=== PATIENT | female | born 1965 | race Caucasian/White ===

== ENCOUNTER 2016-07-09 22:33 | Inpatient (IN) ==
[2016-07-09 23:28] LABS: MANUAL DIFF NEEDED? NO
[2016-07-09 23:51] LABS: EOS# 1.16 X1000 (0.0-0.7); HEMATOCRIT 34.4 % (37.0-47.0); HEMOGLOBIN 11.8 g/dL (12.0-16.0); IMM GRAN# 0.05 X1000 (0.0-0.04); IMM GRAN% 0.4 % (0.0-0.5); LYMPH# 1.68 X1000 (1.2-3.4); LYMPH% 14.5 % (20.5-51.1); MCH 26.6 PG (27-31); MCHC 34.3 g/dL (33-37); MCV 77.7 FL (81-99); MONO# 0.65 X1000 (0.11-0.59); MONO% 5.6 % (1.7-9.3); MPV 9.4 FL (7.4-10.4); NEUT% 68.5 % (42.2-75.2); PLT 460 X1000 (130-400); RBC 4.43 XMIL (4.2-5.4)
[2016-07-09 23:59] LABS: ALBUMIN 2.8 g/dL (3.5-5.0); CALCIUM 8.5 mg/dL (8.8-10.2); POTASSIUM 3.7 mmol/L (3.5-5.1); TOTAL BILIRUBIN 0.11 mg/dL (0.20-1.00); TOTAL PROTEIN 6.8 g/dL (6.3-8.3)
[2016-07-10] MEDS ORDERED: VANCOMYCIN 1 GM/NS 1 GM/250 ML IVPB IV ONE (00:38)
[2016-07-10] MEDS ORDERED: NS 1,000 ML IV ONE (00:39)
[2016-07-10] MEDS ORDERED: ZOFRAN IV ONE (00:39)
[2016-07-10] MEDS ORDERED: MORPHINE IV ONE (00:39)
[2016-07-10] MEDS ORDERED: ROCEPHIN 2 GM/NS 2 GM/50 ML IVPB IV ONE (00:39)
[2016-07-10 00:59] LABS: ALLEN TEST YES; BE -2.4 mmoll (-3.0-3.0); BLOOD TYPE ARTERIAL; DRAW SITE R RADIAL; O2(CT) 15.6 mL/dL (15.0-23.0); PCO2(98.6) 42 mmHg (35-45); PO2(98.6) 82 mmHg (60-100); SAMPLE BLOOD; SAO2 96.6 % (95.0-100.0); THB 11.5 g/dL (11.5-17.4); pH(98.6) 7.35 (7.35-7.45)
[2016-07-10 01:00] LABS: MODALITY ROOM AIR
[2016-07-10 01:11] LABS: URINE CULTURE NEEDED? NO; URINE MICRO REVIEW NEEDED? NO; URINE SOURCE CLEAN CATCH
[2016-07-10 01:14] LABS: BILIRUBIN URINE NEGATIVE (NEGATIVE); BLOOD URINE SMALL (NEGATIVE); COLOR STRAW; GLUCOSE URINE >1000 mg/dL (NEGATIVE); LEUKOCYTES URINE NEGATIVE (NEGATIVE); NITRITE URINE NEGATIVE (NEGATIVE); PH URINE 6.5; PROTEIN URINE 300 mg/dL (NEGATIVE); SP GRAVITY URINE 1.019; TURBIDITY URINE CLEAR (CLEAR); UROBILINOGEN URINE NORMAL (NORMAL)
[2016-07-10] MEDS ORDERED: HUMULIN R IV ONE (01:14)
[2016-07-10 01:15] LABS: UR EPITHELIAL CELLS <10 /HPF (<10); URINE BACTERIA NEGATIVE /HPF; URINE WBC <10 /HPF (<10)
--- NOTE | 2016-07-10 01:20 | PROVIDER DOCUMENTATION ---
HPI-Rash/Wound/ReCheck - General Chief Complaint: Sores/Lesions Stated Complaint: DIABETIC FOOT INFECTION Time Seen by Provider: 07/10/16 00:14 Source: patient Allergies/Adverse Reactions: Allergies Allergy/AdvReac Type Severity Reaction Status Date / Time amoxicillin Allergy ITCHING Verified 07/09/16 23:11 tramadol Allergy HEADACHE Verified 07/09/16 23:11 Home Medications: Home Medication List Medication Instructions Recorded Confirmed Last Taken Type Gabapentin 800 mg PO TID 11/27/14 07/10/16 07/09/16 History Insulin Glargine [Lantus] 42 unit SUBQ QAM 07/17/15 07/10/16 07/05/16 History Omeprazole 20 mg PO DAILY 07/17/15 07/10/16 07/05/16 History Duloxetine [Cymbalta] 60 mg PO DAILY 09/10/15 07/10/16 07/07/16 History Insulin Glargine [Lantus] 42 units SQ QHS 02/20/16 07/10/16 07/05/16 History Levothyroxine Sodium [Synthroid] 100 microgm PO DAILY 02/20/16 07/10/16 History Furosemide [Lasix] 40 mg PO DAILY 04/04/16 07/10/16 07/07/16 History Metformin HCl [Metformin HCl] 500 mg PO BID CC 06/12/16 07/10/16 07/05/16 History Metoprolol [Lopressor] 50 mg PO DAILY 06/12/16 07/10/16 07/09/16 History Tolterodine Tartrate [Detrol LA] 4 mg PO DAILY 06/12/16 07/10/16 07/07/16 History Pilocarpine [Salagen] 5 mg PO TID #90 06/25/16 07/10/16 07/07/16 Rx Sodium Hypochlorite 0.25% [Dakin's 473 ml .SEE ORDER BID #1 bottle 06/25/1607/05/16 Rx 0.25% Soln] Duloxetine [Cymbalta] 60 mg PO DAILY 07/10/16 07/10/16 07/07/16 History - History of Present Illness-Dermatology Nature of Presenting Problem: 51 year old obese WF presents with c/o right 2nd toe swelling, tenderness and erythema spreading to the mid-calf. pt reports she was evaluated here for same the 1st week in June, admission was recommended, she refused because her daughter was graduating from college. pt now reports the wound has worsened and this morning she was taking off a dressing and the tip of the toe came off. pt reports associated fever, max temp 104 at home, chills, nausea and decreased appetite. pt reports she has been out of insulin for a week. she receives care at the [facility] and has recently had to prove qualification and has missed appointments. Location: reports: feet Quality: reports: painful Severity: reports: moderate, severe Onset/Duration: reports: other (see HPI) Timing: reports: still present, constant, getting worse Context/Associated Symptoms: reports: abscess (diabetic ulcer), edema, fever, tender area Identifiable cause?: Yes Review of Systems - Adult - REVIEW OF SYSTEMS - ADULT Constitutional: reports: see HPI, chills, fever. denies: fatique Eyes: reports: no symptoms reported. denies: discharge, blurred vision, double vision, redness Ears, Nose, Mouth & Throat: reports: no symptoms reported. denies: ear discharge, ear pain, nose pain, loose teeth, throat pain, throat swelling Cardiovascular: reports: no symptoms reported. denies: chest pain, palpitations , syncope Respiratory: reports: no symptoms reported. denies: chronic cough, cough, shortness of breath, wheezing Gastrointestinal: reports: see HPI, nausea, poor appetite. denies: abdominal pain, diarrhea, vomiting Genitourinary: reports: no symptoms reported. denies: dysuria, hematuria, urgency Musculoskeletal: reports: see HPI, bone pain, joint pain, joint swelling Integumentary: reports: see HPI, rash, skin sores/ulcer Neurological: reports: no symptoms reported. denies: ataxia, numbness, paresthesia Psychiatric: reports: no symptoms reported Endocrine: reports: no symptoms reported Hematologic/Lymphatic: reports: no symptoms reported Allergic/Immunologic: reports: no symptoms reported All Other Systems: Reviewed and Negative Past History - Adult - PAST MEDICAL HISTORY-ADULT Review of Records: reports: Old Records Reviewed, Nursing Assessment Review, Medications Reviewed, Social history reviewed & non-contributory. Major Childhood Illnesses: reports: denies history Cardiovascular: reports: HTN, hyperlipidemia Respiratory: reports: asthma Gastrointestinal: reports: denies history Obstetrical/Gynecological: reports: denies history Genitourinary: reports: denies history Musculoskeletal: reports: denies history Neurological: reports: denies history Endocrine/Immune: reports: Diabetes, thyroid disorder Other Conditions: reports: other (diabetic retinopathy) - PRIOR SURGERIES/PROCEDURES Surgical/Procedure History: reports: BTL, , other (thyroidectomy) - IMMUNIZATION STATUS Childhood Immunizations: See Nurse Assessment Flu Vaccine: See Nurse Assessment - FAMILY HISTORY Family History: reviewed, not pertinent Physical Exam-General - PHYSICAL EXAM-ADULT Initial Vital Signs Reviewed: Yes - CONSTITUTIONAL General Appearance: appears well, alert, no apparent distress, obese. negative : mild distress, moderate distress, severe distress - EYES Eyes: pink conjunctivae. negative: conjuctival exudate, sclera injected, scleral icterus, subconjunctival hemorrhage - HEAD, EARS, NOSE, MOUTH & THROAT HENMT: normocephalic/atraumatic, moist mucous membranes - NECK Neck: non-tender, full range of motion, supple, normal inspection. negative: C- spine tenderness, limited range of motion, tender lateral, tender midline - RESPIRATORY Respiratory: chest non-tender, lungs clear, normal breath sounds, no pleuratic chest pain, no respiratory distress, no accessory muscle use. negative: respiratory distress, decreased breath sounds, accessory muscle use, crackles, rales, rhonchi, stridor, wheezing - CARDIOVASCULAR Cardiovascular: normal peripheral pulses, regular rate, rhythm - GASTROINTESTINAL (ABDOMEN) Abdominal Exam: normal bowel sounds, non tender, soft - MUSCULOSKELETAL Back Exam: normal inspection, no CVA tenderness, no vertebral tenderness. negative: CVA tenderness, decreased range of motion, swelling, vertebral tenderness Extremity: swelling, tenderness, other (distal tip of right 2nd toe missing with visualization of bone; profound surrounding erythema/maceration. erythema to right lower extremity from toes to mid calf. +[address]) Peripheral Pulses: radial (R): 3+, radial (L): 3+, dorsalis-pedis (R): 3+, dorsalis-pedis (L): 3+ - SKIN Integumentary: normal color, normal turgor, warm/dry - NEUROLOGIC Neurologic: grossly normal, no motor/sensory deficits - PSYCHIATRIC Psych/Mental Status: normal mood/affect, normal thought content, normal thought process, oriented x 3 Progress - PLAN OF CARE/RESULTS Progress/Plan/Lab Results: Vital Signs - 8 hr 07/09/16 23:09 Temperature 97.9 F Pulse Rate 82 Respiratory Rate 17 Blood Pressure 215/84 O2 Sat by Pulse Oximetry 99 Laboratory Results - last 24 hr 07/09/16 07/09/16 07/10/16 23:17 23:17 00:45 WBC 11.59 H RBC 4.43 Hgb 11.8 L Hct 34.4 L MCV 77.7 L MCH 26.6 L MCHC 34.3 RDW Std Deviation 14.8 H Plt Count 460 H MPV 9.4 Immature Gran % (Auto) 0.4 Neut % (Auto) 68.5 Lymph % (Auto) 14.5 L [place] % (Auto) 5.6 Eos % (Auto) 10.0 Baso % (Auto) 1.0 H Immature Gran # (Auto) 0.05 H Neut # (Auto) 7.93 H Lymph # (Auto) 1.68 [place] # (Auto) 0.65 H Eos # (Auto) 1.16 H Baso # (Auto) 0.12 Specimen Type ARTERIAL Sample Site R RADIAL pH 7.35 pCO2 42 pO2 82 HCO3 23.0 Base Excess -2.4 Oxyhemoglobin 95.7 ABG O2 Sat (Calculated) 15.6 ABG O2 Saturation 96.6 ABG Carboxyhemoglobin 0.90 ABG Methemoglobin 0.0 Kris Test YES A-a O2 Difference 15.0 Total Hemoglobin 11.5 Lactate 1.60 Blood Gas Modality ROOM AIR FiO2 % 21.0 Sodium 132 L Potassium 3.7 Chloride 96 L Carbon Dioxide 22 L Anion Gap 14 BUN 18 Creatinine 1.4 H Estimated GFR/1.73 m2 40 BUN/Creatinine Ratio 13 Glucose 514 H* Calculated Osmolality 290 Calcium 8.5 L Total Bilirubin 0.11 L AST 11 ALT 10 Alkaline Phosphatase 100 Total Protein 6.8 Albumin 2.8 L Globulin 4.0 Albumin/Globulin Ratio 0.7 Urine Source Urine Color Urine Turbidity Urine pH Ur Specific [place] Urine Protein Ur Glucose (Stick) Ur Ketones (Stick) Urine Blood Urine Nitrite Urine Bilirubin Urobilinogen Dipstick Urine Leukocytes Urine WBC (Auto) Urine RBC (Auto) U Epithel Cells (Auto) Urine Bacteria (Auto) Acetone Level 07/10/16 07/10/16 00:45 01:10 WBC RBC Hgb Hct MCV MCH MCHC RDW Std Deviation Plt Count MPV Immature Gran % (Auto) Neut % (Auto) Lymph % (Auto) [place] % (Auto) Eos % (Auto) Baso % (Auto) Immature Gran # (Auto) Neut # (Auto) Lymph # (Auto) [place] # (Auto) Eos # (Auto) Baso # (Auto) Specimen Type Sample Site pH pCO2 pO2 HCO3 Base Excess Oxyhemoglobin ABG O2 Sat (Calculated) ABG O2 Saturation ABG Carboxyhemoglobin ABG Methemoglobin Kris Test A-a O2 Difference Total Hemoglobin Lactate Blood Gas Modality FiO2 % Sodium Potassium Chloride Carbon Dioxide Anion Gap BUN Creatinine Estimated GFR/1.73 m2 BUN/Creatinine Ratio Glucose Calculated Osmolality Calcium Total Bilirubin AST ALT Alkaline Phosphatase Total Protein Albumin Globulin Albumin/Globulin Ratio Urine Source CLEAN CATCH Urine Color STRAW Urine Turbidity CLEAR Urine pH 6.5 Ur Specific [place] 1.019 Urine Protein 300 A Ur Glucose (Stick) >1000 A Ur Ketones (Stick) NEGATIVE Urine Blood SMALL A Urine Nitrite NEGATIVE Urine Bilirubin NEGATIVE Urobilinogen Dipstick NORMAL Urine Leukocytes NEGATIVE Urine WBC (Auto) <10 Urine RBC (Auto) 10-20 A U Epithel Cells (Auto) <10 Urine Bacteria (Auto) NEGATIVE Acetone Level NEGATIVE Orders Category Date Time Status Saline Loc NOW Care 07/10/16 00:40 Active CHEST-2 VIEWS [RAD] Stat Exams 07/10/16 00:35 Taken TOE(S)-RIGHT [RAD] Stat Exams 07/10/16 00:36 Taken ABG [RESP] Routine Lab 07/10/16 00:45 Completed ACETONE SERUM [CHEM] Stat Lab 07/10/16 00:45 Completed BLOOD CULTURE [BLDCUL] Stat Lab 07/10/16 00:16 Ordered CBC WITH ELECTRONIC DIFF [HEME] Stat Lab 07/09/16 23:17 Completed CMP [COMPREHENSIVE METABOLIC PANEL] [CHEM] Stat Lab 07/09/16 23:17 Completed LACTATE, PLASMA [CHEM] Stat Lab 07/10/16 01:15 Received UA NIMS W/REFLEX CULT [URINALYSIS] Stat Lab 07/10/16 01:10 Completed 0.9% Sodium Chloride Inj [Ns] 1,000 ml Med 07/10/16 00:39 Active IV 999 mls/hr CefTRIAXONE 2 GM/NS [Rocephin 2 gm/Ns] Med 07/10/16 00:39 Discontinued 2 gm in 50 ml IV NOW Insulin Human Regular [Humulin R] Med 07/10/16 01:14 Discontinued 5 unit IV NOW ONE Morphine Med 07/10/16 00:39 Discontinued 2 mg IV NOW ONE Ondansetron [Zofran] Med 07/10/16 00:39 Discontinued 4 mg IV NOW ONE Vancomycin 1 gm/Ns Med 07/10/16 00:38 Active 1 gm in 250 ml IV NOW EKG [EKG] Stat Ther 07/10/16 00:35 Ordered US [Venous U/S Right Leg] Stat Ther 07/10/16 00:40 Ordered Laboratory Tests 07/09/16 07/09/16 07/10/16 23:17 23:17 00:45 WBC 11.59 H RBC 4.43 Hgb 11.8 L Hct 34.4 L MCV 77.7 L MCH 26.6 L MCHC 34.3 RDW Std Deviation 14.8 H Plt Count 460 H MPV 9.4 Immature Gran % (Auto) 0.4 Neut % (Auto) 68.5 Lymph % (Auto) 14.5 L [place] % (Auto) 5.6 Eos % (Auto) 10.0 Baso % (Auto) 1.0 H Immature Gran # (Auto) 0.05 H Neut # (Auto) 7.93 H Lymph # (Auto) 1.68 [place] # (Auto) 0.65 H Eos # (Auto) 1.16 H Baso # (Auto) 0.12 Specimen Type ARTERIAL Sample Site R RADIAL pH 7.35 pCO2 42 pO2 82 HCO3 23.0 Base Excess -2.4 Oxyhemoglobin 95.7 ABG O2 Sat (Calculated) 15.6 ABG O2 Saturation 96.6 ABG Carboxyhemoglobin 0.90 ABG Methemoglobin 0.0 Kris Test YES A-a O2 Difference 15.0 Total Hemoglobin 11.5 Lactate 1.60 Blood Gas Modality ROOM AIR FiO2 % 21.0 Sodium 132 L Potassium 3.7 Chloride 96 L Carbon Dioxide 22 L Anion Gap 14 BUN 18 Creatinine 1.4 H Estimated GFR/1.73 m2 40 BUN/Creatinine Ratio 13 Glucose 514 H* Calculated Osmolality 290 Calcium 8.5 L Total Bilirubin 0.11 L AST 11 ALT 10 Alkaline Phosphatase 100 Total Protein 6.8 Albumin 2.8 L Globulin 4.0 Albumin/Globulin Ratio 0.7 Urine Source Urine Color Urine Turbidity Urine pH Ur Specific [place] Urine Protein Ur Glucose (Stick) Ur Ketones (Stick) Urine Blood Urine Nitrite Urine Bilirubin Urobilinogen Dipstick Urine Leukocytes Urine WBC (Auto) Urine RBC (Auto) U Epithel Cells (Auto) Urine Bacteria (Auto) Acetone Level 07/10/16 07/10/16 00:45 01:10 WBC RBC Hgb Hct MCV MCH MCHC RDW Std Deviation Plt Count MPV Immature Gran % (Auto) Neut % (Auto) Lymph % (Auto) [place] % (Auto) Eos % (Auto) Baso % (Auto) Immature Gran # (Auto) Neut # (Auto) Lymph # (Auto) [place] # (Auto) Eos # (Auto) Baso # (Auto) Specimen Type Sample Site pH pCO2 pO2 HCO3 Base Excess Oxyhemoglobin ABG O2 Sat (Calculated) ABG O2 Saturation ABG Carboxyhemoglobin ABG Methemoglobin Kris Test A-a O2 Difference Total Hemoglobin Lactate Blood Gas Modality FiO2 % Sodium Potassium Chloride Carbon Dioxide Anion Gap BUN Creatinine Estimated GFR/1.73 m2 BUN/Creatinine Ratio Glucose Calculated Osmolality Calcium Total Bilirubin AST ALT Alkaline Phosphatase Total Protein Albumin Globulin Albumin/Globulin Ratio Urine Source CLEAN CATCH Urine Color STRAW Urine Turbidity CLEAR Urine pH 6.5 Ur Specific [place] 1.019 Urine Protein 300 A Ur Glucose (Stick) >1000 A Ur Ketones (Stick) NEGATIVE Urine Blood SMALL A Urine Nitrite NEGATIVE Urine Bilirubin NEGATIVE Urobilinogen Dipstick NORMAL Urine Leukocytes NEGATIVE Urine WBC (Auto) <10 Urine RBC (Auto) 10-20 A U Epithel Cells (Auto) <10 Urine Bacteria (Auto) NEGATIVE Acetone Level NEGATIVE Orders Category Date Time Status Saline Loc NOW Care 07/10/16 00:40 Active CHEST-2 VIEWS [RAD] Stat Exams 07/10/16 00:35 Taken TOE(S)-RIGHT [RAD] Stat Exams 07/10/16 00:36 Taken ABG [RESP] Routine Lab 07/10/16 00:45 Completed ACETONE SERUM [CHEM] Stat Lab 07/10/16 00:45 Completed BLOOD CULTURE [BLDCUL] Stat Lab 07/10/16 00:16 Ordered CBC WITH ELECTRONIC DIFF [HEME] Stat Lab 07/09/16 23:17 Completed CMP [COMPREHENSIVE METABOLIC PANEL] [CHEM] Stat Lab 07/09/16 23:17 Completed LACTATE, PLASMA [CHEM] Stat Lab 07/10/16 01:15 Received UA NIMS W/REFLEX CULT [URINALYSIS] Stat Lab 07/10/16 01:10 Completed 0.9% Sodium Chloride Inj [Ns] 1,000 ml Med 07/10/16 00:39 Active IV 999 mls/hr CefTRIAXONE 2 GM/NS [Rocephin 2 gm/Ns] Med 07/10/16 00:39 Discontinued 2 gm in 50 ml IV NOW Insulin Human Regular [Humulin R] Med 07/10/16 01:14 Discontinued 5 unit IV NOW ONE Morphine Med 07/10/16 00:39 Discontinued 2 mg IV NOW ONE Ondansetron [Zofran] Med 07/10/16 00:39 Discontinued 4 mg IV NOW ONE Vancomycin 1 gm/Ns Med 07/10/16 00:38 Active 1 gm in 250 ml IV NOW EKG [EKG] Stat Ther 07/10/16 00:35 Ordered US [Venous U/S Right Leg] Stat Ther 07/10/16 00:40 Ordered Vital Signs - 24 hr 07/09/16 23:09 Temperature 97.9 F Pulse Rate 82 Respiratory Rate 17 Blood Pressure 215/84 O2 Sat by Pulse Oximetry 99 Reviewed radiology, labs, H&P with Dr. Raman, agrees with plan of care/ treatment/admission. Result Diagrams: 07/09/16 23:17 07/09/16 23:17 - XRAY 1 XRAY Study: Chest Impression: Normal (per Dr. Raman) 2 XRAY: Right XRAY Study: other (toes: osteomylitis to 2nd toe per Dr. Raman) - ULTRASOUND (By Radiology) 1 US Study: Lower Ext (right: no DVT per tech) - CONSULTS/PCP/HOSPITALIST Notification #1 *Consult/PCP/Hospitalist*: Dr. Sheffield Time Discussed: 01:40 Consult Disposition: Will see in ED, Admit Departure - Departure Time of Disposition Decision: 01:15 DIAGNOSIS: Cellulitis Qualifiers: Site of cellulitis: extremity Site of cellulitis of extremity: toe Laterality: right Qualified Code(s): L03.031 - Cellulitis of right toe Osteomyelitis Qualifiers: Osteomyelitis type: other Osteomyelitis location: foot Laterality: right Qualified Code(s): M86.8X7 - Other osteomyelitis, ankle and foot Hyperglycemia due to type 2 diabetes mellitus Qualifiers: Diabetes mellitus shearing shed hand insulin use: with shearing shed hand use Qualified Code(s): E11.65 - Type 2 diabetes mellitus with hyperglycemia; Z79.4 - supervisor carbon electrodes (current ) use of insulin Disposition: ADMITTED INPATIENT 09 Certified Medical Emergency: Emergent Condition: Stable Referrals and Follow-Ups: None,PCP [Primary Care Provider] - - Critical Care Note This patient required my direct & personal management of CC.: No Attestation - Physician/ SRUTHI Attestation Patient care was provided by Advanced Practice Provider:: Yes Advanced Practice Provider:: Nilton Petty Advanced Practice Provider documentation review:: The Mid-level provider documentation, treatment plan and medical decision making was reviewed by the physician who agrees with all treatment and medical decision making by the MLP.
[2016-07-10] MEDS ORDERED: TYLENOL PO PRN (03:57)
[2016-07-10] MEDS ORDERED: ZOFRAN IV PRN (03:57)
[2016-07-10] MEDS ORDERED: VANCOMYCIN IV PER PHARMACY MISC SCH (03:57)
[2016-07-10] MEDS ORDERED: MAXIPIME 1 GM/NS 1 GM/50 ML IVPB IV SCH (03:57)
[2016-07-10] MEDS: BENADRYL IV PRN ×4 (04:00→23:34)
[2016-07-10] MEDS: NS 1,000 ML IV SCH ×2 (05:21→21:42)
[2016-07-10] MEDS: HUMALOG SUBQ SCH ×6 (05:22→23:34)
[2016-07-10] MEDS: SYNTHROID PO SCH (06:34)
--- NOTE | 2016-07-10 07:20 | Diag Imaging Result Doc PS360 ---
EXAM: CHEST-2 VIEWS HISTORY: admission COMPARISON: 02/20/2016. FINDINGS: The lungs are well expanded. The heart is not enlarged. The vessels are not distended. There are no infiltrates. No pleural effusions. IMPRESSION: No acute abnormality. Electronically signed by Magdaleno Lovell 07/10/2016 7:18 AM
--- NOTE | 2016-07-10 07:52 | Diag Imaging Result Doc PS360 ---
TOE(S)-RIGHT - 07/10/2016 INDICATION: eval for osteo 2nd toe COMPARISON: 06/12/2016 FINDINGS: There is worsening, severe soft tissue swelling over the second toe. There appears to be ulceration at the distal second toe. Related to this, there is erosion of the distal half of the distal phalanx of the second toe. There is also a transverse fracture through the middle phalanx which is mildly displaced. No soft tissue gas or foreign body. IMPRESSION: 1. Worsening cellulitis of the second toe, with osteomyelitis and erosion of the distal half of the distal phalanx. 2. Transverse fracture through the middle phalanx of the second toe. Electronically signed by Anton Dixon 07/10/2016 7:49 AM
[2016-07-10] MEDS ORDERED: VANCOMYCIN 1,400 MG in NS 250 ML IV ONE (08:00)
[2016-07-10] MEDS: SALAGEN PO SCH ×3 (10:08→21:43)
[2016-07-10] MEDS: NORVASC PO SCH (10:08)
[2016-07-10] MEDS: LOPRESSOR PO SCH (10:08)
[2016-07-10] MEDS: DETROL LA PO SCH (10:08)
[2016-07-10] MEDS: CYMBALTA PO SCH (10:09)
[2016-07-10] MEDS: NEURONTIN PO SCH ×3 (10:09→21:43)
[2016-07-10] MEDS: LANTUS SUBQ SCH ×2 (10:11→21:54)
[2016-07-10] MEDS: MORPHINE IV PRN ×4 (11:43→21:44)
--- NOTE | 2016-07-10 14:01 | Extremity Venous Study ---
PROCEDURE NAME: Venous U/S Right Leg - 07/10/2016 MANAGER SHIP: Josie REQUESTING PHYSICIAN: Charla Raman MD INDICATIONS: Infected diabetic toe. FINDINGS: All deep and superficial veins in the right lower extremity were visualized along their course. All veins compressible with forward flow. No evidence of intraluminal thrombus. There is some prominent lymphadenopathy in the right groin noted, but no deep or superficial venous thrombosis seen. cc: Riddhi Alaniz MD
--- NOTE | 2016-07-10 16:10 | CONSULTATION ---
DATE OF CONSULTATION: 07/10/2016 CONCLUSION: Patient is admitted to the hospital with osteomyelitis of the right 2nd toe. She has a positive blood culture for Gram-positive cocci, which I assume most likely originated from the toe infection. The patient's whole right leg is swollen. She has previously been tested for a blood clot in the leg and it was negative. RECOMMENDATIONS: I agree with treating the patient with vancomycin. For now, I think we can discontinue cefepime, pending final culture results. DISCUSSION: The patient tells me that approximately 6 weeks ago her right 2nd toe became swollen and erythematous. It became progressively worse and then developed a black color. The patient ultimately was admitted to the hospital here for gangrenous cellulitis of the toe and x-ray of the toe shows osteomyelitis. Chest x-ray shows no acute disease. Urinalysis shows no white cells or bacteria. One of 2 blood cultures is growing a Gram-positive coccus. The patient's blood gases show a pH of 7.35, PO2 of 82, and a pCO2 of 42. CBC shows a white count of 11, 590, hemoglobin 11.8, and platelet count 460,000. Creatinine is 1.4. The GFR is 40. PAST MEDICAL HISTORY/OBSTETRICAL AND GYNECOLOGICAL HISTORY: She is a 3 , para 3, AB 0. She delivered all of her children by . She has a tubal ligation. REVIEW OF SYSTEMS: Ears and Ears: The patient wears contacts, but her hearing is okay. Neck: No stiffness. Respiratory: No cough or shortness of breath. Cardiovascular: No chest pain or palpitations. Gastrointestinal: No nausea, vomiting, or diarrhea. Genitourinary: No dysuria. Bones, joints, muscles: No joint swelling or myalgias. Neurologic: No seizures or loss of strength. Endocrine: Patient has diabetes mellitus and hypothyroidism. Integument: No rash. The remainder of the review of systems was completed and was negative. PREVIOUS HOSPITALIZATIONS AND OPERATIONS: She has had the left side of her thyroid removed. She has had 3 sections and a tubal ligation. MEDICAL DISEASES: Positive for diabetes mellitus and hypertension. INFECTIOUS DISEASE HISTORY: Patient has previously had an infection in her left foot. She has also had pneumonia and urinary tract infection. FAMILY HISTORY: Positive for diabetes mellitus, hypertension, myocardial infarction, and stroke. SOCIAL HISTORY: [place] She does not drink or smoke. She is . She has dogs for pets. She lives with her daughter. 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 ALLERGIES: She has an allergy to amoxicillin, manifested by itching. She has been on cefepime since she came in the hospital and she tolerated it well. HOME MEDICATIONS: Omeprazole, Cymbalta, Salagen, Lasix, Lantus, gabapentin, Synthroid, Lopressor, metformin, and Detrol LA. ADDENDUM: See later dictation done today for physical examination. Thank you for the consult. cc: Sachin Petty MD MTDD
--- NOTE | 2016-07-10 18:31 | CONSULTATION ---
DATE OF CONSULTATION: 07/10/2016 HISTORY OF PRESENT ILLNESS: This is a 51-year-old, white female, with a history of poorly- controlled diabetes, hypertension, who presents with right 2nd toe wound. It is quite painful. She has had subjective fevers at home. She has been admitted to medicine service and started on IV antibiotics. She has had no symptoms of peripheral vascular disease. She does have some neuropathy symptoms. Has not sought care for from this wound of recent. MEDICAL HISTORY: 1. Diabetes. 2. History of thyroid nodule, status post thyroid lobectomy. 3. Hyperlipidemia. 4. Gastroesophageal reflux. 5. Hypertension. 6. Depression. 7. Bladder issues. PAST SURGICAL HISTORY: She had x3, tubal ligation, and a thyroid lobectomy. MEDICATIONS: Negative for anticoagulant; otherwise, per her MAR. SOCIAL HISTORY: Never smoke. Occasional alcohol. No drugs. 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 REVIEW OF SYSTEMS: 10 point negative other than HPI PHYSICAL EXAMINATION: Vital Signs: Temperature is 98.1 degrees, pulse 84, blood pressure 143/64, O2 saturation 95% on room air. General: She is alert, in no acute distress. HEENT: No scleral icterus. Cardiovascular: Normal rate and regular rhythm. Pulmonary: No increased work of breathing. Abdomen: Soft, nontender, nondistended. Extremities: Left foot is warm, well perfused with 2+ pedal pulses. No wounds here, but some flattening of the plantar arch consistent with diabetic changes on the right. There is a necrotic, erythematous, and swollen nonfunctional right 2nd toe. There is some edema and some mild cellulitis of distal leg and foot, but no progression of necrosis of the foot. The foot otherwise warm with palpable pedal pulses. They are mildly diminished relative to the left due to the edema that is present. LABS: White count is 11, hematocrit 34, creatinine is 1.4. Glucose was 514 at admission, is down to 97. Lactate is 1.2. IMAGING: X-ray of the foot shows osteomyelitis with erosion in the distal half of the distal phalanx and a transverse fracture through the middle phalanx of the 2nd toe. ASSESSMENT: This is a 51-year-old, poorly controlled diabetic female, who presents with osteomyelitis and necrosis of right second toe. There is some mild associated cellulitis of the foot, but on see any threatening wounds of the foot. She is eating breakfast this morning as I interviewed her. The risks, benefits, and alternatives were discussed with the patient and she consents to amputation right 2nd toe with debridement of the foot as indicated. In the meantime, continue on broad-spectrum antibiotics. I have posted her for tomorrow. Would continue Betadine paint to the toe today. Plan is for surgery tomorrow. Make her NPO at midnight. We will continue follow along. cc: Riddhi Alaniz MD MTDD
--- NOTE | 2016-07-10 22:04 | HISTORY AND PHYSICAL ---
CHIEF COMPLAINT: Pain and swelling in her middle 2nd toe 0 on her right foot. HISTORY OF PRESENT ILLNESS: Briefly, this is a 51-year-old female with uncontrolled diabetes, who presents from home with pain and swelling in her toe. This initially started about 6 weeks ago, she reports. She came in for evaluation and was placed on antibiotics, clindamycin and, I believe, Bactrim. She had some improvement but she came back to the ER. She came on the , and then she came back on the . It had not improved and they recommended admission at that time, but patient refused because her daughter was graduating and she did not want to pursue admission. In any case, I am not sure if she was put on antibiotics at that time, but in and she has obviously not improved. She came in today for other evaluation. She does not have insurance and has difficulty with her medication. She is on a fairly high dose Lantus and she has been out for about 5 or 6 days. She has been usually followed [facility] but was unable to afford her insulin. Patient also presented with a sugar above 500. The patient is admitted for diabetic toe, probably possible necrotic with underlying osteomyelitis and uncontrolled diabetes. PAST MEDICAL HISTORY: 1. Diabetes type 2. 2. Depression. 3. Obviously peripheral neuropathy. 4. Hypothyroidism. PAST SURGICAL HISTORY: She has had a partial thyroidectomy associated with, I believe, an overactive thyroid. SOCIAL HISTORY: No tobacco or ethanol. ALLERGIES: Penicillins. REVIEW OF SYSTEMS: Otherwise negative times a 10-point review of systems. FAMILY HISTORY: Mother had diabetes and heart disease. Father of cirrhosis complications thereof. PHYSICAL EXAMINATION: VITAL SIGNS: Blood pressure 215/84, heart rate of 82, respiratory rate 17, temperature 97.9 degrees. GENERAL: A well-developed female, in no acute distress. HEAD: Normocephalic, atraumatic. EYES: Pupils equal, round, reactive to light. Extraocular movements were intact. EAR/NOSE/THROAT: She had moist mucous membranes. NECK: Supple. CARDIOVASCULAR: Regular rate and rhythm. PULMONARY: Bilateral breath sounds. Clear to auscultation. GI: Soft, nontender, nondistended. Bowel sounds were positive. Obese abdomen. EXTREMITIES: She had swelling in her right lower extremity with erythema. NEUROLOGICAL: Nonfocal. SKIN: She had a boggy edematous index toe on the right side with an open sore on the roof of her toe, the front portion of the toe that looks like it tracks down to the bone. There is erythema over the dorsum of the foot as well. LABORATORY DATA: White count 11.5, hemoglobin 11, hematocrit 34. ABG was okay. Basic was okay except for blood sugar 514, creatinine of 1.4. PROBLEM LIST: 1. This is a 51-year-old female with uncontrolled diabetes and a necrotic toe with underlying infection, possible underlying osteomyelitis. We will continue empiric antibiotics and get a surgical opinion because she may need amputation or debridement. So, we will do arterial studies to evaluate for circulation and follow clinically. Need to follow up on her x-ray to see about other treatment options. If they plan to do significant debridement or amputation, she may not need IV antibiotics which may be difficult with her because of her lack of social support. 2. Uncontrolled diabetes. We will continue her regular medications and follow. Continue to monitor her blood sugar very closely. 3. Hypertension is not controlled. I think she would benefit from an NOEMI; however, patient is in some degree of renal insufficiency, so I am going to hold on NOEMI right now. 4. Acute kidney injury. We will continue to follow. May be related to her current infection. We will give gentle hydration and monitor. DISPOSITION: Pending her clinical course. We will continue to follow. cc: Ino Sheffield MD MTDD
--- NOTE | 2016-07-11 04:49 | CONSULTATION ---
DATE OF CONSULTATION: 07/10/2016 ADDENDUM PHYSICAL EXAMINATION: Vital Signs: Temperature is 98.1 degrees, pulse 81, respirations 18, blood pressure 140/62. Patient weighs 249 pounds. Generally: This is an obese, middle-aged female. She is in no acute distress. Head, eyes, ears, nose, and throat: She can hear my spoken words and see near objects. No drainage noted from the nose or ears. Neck: No meningismus. Thorax: No increased AP diameter of the chest. Lungs: Clear to auscultation. Cardiovascular: Heart rate is regular. Abdomen: Soft and nontender. Extremities: The right leg is more swollen than the left. The right 2nd toe is erythematous and has also areas of necrosis where it is black. There is an ulcer on the toe that is not draining. Neurologic: Patient is alert. She can move her extremities. There is no tremor. Her sensation was intact to touch. Her memory, as regarding her medical history was good. Thank you for the consult. cc: Sachin Petty MD
[2016-07-11 05:06] LABS: MANUAL DIFF NEEDED? NO
[2016-07-11 05:14] LABS: BASO% 1.2 % (0.0-0.8); EOS# 1.34 X1000 (0.0-0.7); EOS% 11.1 % (0.0-10.0); HEMATOCRIT 33.4 % (37.0-47.0); HEMOGLOBIN 11.3 g/dL (12.0-16.0); IMM GRAN# 0.05 X1000 (0.0-0.04); IMM GRAN% 0.4 % (0.0-0.5); LYMPH# 2.99 X1000 (1.2-3.4); LYMPH% 24.9 % (20.5-51.1); MCH 26.8 PG (27-31); MCHC 33.8 g/dL (33-37); MCV 79.3 FL (81-99); MONO# 0.91 X1000 (0.11-0.59); MONO% 7.6 % (1.7-9.3); MPV 9.2 FL (7.4-10.4); NEUT% 54.8 % (42.2-75.2); PLT 498 X1000 (130-400); RBC 4.21 XMIL (4.2-5.4)
[2016-07-11 05:25] LABS: CALCIUM 8.2 mg/dL (8.8-10.2)
[2016-07-11] MEDS: HUMALOG SUBQ SCH ×5 (06:13→20:29)
[2016-07-11] MEDS: SYNTHROID PO SCH (06:13)
[2016-07-11] MEDS ORDERED: PEPCID ONE (07:48)
[2016-07-11] MEDS ORDERED: REGLAN ONE (07:48)
[2016-07-11] MEDS: NS 1,000 ML IV SCH ×2 (07:52→20:28)
[2016-07-11] MEDS: VANCOMYCIN 1,850 MG in NS 500 ML IV SCH (08:22)
[2016-07-11] MEDS ORDERED: FENTANYL ONE (08:36)
[2016-07-11] MEDS ORDERED: DIPRIVAN 1% ONE (08:36)
[2016-07-11] MEDS ORDERED: CLAVE SECONDARY SET 11953 ONE (09:00)
[2016-07-11] MEDS ORDERED: ANESTHESIA PB SET 88 IN 5742 ONE (09:00)
[2016-07-11] MEDS: CYMBALTA PO SCH (09:42)
[2016-07-11] MEDS: LANTUS SUBQ SCH ×2 (09:43→20:28)
[2016-07-11] MEDS: DETROL LA PO SCH (09:43)
[2016-07-11] MEDS: NORVASC PO SCH (09:43)
[2016-07-11] MEDS: LOPRESSOR PO SCH (09:43)
[2016-07-11] MEDS: NEURONTIN PO SCH ×4 (09:43→16:11)
[2016-07-11] MEDS: SALAGEN PO SCH ×4 (09:44→16:11)
--- NOTE | 2016-07-11 09:52 | OPERATIVE NOTE ---
PROCEDURE DATE: 07/11/2016 PREOPERATIVE DIAGNOSIS: Diabetic infected toe with osteomyelitis and pathologic fracture of the right 2nd toe. POSTOPERATIVE DIAGNOSIS: Diabetic infected toe with osteomyelitis and pathologic fracture of the right 2nd toe. PROCEDURE: Amputation the right 2nd toe with debridement of the metatarsal head. SURGEON: Cristian Alaniz MD COMPLICATION: None. ESTIMATED BLOOD LOSS: 5 mL. ANESTHESIA: General. DRAINS: None. INDICATION: A 51-year-old female who presents with a painful necrotic red and swollen toe with osteomyelitis changes and pathologic fracture on x-ray. Amputation is indicated. Risks, benefits, alternatives discussed with the patient, she consented to the procedure. She was seen in the preoperative area and surgery to be performed confirmed. DESCRIPTION OF PROCEDURE: She was taken to the operating room, placed in supine position. General anesthesia was induced without complication. She was seen in the preoperative area and surgery site was marked. Schedule antibiotics were confirmed. Her right foot was prepped with Betadine solution draped in usual fashion. After time-out, an elliptical incision was made around the toe and was made with a 15 blade scalpel. We continued this dissection with electrocautery down to the level of the joint capsule incised this and removed the toe in its entirety. The metatarsal head appeared healthy, but we did use a rongeur and debride back some to bleeding bone here. The wound was clean. There was no gross purulence other than the necrotic tissue at the tip of the toe. She tolerated it well. We used saline Kerlix wrap for dressing. No identified complication, transferred to the PACU in good condition. I attempted to speak with the family. cc: Riddhi Alaniz MD
[2016-07-11] MEDS ORDERED: VERSED ONE (10:39)
--- NOTE | 2016-07-11 11:55 | PROGRESS NOTE ---
DATE: 07/11/2016 PRESENT ILLNESS: The patient is status post amputation of her right 2nd toe. A culture taken from the toe is growing Gram-negative rods and a blood culture is growing Gram-positive cocci. MEDICATIONS: The patient is on vancomycin. I have added cefepime and have requested that the nurse watch the patient during the first dose of cefepime infusion. PHYSICAL EXAMINATION: Vital Signs: Temperature is 97.8 degrees, pulse 71, respirations 24, blood pressure 154/69. General: This is an obese, middle-aged female. She is in no acute distress. She has just come back from surgery, where her toe was amputated. Lungs: Clear to auscultation. Cardiovascular: Regular heart rate. Abdomen: Soft and nontender. Neurologic: Patient is alert. She can move her extremities. Extremities: There is a dressing around the right foot. The dressing is intact. LABORATORY AND X-RAY: The creatinine today is 1.4. The GFR is 40. The toe culture grew Gram- negative rods. Blood culture grew Gram-positive cocci. CBC today shows a white count of 12,030, hemoglobin 11.3, and platelet count 498,000. ASSESSMENT AND PLAN: The patient is status post amputation of the toe. She also has a positive blood culture and she had a culture from the amputated toe. I plan to continue with the current antibiotics pending final results of culture. I have started the patient on cefepime. She has a penicillin allergy manifested by itching. In the past, the patient has had Keflex and tolerated it well. I have placed the patient on cefepime and, since she has tolerated Keflex well, she should tolerate cefepime well. In addition, I have requested that the nurse watch the patient during the first dose of cefepime. Two days from now, a repeat of the patient's BMP will be drawn, which will include the creatinine and GFR to see if they have changed at all. In addition, I have ordered for tomorrow morning repeat blood cultures. COMORBIDITIES: Include diabetes mellitus. cc: Sachin Petty MD
[2016-07-11] MEDS: PERIDEX MT SCH ×2 (12:01→20:28)
[2016-07-11] MEDS: BENADRYL IV PRN ×2 (12:02→18:35)
[2016-07-11] MEDS: MORPHINE IV PRN ×4 (12:02→20:27)
[2016-07-11] MEDS: MAXIPIME 2 GM/NS 2 GM/100 ML IVPB IV SCH (12:22)
--- NOTE | 2016-07-11 13:53 | PROGRESS NOTE ---
DATE: 07/11/2016 SUBJECTIVE: No events overnight. No fevers. No tachycardia. Cellulitis of her foot is improving. It is less swollen. Ischemic necrotic changes of the toe persist. OBJECTIVE: Temperature was 97.8 degrees, pulse 74, blood pressure 154/69, O2 saturation 98% on room air. General: She is alert, in acute distress. Stable ischemic changes to her right 2nd toe. The area has decreased pain, swelling, erythema of right leg/foot. Labs: White count remains elevated at 12. Hematocrit 33. Creatinine is 1.4. Glucose 194. ASSESSMENT: A 51-year-old female with a infected diabetic toe with osteomyelitis with pathologic fracture. Risks, benefits and alternatives including bleeding, infection, requirement for possible need for further surgery and debridement in the future discussed, and she consents to amputation of the right 2nd toe. We will proceed to the operating room today. cc: Riddhi Alaniz MD
--- NOTE | 2016-07-11 14:46 | PROGRESS NOTE ---
DATE: 07/11/2016 SUBJECTIVE: The patient just returned from surgery. She is currently resting comfortably in no acute distress. OBJECTIVE: Vital Signs: Temperature 97.8, blood pressure 152/72, heart rate 72, respirations 18, O2 saturations 97% on 2 L nasal cannula. General: This is an elderly female, lying in bed, in no acute distress. Head normocephalic and atraumatic. Heart: S1, S2 normal. Regular rate and rhythm. Lungs clear to auscultation bilaterally. Abdomen positive. Bowel sounds soft, nontender, nondistended. Extremities: The right foot is wrapped in a clean, dry dressing. LABORATORY DATA: White blood cell count 12, hemoglobin 11, hematocrit 33, platelets 498,000. Sodium 134, potassium 4, chloride 101. CO2 of 20. BUN 19, creatinine 1.4, glucose 194. Calcium 8.2. ASSESSMENT AND PLAN: 1. Status post amputation of the right 2nd toe with debridement of the metatarsal head secondary to osteomyelitis. Continue on the current IV antibiotic regimen as directed by Dr. Petty. Further management as per the general surgeon. 2. Hypertension. Continue on the current antihypertensive regimen. 3. Uncontrolled insulin-dependent diabetes mellitus, type 2. Will continue on Lantus 40 units subcutaneous twice a day plus sliding scale insulin for coverage. 4. Morbid obesity, aware. 5. Diabetic neuropathy, continue on gabapentin. 6. Hypothyroidism. Continue on Synthroid. 7. Deep vein thrombosis prophylaxis. Will start the patient on Lovenox tomorrow. Will continue with sequential compression devices at this time. cc: Kinsey Mccabe MD
[2016-07-12] MEDS: MORPHINE IV PRN ×5 (00:34→22:13)
[2016-07-12] MEDS: BENADRYL IV PRN ×3 (00:34→17:26)
[2016-07-12] MEDS: HUMALOG SUBQ SCH ×6 (00:34→22:16)
[2016-07-12] MEDS: MAXIPIME 2 GM/NS 2 GM/100 ML IVPB IV SCH ×2 (00:35→12:29)
[2016-07-12 06:26] LABS: MANUAL DIFF NEEDED? NO
[2016-07-12] MEDS: SYNTHROID PO SCH (06:31)
[2016-07-12 06:35] LABS: BASO% 1.1 % (0.0-0.8); EOS# 1.22 X1000 (0.0-0.7); EOS% 10.1 % (0.0-10.0); HEMATOCRIT 33.8 % (37.0-47.0); HEMOGLOBIN 11.3 g/dL (12.0-16.0); IMM GRAN# 0.07 X1000 (0.0-0.04); IMM GRAN% 0.6 % (0.0-0.5); LYMPH# 3.44 X1000 (1.2-3.4); LYMPH% 28.4 % (20.5-51.1); MCH 26.9 PG (27-31); MCHC 33.4 g/dL (33-37); MCV 80.5 FL (81-99); MONO# 0.63 X1000 (0.11-0.59); MONO% 5.2 % (1.7-9.3); MPV 9.1 FL (7.4-10.4); NEUT% 54.6 % (42.2-75.2); PLT 495 X1000 (130-400)
[2016-07-12] MEDS ORDERED: INSULIN PEN NEEDLES ONE (07:08)
[2016-07-12 07:10] LABS: CALCIUM 8.4 mg/dL (8.8-10.2); POTASSIUM 4.2 mmol/L (3.5-5.1)
[2016-07-12] MEDS: VANCOMYCIN 1,850 MG in NS 500 ML IV SCH (08:55)
[2016-07-12] MEDS ORDERED: LOVENOX SUBQ SCH (09:00)
[2016-07-12] MEDS: NEURONTIN PO SCH ×3 (09:03→17:27)
[2016-07-12] MEDS: DETROL LA PO SCH (09:04)
[2016-07-12] MEDS: SALAGEN PO SCH ×3 (09:04→17:27)
[2016-07-12] MEDS: CYMBALTA PO SCH (09:05)
[2016-07-12] MEDS: LOPRESSOR PO SCH (09:05)
[2016-07-12] MEDS: PERIDEX MT SCH ×2 (09:05→22:12)
[2016-07-12] MEDS: NORVASC PO SCH (09:05)
[2016-07-12] MEDS: LANTUS SUBQ SCH ×2 (09:07→22:17)
[2016-07-12] MEDS: APRESOLINE PO SCH ×2 (12:38→22:12)
--- NOTE | 2016-07-12 15:08 | PROGRESS NOTE ---
DATE: 07/12/2016 SUBJECTIVE: The patient is resting comfortably in bed. She states that she feels a lot better today. OBJECTIVE: Vital Signs: Temperature 98.6 degrees, blood pressure 174/76, heart rate 79, respirations 18, O2 saturations 96% on room air. General: This is an elderly female, lying in bed, in no acute distress. Head: Normocephalic, atraumatic. Heart: S1, S2. Normal. Regular rate and rhythm. Lungs: Clear to auscultation bilaterally. No wheezes, no rales. No rhonchi. Abdomen: Positive bowel sounds. Soft, obese, nontender, nondistended. Extremities: The right foot is wrapped in a clean dry dressing. Neurologic: The patient is alert and oriented x3. LABS: White blood cell count 12, hemoglobin 11, hematocrit 33, platelets 495,000. Sodium 138, potassium 4.2, chloride 106, CO2 21, BUN 24, creatinine 1.5, glucose 156, calcium 8.4. ASSESSMENT AND PLAN: 1. Status post amputation of the right 2nd toe with debridement of the metatarsal head secondary to Escherichia coli osteomyelitis. Continue on IV cefepime as directed by Dr. Petty. Continue with wound care as directed by the general surgeon. 2. Uncontrolled hypertension. We will add hydralazine. 3. Group B streptococcus bacteremia. Continue on IV antibiotic therapy. Repeat blood cultures are currently pending. 4. Uncontrolled diabetes mellitus type 2. Continue on Lantus 40 units subcutaneous twice a day plus sliding scale insulin. 5. Acute kidney injury on chronic kidney disease. Continue on IV fluid hydration. 6. Morbid obesity. Aware. 7. Diabetic neuropathy. Continue on gabapentin. 8. Hypothyroidism. Continue on Synthroid. 9. Deep vein thrombosis prophylaxis. We will start the patient on heparin 5000 units subcutaneous every 12 hours. cc: Kinsey Mccabe MD
--- NOTE | 2016-07-12 15:16 | PROGRESS NOTE ---
DATE: 07/12/2016 Yasemin Glaser is a 51-year-old white female diabetic, who status post left 2nd toe amputation per Dr. Alaniz. She has no pain in the left foot. The dressing remains that was placed at the time of surgery. It is dry and clean. She is receiving IV antibiotics and will continue wound care and IV antibiotics at this time. cc: Zayda Mcdaniels MD
[2016-07-12] MEDS: NS 1,000 ML IV SCH (15:19)
[2016-07-13] MEDS: MAXIPIME 2 GM/NS 2 GM/100 ML IVPB IV SCH ×2 (01:34→13:37)
[2016-07-13] MEDS: BENADRYL IV PRN ×3 (01:35→17:27)
[2016-07-13] MEDS: MORPHINE IV PRN ×5 (01:35→21:21)
[2016-07-13] MEDS: NS 1,000 ML IV SCH ×3 (02:52→12:24)
[2016-07-13] MEDS: HUMALOG SUBQ SCH ×6 (04:38→21:07)
[2016-07-13 06:07] LABS: MANUAL DIFF NEEDED? NO
[2016-07-13] MEDS: APRESOLINE PO SCH ×3 (06:10→21:07)
[2016-07-13] MEDS: SYNTHROID PO SCH (06:10)
[2016-07-13] MEDS: LOVENOX SUBQ SCH (06:10)
[2016-07-13 06:16] LABS: BASO% 0.8 % (0.0-0.8); EOS# 1.27 X1000 (0.0-0.7); EOS% 10.3 % (0.0-10.0); HEMATOCRIT 35.8 % (37.0-47.0); HEMOGLOBIN 11.7 g/dL (12.0-16.0); IMM GRAN# 0.09 X1000 (0.0-0.04); IMM GRAN% 0.7 % (0.0-0.5); LYMPH# 3.36 X1000 (1.2-3.4); LYMPH% 27.4 % (20.5-51.1); MCH 26.7 PG (27-31); MCHC 32.7 g/dL (33-37); MCV 81.5 FL (81-99); MONO# 0.66 X1000 (0.11-0.59); MONO% 5.4 % (1.7-9.3); MPV 9.2 FL (7.4-10.4); NEUT% 55.4 % (42.2-75.2); PLT 547 X1000 (130-400); RBC 4.39 XMIL (4.2-5.4)
[2016-07-13 06:53] LABS: CALCIUM 8.8 mg/dL (8.8-10.2); POTASSIUM 4.3 mmol/L (3.5-5.1)
[2016-07-13] MEDS: NEURONTIN PO SCH ×3 (08:31→17:27)
[2016-07-13] MEDS: CYMBALTA PO SCH (08:31)
[2016-07-13] MEDS: SALAGEN PO SCH ×3 (08:31→17:27)
[2016-07-13] MEDS: PERIDEX MT SCH ×2 (08:31→21:09)
[2016-07-13] MEDS: NORVASC PO SCH (08:31)
[2016-07-13] MEDS: DETROL LA PO SCH (08:31)
[2016-07-13] MEDS: LOPRESSOR PO SCH (08:32)
[2016-07-13] MEDS: LANTUS SUBQ SCH ×2 (08:34→21:08)
--- NOTE | 2016-07-13 09:35 | PROGRESS NOTE ---
DATE: 07/13/2016 Ms. Yasemin Glaser is now postop day 2 from a right 2nd toe amputation per Dr. Alaniz. The wound has been left open. It appears to be clean. She is still on IV antibiotics for some surrounding cellulitis but there is no undrained purulence. The wound was redressed today. cc: Zayda Mcdaniels MD
[2016-07-13] MEDS: VANCOMYCIN 1,850 MG in NS 500 ML IV SCH (10:25)
[2016-07-13] MEDS: DUONEB (A & A) INH SCH ×4 (11:05→22:38)
--- NOTE | 2016-07-13 13:03 | Diag Imaging Result Doc PS360 ---
EXAM: CHEST-PORTABLE HISTORY: dyspnea TECHNIQUE: AP portable at 1241 upright COMMENT: The central pulmonary vascularity is more prominent than on 07/10/2016. The heart size is unchanged. Considering differences in inspiration the lung roche are unchanged. IMPRESSION: Pulmonary vascular engorgement. Otherwise stable chest. Electronically signed by Emiliano Lea 07/13/2016 1:01 PM
[2016-07-13] MEDS: LASIX IV SCH (13:43)
--- NOTE | 2016-07-13 17:05 | PROGRESS NOTE ---
DATE: 07/13/2016 SUBJECTIVE: The patient complains of mild shortness of breath and wheezing. She states that she did not sleep well due to pain in her foot. OBJECTIVE: Vital Signs: Temperature 97.5 degrees, blood pressure 139/69, heart rate 77, respirations 18, O2 saturation is 94% on room air. General: This is a morbidly obese female, sitting at the edge of the bed, in no acute distress. Head: Normocephalic, atraumatic. Heart: S1, S2. Normal. Regular rate and rhythm. Lungs: Diffuse expiratory wheezes. No crackles. No rales. Abdomen: Positive bowel sounds. Soft, nontender, nondistended. Extremities: The right foot is wrapped in a clean, dry dressing. Neurologic: The patient is alert and oriented x3. LABS: White blood cell count 12, hemoglobin 11, hematocrit 35, platelets 547,000. Sodium 138, potassium 4.3, chloride 102, CO2 23, BUN 27, creatinine 1.5, glucose 183. ASSESSMENT AND PLAN: 1. Status post amputation of the right 2nd toe with debridement of the metatarsal head secondary to E. coli and Enterococcus faecalis osteomyelitis. Continue with IV antibiotic therapy as directed by Dr. Petty. Wound care as per the general surgeon. 2. Group B strep bacteremia. Continue on the current antibiotic therapy. Repeat blood cultures are currently pending. 3. Pulmonary edema. Will discontinue the patient's IV fluids and start the patient on Lasix. 4. Stage 3 chronic kidney disease. Stable. 5. Morbid obesity. Aware. 6. Hypertension. Controlled. 7. Uncontrolled insulin-dependent diabetes mellitus type 2. Continue on Lantus 40 units subcutaneous twice a day. 8. Diabetic neuropathy. Continue on Neurontin and Cymbalta. 9. Hypothyroidism. Continue on Synthroid. 10. Deep vein thrombosis prophylaxis. Continue on Lovenox. cc: Kinsey Mccabe MD
[2016-07-14] MEDS: MAXIPIME 2 GM/NS 2 GM/100 ML IVPB IV SCH ×2 (02:26→13:51)
[2016-07-14] MEDS: MORPHINE IV PRN ×3 (02:26→21:44)
[2016-07-14] MEDS: HUMALOG SUBQ SCH ×5 (02:26→21:43)
[2016-07-14] MEDS: DUONEB (A & A) INH SCH ×6 (03:22→23:09)
[2016-07-14 05:57] LABS: MANUAL DIFF NEEDED? NO
[2016-07-14] MEDS: LOVENOX SUBQ SCH (06:11)
[2016-07-14] MEDS: APRESOLINE PO SCH ×3 (06:11→21:42)
[2016-07-14] MEDS: SYNTHROID PO SCH (06:11)
[2016-07-14 06:17] LABS: BASO% 0.7 % (0.0-0.8); EOS# 1.27 X1000 (0.0-0.7); EOS% 9.7 % (0.0-10.0); HEMATOCRIT 32.2 % (37.0-47.0); HEMOGLOBIN 10.6 g/dL (12.0-16.0); IMM GRAN# 0.12 X1000 (0.0-0.04); IMM GRAN% 0.9 % (0.0-0.5); LYMPH# 2.64 X1000 (1.2-3.4); LYMPH% 20.2 % (20.5-51.1); MCH 26.6 PG (27-31); MCHC 32.9 g/dL (33-37); MCV 80.9 FL (81-99); MONO# 0.73 X1000 (0.11-0.59); MONO% 5.6 % (1.7-9.3); MPV 9.1 FL (7.4-10.4); NEUT% 62.9 % (42.2-75.2); PLT 494 X1000 (130-400); RBC 3.98 XMIL (4.2-5.4)
[2016-07-14 06:34] LABS: ALBUMIN 2.5 g/dL (3.5-5.0); CALCIUM 8.3 mg/dL (8.8-10.2); POTASSIUM 3.9 mmol/L (3.5-5.1)
[2016-07-14] MEDS: LASIX IV SCH (10:10)
[2016-07-14] MEDS: PERIDEX MT SCH ×2 (10:10→21:42)
[2016-07-14] MEDS: NORVASC PO SCH (10:11)
[2016-07-14] MEDS: SALAGEN PO SCH ×3 (10:11→16:31)
[2016-07-14] MEDS: DETROL LA PO SCH (10:11)
[2016-07-14] MEDS: CYMBALTA PO SCH (10:12)
[2016-07-14] MEDS: NEURONTIN PO SCH ×3 (10:13→16:31)
[2016-07-14] MEDS: LOPRESSOR PO SCH (10:13)
[2016-07-14] MEDS: LANTUS SUBQ SCH ×2 (10:15→21:43)
[2016-07-14] MEDS: VANCOMYCIN 1,850 MG in NS 500 ML IV SCH (10:34)
[2016-07-14] MEDS ORDERED: NS 1,000 ML ONE (10:36)
[2016-07-14] MEDS: NS 1,000 ML IV SCH (10:37)
--- NOTE | 2016-07-14 12:50 | VASCULAR LAB ---
PROCEDURE NAME: Arterial Bilateral Legs - 07/10/2016 LOWER EXTREMITY ARTERIAL STUDY: REFERRING PHYSICIAN: Ino Sheffield MD. READING PHYSICIAN: Arun Sauceda MD. FRANCHISE BROKER: Murtaza. INDICATION: Nonhealing ulcer on the right 2nd toe. FINDINGS: The pulse volume waveforms were measured from the low thigh through the digits bilaterally. There is pulsatile flow throughout these locations. The proximal thighs could not be measured due to the patient's large pannus. Segmental pressures right brachial 193, high thigh greater than 250, low thigh greater than 230, dorsalis pedis 234 posterior tibial greater than 250, JESSICA 1.2. Left brachial pressure 200, low thigh greater than 250, popliteal 211, dorsalis pedis 223, posterior tibial 214, JESSICA 1.1. INTERPRETATION: There appears to be adequate blood flow for wound healing and no significant stenosis is appreciable on this study. cc: MD Ino Mei MD
--- NOTE | 2016-07-14 14:20 | PROGRESS NOTE ---
DATE: 07/14/2016 SUBJECTIVE: No pain. Feels a little more fatigued today. OBJECTIVE: Last temperature 98.3 degrees, pulse 81, blood pressure 153/81, O2 saturation is 90% on room air. Her amputation site is clean, granulating well. Decreased pain and swelling in her foot. LABS: White count 13, hematocrit 32, creatinine is 1.3, glucose 137. ASSESSMENT AND PLAN: This is a 51-year-old female with infected diabetic toe, status post amputation, doing well. The cellulitis is improving. I have ordered her rocker bottom boot and need to work on her ambulation. cc: Riddhi Alaniz MD
--- NOTE | 2016-07-14 19:54 | PROGRESS NOTE ---
DATE: 07/14/2016 SUBJECTIVE: Patient has no complaints. She seems to be doing well. OBJECTIVE: Vital Signs: Blood pressure 127/66, heart rate of 84, respiratory rate of 15, temperature 98.3 degrees, 95% on room air. Cardiovascular: Regular rate and rhythm. Pulmonary: Bilateral breath sounds. Clear to auscultation. GI: Soft, nontender, nondistended. Bowel sounds are positive. Extremities: No clubbing or cyanosis. Lymphatics: No peripheral edema. Neurological: Nonfocal. PROBLEM LIST: 1. Necrotic toes, status post amputation with osteomyelitis of the 2nd toe. She is on IV vancomycin and Cefepime. She has Escherichia coli and enterococcus. 2. Group B Strep bacteremia, currently on I believe IV vancomycin and cefepime. 3. Stage 3 kidney disease. Appears to be stable. 4. Pulmonary edema. Appears to be stable. 5. Type 2 diabetes. Blood sugars have been controlled on current medications. DISPOSITION: Pending her resolution of her multiple issues. Home IV therapy will be difficult. She lives in I believe a trailer and there is some concern over possible. Disposition is stable. Currently just waiting on the final recommendations to decide about going home. It is possible that I guess she will need 2 weeks of IV antibiotics at least for her bacteremia which is 5 days. Discharge condition is stable when patient is stabilized. cc: Ino Sheffield MD
--- NOTE | 2016-07-14 21:16 | PROGRESS NOTE ---
DATE: 07/14/2016 PRESENT ILLNESS: The patient is status post amputation of the 2nd right toe. Culture from the toe grew E. coli and Enterococcus. Blood culture grew group B strep. Repeat blood cultures are sterile. MEDICATIONS: The patient is on vancomycin and cefepime. PHYSICAL EXAMINATION: Vital Signs: Temperature is 98.3 degrees, pulse 84, respirations 15, blood pressure 127/66. General: This is an obese, middle-aged female. She is in no acute distress. Lungs: Clear to auscultation. Cardiovascular: Regular heart rate. Abdomen: Soft and nontender. Extremities: The patient's right foot wound showed no purulence or necrosis. There is also no odor in the wound. LAB AND X-RAY: Chest x-ray shows vascular engorgement. The patient's creatinine is 1.3. The GFR is 43. The vancomycin level is 18.2. CBC shows a white count of 1310, hemoglobin 10.6, and platelet count 494,000. ASSESSMENT AND PLAN: I have substituted Rocephin for cefepime. Plan to continue vancomycin. The patient will need at least a 2-week treatment for the group B strep because it was bacteremic. This would be day 2 of treatment for the strep bacteremia because this is the first day that the blood culture was drawn that eventually remained negative was on July 12 and today is July 14. Therefore this is day 2 of treatment of the bacteremia. Plan will be to complete 14 days of Rocephin because of the group B strep bacteremia. That also will help treat the infection grown from the patient's toe although the toe is actually gone now and I do not think the wound she has left needs a full 14 days of treatment. COMORBIDITY: She has diabetes mellitus. cc: Sachin Petty MD
[2016-07-14] MEDS: BENADRYL IV PRN (21:44)
[2016-07-14] MEDS: ROCEPHIN 2 GM/NS 2 GM/50 ML IVPB IV SCH (22:00)
[2016-07-14] MEDS ORDERED: INSULIN PEN NEEDLES ONE (23:30)
[2016-07-15] MEDS: HUMALOG SUBQ SCH ×7 (00:45→21:35)
[2016-07-15] MEDS: DUONEB (A & A) INH SCH ×6 (03:31→22:56)
[2016-07-15 05:47] LABS: ALBUMIN 2.3 g/dL (3.5-5.0); CALCIUM 8.2 mg/dL (8.8-10.2); POTASSIUM 4.2 mmol/L (3.5-5.1)
[2016-07-15] MEDS: APRESOLINE PO SCH ×3 (06:00→21:40)
[2016-07-15] MEDS: LOVENOX SUBQ SCH (06:01)
[2016-07-15] MEDS: SYNTHROID PO SCH (06:04)
[2016-07-15 06:08] LABS: HEMATOCRIT 29.5 % (37.0-47.0); HEMOGLOBIN 9.6 g/dL (12.0-16.0); MCH 26.6 PG (27-31); MCHC 32.5 g/dL (33-37); MCV 81.7 FL (81-99); MPV 9.3 FL (7.4-10.4); RBC 3.61 XMIL (4.2-5.4)
[2016-07-15] MEDS: LANTUS SUBQ SCH ×2 (08:38→21:41)
[2016-07-15] MEDS: LOPRESSOR PO SCH (08:38)
[2016-07-15] MEDS: PERIDEX MT SCH ×2 (08:38→21:40)
[2016-07-15] MEDS: DETROL LA PO SCH (08:40)
[2016-07-15] MEDS: CYMBALTA PO SCH (08:40)
[2016-07-15] MEDS: LASIX IV SCH (08:40)
[2016-07-15] MEDS: NEURONTIN PO SCH ×3 (08:40→16:23)
[2016-07-15] MEDS: NORVASC PO SCH (08:41)
[2016-07-15] MEDS: MORPHINE IV PRN (08:51)
[2016-07-15] MEDS: BENADRYL IV PRN (08:53)
[2016-07-15] MEDS: VANCOMYCIN 1,850 MG in NS 500 ML IV SCH (10:46)
[2016-07-15] MEDS: SALAGEN PO SCH ×3 (10:56→16:23)
--- NOTE | 2016-07-15 11:47 | PROGRESS NOTE ---
DATE: 07/15/2016 SUBJECTIVE: Feels well. Some pain in her foot but, overall, she is feeling better. OBJECTIVE: No fevers. Pulse 81, blood pressure 150/76. Oxygen saturation 96%. Her amputation site is clean, granulating well. There is much less erythema and edema in her foot. LABORATORY DATA: White count is down to 12, hematocrit is 29, creatinine 1.4 glucose 212. ASSESSMENT AND PLAN: This is a 51-year-old female status post amputation of the toe with pathologic fracture related osteomyelitis and necrosis. Doing well. Her wound is healing well. We will follow Dr. Petty' recommendation regarding antibiotics going forward but, otherwise, we will continue local wound care with wet-to-dry dressings b.i.d. with saline. cc: Riddhi Alaniz MD
--- NOTE | 2016-07-15 14:50 | PROGRESS NOTE ---
DATE: 07/15/2016 PRESENT ILLNESS: The patient is status post amputation of the 2nd right toe. A culture from the tip of the toe grew E. coli and enterococcus. The patient also has a positive blood culture for group B strep which I think originated from the toe as well. The patient has repeat blood cultures and they are negative at 48 hours. MEDICATIONS: The patient is on Rocephin and I have just continued vancomycin. PHYSICAL EXAMINATION: Vital Signs: Temperature is 98.6 degrees, pulse 71, respirations 14, blood pressure 150/76. General: This is an obese but otherwise healthy-appearing, middle-aged female. She is in no acute distress. Lungs: Clear to auscultation. Cardiovascular: Regular heart rate. Abdomen: Soft and nontender. Extremities: The patient's right foot was examined the amputated area. There is no erythema or purulence and there is no foul odor to the wound. LAB AND X-RAY: There is no new x-ray. Today the patient's CBC showed a white count of 12,750, hemoglobin 9.6, and platelet count 490,000. Creatinine is 1.4. The GFR is 40. ASSESSMENT AND PLAN: The patient has a strep bacteremia which I have been treating with Rocephin. Since the patient's toe has been amputated and since the culture from the toe came at the distal part of it, I do not think any further antibiotic coverage of those organisms is necessary. I do plan to treat the patient for 14 days with Rocephin because of the group B strep bacteremia. COMORBIDITY: She has diabetes mellitus. cc: Sachin Petty MD
[2016-07-15] MEDS: ROCEPHIN 2 GM/NS 2 GM/50 ML IVPB IV SCH (21:40)
[2016-07-16] MEDS: HUMALOG SUBQ SCH ×7 (01:32→21:27)
[2016-07-16] MEDS: DUONEB (A & A) INH SCH ×6 (03:30→23:05)
[2016-07-16] MEDS: MORPHINE IV PRN ×5 (04:36→21:27)
[2016-07-16 05:35] LABS: MANUAL DIFF NEEDED? NO
[2016-07-16 05:40] LABS: BASO% 0.8 % (0.0-0.8); EOS# 1.14 X1000 (0.0-0.7); EOS% 9.5 % (0.0-10.0); HEMATOCRIT 32.7 % (37.0-47.0); HEMOGLOBIN 10.7 g/dL (12.0-16.0); IMM GRAN# 0.09 X1000 (0.0-0.04); IMM GRAN% 0.8 % (0.0-0.5); LYMPH# 3.16 X1000 (1.2-3.4); LYMPH% 26.4 % (20.5-51.1); MCHC 32.7 g/dL (33-37); MCV 82.4 FL (81-99); MONO# 0.64 X1000 (0.11-0.59); MONO% 5.3 % (1.7-9.3); MPV 9.2 FL (7.4-10.4); NEUT% 57.2 % (42.2-75.2); PLT 492 X1000 (130-400); RBC 3.97 XMIL (4.2-5.4)
[2016-07-16 05:59] LABS: ALBUMIN 2.6 g/dL (3.5-5.0); CALCIUM 8.7 mg/dL (8.8-10.2); POTASSIUM 4.1 mmol/L (3.5-5.1)
[2016-07-16] MEDS: LOVENOX SUBQ SCH (06:51)
[2016-07-16] MEDS: APRESOLINE PO SCH ×3 (06:51→21:25)
[2016-07-16] MEDS: SYNTHROID PO SCH (06:51)
[2016-07-16] MEDS: CYMBALTA PO SCH (08:39)
[2016-07-16] MEDS: LOPRESSOR PO SCH (08:40)
[2016-07-16] MEDS: DETROL LA PO SCH (08:40)
[2016-07-16] MEDS: SALAGEN PO SCH ×3 (08:40→17:03)
[2016-07-16] MEDS: NEURONTIN PO SCH ×3 (08:40→17:02)
[2016-07-16] MEDS: NORVASC PO SCH (08:40)
[2016-07-16] MEDS: LASIX IV SCH (08:41)
[2016-07-16] MEDS: PERIDEX MT SCH ×2 (08:41→21:25)
--- NOTE | 2016-07-16 08:42 | PROGRESS NOTE ---
DATE: 07/16/2016 SUBJECTIVE: Feels alright. Some discomfort in her foot, but this seems to be improving. OBJECTIVE: Vital Signs: Temperature is 98.3 degrees, pulse 86, blood pressure 171/72. Extremities: Amputation site is healthy with no necrosis. There is no cellulitis of his foot. SUMMARY: A 51-year-old female admitted with diabetic foot infection. Dr. Petty plans on treating her for a couple weeks without antibiotics. In speaking with patient, apparently she has very poor social situation. She is only able to sleep in her living room. There are several animals in the house and they are apprehensive about sending her out with a PICC line here. She may wind up staying inpatient for IV antibiotics and treatment of her wound. I do feel that I have removed most of the infected bone at the time of surgery. I do not see any ongoing signs of infection, necrosis here. I have reviewed her labs. White count is 10-11, hematocrit 32, creatinine is 1.5. This is stable at her baseline. Glucose 280. ASSESSMENT/PLAN: A 51-year-old female with diabetes marginally controlled and osteomyelitis with a pathologic fracture of her left toe. She is nearing ready for discharge. As far as her wound care, she should just need wet-to-dry dressings twice daily. cc: Riddhi Alaniz MD
[2016-07-16] MEDS: BENADRYL IV PRN ×3 (08:59→21:25)
[2016-07-16] MEDS ORDERED: ZOFRAN PO PRN (09:11)
--- NOTE | 2016-07-16 11:44 | PROGRESS NOTE ---
DATE: 07/16/2016 SUBJECTIVE: Patient reports feeling pain in both legs. No fever or chills noted. OBJECTIVE: Vital Signs: Temperature 98.3 degrees, heart rate 79, respiratory rate 14, blood pressure 171/72, O2 saturation 97% on room air. General Examination: This is a 58-year-old, female lying in bed, in no acute distress. HEENT: Head is normocephalic and atraumatic. Anicteric sclerae and pale conjunctivae. Mucous membranes moist. Neck: Supple. No JVD noted. No carotid bruits. No thyromegaly. Cardiovascular Examination: S1 , S2 heard. No murmurs, gallops, or rubs. Regular rate and rhythm. Respiratory Examination: Clear bilaterally to auscultation. No work of breathing or using accessory muscles. Abdomen: Soft, nontender to palpation. Bowel sounds present. No organomegaly. Extremities: No edema. There is noted no foul odor in the wound on the right foot. Neurological Examination: Patient alert and oriented x3. Able to move 4 extremities. Cranial nerves 2-12 grossly normal. Laboratory Data: White cell count 11.97. Creatinine 1.5 with GFR 37. ASSESSMENT/PLAN: 1. 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 2. Group B streptococcus bacteremia. 3. Chronic kidney disease stage III. 4. Diabetes type 2. PLAN: 1. Patient has had surgery on the right foot. Dr. Alaniz is following this patient. He thinks that this patient is close to being discharged. We are changing dressings only here in the hospital. 2. Strep B bacteremia. Dr. Petty from infectious disease is following this patient. He recommends 2 weeks of ceftriaxone. We will talk to see what he is planning, if he is planning to do IV antibiotics at home or keeping here in the hospital. We will see what he says. 3. For the chronic kidney disease, this patient is at her baseline. 4. Diabetes type 2. The blood sugar has been better controlled recently. 5. We will continue with the same management. Addendum: Talked with Dr. Petty, patient will need one more week of Ceftriaxone IV. Will place a PICC line and will set up antibiotics to be given here in the hospital so she can be discharged tomorrow. cc: MD CARLOTTA Acevedo
--- NOTE | 2016-07-16 14:33 | PROGRESS NOTE ---
DATE: 07/16/2016 PRESENT ILLNESS: The patient is status post amputation of the 2nd toe of the right foot. She has a blood culture which grew group B streptococcus. I think this originated from the toe. The patient has repeat blood cultures which are sterile. MEDICATIONS: The patient is on Rocephin 2 g IV daily. PHYSICAL EXAMINATION: Vital Signs: Temperature is 98.3 degrees, pulse 79, respirations 24, blood pressure 171/72. General: This is an is an obese, middle-aged female. She is in no acute distress. Lungs: Clear to auscultation. Cardiovascular: Regular heart rate. Abdomen: Soft and nontender. Extremities: The patient's right foot wound is not erythematous or purulent. LABORATORY AND X-RAY: The creatinine today was 1.5. GFR is 37. CBC showed a white count of 11,970, hemoglobin 10.7, and platelet count 492,000. ASSESSMENT AND PLAN: I have written the following outpatient orders for the patient. She will be coming to the outpatient clinic for her antibiotic. I have written for Rocephin 2 g IV daily for 10 more days, CBC and creatinine to be drawn on 07/19/2016. Also, I have requested that the patient's PICC be removed after her last dose of Rocephin. The patient will be seen in followup for her foot wound by Dr. Alaniz. The patient will receive 10 days worth of Rocephin to treat her group B strep bacteremia. COMORBIDITY: She is a diabetic. cc: Sachin Petty MD MTDImtiaz
[2016-07-16 15:08] LABS: INR 0.96
[2016-07-16] MEDS: LANTUS SUBQ SCH ×2 (16:59→21:26)
[2016-07-16] MEDS: PERCOCET-5 PO PRN ×2 (18:58→23:55)
[2016-07-16] MEDS: ROCEPHIN 2 GM/NS 2 GM/50 ML IVPB IV SCH (21:25)
[2016-07-17] MEDS: HUMALOG SUBQ SCH ×4 (01:41→13:40)
[2016-07-17] MEDS: MORPHINE IV PRN ×3 (01:46→10:20)
[2016-07-17 03:27] VITALS: BP 165/66
[2016-07-17] MEDS: DUONEB (A & A) INH SCH ×3 (03:50→11:36)
[2016-07-17] MEDS: PERCOCET-5 PO PRN (04:43)
--- NOTE | 2016-07-17 06:07 | PROGRESS NOTE ---
DATE: 07/17/2016 SUBJECTIVE: No major issues. She feels okay. Reviewed notes from consulting physicians and discussed her case with Dr. Alaniz. OBJECTIVE: Vital Signs: Patient is currently afebrile. Her vital signs are stable. General Examination: No acute distress. Cardiovascular: Regular rate and rhythm. Lungs: Grossly clear. Extremities: Amputation site appears to have a healthy base. There appears to be no erythema streaking up from the wound. Overall, it seems to be doing well. ASSESSMENT AND PLAN: A 51-year-old female with diabetic foot infection, status post amputation. At this time her wound appears to be potentially ready for discharge, as long as the patient feels comfortable with wound dressings. There may be some logistical issues and social issues, as far as her living arrangement, that may make discharge difficult, but will defer to for public health social worker. Overall, from a surgical point of view, her wound is healing well and she can continue her antibiotics. cc: Aaron Feng MD
[2016-07-17] MEDS: BENADRYL IV PRN (06:40)
[2016-07-17] MEDS: APRESOLINE PO SCH ×2 (06:41→13:42)
[2016-07-17] MEDS: SYNTHROID PO SCH (06:41)
[2016-07-17] MEDS: LOVENOX SUBQ SCH (06:42)
[2016-07-17] MEDS: LANTUS SUBQ SCH (09:00)
[2016-07-17] MEDS: DETROL LA PO SCH (09:56)
[2016-07-17] MEDS: NORVASC PO SCH (09:56)
[2016-07-17] MEDS: LOPRESSOR PO SCH (09:56)
[2016-07-17] MEDS: CYMBALTA PO SCH (09:56)
[2016-07-17] MEDS: SALAGEN PO SCH (09:56)
[2016-07-17] MEDS: NEURONTIN PO SCH ×2 (09:56→13:41)
[2016-07-17] MEDS: LASIX IV SCH (09:56)
[2016-07-17] MEDS: PERIDEX MT SCH (09:57)
[2016-07-17] MEDS ORDERED: ROCEPHIN 2 GM/NS 2 GM/50 ML IVPB IV ONE (10:00)
--- NOTE | 2016-07-17 12:04 | DISCHARGE SUMMARY ---
ADMISSION DATE: 07/10/2016 DISCHARGE DATE: 07/17/2016 CONSULTATIONS: 1. Dr. Sachin Petty with Infectious Disease. 2. Dr. Cristian Alaniz with General Surgery. PERTINENT PROCEDURES: Amputation of the right 2nd toe with debridement of the metatarsal head, performed by Dr. Cristian Alaniz. DISCHARGE DIAGNOSES: 1. 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 Patient will receive 1 week of outpatient antibiotics as well as continue wound care at home. 2. Group B Streptococcus bacteremia. Again patient will receive 1 week of outpatient antibiotics. Follow up with Dr. Petty as well as Dr. Cristian Alaniz. 3. Chronic kidney disease stage 3. Stable. 4. Diabetes mellitus type 2. Controlled while in the hospital. HOSPITAL COURSE: Briefly, Ms. Glaser is a 51-year-old female with uncontrolled diabetes, depression, peripheral neuropathy ,and hypothyroidism who presented from home with pain and swelling in her toe. It initially started about 6 weeks ago. She came in for evaluation and was placed on antibiotics, clindamycin and Bactrim. She had some improvement but came back to the ED on the and on the visit it had not improved so they recommended admission but the patient refused, because her daughter was graduating. The patient states she does not have insurance. She has difficulty getting her medications. [facility] but was unable to afford her insulin. She also presented with blood sugars above 500. She was admitted for diabetic toe with possible necrosis with underlying osteomyelitis and uncontrolled diabetes. She was placed on a sliding scale as well as patterned sugars. Started on IV antibiotics with a consultation for infectious disease, as well as general surgery. She did have studies on that foot which ultimately led to amputation of her 2nd toe with debridement of the metatarsal head. We did contact social work nurse for possible home IV therapy. However there was concern of the patient not having insurance and not being able to afford it. There was also social issues about the patient being able to change her bandages, however the patient has decided to go home with the daughter. She will come in for outpatient antibiotics. Dr. Petty has written for Rocephin 2 g IV daily for 10 more days and to have a CBC and creatinine to be drawn on Thursday , 07/19/2016 and also requested that the patient's PICC line be removed on her last dose of Rocephin and seen in follow up for her foot wound by Dr. Alaniz. VITAL SIGNS: Temperature is 98.3 degrees, heart rate 87, respirations 18, blood pressure 165/66, O2 is 99% on room air. DISCHARGE DIET: Diabetic. DISCHARGE MEDICATIONS: As per Dr. West: 1. Albuterol 8.5 g 2 puffs inhaled q.4 hours p.r.n. 2. Norvasc 5 mg p.o. daily. 3. Pulmicort 1 puff inhaled RT b.i.d. 4. Cymbalta 60 mg p.o. daily. 5. Lasix 40 mg p.o. daily. 6. Gabapentin 800 mg p.o. t.i.d. 7. Apresoline 25 mg p.o. t.i.d. 8. Lantus 42 units subcutaneous q.a.m. 9. Lantus 42 units subcutaneous at bedtime. 10. Synthroid 100 mcg p.o. daily. 11. Metformin 500 mg p.o. b.i.d. 12. Lopressor 50 mg p.o. daily. 13. Prilosec 20 mg p.o. daily. 14. Salagen 5 mg p.o. t.i.d. 1 by mouth 3-4 times a day. 15. Detrol LA 4 mg p.o. daily. DISPOSITION: The patient is being discharged home with her daughter. DISCHARGE INSTRUCTIONS: She will continue with outpatient IV antibiotics as prescribed by Dr. Sachin Petty and will follow up with Dr. Cristian Alaniz. She will be instructed on her wound dressings. The patient can return to the ED for any worsening of symptoms. She has also been advised by social work nurse to [facility]. Patient to return to the ED for any worsening of symptoms. DISCHARGE TIME: Thirty three minutes. Dictated by STEPHANIE Uribe for Donnie Stanton MD cc: Donnie Stanton MD [facility]
== END 2016-07-17 14:19 | disposition home or self-care (01) ==
LOC: ED 22:33 → SUATTDRO 07-10 03:30 → 4N 07-10 03:30
PROVIDERS: ATTEND Internal Medicine

== ENCOUNTER 2016-07-29 15:08 | Inpatient (IN) ==
[2016-07-29] MEDS ORDERED: LABETALOL IV ONE (16:15)
[2016-07-29 16:24] LABS: MANUAL DIFF NEEDED? NO
[2016-07-29 16:31] LABS: BASO% 0.7 % (0.0-0.8); EOS# 1.57 X1000 (0.0-0.7); EOS% 10.4 % (0.0-10.0); HEMATOCRIT 35.5 % (37.0-47.0); IMM GRAN# 0.03 X1000 (0.0-0.04); IMM GRAN% 0.2 % (0.0-0.5); LYMPH# 3.14 X1000 (1.2-3.4); LYMPH% 20.7 % (20.5-51.1); MCH 26.5 PG (27-31); MCHC 33.8 g/dL (33-37); MCV 78.5 FL (81-99); MONO# 0.81 X1000 (0.11-0.59); MONO% 5.4 % (1.7-9.3); MPV 9.9 FL (7.4-10.4); NEUT% 62.6 % (42.2-75.2); PLT 430 X1000 (130-400); RBC 4.52 XMIL (4.2-5.4)
[2016-07-29 16:49] LABS: INR 0.98 (0.86-1.15); PROTIME 13.3 Seconds (12.1-15.5)
[2016-07-29 16:50] LABS: PTT PL 29.8 Seconds (22.6-43.9)
--- NOTE | 2016-07-29 17:43 | PROVIDER DOCUMENTATION ---
This chart was entered by Heidi Garcia Scribe, acting as scribe for Bernard Zelaya MD. HPI-General Adult <Christopher TrujilloSharda - Last Filed: 07/29/16 18:50> - General Source: patient - History of Present Illness -Gen Adult Nature of Presenting Problems: 51 yo F presents to the ER with complaint of elevated BP and high blood sugar. Pt states she has been out of her insulin and metformin for over 10 days, at home FSBS was 550, at arrival it was 381. States she has her BP medication but it is still elevated. Recently had her 2nd R toe amputated, was at the wound clinic today and they advised her to come here for elevated BP. Denies SOB or CP. complains of HOFFMANN. Associated Symptoms: reports: headaches Similar Symptoms Previously?: No Recently seen or treated by another doctor?: No - Diabetes Related Context Context: reports: high blood sugar <Bernard Zelaya - Last Filed: 07/30/16 06:13> - General Chief Complaint: B/P Problems Stated Complaint: HIGH BLOOD PRESSURE/SUGAR Time Seen by Provider: 07/29/16 15:53 Allergies/Adverse Reactions: Patient Allergies Allergy/AdvReac Type Severity Reaction Status Date / Time amoxicillin Allergy ITCHING Verified 07/09/16 23:11 tramadol Allergy HEADACHE Verified 07/09/16 23:11 Home Medications: Home Medication List Medication Instructions Recorded Confirmed Last Taken Type Gabapentin 800 mg PO TID 11/27/14 07/30/16 07/09/16 History Insulin Glargine [Lantus] 42 unit SUBQ QAM 07/17/15 07/30/16 07/05/16 History Omeprazole 20 mg PO DAILY 07/17/15 07/30/16 07/05/16 History Duloxetine [Cymbalta] 60 mg PO DAILY 09/10/15 07/30/16 07/07/16 History Insulin Glargine [Lantus] 42 units SQ QHS 02/20/16 07/30/16 07/05/16 History Levothyroxine Sodium [Synthroid] 100 microgm PO DAILY 02/20/16 07/30/16 History Metformin HCl 500 mg PO BID CC 06/12/16 07/30/16 07/05/16 History Metoprolol [Lopressor] 50 mg PO DAILY 06/12/16 07/30/16 07/09/16 History Tolterodine Tartrate [Detrol LA] 4 mg PO DAILY 06/12/16 07/30/16 07/07/16 History Pilocarpine [Salagen] 5 mg PO TID #90 06/25/16 07/30/16 07/07/16 Rx Albuterol Sulfate [Albuterol 2 puff IH Q4H PRN PRN #1 hfa.aer.ad 07/17/16 Unknown Rx Sulfate Hfa] Amlodipine [Norvasc] 5 mg PO DAILY #90 tablet 07/17/16 07/30/16 Unknown Rx Budesonide Inhaler [Pulmicort 1 puff INH RTBID #1 inhaler 07/17/16 07/30/16 Unknown Rx Flexhaler] Furosemide 40 mg PO DAILY #90 tablet 07/17/16 07/30/16 Unknown Rx Hydralazine [Apresoline] 25 mg PO TID #90 tablet 07/17/16 07/30/16 Unknown Rx Review of Systems - Adult - REVIEW OF SYSTEMS - ADULT Constitutional: denies: chills, fever Eyes: reports: no symptoms reported Ears, Nose, Mouth & Throat: reports: no symptoms reported Cardiovascular: denies: chest pain, palpitations Respiratory: denies: cough, shortness of breath Gastrointestinal: reports: no symptoms reported Genitourinary: reports: no symptoms reported Musculoskeletal: reports: no symptoms reported Integumentary: reports: no symptoms reported Neurological: reports: no symptoms reported Psychiatric: reports: no symptoms reported Endocrine: reports: no symptoms reported Hematologic/Lymphatic: reports: no symptoms reported Allergic/Immunologic: reports: no symptoms reported All Other Systems: Reviewed and Negative <Bernard Zelaya - Last Filed: 07/30/16 06:13> Past History - Adult - PAST MEDICAL HISTORY-ADULT Review of Records: reports: Old Records Reviewed, Nursing Assessment Review, Medications Reviewed Cardiovascular: reports: HTN, hyperlipidemia Respiratory: reports: asthma Endocrine/Immune: reports: Diabetes, thyroid disorder Other Conditions: reports: other (diabetic retinopathy) - PRIOR SURGERIES/PROCEDURES Surgical/Procedure History: reports: recent surgery, BTL, , orthopedic (extremity) (R 2nd toe amputation), other (thyroidectomy) - IMMUNIZATION STATUS Childhood Immunizations: See Nurse Assessment Flu Vaccine: See Nurse Assessment <GarciaBernard X - Last Filed: 07/30/16 06:13> Physical Exam-General - PHYSICAL EXAM-ADULT Initial Vital Signs Reviewed: Yes - CONSTITUTIONAL General Appearance: alert, no apparent distress - EYES Eyes: PERRL/EOMI, pink conjunctivae - HEAD, EARS, NOSE, MOUTH & THROAT HENMT: normocephalic/atraumatic, normal ENT inspection - NECK Neck: supple, normal inspection - RESPIRATORY Respiratory: no respiratory distress, no accessory muscle use - CARDIOVASCULAR Cardiovascular: normal peripheral pulses, regular rate, rhythm - GASTROINTESTINAL (ABDOMEN) Abdominal Exam: normal bowel sounds, non tender, soft - MUSCULOSKELETAL Back Exam: no CVA tenderness, no vertebral tenderness Extremity: normal gait, normal inspection - SKIN Integumentary: normal color, warm/dry - NEUROLOGIC Neurologic: grossly normal, no motor/sensory deficits - PSYCHIATRIC Psych/Mental Status: normal mood/affect, normal thought content, normal thought process, oriented x 3 <Bernard Zelaya X - Last Filed: 07/30/16 06:13> Progress - PLAN OF CARE/RESULTS Progress/Plan/Lab Results: Vital Signs - 8 hr 07/29/16 15:14 07/29/16 18:09 07/29/16 18:23 Temperature 97.9 F Pulse Rate 103 H 86 84 Respiratory Rate 18 16 16 Blood Pressure 201/102 170/89 166/099 O2 Sat by Pulse Oximetry 98 99 99 Laboratory Results - last 24 hr 07/29/16 07/29/16 07/29/16 15:46 15:46 15:46 WBC RBC Hgb Hct MCV MCH MCHC RDW Std Deviation Plt Count MPV Immature Gran % (Auto) Neut % (Auto) Lymph % (Auto) [place] % (Auto) Eos % (Auto) Baso % (Auto) Immature Gran # (Auto) Neut # (Auto) Lymph # (Auto) [place] # (Auto) Eos # (Auto) Baso # (Auto) PT INR APTT (Factor Assay) Specimen Type Sample Site pH pCO2 pO2 HCO3 Base Excess Oxyhemoglobin ABG O2 Sat (Calculated) ABG O2 Saturation ABG Carboxyhemoglobin ABG Methemoglobin Kris Test A-a O2 Difference Total Hemoglobin Lactate Blood Gas Modality FiO2 % Sodium 127 L Potassium 3.5 Chloride 91 L Carbon Dioxide 23 L Anion Gap 14 BUN 17 Creatinine 1.4 H Estimated GFR/1.73 m2 40 BUN/Creatinine Ratio 12 Glucose 486 H* Calculated Osmolality 278 Calcium 9.1 Magnesium 1.5 Total Bilirubin 0.20 AST 12 ALT 9 L Alkaline Phosphatase 86 Creatine Kinase 35 Troponin T 0.020 Imq-R-Ivucxkedbur Pept 1377 H Total Protein 6.8 Albumin 3.0 L Globulin 4.0 Albumin/Globulin Ratio 1.0 Acetone Level 07/29/16 07/29/16 07/29/16 15:46 15:46 16:16 WBC 15.14 H RBC 4.52 Hgb 12.0 Hct 35.5 L MCV 78.5 L MCH 26.5 L MCHC 33.8 RDW Std Deviation 14.5 Plt Count 430 H MPV 9.9 Immature Gran % (Auto) 0.2 Neut % (Auto) 62.6 Lymph % (Auto) 20.7 [place] % (Auto) 5.4 Eos % (Auto) 10.4 H Baso % (Auto) 0.7 Immature Gran # (Auto) 0.03 Neut # (Auto) 9.48 H Lymph # (Auto) 3.14 [place] # (Auto) 0.81 H Eos # (Auto) 1.57 H Baso # (Auto) 0.11 PT 13.3 INR 0.98 APTT (Factor Assay) 29.8 Specimen Type Sample Site pH pCO2 pO2 HCO3 Base Excess Oxyhemoglobin ABG O2 Sat (Calculated) ABG O2 Saturation ABG Carboxyhemoglobin ABG Methemoglobin Kris Test A-a O2 Difference Total Hemoglobin Lactate Blood Gas Modality FiO2 % Sodium Potassium Chloride Carbon Dioxide Anion Gap BUN Creatinine Estimated GFR/1.73 m2 BUN/Creatinine Ratio Glucose Calculated Osmolality Calcium Magnesium Total Bilirubin AST ALT Alkaline Phosphatase Creatine Kinase Troponin T Aaw-B-Nqrcspogxtn Pept Total Protein Albumin Globulin Albumin/Globulin Ratio Acetone Level NEGATIVE 07/29/16 18:05 WBC RBC Hgb Hct MCV MCH MCHC RDW Std Deviation Plt Count MPV Immature Gran % (Auto) Neut % (Auto) Lymph % (Auto) [place] % (Auto) Eos % (Auto) Baso % (Auto) Immature Gran # (Auto) Neut # (Auto) Lymph # (Auto) [place] # (Auto) Eos # (Auto) Baso # (Auto) PT INR APTT (Factor Assay) Specimen Type ARTERIAL Sample Site L RADIAL pH 7.43 pCO2 38 pO2 83 HCO3 25.6 Base Excess 1.0 Oxyhemoglobin 94.1 L ABG O2 Sat (Calculated) 16.1 ABG O2 Saturation 96.4 ABG Carboxyhemoglobin 1.20 ABG Methemoglobin 1.2 Kris Test YES A-a O2 Difference 19.0 Total Hemoglobin 12.1 Lactate 1.90 Blood Gas Modality ROOM AIR FiO2 % 21.0 Sodium Potassium Chloride Carbon Dioxide Anion Gap BUN Creatinine Estimated GFR/1.73 m2 BUN/Creatinine Ratio Glucose Calculated Osmolality Calcium Magnesium Total Bilirubin AST ALT Alkaline Phosphatase Creatine Kinase Troponin T Ouo-R-Fuywpcfbvhq Pept Total Protein Albumin Globulin Albumin/Globulin Ratio Acetone Level Orders Category Date Time Status Cardiac Monitoring DIRECTED Care 07/29/16 16:16 Active FSBS [Finger Stick Blood Sugar (ED)] DIRECTED Care 07/29/16 18:40 Active Finger Stick Blood Sugar (ED) DIRECTED Care 07/29/16 16:15 Active Saline Loc NOW Care 07/29/16 16:16 Active CHEST-PORTABLE [RAD] Stat Exams 07/29/16 16:15 Taken ABG [RESP] Routine Lab 07/29/16 18:05 Completed ACETONE SERUM [CHEM] Stat Lab 07/29/16 16:16 Completed CBC WITH ELECTRONIC DIFF [HEME] Stat Lab 07/29/16 15:46 Completed CK PROFILE [SP CHEM] Stat Lab 07/29/16 15:46 Completed CK PROFILE [SP CHEM] Stat Lab 07/29/16 18:40 Ordered COMPREHENSIVE METABOLIC PANEL [CHEM] Stat Lab 07/29/16 15:46 Completed MAGNESIUM [CHEM] Stat Lab 07/29/16 15:46 Completed PRO B-NATRIURETIC PEPTIDE Stat Lab 07/29/16 15:46 Completed [address]OTIME WITH INR PL [COAG] Stat Lab 07/29/16 15:[address] [COAG] Stat Lab 07/29/16 15:46 Completed TROPONIN T Stat Lab 07/29/16 15:46 Completed TROPONIN T Stat Lab 07/29/16 18:40 Ordered Insulin Human Regular ([place] [Humulin R ([place])] Med 07/29/16 18:06 Discontinued 1 units .ROUTE .STK-MED ONE Insulin Human Regular [Humulin R] Med 07/29/16 17:57 Discontinued 10 unit IV NOW ONE Labetalol Med 07/29/16 16:15 Discontinued 20 mg IV NOW ONE EKG [EKG] Stat Ther 07/29/16 16:16 Draft EKG [EKG] Stat Ther 07/29/16 18:39 Ordered Result Diagrams: 07/29/16 15:46 07/29/16 15:46 <Christopher Trujillo - Last Filed: 07/29/16 18:50> - PLAN OF CARE/RESULTS Progress/Plan/Lab Results: Vital Signs - 8 hr 07/29/16 15:14 Temperature 97.9 F Pulse Rate 103 H Respiratory Rate 18 Blood Pressure 201/102 O2 Sat by Pulse Oximetry 98 Result Diagrams: 07/29/16 15:46 07/29/16 15:46 - EKG 1 Time of EKG reading by physician:: 16:38 EKG Read and Signed by:: Bernard Zelaya EKG Interpretation (*Must complete 3 of following elements*): Normal Rate: 88 Rhythm: normal sinus rhythm [place]: normal QRS: normal ME Interval: normal ST Wave: normal - CHANGE OF SHIFT REPORT (ED Provider) Report Given and Care Transferred to:: Dr. Trujillo Time of Transfer: 18:00 Items Pending: Labs, Other (dispo) <Bernard Zelaya - Last Filed: 07/30/16 06:13> Departure - Departure Time of Disposition Decision: 18:30 Certified Medical Emergency: Emergent - Critical Care Note This patient required my direct & personal management of CC.: No <Christopher Trujillo - Last Filed: 07/29/16 18:50> - Departure Date of Disposition Decision: 07/29/16 Time of Disposition Decision: 18:31 Certified Medical Emergency: Emergent - Critical Care Note This patient required my direct & personal management of CC.: No <Bernard Zelaya - Last Filed: 07/30/16 06:13> - Departure DIAGNOSIS: Accelerated essential hypertension Diabetes type 2, uncontrolled Qualifiers: Diabetes mellitus complication status: with hyperglycemia Diabetes mellitus halfway insulin use: with terminal system operator use Qualified Code(s): E11.65 - Type 2 diabetes mellitus with hyperglycemia CHF (congestive heart failure), NYHA class II Qualifiers: Congestive heart failure type: systolic Congestive heart failure chronicity: acute Qualified Code(s): I50.21 - Acute systolic (congestive) heart failure Disposition: ADMITTED INPATIENT 09 Condition: Stable This chart was documented by the indicated scribe, (Heidi Garcia Scribe) and accurately reflects the services I performed and decisions made by me, Bernard Zelaya MD, as attested by the provider's signature.
--- NOTE | 2016-07-29 17:52 | EKG Report ---
Test Performed on : 07/29/2016 4:38:03 PM Test Reason : CHEST PAIN Blood Pressure : / mmHG Vent. Rate : 088 BPM Atrial Rate : 088 BPM P-R Int : 136 ms QRS Dur : 074 ms QT Int : 364 ms P-R-T Axes : 021 078 074 degrees QTc Int : 440 ms Normal sinus rhythm. Normal ECG When compared with ECG of 10-SEP-2015 15:45, No significant change was found Unconfirmed Result
[2016-07-29 17:54] LABS: CALCIUM 9.1 mg/dL (8.8-10.2); MAGNESIUM 1.5 mg/dL (1.5-2.7); POTASSIUM 3.5 mmol/L (3.5-5.1); TOTAL BILIRUBIN 0.2 mg/dL (0.20-1.00); TOTAL PROTEIN 6.8 g/dL (6.3-8.3)
[2016-07-29] MEDS ORDERED: HUMULIN R IV ONE (17:57)
[2016-07-29] MEDS ORDERED: HUMULIN R (PARKWAY) ONE (18:06)
[2016-07-29 18:25] LABS: BLOOD TYPE ARTERIAL; METHB 1.2 % (0.0-1.5); O2(CT) 16.1 mL/dL (15.0-23.0); PCO2(98.6) 38 mmHg (35-45); PO2(98.6) 83 mmHg (60-100); SAMPLE BLOOD; SAO2 96.4 % (95.0-100.0); THB 12.1 g/dL (11.5-17.4); pH(98.6) 7.43 (7.35-7.45)
[2016-07-29 18:28] LABS: ALLEN TEST YES; DRAW SITE L RADIAL; MODALITY ROOM AIR
[2016-07-29] MEDS ORDERED: ZOFRAN PO PRN (18:44)
--- NOTE | 2016-07-29 18:57 | EKG Report ---
Test Performed on : 07/29/2016 6:54:47 PM Test Reason : pain Blood Pressure : / mmHG Vent. Rate : 086 BPM Atrial Rate : 086 BPM P-R Int : 144 ms QRS Dur : 078 ms QT Int : 372 ms P-R-T Axes : 015 020 079 degrees QTc Int : 445 ms Normal sinus rhythm. Normal ECG When compared with ECG of 29-JUL-2016 16:38, (Unconfirmed) Questionable change in QRS axis Unconfirmed Result
[2016-07-29] MEDS: TYLENOL PO PRN (20:32)
[2016-07-29] MEDS ORDERED: CATAPRES PO PRN (21:13)
[2016-07-29] MEDS: HUMALOG DOSE (PARKWAY) SUBQ SCH (21:16)
[2016-07-29] MEDS: LOPRESSOR PO SCH (21:17)
[2016-07-29] MEDS: LANTUS INSULIN (PARKWAY) SUBQ SCH (21:24)
[2016-07-29] MEDS: APRESOLINE PO SCH (21:31)
[2016-07-29] MEDS: NEURONTIN PO SCH (21:31)
[2016-07-29] MEDS: GLUCOPHAGE PO SCH (21:32)
[2016-07-30] MEDS: HUMALOG DOSE (PARKWAY) SUBQ SCH ×4 (06:13→22:54)
[2016-07-30] MEDS: SYNTHROID PO SCH (06:14)
[2016-07-30 06:31] LABS: HEMATOCRIT 34.1 % (37.0-47.0); HEMOGLOBIN 11.4 g/dL (12.0-16.0); MCH 26.4 PG (27-31); MCHC 33.4 g/dL (33-37); MCV 78.9 FL (81-99); MPV 9.9 FL (7.4-10.4); RBC 4.32 XMIL (4.2-5.4)
[2016-07-30 07:03] LABS: AGAP 13; ALBUMIN 2.5 g/dL (3.5-5.0); ALKALINE PHOSPHATASE 75 U/L (32-104); BUN 23 mg/dL (8-22); CALCIUM 8.6 mg/dL (8.8-10.2); CHLORIDE 96 mmol/L (98-107); COSMO 279; GOT 12 U/L (10-30); GPT 8 U/L (10-36); SODIUM 131 mmol/L (136-145); TCO2 23 mmol/L (25-35); TOTAL BILIRUBIN < 0.15 mg/dL (0.20-1.00); TOTAL PROTEIN 5.9 g/dL (6.3-8.3)
[2016-07-30] MEDS: GLUCOPHAGE PO SCH ×2 (07:41→17:46)
[2016-07-30] MEDS: TYLENOL PO PRN ×2 (07:41→13:53)
[2016-07-30] MEDS: NEURONTIN PO SCH ×3 (09:11→17:46)
[2016-07-30] MEDS: APRESOLINE PO SCH ×3 (09:12→17:46)
[2016-07-30] MEDS: LASIX PO SCH (09:12)
[2016-07-30] MEDS: NORVASC PO SCH (09:12)
[2016-07-30] MEDS: LOPRESSOR PO SCH (09:12)
[2016-07-30] MEDS: LANTUS INSULIN (PARKWAY) SUBQ SCH ×2 (09:19→22:53)
--- NOTE | 2016-07-30 09:36 | Diag Imaging Result Doc PS360 ---
EXAM: CHEST-PORTABLE INDICATION: Elevated BP TECHNIQUE: One view COMPARISON: 07/13/2016 FINDINGS: The lungs are grossly clear. There is no discrete pleural fluid collection or pneumothorax. The cardiomediastinal silhouette and central vasculature are grossly unremarkable. IMPRESSION: No evidence of acute pathology by plain radiograph. Electronically signed by Carl Kay 07/30/2016 9:34 AM
[2016-07-30] MEDS ORDERED: VENTOLIN HFA INH PRN (12:50)
[2016-07-30] MEDS ORDERED: PRILOSEC PO SCH (13:00)
[2016-07-30] MEDS: CYMBALTA PO SCH (13:38)
--- NOTE | 2016-07-30 13:42 | HISTORY AND PHYSICAL ---
PRIMARY CARE PHYSICIAN: [facility]. CHIEF COMPLAINT: Increased blood pressure and increased blood sugar stating that she had been out of her blood sugar medicine for the last 10 days. HISTORY OF PRESENTING ILLNESS: This is a 51-year-old female who had an amputation of her right 2nd great toe during her admission of 07/10/2016 through 07/17/2016. She was seen at the wound clinic yesterday who sent her to the emergency room after she stated that she had been out of her blood sugar medicine for at least 10 days. Had noticed that her blood pressure was also up despite taking her medications for it. When she arrived at the emergency room her blood pressure was 201/102. Her sodium was 127, chloride 91, creatinine was 1.4. Her blood sugar was 486. Her proBNP was 1377. It is noted her acetone level was negative. She had a bump in her white blood cell count at 15.14 which is most likely reactive but she was admitted to the intensive care unit for further evaluation and treatment. It is noted in the ER she was given labetalol 20 mg IV x1 and regular insulin 10 units IV x1. PAST MEDICAL HISTORY: Diabetes type 2, hypertension, hyperlipidemia, peripheral neuropathy, depression, hypothyroidism, chronic kidney disease stage 2, asthma and diabetic retinopathy. PAST SURGICAL HISTORY: Of a partial thyroidectomy and a , bilateral tubal ligation and a right 2nd toe amputation recent. FAMILY HISTORY: Noncontributory. SOCIAL HISTORY: She currently lives with family. Denied any tobacco, alcohol, or illicit drug use. ALLERGIES: Amoxicillin and tramadol. HOME MEDICATIONS: She takes albuterol 2 puffs inhalation q.4 hours p.r.n. Norvasc 5 mg p.o. daily. Pulmicort 1 inhalation b.i.d. Cymbalta 60 mg p.o. daily. Lasix 40 mg p.o. daily. Gabapentin 800 mg p.o. t.i.d. Apresoline 25 mg p.o. t.i.d. Lantus 42 units subcutaneous q.a.m. and at bedtime. Synthroid 100 mcg p.o. daily. Metformin 500 mg p.o. b.i.d. Lopressor 50 mg p.o. daily. Omeprazole 20 mg p.o. daily. Salagen 5 mg p.o. t.i.d. and Detrol LA 4 mg p.o. daily. LABORATORY DATA: Showed a white blood cell count of 15.14, hemoglobin 12, hematocrit 35.5, platelets 430,000. PT and INR of 13.3 and 0.98. ABG showed a pH of 7.43, pCO2 of 38, PO2 83, bicarb 25.6. Sodium of 127, potassium 3.5, chloride 91, CO2 23, BUN of 17. Creatinine 1.4 which appears to be around her baseline of 1.1-1.6. Glucose was 486. Cardiac enzymes were negative x2 sets. ProBNP was 1377. Acetone level was negative. Chest x-ray showed no evidence of an acute pathology. EKG showed normal sinus rhythm at 86. REVIEW OF SYSTEMS: She denied any fever, chills, blurred vision, dizziness, chest pain, coughing, shortness of breath. She denied any abdominal pain, constipation, diarrhea, burning or hurting with urination. PHYSICAL EXAMINATION: On arrival showed a temperature of 97.9 degrees, a pulse of 103, respirations 18, blood pressure 201/102, saturating 98% on room air. GENERAL: This is a 51-year-old female who is lying in the bed, and answers questions appropriately. HEENT: Normocephalic and atraumatic. Pupils are equal, round, reactive to light. The extraocular movements are intact. The oropharynx and nares are clear. NECK: Supple. LUNGS: Clear to auscultation bilaterally with equal lung expansion and chest wall movement. HEART: With regular rate and rhythm. No murmurs, rubs, or gallops. ABDOMEN: Soft, nontender, nondistended. Bowel sounds are present x4 quadrants. EXTREMITIES: No clubbing, cyanosis, or edema. Patient does have a dry dressing in place to her right 2nd toe amputation site. Appears clean and dry and dressing dry and intact. NEUROLOGICAL: The cranial nerves 2-12 appear grossly intact. ASSESSMENT: 1. Diabetes type 2 with hyperglycemia, uncontrolled. 2. Hyponatremia. 3. Leukocytosis most likely reactive. 4. Accelerated hypertension. PLAN: She was admitted to the intensive care unit. Placed on pattern blood sugars with sliding scale insulin. Diabetic diet. We continued her home medications. We will recheck labs in a.m. Dictated by STEPHANIE Alfonso for Gus Fishman MD cc: STEPHANIE Alfonso MD
[2016-07-30] MEDS: SALAGEN PO SCH ×2 (15:26→17:46)
[2016-07-30] MEDS: DETROL LA PO SCH (15:27)
[2016-07-30] MEDS: PULMICORT FLEXHALER INH SCH (20:15)
[2016-07-31] MEDS: HUMALOG DOSE (PARKWAY) SUBQ SCH ×4 (06:07→20:47)
[2016-07-31] MEDS: SYNTHROID PO SCH (06:07)
[2016-07-31] MEDS: PRILOSEC PO SCH (08:26)
[2016-07-31] MEDS: CYMBALTA PO SCH (08:26)
[2016-07-31] MEDS: GLUCOPHAGE PO SCH ×2 (08:26→17:24)
[2016-07-31] MEDS: LOPRESSOR PO SCH (08:26)
[2016-07-31] MEDS: SALAGEN PO SCH ×3 (08:26→17:24)
[2016-07-31] MEDS: APRESOLINE PO SCH ×3 (08:26→17:24)
[2016-07-31] MEDS: DETROL LA PO SCH (08:26)
[2016-07-31] MEDS: NORVASC PO SCH (08:27)
[2016-07-31] MEDS: NEURONTIN PO SCH ×3 (08:27→17:24)
[2016-07-31] MEDS: LASIX PO SCH (08:27)
[2016-07-31] MEDS: LANTUS INSULIN (PARKWAY) SUBQ SCH ×2 (08:27→20:46)
[2016-07-31] MEDS: PULMICORT FLEXHALER INH SCH ×2 (09:15→19:34)
[2016-07-31 10:23] LABS: AGAP 13; ALBUMIN 2.5 g/dL (3.5-5.0); ALKALINE PHOSPHATASE 92 U/L (32-104); BUN 30 mg/dL (8-22); CHLORIDE 95 mmol/L (98-107); COSMO 279; GOT 11 U/L (10-30); GPT 8 U/L (10-36); MAGNESIUM 1.5 mg/dL (1.5-2.7); POTASSIUM 3.7 mmol/L (3.5-5.1); SODIUM 130 mmol/L (136-145); TCO2 22 mmol/L (25-35); TOTAL BILIRUBIN < 0.15 mg/dL (0.20-1.00); TOTAL PROTEIN 5.6 g/dL (6.3-8.3)
[2016-07-31 10:44] LABS: HEMATOCRIT 34.9 % (37.0-47.0); HEMOGLOBIN 11.5 g/dL (12.0-16.0); MCH 26.3 PG (27-31); MCV 79.7 FL (81-99); RBC 4.38 XMIL (4.2-5.4)
[2016-07-31] MEDS: NS 1,000 ML IV SCH (12:33)
[2016-07-31] MEDS: CLINDAMYCIN 600 MG/NS 600 MG/50 ML IVPB IV SCH ×2 (12:33→20:45)
--- NOTE | 2016-07-31 18:39 | PROGRESS NOTE ---
DATE: 07/31/2016 SUBJECTIVE: Patient notes that she is feeling a little bit better this morning. Still does not feel quite well. Denies any chest pain, palpitations. Denies any fevers or chills. PHYSICAL: Temp 97 degrees, pulse 78, respiratory rate 18, BP 168/78, sat 98% on room air.General: Patient is awake, alert. She is currently in no respiratory distress. Speech is regular. Memory is intact. Neck: Supple. CV: Regular rate. Chest: Clear. Abdomen: Soft. Extremities: Moves all extremities. Neurologic: No changes. ASSESSMENT: 1. Diabetes with poor home control. 2. Hypertension with poor home control. 3. Diabetic neuropathy. 4. Depression. 5. Anxiety. 6. Others. PLAN: We will continue to increase patient's blood sugar medications. We will continue to increase her blood pressure control. She currently is on hydralazine 25 t.i.d. We will add lisinopril due to her diabetes and follow. cc: Gus Fishman MD
[2016-07-31] MEDS: PRINIVIL PO SCH (20:44)
[2016-08-01] MEDS: NS 1,000 ML IV SCH ×2 (02:33→19:45)
[2016-08-01] MEDS: CLINDAMYCIN 600 MG/NS 600 MG/50 ML IVPB IV SCH ×3 (02:47→21:06)
[2016-08-01] MEDS: SYNTHROID PO SCH (06:28)
[2016-08-01] MEDS: PRILOSEC PO SCH (06:29)
[2016-08-01] MEDS: HUMALOG DOSE (PARKWAY) SUBQ SCH ×4 (06:29→21:07)
[2016-08-01 07:28] LABS: MANUAL DIFF NEEDED? NO
[2016-08-01 07:37] LABS: BASO% 0.7 % (0.0-0.8); EOS# 1.56 X1000 (0.0-0.7); EOS% 11.9 % (0.0-10.0); HEMOGLOBIN 10.3 g/dL (12.0-16.0); IMM GRAN# 0.03 X1000 (0.0-0.04); IMM GRAN% 0.2 % (0.0-0.5); LYMPH# 3.62 X1000 (1.2-3.4); LYMPH% 27.7 % (20.5-51.1); MCH 25.7 PG (27-31); MCHC 32.2 g/dL (33-37); MCV 79.8 FL (81-99); MONO# 0.65 X1000 (0.11-0.59); MPV 9.8 FL (7.4-10.4); NEUT% 54.5 % (42.2-75.2); PLT 379 X1000 (130-400); RBC 4.01 XMIL (4.2-5.4)
[2016-08-01] MEDS: NEURONTIN PO SCH ×3 (08:13→21:06)
[2016-08-01] MEDS: DETROL LA PO SCH (08:13)
[2016-08-01] MEDS: CYMBALTA PO SCH (08:13)
[2016-08-01] MEDS: LASIX PO SCH (08:14)
[2016-08-01] MEDS: SALAGEN PO SCH ×3 (08:14→16:25)
[2016-08-01] MEDS: PRINIVIL PO SCH (08:14)
[2016-08-01] MEDS: GLUCOPHAGE PO SCH ×2 (08:14→16:25)
[2016-08-01] MEDS: APRESOLINE PO SCH ×3 (08:14→16:25)
[2016-08-01] MEDS: LOPRESSOR PO SCH (08:14)
[2016-08-01] MEDS: LANTUS INSULIN (PARKWAY) SUBQ SCH ×2 (08:15→21:07)
[2016-08-01] MEDS: NORVASC PO SCH (08:18)
[2016-08-01 08:23] LABS: CALCIUM 7.7 mg/dL (8.8-10.2); POTASSIUM 3.6 mmol/L (3.5-5.1)
[2016-08-01] MEDS: PULMICORT FLEXHALER INH SCH ×2 (09:03→19:43)
[2016-08-01] MEDS ORDERED: ZOFRAN ODT PO PRN (10:02)
--- NOTE | 2016-08-01 19:30 | PROGRESS NOTE ---
DATE: 08/01/2016 SUBJECTIVE: Patient notes that she is feeling a little bit better, less cough and congestion. She states that overall her symptoms are improved. She is actually starting to ambulate in the room a little bit more. She is having no dizziness, no shortness of breath. She denies any current chest pains or palpitations. PHYSICAL EXAMINATION: Vital Signs: Temp 97, pulse 69, respiratory 18, BP 144/84 to 104/69. General: Patient is awake, alert. She is currently in no respiratory distress. Pleasant to talk with. Speech is regular. Memory is intact. Neck: Supple. Cardiovascular: Regular rate. Chest: Relatively clear. Abdomen: Soft. Extremities: Moves all extremities. Neurologic: No changes. DIAGNOSTIC DATA: WBC 13, hemoglobin and hematocrit 10 and 30. Sodium 132. Creatinine 1.7. ASSESSMENT: 1. Hypothyroidism: TSH 5.4. 2. Acute renal failure: Serum creatinine is 1.7 which is slightly above her baseline. She was started on lisinopril while in the hospital. We will actually stop this at this point as it certainly could be affecting her kidney function. For the moment we will continue Glucophage and continue her IV fluids. 3. Leukocytosis. 4. Diabetes. 5. Hyperglycemia uncontrolled, improved. 6. Hyponatremia. PLAN: We will continue to follow patient's blood pressures. We will hold her lisinopril as this certainly could be affecting her current kidney function. We will continue her on insulin. Hopefully we will discharge in the a.m. if blood cultures are negative. cc: Gus Fishman MD
[2016-08-01] MEDS: TYLENOL PO PRN (19:49)
[2016-08-02] MEDS: CLINDAMYCIN 600 MG/NS 600 MG/50 ML IVPB IV SCH ×2 (03:05→11:48)
[2016-08-02 06:30] LABS: HEMATOCRIT 29.4 % (37.0-47.0); HEMOGLOBIN 9.7 g/dL (12.0-16.0); MCH 26.5 PG (27-31); MCV 80.3 FL (81-99); MPV 9.9 FL (7.4-10.4); RBC 3.66 XMIL (4.2-5.4)
[2016-08-02] MEDS: HUMALOG DOSE (PARKWAY) SUBQ SCH ×2 (06:32→11:47)
[2016-08-02] MEDS: SYNTHROID PO SCH (06:35)
[2016-08-02] MEDS: PRILOSEC PO SCH (06:35)
[2016-08-02 07:09] LABS: AGAP 12; ALBUMIN 2.4 g/dL (3.5-5.0); ALKALINE PHOSPHATASE 70 U/L (32-104); BUN 32 mg/dL (8-22); CALCIUM 7.4 mg/dL (8.8-10.2); CHLORIDE 98 mmol/L (98-107); COSMO 273; GOT 10 U/L (10-30); GPT 6 U/L (10-36); MAGNESIUM 1.6 mg/dL (1.5-2.7); POTASSIUM 3.5 mmol/L (3.5-5.1); SODIUM 131 mmol/L (136-145); TCO2 21 mmol/L (25-35); TOTAL BILIRUBIN < 0.15 mg/dL (0.20-1.00); TOTAL PROTEIN 5.5 g/dL (6.3-8.3)
[2016-08-02] MEDS: NS 1,000 ML IV SCH (07:24)
[2016-08-02] MEDS: APRESOLINE PO SCH ×2 (08:44→13:15)
[2016-08-02] MEDS: DETROL LA PO SCH (08:44)
[2016-08-02] MEDS: CYMBALTA PO SCH (08:44)
[2016-08-02] MEDS: LOPRESSOR PO SCH (08:45)
[2016-08-02] MEDS: NORVASC PO SCH (08:45)
[2016-08-02] MEDS: GLUCOPHAGE PO SCH (08:45)
[2016-08-02] MEDS: SALAGEN PO SCH ×2 (08:45→13:15)
[2016-08-02] MEDS: NEURONTIN PO SCH (08:45)
[2016-08-02] MEDS: LASIX PO SCH (08:45)
[2016-08-02] MEDS: LANTUS INSULIN (PARKWAY) SUBQ SCH (08:47)
[2016-08-02 12:22] VITALS: BP 155/73
[2016-08-02] MEDS: PULMICORT FLEXHALER INH SCH (13:50)
--- NOTE | 2016-08-02 17:01 | DISCHARGE SUMMARY ---
ADMISSION DATE: 07/29/2016 DISCHARGE DATE: 08/02/2016 PRIMARY CARE PHYSICIAN: [facility]. ADMISSION DIAGNOSES: 1. Type 2 diabetes with hyperglycemia, uncontrolled. 2. Hyponatremia. 3. Leukocytosis, most likely reactive. 4. Accelerated hypertension. DISCHARGE DIAGNOSES: 1. Diabetes type 2 with hyperglycemia, uncontrolled. 2. Hypothyroidism. 3. Acute renal failure. 4. Leukocytosis, improved. 5. Hyponatremia. SUMMARY OF FINDINGS: This is a 51-year-old female who had an amputation of her right 2nd great toe and on 07/10/2016, was seen at the wound clinic on the day of her arrival and was sent to the emergency room after she told them that she was out of her blood sugar medicine for the past 10 days. She stated that her blood pressure was also up despite her medications for it. When she arrived to the emergency room her blood pressure was 201/102, sodium 127, chloride 91, creatinine was 1.4. Her blood sugar was 486. Acetone level was negative. She was admitted to the Intensive Care initially, placed on pattern blood sugars with sliding scale insulin, diabetic diet, fluid resuscitation has been given. She has continued to have some acute kidney injury, but overall she has improved. She was moved out of the unit to the medical floor. Blood sugars are running 168, so it is felt that she can safely be discharged home today. DISCHARGE MEDICATIONS: Will include: 1. Albuterol 2 puffs inhalation q.4 hours p.r.n. 2. Norvasc 5 mg p.o. daily. 3. Pulmicort 1 puff inhalation b.i.d. 4. Cymbalta 60 mg p.o. daily. 5. Lasix 40 mg p.o. daily. 6. Gabapentin 800 mg p.o. t.i.d. 7. Hydralazine 25 mg p.o. t.i.d. 8. Synthroid 100 mcg p.o. daily. 9. Metformin 500 mg p.o. b.i.d. 10. Metoprolol 50 mg p.o. daily. 11. Omeprazole 20 mg p.o. daily. 12. Salagen 5 mg p.o. t.i.d. 13. Detrol LA 4 mg p.o. daily. 14. A prescription for clindamycin 300 mg p.o. 3 times daily, #15, no refills. 15. She has been on Lantus 42 units subcutaneous at bedtime but states that she cannot afford this at this time, has been out of her diabetes medication. We will change her over to ReliOn. I am going to discuss this with her attending to get an accurate dosage and we will give her the prescription for that. FOLLOWUP: She will need to follow up with the [facility] in the next 1-2 weeks. Continue treatments at the wound clinic as previously scheduled. All discharge instructions have been reviewed with the patient and she verbalizes understanding. Dictated by STEPHANIE Alfonso for Gus Fishman MD cc: STEPHANIE Alfonso MD
== END 2016-08-02 13:40 | disposition home or self-care (01) ==
LOC: P.ED 15:08 → P.ICU 19:24 → P.MEDSURG 07-30 14:03
PROVIDERS: ATTEND Family Medicine

== ENCOUNTER 2016-11-16 16:47 | Inpatient (IN) ==
[2016-11-16 18:47] LABS: MANUAL DIFF NEEDED? NO
[2016-11-16 18:50] LABS: BASO% 0.8 % (0.0-0.8); EOS# 0.41 X1000 (0.0-0.7); EOS% 4.6 % (0.0-10.0); HEMOGLOBIN 10.7 g/dL (12.0-16.0); IMM GRAN# 0.01 X1000 (0.0-0.04); IMM GRAN% 0.1 % (0.0-0.5); LYMPH# 0.97 X1000 (1.2-3.4); LYMPH% 10.9 % (20.5-51.1); MCH 26.4 PG (27-31); MCHC 33.4 g/dL (33-37); MONO# 0.53 X1000 (0.11-0.59); MPV 9.6 FL (7.4-10.4); NEUT% 77.6 % (42.2-75.2); PLT 360 X1000 (130-400); RBC 4.05 XMIL (4.2-5.4)
[2016-11-16 19:04] LABS: ALBUMIN 2.1 g/dL (3.5-5.0); CALCIUM 8.2 mg/dL (8.8-10.2); TOTAL BILIRUBIN 0.2 mg/dL (0.20-1.00); TOTAL PROTEIN 6.3 g/dL (6.3-8.3)
[2016-11-16 19:06] LABS: HEMOGLOBIN A1C 9.3 % (4.8-6.0)
[2016-11-16] MEDS ORDERED: HUMULIN R IV ONE (19:09)
[2016-11-16] MEDS ORDERED: SEPTRA DS PO ONE (19:10)
[2016-11-16] MEDS ORDERED: CLINDAMYCIN 600 MG/NS 600 MG/50 ML IVPB IV ONE (19:10)
[2016-11-16] MEDS ORDERED: PHENERGAN IV ONE (19:11)
[2016-11-16] MEDS ORDERED: MORPHINE IV ONE (19:11)
[2016-11-16] MEDS ORDERED: SODIUM CHLORIDE 0.9% INJ ONE (19:11)
[2016-11-16] MEDS ORDERED: LASIX IV ONE (19:23)
[2016-11-16] MEDS ORDERED: HUMULIN R (PARKWAY) ONE (19:31)
[2016-11-16] MEDS ORDERED: TYLENOL PO PRN (20:33)
[2016-11-16] MEDS ORDERED: ZOFRAN IV PRN (20:33)
[2016-11-16] MEDS ORDERED: HUMULIN R DOSE (PARKWAY) SUBQ ONE (20:45)
[2016-11-17] MEDS: CLINDAMYCIN 300 MG in NS 50 ML IV SCH ×3 (00:30→18:09)
[2016-11-17] MEDS: LASIX IV SCH ×3 (00:31→19:59)
[2016-11-17] MEDS: SEPTRA DS PO SCH ×2 (00:32→09:41)
[2016-11-17] MEDS: NORCO-7.5 PO PRN ×3 (02:33→18:10)
[2016-11-17] MEDS ORDERED: HUMULIN R (PARKWAY) SUBQ ONE (06:25)
[2016-11-17] MEDS ORDERED: TYLENOL PO PRN (08:14)
[2016-11-17] MEDS ORDERED: ZOFRAN IV PRN (08:14)
[2016-11-17] MEDS: HUMALOG DOSE (PARKWAY) SUBQ SCH ×3 (11:10→20:30)
[2016-11-17] MEDS ORDERED: PRILOSEC PO SCH (11:15)
[2016-11-17] MEDS ORDERED: LASIX PO SCH (11:15)
[2016-11-17] MEDS: SYMBICORT 80/4.5 MICROGM INHALER INH SCH ×2 (12:48→19:34)
[2016-11-17] MEDS: DETROL LA PO SCH (13:29)
[2016-11-17] MEDS: NORVASC PO SCH (13:30)
[2016-11-17] MEDS: SALAGEN PO SCH ×2 (13:30→18:09)
[2016-11-17] MEDS: APRESOLINE PO SCH ×2 (13:31→21:03)
[2016-11-17] MEDS: NEURONTIN PO SCH ×2 (13:31→21:03)
[2016-11-17] MEDS ORDERED: BENADRYL PO ONE (13:35)
--- NOTE | 2016-11-17 15:04 | HISTORY AND PHYSICAL ---
PRIMARY CARE PHYSICIAN: [facility]. CHIEF COMPLAINT: Fever, chills, muscle aches, headache and right great toe and foot pain for the past 3 days that has progressively worsened. HISTORY OF PRESENTING ILLNESS: This is a 51-year-old female who presents to [facility] ER with complaints of a subjective fever, chills, weakness, muscle aches, headache and a right great toe and foot pain for the past 3 days that has progressively worsened. States that she has been out of her Lasix, gabapentin and insulin for 3-4 days without access to refill. When she arrived she had a temperature of 96.8 degrees. Her sodium was 131, potassium of 3, creatinine of 2.1. Blood sugar was 323 with a hemoglobin A1c of 9.3. Her right great toe was noted to have erythema, edema, tenderness to touch and so she is being admitted for further evaluation and treatment. PAST MEDICAL HISTORY: Diabetes type 2, hypertension, hyperlipidemia, peripheral neuropathy, diabetic retinopathy, depression, hypothyroidism, chronic kidney disease stage 2 and asthma. PAST SURGICAL HISTORY: Of a partial thyroidectomy, , bilateral tubal ligation and a right 2nd toe amputation. FAMILY HISTORY: Noncontributory. SOCIAL HISTORY: She currently lives with family. Denies any tobacco, alcohol, or illicit drug use. ALLERGIES: Amoxicillin and tramadol. HOME MEDICATIONS: She takes ProAir inhalation p.r.n., Norvasc 5 mg p.o. daily, Symbicort 80/4.5 inhaler b.i.d., Lasix 40 mg p.o. daily, gabapentin 800 mg p.o. t.i.d., hydralazine 25 mg p.o. t.i.d., Humulin 70/30, 30 units subcutaneously b.i.d., Synthroid 100 mcg p.o. daily, metformin 500 mg p.o. b.i.d., omeprazole 20 mg p.o. daily, pilocarpine 5 mg p.o. t.i.d. and Detrol LA 4 mg p.o. daily. LABORATORY DATA: Showed a white blood cell count of 8.87, hemoglobin 10.7, hematocrit 32, platelets 360,000. Sodium 131, potassium 3, chloride 95, CO2 24, BUN of 19, creatinine 2.1, glucose 323, hemoglobin A1c of 9.3, pro BNP of 3111. REVIEW OF SYSTEMS: She was positive for a subjective fever, chills, generalized weakness, muscle ache, headache, right great toe pain and foot pain. Otherwise negative review of systems. PHYSICAL EXAMINATION: VITAL SIGNS: On arrival she had a temperature of 96.8 degrees, pulse 84, respirations 18, blood pressure 138/80, saturating 97% on room air. Currently her temperature is 98.2 degrees. GENERAL: This is a 51-year-old female who is lying in the bed and answers questions appropriately. HEENT: Normocephalic and atraumatic. Pupils are equal, round, reactive to light. Extraocular movements are intact. Oropharynx and nares are clear. NECK: Supple. LUNGS: Clear to auscultation bilaterally with equal lung expansion and chest wall movement. HEART: With regular rate and rhythm. No murmurs, rubs, or gallops. ABDOMEN: Soft, nontender, nondistended. Bowel sounds are present x4 quadrants. EXTREMITIES: No clubbing, cyanosis. Patient is noted to have erythema and edema and tenderness to touch to the right great toe extending up her right foot. A dressing is dry and intact at this time. NEUROLOGIC: The cranial nerves 2-12 are grossly intact. ASSESSMENT: 1. Right great toe diabetic foot ulcer with cellulitis. 2. Acute kidney injury on chronic kidney disease stage 2. 3. Hypokalemia. 4. Hyponatremia. PLAN: She was admitted to the medical unit at [facility], placed on a diabetic diet. We have consulted Wound Care. We obtained a wound culture that is pending. She is on clindamycin 300 mg IV q.8, Lasix 40 mg IV q.12, pattern blood sugars with sliding scale insulin, Bactrim DS 1 p.o. b.i.d., Zofran 4 mg IV q.4 hours p.r.n. Will continue her home medications as previously identified and will recheck a CBC and CMP in the a.m. Dictated by STEPHANIE Alfonso for Gus Fishman MD cc: STEPHANIE Alfonso MD
[2016-11-17] MEDS: HUMULIN 70/30 (PARKWAY) SUBQ SCH (18:09)
[2016-11-17] MEDS: GLUCOPHAGE PO SCH (18:09)
[2016-11-17] MEDS ORDERED: ROCEPHIN 1 GM in NS 50 ML IV SCH (18:30)
[2016-11-18] MEDS: CLINDAMYCIN 300 MG in NS 50 ML IV SCH ×2 (01:22→10:14)
--- NOTE | 2016-11-18 03:57 | PROGRESS NOTE ---
DATE: 11/17/2016 ADDENDUM The patient was seen and examined by myself. Full note dictated and discussed with nurse practitioner. Patient notes that her blood sugars have been elevated. She has been having pain in her toe. She has recently had surgery on her right toe and had a toe removal. At this time when the toe became more swollen, she became worried and came to the ER. She notes that she was having some drainage. On physical, she is having drainage from the right toe. She is afebrile. Vital signs are stable. She is awake, alert. She is in no distress. PLAN: Will admit patient to the hospital for diabetic foot ulcer and cellulitis. Will place her on vancomycin to cover gram positives and on Rocephin to cover gram negatives. Will continue to follow. cc: Gus Fishman MD
[2016-11-18 06:28] LABS: HEMATOCRIT 31.2 % (37.0-47.0); HEMOGLOBIN 10.2 g/dL (12.0-16.0); MCH 25.8 PG (27-31); MCHC 32.7 g/dL (33-37); RBC 3.95 XMIL (4.2-5.4)
[2016-11-18] MEDS: APRESOLINE PO SCH ×3 (06:37→21:34)
[2016-11-18] MEDS: SYNTHROID PO SCH (06:37)
[2016-11-18] MEDS: NEURONTIN PO SCH ×3 (06:37→21:34)
[2016-11-18] MEDS: HUMULIN 70/30 (PARKWAY) SUBQ SCH ×2 (06:38→16:28)
[2016-11-18 07:01] LABS: AGAP 13; ALKALINE PHOSPHATASE 70 U/L (32-104); BUN 21 mg/dL (8-22); CHLORIDE 97 mmol/L (98-107); COSMO 274; GOT 13 U/L (10-30); GPT 10 U/L (10-36); POTASSIUM 2.9 mmol/L (3.5-5.1); SODIUM 133 mmol/L (136-145); TCO2 23 mmol/L (25-35); TOTAL BILIRUBIN < 0.15 mg/dL (0.20-1.00); TOTAL PROTEIN 6.1 g/dL (6.3-8.3)
[2016-11-18] MEDS: HUMALOG DOSE (PARKWAY) SUBQ SCH ×4 (07:10→21:34)
[2016-11-18] MEDS: PRILOSEC PO SCH (07:11)
[2016-11-18] MEDS: SYMBICORT 80/4.5 MICROGM INHALER INH SCH ×2 (07:39→19:49)
[2016-11-18] MEDS: SALAGEN PO SCH ×3 (09:10→17:07)
[2016-11-18] MEDS: GLUCOPHAGE PO SCH ×2 (09:10→17:07)
[2016-11-18] MEDS: LASIX IV SCH (09:10)
[2016-11-18] MEDS: NORVASC PO SCH (09:10)
[2016-11-18] MEDS: DETROL LA PO SCH (09:10)
--- NOTE | 2016-11-18 10:53 | Diag Imaging Result Doc PS360 ---
EXAM: FOOT COMPLETE RIGHT INDICATION: diabetic foot ulcer, 1st toe TECHNIQUE: 3 views COMPARISON: 09/04/2016 FINDINGS: There are erosive changes associated with the tip of the distal phalanx of the great toe underlying a skin ulceration consistent with osteomyelitis, which was not present on the previous study. There has been amputation of the second toe in the past. Since the previous study, there has been further resolution of the head of the second metatarsal. No other erosions are appreciated. There is soft tissue edema at the dorsum of the foot and mild atherosclerotic calcification. IMPRESSION: Interval erosion at the tip of the distal phalanx of the great toe and further erosion at the head of the second metatarsal consistent with osteomyelitis. Electronically signed by Carl Kay 11/18/2016 10:51 AM
[2016-11-18] MEDS ORDERED: INVANZ 1 GM/NS 1 GM/50 ML IVPB IV SCH (11:15)
[2016-11-18] MEDS: KLOR-CON PO SCH (15:40)
--- NOTE | 2016-11-18 16:40 | PROGRESS NOTE ---
DATE: 11/18/2016 SUBJECTIVE: Patient resting quietly in bed. States her right great toe is tool tender but otherwise no complaints voiced. OBJECTIVE: Vital signs: Temperature 98.1 degrees, pulse 88, respirations 18, blood pressure 146/69, saturating 98% on room air. General: This is a 51-year-old female who is lying in the bed and answers questions appropriately. HEENT: Normocephalic and atraumatic. Pupils are equal, round, reactive to light. Extraocular movements are intact. Oropharynx and nares are clear. Neck: Is supple. Lungs: Were clear to auscultation bilaterally with equal lung expansion and chest wall movement. Heart: Regular rate and rhythm. No murmurs, rubs, or gallops. Abdomen: Soft, nontender, nondistended. Bowel sounds are present x4 quadrants. Extremities: No clubbing, cyanosis. Patient is noted to have some edema to her right foot with dressing dry and intact to her right great toe. No warmth or erythema noted at this time. Neurologic: The cranial nerves 2-12 appear grossly intact. LABORATORY DATA: Showed a white blood cell count of 9.38, hemoglobin of 10.2, hematocrit 31.2, platelets 458,000. Sodium 133, potassium 2.9, chloride 97, CO2 23, BUN of 21, creatinine 2.3, glucose 186. X-ray of right foot shows an interval erosion of the tip of the distal phalanx of the great toe and further erosion of the head of the 2nd metatarsal consistent with osteomyelitis. ASSESSMENT: 1. Right great toe diabetic foot ulcer with cellulitis and osteomyelitis. Will continue her IV antibiotic. We have consulted Wound Care. We will now consult surgery. 2. Acute kidney injury on chronic kidney disease stage 2. We will stop her Lasix 40 mg IV q.12. Change her over to Lasix 40 mg p.o. daily, as her creatinine has bumped up slightly. 3. Hypokalemia. We will supplement and recheck labs in the a.m. 4. Hyponatremia improved. Again, we will recheck BMP in the a.m.. Dictated by STEPHANIE Alfonso for Ino Sheffield MD cc: STEPHANIE Alfonso MD pt examined, face to face encounter, pt has osteomyelitis, will need iv abx for 6 weeks vs surgery, surgery will be consulted today , and will reassess disposition based on their recommendations, pt has purplishtoe with quartersized ulcer at base of 1st mtp APENOT MTDD
[2016-11-18] MEDS: CLINDAMYCIN 600 MG/NS 600 MG/50 ML IVPB IV SCH (17:30)
--- NOTE | 2016-11-18 17:59 | CONSULTATION ---
DATE OF CONSULTATION: 11/18/2016 REQUESTING PHYSICIAN: Hospitalist service. REASON FOR CONSULTATION: Consult concerning diabetic foot ulcer. HISTORY OF PRESENT ILLNESS: A 51-year-old female, well known to my group, who has a longstanding poorly controlled diabetes that came to the emergency department complaining of subjective, fever, chills, weakness, muscle aches and right great toe pain. She has had it for 3 days and progressively worsened. She was admitted for potential diabetic foot ulcer. She was started on antibiotics. She had an x-ray that showed osteomyelitis of the distal aspect of the right great toe. Dr. Alaniz has amputated her 2nd toe in recent past, but she was admitted for IV antibiotics. She is still complaining of pain. She said it previously had been healing up relatively well. PAST MEDICAL HISTORY: Diabetes mellitus type 2. Hypertension, hyperlipidemia, peripheral neuropathy, diabetic retinopathy, depression, hypothyroidism, chronic kidney disease stage 2 and asthma. PAST SURGICAL HISTORY: Partial thyroidectomy, , bilateral tubal ligation, right 2nd toe amputation. FAMILY HISTORY: Reviewed with patient, noncontributory. SOCIAL HISTORY: Lives with family. Denies alcohol, tobacco or illicit drugs. ALLERGIES: Tramadol and amoxicillin. HOME MEDICATIONS: Reviewed. REVIEW OF SYSTEMS: A full 10 point review of systems obtained, negative except as specified in HPI. PHYSICAL EXAMINATION: Vital Signs: Patient is currently afebrile. Her vital signs have been stable. General: No acute distress. Resting comfortably in bed. HEENT: Normocephalic, atraumatic. Pupils equal, round, reactive to light. Mucous membranes moist. Oropharynx benign. Neck: Supple. Trachea midline. Cardiovascular: Regular rate and rhythm. Lungs: Grossly clear. Abdomen: Soft, nontender, nondistended. Extremities: Moves all extremities well. There appears to be some erythema noted in the right great toe. There is an open callus that seems to have some fluctuance below it. I tried to express some purulence, but could not at this time. It is tender and the erythema extends to the whole aspect of the toe at this time. Vascular: All extremities perfused. Neurologic: Some peripheral neuropathy. LABORATORY: White blood cell count is 9. IMAGING: X-ray reviewed and radiology report reviewed. ASSESSMENT AND PLAN: A 51-year-old female with diabetic foot ulcer. 1. Diabetic foot ulcer. At this time, patient is on antibiotics. She needs to continue these antibiotics. I will have Dr. Alaniz see her. She may or may not need amputation given the osteomyelitis. 2. Multiple medical comorbidities. Currently being managed by the hospitalist service. cc: Aaron Feng MD
[2016-11-18] MEDS ORDERED: CLINDAMYCIN 600 MG/NS 600 MG/50 ML IVPB IV SCH (18:00)
[2016-11-18] MEDS ORDERED: CLINDAMYCIN 600 MG in NS 50 ML IV SCH (18:00)
[2016-11-18] MEDS: ROCEPHIN 1 GM in NS 50 ML IV SCH (21:35)
[2016-11-19] MEDS: NORCO-7.5 PO PRN (00:53)
[2016-11-19] MEDS: CLINDAMYCIN 600 MG/NS 600 MG/50 ML IVPB IV SCH ×3 (02:52→18:19)
--- NOTE | 2016-11-19 03:24 | PROGRESS NOTE ---
DATE: 11/18/2016 ADDENDUM: Patient examined. Seen [id number]. She does have a lesion over her right great toe associated with erythema along the toe and erythema along her anterior tibial surfaces. Agree with problem list. She has a diabetic foot ulcer with osteomyelitis noted by plain films. Surgery will be consulted and will continue IV antibiotics. We will discuss about home IV therapy for 4-6 weeks versus surgical treatment or debridement. Will supplement her hypokalemia and follow clinically. cc: Ino Sheffield MD
[2016-11-19] MEDS: NEURONTIN PO SCH ×3 (06:01→22:10)
[2016-11-19] MEDS: SYNTHROID PO SCH (06:01)
[2016-11-19] MEDS: APRESOLINE PO SCH ×3 (06:01→22:09)
[2016-11-19] MEDS: PRILOSEC PO SCH (06:01)
[2016-11-19] MEDS: HUMALOG DOSE (PARKWAY) SUBQ SCH ×4 (06:01→22:09)
[2016-11-19 06:32] LABS: CALCIUM 8.2 mg/dL (8.8-10.2); POTASSIUM 3.3 mmol/L (3.5-5.1)
[2016-11-19 07:06] LABS: BASO% 1.4 % (0.0-0.8); EOS# 1.03 X1000 (0.0-0.7); EOS% 10.9 % (0.0-10.0); HEMATOCRIT 30.5 % (37.0-47.0); IMM GRAN# 0.03 X1000 (0.0-0.04); IMM GRAN% 0.3 % (0.0-0.5); LYMPH# 2.94 X1000 (1.2-3.4); LYMPH% 31.2 % (20.5-51.1); MANUAL DIFF NEEDED? YES; MCH 26.5 PG (27-31); MCHC 32.8 g/dL (33-37); MCV 80.7 FL (81-99); MONO# 0.81 X1000 (0.11-0.59); MONO% 8.6 % (1.7-9.3); MPV 9.9 FL (7.4-10.4); NEUT% 47.6 % (42.2-75.2); PLT 462 X1000 (130-400); RBC 3.78 XMIL (4.2-5.4)
[2016-11-19 07:23] LABS: LYMPHS 34 % (21-51)
[2016-11-19] MEDS: SYMBICORT 80/4.5 MICROGM INHALER INH SCH ×2 (08:09→19:44)
[2016-11-19] MEDS: VENTOLIN HFA INH PRN (08:10)
[2016-11-19] MEDS: NORVASC PO SCH (08:17)
[2016-11-19] MEDS: GLUCOPHAGE PO SCH ×2 (08:17→17:34)
[2016-11-19] MEDS: KLOR-CON PO SCH (08:17)
[2016-11-19] MEDS: DETROL LA PO SCH (08:17)
[2016-11-19] MEDS: LASIX PO SCH (08:18)
[2016-11-19] MEDS: HUMULIN 70/30 (PARKWAY) SUBQ SCH ×2 (08:18→17:35)
[2016-11-19] MEDS: SALAGEN PO SCH ×3 (08:19→17:34)
[2016-11-19] MEDS: LOVENOX SUBQ SCH (10:56)
--- NOTE | 2016-11-19 12:22 | PROGRESS NOTE ---
DATE: 11/19/2016 SUBJECTIVE: Feels okay. Pain in her foot and her calf. OBJECTIVE: Vital Signs: No fevers overnight. Pulse has been in the 80s. Blood pressure 188/81. General: She is alert. Extremities: Some erythema just proximal to her ankle but her foot is overall okay. Some mild edema. Her 1st toe of the right foot and has an ulcer over the tip that is soft. Some erythema and edema of her toe as well but no necrosis. Labs: White count is 9, hematocrit is 30. Creatinine is 2.2, glucose 213. It has been as high as 323 since her admission. ASSESSMENT AND PLAN: A 51-year-old female with osteomyelitis related to a diabetic foot wound of her right 1st toe. Long discussion with this. I think given the lytic changes on her bone and the changes on exam, I have recommended amputation of the digit. She is on appropriate antibiotics for now. I would check an ultrasound of her calf to ensure there is no deep venous thrombosis component to this given that her calf is swollen and tender. This would be a separate issue but might need addressing. We will plan for amputation of the right 1st toe on Thursday. Please make her nothing per oral on evening. cc: Riddhi Alaniz MD
--- NOTE | 2016-11-19 16:12 | Extremity Venous Study ---
EXAM: Venous U/S Right Leg INDICATION: calf swelling TECHNIQUE: COMPARISON: 11/19/2016 FINDINGS: There are no filling defects identified in the right lower extremity deep venous system on grayscale images. There is reflux in the right common femoral vein suggesting venous valvular insufficiency. Otherwise, there is normal Doppler flow, compressibility, and augmentation involving the common femoral vein, superficial femoral vein, popliteal vein, posterior tibial vein, and peroneal veins. The great saphenous vein is also grossly patent. Reniform nodules at the groin are identified compatible with inguinal lymph nodes. IMPRESSION: Reflux associated with the common femoral vein suggesting venous valvular insufficiency but no evidence of deep venous thrombosis. Electronically signed by Carl Kay 11/19/2016 4:09 PM
[2016-11-19] MEDS: ROCEPHIN 1 GM in NS 50 ML IV SCH (22:08)
[2016-11-19] MEDS: LOPRESSOR PO SCH (22:09)
[2016-11-20] MEDS: CLINDAMYCIN 600 MG/NS 600 MG/50 ML IVPB IV SCH ×3 (02:44→20:09)
[2016-11-20] MEDS: NORCO-7.5 PO PRN ×2 (02:51→20:11)
[2016-11-20] MEDS: HUMALOG DOSE (PARKWAY) SUBQ SCH ×2 (06:33→10:59)
[2016-11-20] MEDS: APRESOLINE PO SCH ×4 (06:34→22:50)
[2016-11-20] MEDS: SYNTHROID PO SCH (06:34)
[2016-11-20] MEDS: PRILOSEC PO SCH (06:34)
[2016-11-20] MEDS: NEURONTIN PO SCH ×4 (06:34→22:50)
[2016-11-20 07:04] LABS: CALCIUM 8.3 mg/dL (8.8-10.2); POTASSIUM 4.1 mmol/L (3.5-5.1)
[2016-11-20] MEDS: VENTOLIN HFA INH PRN (07:21)
[2016-11-20] MEDS: SYMBICORT 80/4.5 MICROGM INHALER INH SCH ×2 (07:22→19:50)
[2016-11-20 07:47] LABS: HEMATOCRIT 31.4 % (37.0-47.0); HEMOGLOBIN 9.9 g/dL (12.0-16.0); MCH 25.4 PG (27-31); MCHC 31.5 g/dL (33-37); MCV 80.5 FL (81-99); MPV 9.6 FL (7.4-10.4); RBC 3.9 XMIL (4.2-5.4)
[2016-11-20] MEDS: HUMULIN 70/30 (PARKWAY) SUBQ SCH (09:18)
[2016-11-20] MEDS: LOPRESSOR PO SCH ×2 (09:18→20:12)
[2016-11-20] MEDS: LASIX PO SCH (09:19)
[2016-11-20] MEDS: SALAGEN PO SCH ×2 (09:19→13:55)
[2016-11-20] MEDS: GLUCOPHAGE PO SCH (09:19)
[2016-11-20] MEDS: DETROL LA PO SCH (09:19)
[2016-11-20] MEDS: KLOR-CON PO SCH (09:19)
[2016-11-20] MEDS: LOVENOX SUBQ SCH (09:19)
--- NOTE | 2016-11-20 10:22 | PROGRESS NOTE ---
DATE: 11/20/2016 SUBJECTIVE: She still has pain in her toe. OBJECTIVE: No fevers. No tachycardia. Blood pressure 139/60. Right toe is swollen, erythematous with soft ulcer on the tip. No obvious pus. White count 11, hematocrit 31, creatinine is 2.0, glucose 165. ASSESSMENT/PLAN: 51-year-old female with osteomyelitis changes of a necrotic diabetic foot wound of her right 1st toe. She has healed her 2nd toe amputation and I have recommended amputation of the 1st toe to promote wound healing and to salvage her foot given the osteomyelitis changes. Long discussion with patient. She understands this. I have had quite a long relationship with her with similar issues in the past. She understands and consents. We will plan to take her to the operating room tomorrow. Make her NPO at midnight for right 1st toe amputation. cc: Riddhi Alaniz MD
[2016-11-20] MEDS ORDERED: VANCOMYCIN IV PER PHARMACY MISC SCH (17:00)
--- NOTE | 2016-11-20 17:25 | CONSULTATION ---
DATE OF CONSULTATION: 11/20/2016 HISTORY OF PRESENT ILLNESS: This is a 51-year-old who saw Dr. Alaniz in the clinic for her right toe with deep tissue infection and will need amputation. Admitted to the hospital. PAST MEDICAL HISTORY: 1. Diabetes mellitus type 2 which she has had well over 20-25 years with peripheral neuropathy. She has had a right 2nd toe amputation. Most of her foot ulcers involve the right foot. 2. Hypertension. 3. Hyperlipidemia. 4. Peripheral neuropathy. 5. Diabetic retinopathy. 6. Depression. 7. Hypothyroidism. 8. Chronic kidney disease stage 2. 9. Asthma. PAST SURGICAL HISTORY: 1. Status post right partial thyroidectomy. 2. . I think she told me she had 3 C-sections. 3. Bilateral tubal ligation. 4. Right 2nd toe amputation. FAMILY HISTORY: As far as her family history with her parents or siblings, she did not report any. SOCIAL HISTORY: Has a total of 7 children, 3 of her own and 4 adopted. She is . Negative for alcohol, tobacco, or illicit drugs. ALLERGIES: Amoxicillin and tramadol. She states they cause a rash. Morphine will cause her to have a little bit of an itch but she does not feel it is a true allergy. REVIEW OF SYSTEMS: She has been having pain in that right big toe the last 2 weeks in particular. Swelling in that right foot. A little bit of tenderness in the right distal anterior craig. They did do Doppler studies by her report because of the discomfort. No change in her vision. She does have a history of diabetic retinopathy. No weight gain or loss reported. No respiratory difficulty.Cardiovascular: No chest pain or tachy palpitation. GI/: No change in bowels or gross hematuria, dysuria. Musculoskeletal/Neurologic: No focal complaints. Endocrinologic/Hematologic: History of hypothyroidism. History of diabetes. PHYSICAL EXAMINATION: General: Today awake, alert, oriented, pleasant. Vital signs: Temp 97.9 degrees, pulse 79, respirations 18, blood pressure 159/71. HEENT: Pupils are equal, round. Lungs: Clear in all lung roche. Cardiovascular: Regular rhythm and rate without murmur or S3. Abdomen: Soft. Extremities: Her right big toe, general swelling. Ulcer on the plantar tip of the toe. No discoloration. I could not express any drainage. Toe has already been cultured. LAB: White count 11,210, hematocrit 31, platelet count 279,000. Electrolytes, renal function when she presented creatinine was 2.2 and is now 2.0. X-ray of the foot on the : Interval erosion of the tip of the distal phalanx of the great toe and further erosion of the head of the 2nd metatarsal consistent with osteomyelitis. ASSESSMENT AND PLAN: 1. Osteomyelitis of right big toe. For amputation. We will continue antibiotics for now. See what the margins look like. 2. Diabetes mellitus type 2. Continue pattern sugars, sliding scale. 3. History of hypothyroidism. On Synthroid. 4. Peripheral neuropathy. Aware. cc: Kris Plaza MD
[2016-11-20] MEDS ORDERED: ZOFRAN IV PRN (17:29)
[2016-11-20] MEDS ORDERED: VENTOLIN HFA INH PRN (17:29)
[2016-11-20] MEDS ORDERED: TYLENOL PO PRN (17:29)
[2016-11-20] MEDS: LEVAQUIN 500 MG/D5W 500 MG/100 ML IVPB IV SCH (17:38)
[2016-11-20] MEDS: FLAGYL 500 MG/NS 500 MG/100 ML IVPB IV SCH (18:55)
[2016-11-20] MEDS: VANCOMYCIN 1.75 GM in NS 250 ML IV SCH (20:10)
[2016-11-20] MEDS: HUMALOG SUBQ SCH ×2 (20:12→23:32)
[2016-11-20] MEDS ORDERED: ROCEPHIN 1 GM in NS 50 ML IV SCH (22:00)
[2016-11-21] MEDS: NORCO-7.5 PO PRN ×3 (01:07→23:55)
[2016-11-21] MEDS: FLAGYL 500 MG/NS 500 MG/100 ML IVPB IV SCH ×4 (01:08→20:01)
[2016-11-21] MEDS: CLINDAMYCIN 600 MG/NS 600 MG/50 ML IVPB IV SCH ×3 (02:15→17:08)
[2016-11-21] MEDS ORDERED: FENTANYL ONE (05:58)
[2016-11-21] MEDS ORDERED: DIPRIVAN 1% ONE (05:58)
[2016-11-21] MEDS: APRESOLINE PO SCH ×3 (06:42→21:32)
[2016-11-21] MEDS: NEURONTIN PO SCH ×3 (06:42→21:32)
[2016-11-21] MEDS: HUMALOG SUBQ SCH ×4 (06:43→21:33)
--- NOTE | 2016-11-21 08:00 | OPERATIVE NOTE ---
PROCEDURE DATE : 11/21/2016 PREOPERATIVE DIAGNOSES: 1. Osteomyelitis. 2. Diabetic foot infection. POSTOPERATIVE DIAGNOSES: 1. Osteomyelitis. 2. Diabetic foot infection. PROCEDURE PERFORMED: Amputation of right first toe. ESTIMATED BLOOD LOSS: 10 mL. ANESTHESIA: General. SPECIMEN: Right first toe. INDICATION: A 51-year-old female with a history of diabetic foot infection on the right foot, status post amputation of her second toe, presents with pain, erythema, purulent drainage, and bony changes to the distal first toe consistent with osteomyelitis in the setting of a diabetic foot infection. Amputation was indicated. OPERATIVE FINDINGS: There was some purulent drainage from the tip of the toe but overall the base and the metatarsal head was healthy appearing with no purulence. OPERATIVE NOTE: Risks, benefits and alternatives discussed with the patient. She consented to the procedure. She was seen preoperatively and surgery to be performed was confirmed. Surgical site was marked. She was on the scheduled antibiotics. She was taken to the operating room, placed in the supine position. General anesthesia was induced. Her right foot was prepped with Betadine solution, draped in the usual fashion. Time-out was performed. We planned an elliptical incision around the base of the toe and made this with a 15 blade scalpel. We carried this down to the level of the metatarsal joint and excised the joint capsule, removing the toe in its entirety. We then used a periosteal elevator to elevate the periosteum off the distal metatarsal. Using a bone cutter, rongeur, forceps, we resected this back. We irrigated the wound, obtained hemostasis. There was healthy tissue here and good bleeding. It seemed adequately perfused. We then closed the wound with combination of simple and vertical mattress interrupted 2-0 nylon sutures. We did close it loosely enough to allow ongoing drainage. Dressing with Xeroform and a Kerlix was applied. She tolerated the procedure well. There were no identified complications. Counts were correct x2. She had no family here today. Will talk to her later this afternoon. cc: Riddhi Alaniz MD
[2016-11-21] MEDS: SYMBICORT 80/4.5 MICROGM INHALER INH SCH ×2 (08:19→19:29)
[2016-11-21] MEDS: LASIX PO SCH (08:54)
[2016-11-21] MEDS: DETROL LA PO SCH (08:55)
[2016-11-21] MEDS: KLOR-CON PO SCH (08:55)
[2016-11-21] MEDS: LOPRESSOR PO SCH ×2 (08:55→20:24)
[2016-11-21] MEDS: SALAGEN PO SCH ×3 (08:55→16:52)
[2016-11-21] MEDS: GLUCOPHAGE PO SCH ×2 (08:56→16:53)
[2016-11-21] MEDS: PRILOSEC PO SCH (09:04)
[2016-11-21] MEDS: SYNTHROID PO SCH (09:05)
[2016-11-21] MEDS: LOVENOX SUBQ SCH (09:05)
[2016-11-21] MEDS: HUMULIN 70/30 SUBQ SCH ×2 (09:26→16:48)
[2016-11-21] MEDS: LEVAQUIN 500 MG/D5W 500 MG/100 ML IVPB IV SCH (16:14)
[2016-11-21] MEDS ORDERED: INSULIN PEN NEEDLES ONE (16:46)
--- NOTE | 2016-11-21 21:23 | PROGRESS NOTE ---
DATE: 11/21/2016 SUBJECTIVE: The patient has no focal complaints. She is seen postop. She has got some bleeding in her dressing but overall seems to be doing well. OBJECTIVE: Vital signs: Blood pressure 140/68, heart rate 70, respiratory rate 17, temperature 97.4, 98% on room air. Cardiovascular: Regular rate and rhythm. Pulmonary: Bilateral breath sounds. Clear to auscultation. GI: Soft, nontender, nondistended. Bowel sounds are positive. PROBLEM LIST: 1. Osteomyelitis. She is for amputation today. She is doing well. We will see when Dr. Alaniz recommends conversion to p.o. 2. Diabetes is under improved control. We have adjusted her insulin. She has been noncompliant for the simple fact of just not being able to afford her insulin, so we will have to work with her to get that established. 3. Her cultures grew out E. coli and strep agalactiae. The E. coli was sensitive to Rocephin. The strep was sensitive to ampicillin but showed no sensitivity to cephalosporins, although I think generally speaking streptococcus is sensitive to cephalosporins. It is resistant to clindamycin, so I think we can stop the clindamycin. It is uniformly sensitive to Levaquin. Otherwise, we will have to do combination therapy because it is not sensitive to Unasyn. Dr. Plaza, I think, saw her last night and put her on Levaquin which seems reasonable. I am going to stop her Rocephin and clindamycin and will just leave her on the Levaquin. 4. Disposition hopefully home in the next [address] Alaniz's recommendations. cc: Ino Sheffield MD
[2016-11-22] MEDS: FLAGYL 500 MG/NS 500 MG/100 ML IVPB IV SCH ×4 (01:22→21:27)
[2016-11-22] MEDS: HUMALOG SUBQ SCH ×4 (06:04→21:30)
[2016-11-22] MEDS: NEURONTIN PO SCH ×3 (06:40→21:27)
[2016-11-22] MEDS: PRILOSEC PO SCH (06:40)
[2016-11-22] MEDS: APRESOLINE PO SCH ×3 (06:40→21:27)
[2016-11-22] MEDS: SYNTHROID PO SCH (06:40)
[2016-11-22] MEDS: HUMULIN 70/30 SUBQ SCH ×2 (06:41→17:02)
[2016-11-22 07:00] LABS: HEMATOCRIT 32.6 % (37.0-47.0); HEMOGLOBIN 10.4 g/dL (12.0-16.0); MCH 25.9 PG (27-31); MCHC 31.9 g/dL (33-37); MCV 81.1 FL (81-99); MPV 9.5 FL (7.4-10.4); RBC 4.02 XMIL (4.2-5.4)
[2016-11-22 07:27] LABS: CALCIUM 8.6 mg/dL (8.8-10.2); POTASSIUM 4.4 mmol/L (3.5-5.1)
[2016-11-22] MEDS: GLUCOPHAGE PO SCH ×2 (07:48→17:01)
[2016-11-22] MEDS: DETROL LA PO SCH ×2 (07:48→08:08)
[2016-11-22] MEDS: KLOR-CON PO SCH ×2 (07:48→08:08)
[2016-11-22] MEDS: LOPRESSOR PO SCH ×3 (07:48→21:27)
[2016-11-22] MEDS: LASIX PO SCH ×2 (07:48→08:08)
[2016-11-22] MEDS: SALAGEN PO SCH ×4 (07:49→21:27)
[2016-11-22] MEDS: SYMBICORT 80/4.5 MICROGM INHALER INH SCH ×2 (08:13→19:22)
[2016-11-22] MEDS: NORCO-7.5 PO PRN ×2 (08:53→13:30)
[2016-11-22] MEDS: VANCOMYCIN 1.75 GM in NS 250 ML IV SCH (08:54)
[2016-11-22] MEDS: LOVENOX SUBQ SCH (09:00)
[2016-11-22] MEDS ORDERED: FLUZONE QUAD 2017-2018 SYRINGE IM ONE (13:55)
[2016-11-22] MEDS: LEVAQUIN 500 MG/D5W 500 MG/100 ML IVPB IV SCH (17:01)
--- NOTE | 2016-11-22 17:44 | PROGRESS NOTE ---
DATE: 11/22/2016 SUBJECTIVE: Patient has no focal complaints. OBJECTIVE: Vital signs: Blood pressure 143/70, heart rate 78, respiratory rate 20, temperature 98.3, 98% on room air. Cardiovascular: Regular rate and rhythm. Pulmonary: Bilateral breath sounds. Clear to auscultation. GI: Soft, nontender, nondistended. Bowel sounds are positive. LABORATORY DATA: White count 12, hemoglobin and hematocrit 10 and 32, platelets 605. BUN and creatinine 23 and 1.8. PROBLEM LIST: 1. Osteomyelitis of the right great toe, status post amputation, postop day 1. Apparently some of her sutures were compromised and she had some bleeding, so we are continuing wound care. She is currently on Levaquin per culture and sensitivities for positive culture for strep and E. coli. 2. Chronic renal insufficiency. Appears to be stable. 3. Diabetes. Blood sugars are under improved control but still not under complete control, but overall improved. We will continue Lantus 70/30. We will bump her up to 45 units and see how she does. DISPOSITION: Pending clinical course. cc: Ino Sheffield MD
[2016-11-23] MEDS: NORCO-7.5 PO PRN ×3 (00:37→21:16)
[2016-11-23] MEDS: FLAGYL 500 MG/NS 500 MG/100 ML IVPB IV SCH ×4 (01:13→19:44)
[2016-11-23] MEDS: HUMALOG SUBQ SCH ×4 (06:16→21:23)
[2016-11-23] MEDS: HUMULIN 70/30 SUBQ SCH ×2 (06:23→16:35)
[2016-11-23] MEDS: APRESOLINE PO SCH ×3 (06:24→21:16)
[2016-11-23] MEDS: NEURONTIN PO SCH ×3 (06:24→21:16)
[2016-11-23] MEDS: PRILOSEC PO SCH (06:24)
[2016-11-23] MEDS: SYNTHROID PO SCH (06:24)
[2016-11-23] MEDS: SYMBICORT 80/4.5 MICROGM INHALER INH SCH ×2 (08:10→20:00)
[2016-11-23] MEDS: GLUCOPHAGE PO SCH ×2 (08:47→16:35)
[2016-11-23] MEDS: DETROL LA PO SCH (08:47)
[2016-11-23] MEDS: LASIX PO SCH (08:47)
[2016-11-23] MEDS: KLOR-CON PO SCH (08:47)
[2016-11-23] MEDS: LOPRESSOR PO SCH ×2 (08:47→21:16)
[2016-11-23] MEDS: SALAGEN PO SCH ×3 (08:47→21:16)
[2016-11-23] MEDS: LOVENOX SUBQ SCH (09:08)
--- NOTE | 2016-11-23 10:51 | PROGRESS NOTE ---
DATE: 11/23/2016 SUBJECTIVE: Occasional pains but otherwise doing okay. No fevers. No tachycardia. OBJECTIVE: Vital signs: Blood pressure 153/64, oxygen saturation 100% on room air. General: She is alert. Extremities: Right 1st toe amputation is clean. There is no cellulitis. There is some separation centrally but no bleeding noted. LABS: No new labs today other than a glucose of 145. ASSESSMENT AND PLAN: This is a 51-year-old female status post right 1st toe amputation. Will continue local wound care. I have encouraged her to avoid ambulating if at all possible but to use a protective boot if she does have to. I will make sure she has physical therapy to help with really just touchdown weightbearing on the right. If she tolerates will plan for her to go home. I do think we have adequate source control and will be able to transition to oral antibiotics. I have ordered physical therapy for her today. cc: Riddhi Alaniz MD
[2016-11-23] MEDS: LEVAQUIN 500 MG/D5W 500 MG/100 ML IVPB IV SCH (16:35)
[2016-11-23] MEDS: VANCOMYCIN 1.75 GM in NS 250 ML IV SCH (21:15)
--- NOTE | 2016-11-24 00:19 | PROGRESS NOTE ---
DATE: 11/23/2016 SUBJECTIVE: The patient has no focal complaints. OBJECTIVE: Vital signs: Blood pressure was 153/66, heart rate 73, respiratory rate 14, temperature was 97.7 degrees. Cardiovascular: Regular rate and rhythm. Pulmonary: Bilateral breath sounds. Clear to auscultation. GI: Soft, nontender, nondistended. Bowel sounds are positive. LABORATORY DATA: No new labs today. PROBLEMS: 1. Osteomyelitis status post amputation. Clinically, she has improved. We are on Levaquin. Osteomyelitis is under control. Plan is to discharge soon. 2. Diabetes appears to be stable. Will continue to follow. 3. Disposition. Patient stable currently. cc: Ino Sheffield MD
[2016-11-24] MEDS: FLAGYL 500 MG/NS 500 MG/100 ML IVPB IV SCH ×3 (01:35→15:04)
[2016-11-24] MEDS: HUMALOG SUBQ SCH ×3 (06:06→16:06)
[2016-11-24 06:30] LABS: MANUAL DIFF NEEDED? NO
[2016-11-24] MEDS: HUMULIN 70/30 SUBQ SCH ×2 (06:31→16:35)
[2016-11-24] MEDS: NEURONTIN PO SCH ×2 (06:32→15:04)
[2016-11-24] MEDS: SYNTHROID PO SCH (06:32)
[2016-11-24] MEDS: NORCO-7.5 PO PRN (06:32)
[2016-11-24] MEDS: APRESOLINE PO SCH ×2 (06:32→15:04)
[2016-11-24] MEDS: PRILOSEC PO SCH (06:32)
[2016-11-24 06:41] LABS: BASO% 0.5 % (0.0-0.8); EOS# 1.06 X1000 (0.0-0.7); EOS% 8.3 % (0.0-10.0); HEMATOCRIT 32.4 % (37.0-47.0); HEMOGLOBIN 10.6 g/dL (12.0-16.0); IMM GRAN# 0.09 X1000 (0.0-0.04); IMM GRAN% 0.7 % (0.0-0.5); LYMPH# 3.11 X1000 (1.2-3.4); LYMPH% 24.4 % (20.5-51.1); MCH 26.4 PG (27-31); MCHC 32.7 g/dL (33-37); MCV 80.8 FL (81-99); MONO% 5.5 % (1.7-9.3); MPV 9.1 FL (7.4-10.4); NEUT% 60.6 % (42.2-75.2); PLT 606 X1000 (130-400); RBC 4.01 XMIL (4.2-5.4)
[2016-11-24 07:04] LABS: CALCIUM 9.2 mg/dL (8.8-10.2); MAGNESIUM 1.7 mg/dL (1.5-2.7); POTASSIUM 4.1 mmol/L (3.5-5.1)
[2016-11-24] MEDS: SYMBICORT 80/4.5 MICROGM INHALER INH SCH (08:18)
[2016-11-24] MEDS: LASIX PO SCH (08:48)
[2016-11-24] MEDS: KLOR-CON PO SCH (08:49)
[2016-11-24] MEDS: SALAGEN PO SCH ×2 (08:49→15:03)
[2016-11-24] MEDS: LOPRESSOR PO SCH (08:49)
[2016-11-24] MEDS: GLUCOPHAGE PO SCH ×2 (08:49→16:34)
[2016-11-24] MEDS: DETROL LA PO SCH (08:50)
[2016-11-24] MEDS: LOVENOX SUBQ SCH (10:20)
[2016-11-24] MEDS ORDERED: INSULIN PEN NEEDLES ONE (12:18)
[2016-11-24 14:11] VITALS: BP 134/66
--- NOTE | 2016-11-24 16:14 | PROGRESS NOTE ---
DATE: 11/24/2016 SUBJECTIVE: She feels okay. Minimal pain in her foot but it seems to be a little better this morning. OBJECTIVE: Right foot wound is a healthy wound. No bleeding, no cellulitis, no real swelling, no fevers, no tachycardia. LABS: Reviewed. White count is 12, hematocrit 32, creatinine 1.6, glucose ranged from 80s to 190s. ASSESSMENT/PLAN: A 51-year-old female status post right first toe amputation. Wound is healthy. Some superficial skin dehiscence after she walked on it postoperative evening and broke 2 sutures but wet-to-dry dressings are going okay. From a surgical standpoint I do not plan any further debridements. I think she can go home. I feel like I have adequate source control of her osteomyelitis and she was debrided back to healthy bone and would be appropriate to transition to oral antibiotics and let her go home. I spoke with Dr. Sheffield of the hospital service and I think they are making these arrangements. We will need to make sure that she is able to get around with a protective boot and with a walker. I discussed the importance of really touch down weightbearing at a minimum and keeping the foot elevated to promote healing. We will see her back in next 1-2 weeks. cc: Riddhi Alaniz MD
[2016-11-24] MEDS: LEVAQUIN 500 MG/D5W 500 MG/100 ML IVPB IV SCH (16:34)
--- NOTE | 2016-11-25 12:34 | DISCHARGE SUMMARY ---
ADMISSION DATE: 11/16/2016 DISCHARGE DATE: 11/24/2016 ADDENDUM: The patient admitted for right toe osteomyelitis, status post amputation. Clinically, she has been doing okay. The day of discharge, clear to auscultation bilaterally. Regular rate and rhythm. Dressing overlying her right foot. Feels stable to transition to oral antibiotics based on the sensitivities of the E. coli and strep. It is both sensitive to Levaquin so we will use that as an outpatient for another 7 days. We will adjust her insulin accordingly as well because she has had some hyperglycemia and issues with the compliance due to cost. [facility] followup [facility], Dr. Alaniz next week. Other details per discharge summary, patient examination, and was a [id number] encounter on the day of discharge. cc: Ino Sheffield MD
--- NOTE | 2016-11-25 12:38 | DISCHARGE SUMMARY ---
ADMISSION DATE: 11/16/2016 DISCHARGE DATE: 11/24/2016 CONSULTATIONS: Dr. Aaron Feng with General Surgery. PROCEDURES: 1. Foot x-ray on the right showed interval erosion of the tip of the distal phalanx of the great toe. Further erosion of the head of the 2nd metatarsal consistent with osteomyelitis. 2. Right leg venous Doppler showed reflux associated with common femoral veins suggesting venous valvular insufficiency but no evidence of DVT. 3. Amputation of right 1st toe performed by Dr. Cristian Alaniz. DISCHARGE DIAGNOSES: 1. Osteomyelitis secondary to diabetic foot infection grew out Escherichia strep agalactiae status post amputation of 1st toe by Dr. Cristian Alaniz. She will continue with local wound care as per General Surgery. She will avoid ambulating at all if at all possible and continue her protective boot if she does have to ambulate. She is also to do physical therapy to learn how to be touchdown weightbearing on the right and transition to p.o. antibiotics with Levaquin. 2. Renal insufficiency prolonged. 3. Diabetes mellitus type 2, controlled. HOSPITAL COURSE: Ms. Glaser is a 51-year-old female, who is followed by the [facility] [place] [facility] with a history of type 2 diabetes, hypertension, hyperlipidemia, peripheral neuropathy, diabetic retinopathy, depression, hypothyroidism, chronic kidney disease stage 2 and asthma presented to the [facility] ED with complaints of subjective fever, chills, weakness, muscle aches, headache and a right great toe pain for 3 days that progressively worsened. She had been on her Lasix, gabapentin and insulin for 3-4 days without access to refill. In the ED her temp was 96.8 degrees, her sodium was 131, potassium 3 and creatinine 2.1, blood sugar 323 with hemoglobin A1c at 9.3. Her right great toe was erythemic with edema and tenderness to the touch. She was admitted to the [facility], started on a diabetic diet. Consulted wound care. Obtained wound cultures. Start her on clindamycin, IV Lasix, pattern blood sugars on sliding scale. Follow cultures. General Surgery was consulted. Foot x-ray did show a consistency with osteomyelitis. Dr. Feng talked it over with Dr. Alaniz. He recommended amputation of the digit and to do Dopplers that ruled out any DVT. She was transferred over to [facility] on 11/20/2016 and on 11/21 she underwent amputation of her right 1st toe with Dr. Alaniz. Her cultures grew out E. coli strep agalactiae. Her antibiotics were changed to Levaquin. Her Rocephin and clindamycin were discontinued. Wound care was per Dr. Alaniz. She was given a protective boot and has been encouraged to avoid ambulating if at all possible but to use the protective boot if she has to. Physical therapy worked with the patient to teach her how to be touchdown weightbearing on the right. She has tolerated that and Dr. Alaniz agrees she is able to go home. She has been transitioned to oral antibiotics. She will continue to follow up with Dr. Alaniz in [facility]. We have consulted [employer] for med assistance. She states she is out of all her medications and will not be able to get to [facility] until tomorrow night. She has also been given an excuse for work. I did talk to Dr. Cristian Alaniz. He is going to write the initial one for 2 weeks and then he will give her one for any further after their 2 week visit. She is stable for discharge home today. VITAL SIGNS: Temperature is 98.3 degrees, heart rate 75, respirations 18, blood pressure 133/62, O2 is 95% on room air. DISCHARGE DIET: Diabetic. DISCHARGE MEDICATIONS: 1. ProAir inhaler 8.5 g inhaled p.r.n. 2. Norvasc 5 mg p.o. daily. 3. Symbicort 84.5 mcg inhaler, 2.2 g inhaled b.i.d. 4. Lasix 40 mg p.o. daily. 5. Neurontin 800 mg p.o. t.i.d. 6. Apresoline 25 mg p.o. t.i.d. 7. Humulin 70/30 45 units subcutaneously b.i.d. 8. Levaquin 500 mg p.o. daily for 7 more days. 9. Synthroid 100 mcg p.o. daily. 10. Metformin 500 mg p.o. b.i.d. 11. Prilosec 20 mg p.o. daily. 12. Salagen 5 mg p.o. t.i.d. 13. Detrol LA 4 mg p.o. daily. FOLLOWUP: Ms. Glaser is being discharged home. She will continue to follow wound care as per Dr. Alaniz and follow up with him in the wound clinic. She is to take all medications as prescribed. Follow her diabetic diet. Continue wound care as per Dr. Alaniz. She can return to the ED for any worsening of symptoms. DISCHARGE TIME: 30 minutes. Dictated by STEPHANIE Uribe for Ino Sheffield MD cc: Ino Sheffield MD
== END 2016-11-24 18:33 | disposition home or self-care (01) ==
LOC: P.ED 16:47 → SUATTDRO 20:56 → P.MEDSURG 20:56 → 3N 11-20 16:15
PROVIDERS: ATTEND Internal Medicine

== ENCOUNTER 2018-04-29 08:43 | Inpatient (IN) ==
[2018-04-29] MEDS ORDERED: MAGNESIUM SULFATE 1 GM/D5W 1 GM/100 ML IVPB IV ONE (09:57)
[2018-04-29] MEDS ORDERED: SOLU-MEDROL IV ONE ×2 (09:57→18:39)
[2018-04-29] MEDS ORDERED: DUONEB (A & A) INH ONE ×3 (09:57→12:53)
[2018-04-29] MEDS ORDERED: LASIX IV ONE (09:59)
--- NOTE | 2018-04-29 10:02 | PROVIDER DOCUMENTATION ---
This chart was entered by Lesley Varner Scribe, acting as scribe for Linnea Bailey MD. HPI-Respiratory General - General Chief Complaint: Cold Symptoms Stated Complaint: CONGESTION / SOB / COUGH Time Seen by Provider: 04/29/18 09:37 Source: patient Allergies/Adverse Reactions: Patient Allergies Allergy/AdvReac Type Severity Reaction Status Date / Time amoxicillin Allergy ITCHING Verified 04/29/18 09:09 tramadol Allergy HEADACHE Verified 04/29/18 09:09 Home Medications: Home Medication List Medication Instructions Recorded Confirmed Last Taken Type Omeprazole 20 mg PO DAILY@0700 05/31/17 04/29/18 Unknown History Albuterol Sulfate [Proair Hfa] 2 puff IH Q4H PRN PRN 12/31/17 04/29/18 Unknown History Budesonide/Formoterol Fumarate 2 puff IH BID 12/31/17 04/29/18 Unknown History [Symbicort 80-4.5 Mcg Inhaler] Furosemide [Lasix] 20 mg PO DAILY 12/31/17 04/29/18 Unknown History Hydralazine [Apresoline] 50 mg PO TID@0900,1500,2100 12/31/17 04/29/18 Unknown History Insulin Humulin 70/30 [Humulin 60 unit SUBQ BID 12/31/17 04/29/18 Unknown History 70/30] Amlodipine [Norvasc] 5 mg PO DAILY #30 tab 01/02/18 04/29/18 Unknown Rx Fluticasone 50 Mcg Nasal [place] 1 spray EL DAILY 04/09/18 04/29/18 Unknown History [Flonase] Gabapentin [Neurontin] 800 mg PO TID@0900,1500,2100 04/09/18 04/29/18 Unknown History Levothyroxine [Synthroid] 100 microgm PO DAILY@0700 04/09/18 04/29/18 Unknown History Losartan Potassium 50 mg PO DAILY 04/09/18 04/29/18 Unknown History Magnesium Oxide [Mag-Oxide] 400 mg PO DAILY 04/09/18 04/29/18 Unknown History Multivitamin [Multi-Day Vitamins] 1 each PO DAILY 04/09/18 04/29/18 Unknown History - History of Present Illness-Resp Nature of Presenting Problem: Patient is a 53 year old female who presents to the ED with shortness of breath and cough. Patient states symptoms have been present for 1 month. Patient denies fever. Patient states she was admitted 2 weeks ago for same for CHF fluid overload and felt some better. Patient states she was informed to double her 20 mg Lasix and she did and it has not improved symptoms. PMH asthma Quality of Pain: reports: tightness Severity in ED: reports: mild Onset/Duration: reports: other (1 month) Timing: reports: still present, getting worse Cough Quality/Degree: reports: moderate, productive cough, sputum (clear) Episode Frequency: frequent episodes Current Respiratory Medication Therapy: Initiated see nurses note Modifying Factors: improves with: nothing Associated Symptoms: reports: cough, shortness of breath Similar Symptoms Previously?: Yes Recently seen or treated by another doctor?: Yes Review of Systems - Adult - REVIEW OF SYSTEMS - ADULT Constitutional: reports: no symptoms reported. denies: chills, fever, fatique Eyes: reports: no symptoms reported Ears, Nose, Mouth & Throat: reports: no symptoms reported Cardiovascular: reports: no symptoms reported Respiratory: reports: cough, shortness of breath. denies: wheezing Gastrointestinal: reports: no symptoms reported Genitourinary: reports: no symptoms reported Musculoskeletal: reports: no symptoms reported Integumentary: reports: no symptoms reported Neurological: reports: no symptoms reported Psychiatric: reports: no symptoms reported Endocrine: reports: no symptoms reported Hematologic/Lymphatic: reports: no symptoms reported Allergic/Immunologic: reports: no symptoms reported All Other Systems: Reviewed and Negative Past History - Adult - PAST MEDICAL HISTORY-ADULT Review of Records: reports: Nursing Assessment Review, Medications Reviewed, Social history reviewed & non-contributory. Major Childhood Illnesses: reports: denies history Cardiovascular: reports: CHF, HTN, hyperlipidemia Respiratory: reports: asthma Gastrointestinal: reports: GERD Obstetrical/Gynecological: reports: denies history Genitourinary: reports: denies history Musculoskeletal: reports: denies history Neurological: reports: denies history Psychiatric: reports: anxiety, depression Endocrine/Immune: reports: Diabetes, thyroid disorder Other Conditions: reports: other (diabetic retinopathy) - PRIOR SURGERIES/PROCEDURES Surgical/Procedure History: reports: BTL, , orthopedic (extremity) (R 2nd toe amputation), other (partial thyroidectomy, heart cath) - IMMUNIZATION STATUS Childhood Immunizations: See Nurse Assessment Flu Vaccine: See Nurse Assessment - FAMILY HISTORY Family History: reviewed, not pertinent - SOCIAL HISTORY Smoking: denies Substance Use: denies Living Situation: family Physical Exam-General - PHYSICAL EXAM-ADULT Initial Vital Signs Reviewed: Yes - CONSTITUTIONAL General Appearance: appears well, alert, no apparent distress, other (obesity) - EYES Eyes: pink conjunctivae - HEAD, EARS, NOSE, MOUTH & THROAT HENMT: other (somewhat dry mucus membranes) - NECK Neck: full range of motion, supple - RESPIRATORY Respiratory: other (diffuse wheezing throughout, no crackles or ronchi) - CARDIOVASCULAR Cardiovascular: normal peripheral pulses, regular rate, rhythm - GASTROINTESTINAL (ABDOMEN) Abdominal Exam: non tender, soft - MUSCULOSKELETAL Extremity: normal range of motion, non-tender, normal gait - SKIN Integumentary: normal color, normal turgor, warm/dry - NEUROLOGIC Neurologic: grossly normal, no motor/sensory deficits - PSYCHIATRIC Psych/Mental Status: normal mood/affect, normal thought content, normal thought process, oriented x 3 - HEART Score HEART Score: History: Moderately Suspicious HEART Score: ECG: Normal HEART Score: Age: 45-65 Years HEART Score: Risk Factors for Atherosclerotic Disease: 1 or 2 Risk Factors HEART Score: Troponin: < or = Normal Limit Total HEART Score:: 3 Progress - PLAN OF CARE/RESULTS Progress/Plan/Lab Results: Vital Signs - 8 hr 04/29/18 09:05 04/29/18 10:52 04/29/18 11:33 Temperature 97.8 F Pulse Rate 106 H 100 H 94 H Respiratory Rate 26 H 24 17 Blood Pressure 206/104 179/95 O2 Sat by Pulse Oximetry 93 L 95 04/29/18 12:35 04/29/18 12:45 04/29/18 13:33 Temperature 98.1 F Pulse Rate 92 H 92 H 91 H Respiratory Rate 20 20 18 Blood Pressure 181/90 145/79 O2 Sat by Pulse Oximetry 94 L 96 95 Laboratory Results - last 24 hr 04/29/18 04/29/18 04/29/18 09:30 09:35 10:19 WBC RBC Hgb Hct MCV MCH MCHC RDW Std Deviation Plt Count MPV Immature Gran % (Auto) Neut % (Auto) Lymph % (Auto) Becker % (Auto) Eos % (Auto) Baso % (Auto) Immature Gran # (Auto) Neut # (Auto) Lymph # (Auto) Becker # (Auto) Eos # (Auto) Baso # (Auto) PT INR Sodium 142 Potassium 4.8 Chloride 107 Carbon Dioxide 20 L Anion Gap 15 BUN 34 H Creatinine 3.5 H Estimated GFR/1.73 m2 14 BUN/Creatinine Ratio 10 Glucose 188 H Calculated Osmolality 296 Calcium 8.3 L Total Bilirubin < 0.15 L AST 12 ALT 9 L Alkaline Phosphatase 89 Troponin T Giy-[id number]-Socppwifhyh Pept Total Protein 6.7 Albumin 3.0 L Globulin 4.0 Albumin/Globulin Ratio 1.0 Plasma Lactate Urine Source CLEAN CATCH Urine Color YELLOW Urine Clarity SL. CLOUDY A Urine pH 7.0 Ur Specific [place] 1.010 Urine Protein 3+(500 mg/dL) A Urine Ketones NEGATIVE Urine Blood 1+ A Urine Nitrite NEGATIVE Urine Bilirubin NEGATIVE Urine Urobilinogen NORMAL Urine Microscopic RBC <10 Urine WBC NEGATIVE Urine Glucose 2+(250 mg/dL) A Influenza A (Rapid) NEGATIVE Influenza B (Rapid) NEGATIVE 04/29/18 04/29/18 04/29/18 10:19 10:19 10:19 WBC 13.11 H RBC 3.84 L Hgb 10.3 L Hct 33.0 L MCV 85.9 MCH 26.8 L MCHC 31.2 L RDW Std Deviation 15.2 H Plt Count 371 MPV 10.0 Immature Gran % (Auto) 0.5 Neut % (Auto) 66.9 Lymph % (Auto) 15.8 L Becker % (Auto) 4.7 Eos % (Auto) 11.1 H Baso % (Auto) 1.0 H Immature Gran # (Auto) 0.07 H Neut # (Auto) 8.76 H Lymph # (Auto) 2.07 Becker # (Auto) 0.62 H Eos # (Auto) 1.46 H Baso # (Auto) 0.13 PT 12.7 INR 0.91 Sodium Potassium Chloride Carbon Dioxide Anion Gap BUN Creatinine Estimated GFR/1.73 m2 BUN/Creatinine Ratio Glucose Calculated Osmolality Calcium Total Bilirubin AST ALT Alkaline Phosphatase Troponin T Zba-[id number]-Zlxmkfcaurk Pept 625 H Total Protein Albumin Globulin Albumin/Globulin Ratio Plasma Lactate Urine Source Urine Color Urine Clarity Urine pH Ur Specific [place] Urine Protein Urine Ketones Urine Blood Urine Nitrite Urine Bilirubin Urine Urobilinogen Urine Microscopic RBC Urine WBC Urine Glucose Influenza A (Rapid) Influenza B (Rapid) 04/29/18 04/29/18 10:35 13:06 WBC RBC Hgb Hct MCV MCH MCHC RDW Std Deviation Plt Count MPV Immature Gran % (Auto) Neut % (Auto) Lymph % (Auto) Becker % (Auto) Eos % (Auto) Baso % (Auto) Immature Gran # (Auto) Neut # (Auto) Lymph # (Auto) Becker # (Auto) Eos # (Auto) Baso # (Auto) PT INR Sodium Potassium Chloride Carbon Dioxide Anion Gap BUN Creatinine Estimated GFR/1.73 m2 BUN/Creatinine Ratio Glucose Calculated Osmolality Calcium Total Bilirubin AST ALT Alkaline Phosphatase Troponin T 0.021 Fsw-[id number]-Ticqmbyplhh Pept Total Protein Albumin Globulin Albumin/Globulin Ratio Plasma Lactate 1.2 Urine Source Urine Color Urine Clarity Urine pH Ur Specific [place] Urine Protein Urine Ketones Urine Blood Urine Nitrite Urine Bilirubin Urine Urobilinogen Urine Microscopic RBC Urine WBC Urine Glucose Influenza A (Rapid) Influenza B (Rapid) Orders Category Date Time Status Saline Loc NOW Care 04/29/18 09:59 Active CHEST-PORTABLE [RAD] Stat Exams 04/29/18 10:00 Completed BNP [PRO B-NATRIURETIC PEPTIDE] Stat Lab 04/29/18 10:19 Completed CBC WITH ELECTRONIC DIFF [HEME] Stat Lab 04/29/18 10:19 Completed CMP [COMPREHENSIVE METABOLIC PANEL] [CHEM] Stat Lab 04/29/18 10:[address] Stat Lab 04/29/18 09:30 Completed LACTATE, PLASMA [CHEM] Stat Lab 04/29/18 13:06 Completed PT [PROTIME WITH INR] [COAG] Stat Lab 04/29/18 10:19 Completed TROPONIN T Stat Lab 04/29/18 10:35 Completed ua [URINALYSIS PL W/POSS RFLX CULT] [URINALYSIS] Stat Lab 04/29/18 09:35 Completed 0.9% Sodium Chloride Inj [Ns] 500 ml Med 04/29/18 10:44 Discontinued IV 500 mls/hr Albuterol 2.5MG/Ipratrop 0.5MG [Duoneb (A & A)] Med 04/29/18 09:57 Discontinued 3 ml INH NOW ONE Albuterol 2.5MG/Ipratrop 0.5MG [Duoneb (A & A)] Med 04/29/18 12:49 Discontinued 3 ml INH NOW ONE Albuterol 2.5MG/Ipratrop 0.5MG [Duoneb (A & A)] Med 04/29/18 12:53 Discontinued 9 ml INH NOW ONE Furosemide [Lasix] Med 04/29/18 09:59 Discontinued 40 mg IV NOW ONE Magnesium Sulfate 1 gm/D5w Med 04/29/18 09:57 Discontinued 1 gm in 100 ml IV NOW Methylprednisolone Sod Succ [Solu-Medrol] Med 04/29/18 09:57 Discontinued 125 mg IV NOW ONE Aerosol Treatments Routine Oth 04/29/18 09:57 Completed Aerosol Treatments Routine Oth 04/29/18 12:53 Completed Aerosol Treatments Stat Oth 04/29/18 09:57 Completed Aerosol Treatments Stat Oth 04/29/18 12:53 Completed EKG [EKG] Stat Ther 04/29/18 10:10 Draft pt qualifies for SIRS but if lacate is elevated, I will not be giving 3ml/kg due to CHF it appears the lactate did not get ordered, pt feels some better after the breathing treatment and meds, needs another by ausculation, will get another treatment and check lactate pt not able to or not interested in taking deep breaths with breathing treatment that is hour long, not sure how much it will help her, dyspnea due to CHF fluid overload not likely due to result of work up, more likely asthma exacerbation pt has improved some on the hour long, though the RN discussed with pt that one of the IV meds was steroids, the pt did not relay to me until now that the last time she had IV steroids she returned that night to the ED with BS in the 700s, for that reason and the asthma, will call Dr Fishman to admit for overnight d/w Kye 1422 HPI exam treatment results, needs more treatment, concern re elevated BS post steroids, agreed to admit Result Diagrams: 04/29/18 10:19 04/29/18 10:19 - EKG 1 Time of EKG reading by physician:: 11:25 EKG Read and Signed by:: Linnea Bailey EKG Interpretation (*Must complete 3 of following elements*): Normal Rate: 94 Rhythm: normal sinus rhythm [place]: normal QRS: normal GA Interval: normal ST Wave: normal Comments: normal ECG - XRAY 1 XRAY Study: Chest Impression: See EMR Report ( EXAM: CHEST-PORTABLE HISTORY: dyspnea TECHNIQUE: Single view of the chest was performed portably. COMPARISON: 04/09/2018 FINDINGS: The cardiomediastinal silhouette is within normal limits. The pulmonary vasculature is not congested. No infiltrate, effusion, or pneumothorax is appreciated. IMPRESSION: No acute cardiopulmonary abnormality is identified. Electronically signed by Jayshree Mcdaniel 04/29/2018 11:03 AM 04/29/18 1103 Interpreting Physician: Jayshree Mcdaniel MD Dictated Date/Time: 04/29/18 1103 cc: Linnea Bailey MD; None,PCP) - CONSULTS/PCP/HOSPITALIST Notification #1 *Consult/PCP/Hospitalist*: Dr. Fishman Time Discussed: 14:21 Reason/Comments: Dr. Bailey consulted with Dr. Fishman about patient. Consult Disposition: Will see in ED, Admit Departure - Departure Date of Disposition Decision: 04/29/18 Time of Disposition Decision: 14:11 DIAGNOSIS: CHF (congestive heart failure), NYHA class II, Asthma exacerbation Disposition: ADMITTED INPATIENT 09 Certified Medical Emergency: Emergent Condition: Good Additional Freetext Instructions: 14:22 [place] admit Referrals and Follow-Ups: None,PCP [Primary Care Provider] - - Critical Care Note This patient required my direct & personal management of CC.: No Attestation - Physician/ SRUTHI Attestation The physician spent face to face time with patient:: Yes Advanced Practice Provider documentation review:: Supervising physician onsite and consulted in the evaluation and care of this patient. The physician did have a face to face encounter with the patient. This chart was documented by the indicated scribe, (Lesley Varner Scribe) and accurately reflects the services I performed and decisions made by me, Linnea Bailey MD, as attested by the provider's signature.
[2018-04-29 10:42] LABS: INFLUENZA A NEGATIVE (NEGATIVE); INFLUENZA B NEGATIVE (NEGATIVE)
[2018-04-29] MEDS ORDERED: NS 500 ML IV ONE (10:44)
--- NOTE | 2018-04-29 11:06 | Diag Imaging Result Doc PS360 ---
EXAM: CHEST-PORTABLE HISTORY: dyspnea TECHNIQUE: Single view of the chest was performed portably. COMPARISON: 04/09/2018 FINDINGS: The cardiomediastinal silhouette is within normal limits. The pulmonary vasculature is not congested. No infiltrate, effusion, or pneumothorax is appreciated. IMPRESSION: No acute cardiopulmonary abnormality is identified. Electronically signed by Jayshree Mcdaniel 04/29/2018 11:03 AM
[2018-04-29 11:28] LABS: BASO# 0.13 X1000 (0.0-0.2); EOS# 1.46 X1000 (0.0-0.7); EOS% 11.1 % (0.0-10.0); HEMOGLOBIN 10.3 g/dL (12.0-16.0); IMM GRAN# 0.07 X1000 (0.0-0.04); IMM GRAN% 0.5 % (0.0-0.5); LYMPH# 2.07 X1000 (1.2-3.4); LYMPH% 15.8 % (20.5-51.1); MCH 26.8 PG (27-31); MCHC 31.2 g/dL (33-37); MCV 85.9 FL (81-99); MONO# 0.62 X1000 (0.11-0.59); MONO% 4.7 % (1.7-9.3); NEUT# 8.76 X1000 (1.4-6.5); NEUT% 66.9 % (42.2-75.2); PLT 371 X1000 (130-400); RBC 3.84 XMIL (4.2-5.4); RDW 15.2 % (11.5-14.5); WBC 13.11 X1000 (4.8-10.8)
[2018-04-29 11:36] LABS: BILIRUBIN URINE NEGATIVE (NEGATIVE); BLOOD URINE 1+ (NEGATIVE); CLARITY SL. CLOUDY (CLEAR); COLOR YELLOW; KETONE URINE NEGATIVE (NEGATIVE); LEUKOCYTES URINE NEGATIVE (NEGATIVE); NITRITE URINE NEGATIVE (NEGATIVE); URINE RBC <10 /HPF (<10); URINE SOURCE CLEAN CATCH; UROBILINOGEN URINE NORMAL
[2018-04-29 11:44] LABS: INR 0.91; PROTIME 12.7 Seconds (11.0-16.0)
--- NOTE | 2018-04-29 11:44 | EKG Report ---
Test Performed on : 04/29/2018 11:25:20 AM Test Reason : dyspnea Blood Pressure : / mmHG Vent. Rate : 094 BPM Atrial Rate : 094 BPM P-R Int : 140 ms QRS Dur : 076 ms QT Int : 342 ms P-R-T Axes : 014 037 072 degrees QTc Int : 427 ms Normal sinus rhythm. Normal ECG When compared with ECG of 09-APR-2018 16:19, No significant change was found Unconfirmed Result
[2018-04-29 11:47] LABS: AGAP 15; ALKALINE PHOSPHATASE 89 U/L (32-104); BUN 34 mg/dL (8-22); CALCIUM 8.3 mg/dL (8.8-10.2); CHLORIDE 107 mmol/L (98-107); COSMO 296; CREATININE 3.5 mg/dL (0.5-0.9); ESTIMATED GFR 14; GLUCOSE 188 mg/dL (70-104); GOT 12 U/L (10-30); GPT 9 U/L (10-36); POTASSIUM 4.8 mmol/L (3.5-5.1); SODIUM 142 mmol/L (136-145); TCO2 20 mmol/L (25-35); TOTAL BILIRUBIN < 0.15 mg/dL (0.20-1.00); TOTAL PROTEIN 6.7 g/dL (6.3-8.3)
[2018-04-29] MEDS ORDERED: ZOFRAN IV PRN (15:59)
[2018-04-29] MEDS ORDERED: DUONEB (A & A) INH PRN (15:59)
[2018-04-29] MEDS: HUMALOG (PARKWAY) SUBQ SCH ×3 (17:22→23:40)
--- NOTE | 2018-04-29 17:37 | HISTORY AND PHYSICAL ---
CHIEF COMPLAINT: Shortness of breath. HISTORY OF PRESENT ILLNESS: This is a 53-year-old female, who presented to the emergency room complaining of 1 month of shortness of breath. She was admitted to the hospital on April 09 and for an acute exacerbation. She was diuresed and discharged home. At that time, she could lay flat, she felt much better. Today, she reports a productive cough, shortness of breath and some lower extremity edema. She does state that she was told to double her Lasix which she did with no improvement. PAST MEDICAL HISTORY: 1. Chronic obstructive pulmonary disease. 2. Chronic kidney disease stage 2. 3. Congestive heart failure. 4. Hypertension. 5. Diabetes mellitus. 6. Hyperlipidemia. 7. Peripheral neuropathy. 8. Diabetic nephropathy. 9. Noncompliance. PAST SURGICAL HISTORY: Partial thyroidectomy. and bilateral tubal ligation, as well as amputation of her first and second toes. ALLERGIES: Amoxicillin and tramadol. SOCIAL HISTORY: She lives with her daughter. Denies alcohol, tobacco, or illicit drug use. HOME MEDICATIONS: A list will be obtained by the nursing staff and once confirmed we will review and restart as appropriate. REVIEW OF SYSTEMS: Discussed with patient with pertinent positives stated in the HPI. She denied any syncope, dizziness, chest pain, palpitations; any nausea, vomiting, diarrhea, constipation, black or bloody vomitus or stools; hematuria, dysuria, frequency, urgency. PHYSICAL EXAMINATION: GENERAL: This is a 53-year-old female, who is sitting up in the bed in no distress. VITAL SIGNS: Blood pressure is 145/79 with a heart rate of 91, respirations are 18, temperature is 97.8 oral with room air saturations 92 to 95. HEENT: Eyes: Pupils are equal, round, react to light. EOMs are intact. Sclerae are nonicteric. Mucous membranes are dry. NECK: Supple with trachea midline. CARDIOVASCULAR: Regular rate and rhythm. S1 and S2 appreciated. EXTREMITIES: Calves are nontender. She has no lower extremity edema and peripheral pulses are palpable x4 extremities. PULMONARY: Breath sounds have wheezes throughout. Chest rises and falls symmetrically with respiration. Chest wall is nontender to palpation. GASTROINTESTINAL: Abdomen is soft, nontender, nondistended. Bowel sounds in all 4 quadrants. NEUROLOGIC: She is alert and oriented x3. SKIN: Warm and dry. LABS: WBC is 13.1 with hemoglobin of 10.3, hematocrit 33, platelets 371. Sodium is 142, potassium 4.8, BUN 34, creatinine 3.5, with a glucose of 188. ASSESSMENT AND PLAN: 1. Acute chronic obstructive pulmonary disease exacerbation in the setting of chronic. 2. Maybe a mild congestive heart failure exacerbation. She was given Lasix in the emergency room. We will monitor. 3. Leukocytosis. This could be reactive, although she was admitted 2 weeks ago with upper respiratory symptoms. Chest x-ray was clear and we will go ahead and start Rocephin. 4. Diabetes type 2 with noncompliance. She will be placed on pattern blood glucose with sliding scale insulin and once we obtain accurate home medications, we can restart her home regimen. 5. Hypertension. We will monitor vital signs. Restart medications as appropriate. 6. Hypothyroid. We will check a TSH and continue any home medications. 7. Chronic kidney disease stage 2. We will renal dose medications, trend her labs daily. The patient will be admitted to the medical-surgical floor and she will be placed on telemetry. We will do daily weights force as well as strict intake and output. We will start incentive spirometer q.4 hours. Ms. Glaser in the past has had hyperglycemia with blood sugars in the 500 to 700 range receiving steroids. We will give 60 mg q.8 hours and follow. We will recheck a CBC and a renal panel in the morning. Further treatments pending hospital course. Dictated by STEPHANIE Best for Gus Fishman MD This chart was documented by, STEPHANIE Best and accurately reflects the services performed, treatment plan and medical decisions as attested by the providers signature Gus Fishman MD. cc: STEPHANIE Best MD MTDD
[2018-04-29] MEDS: DUONEB (A & A) INH SCH ×2 (19:18→22:52)
[2018-04-29] MEDS ORDERED: SOLU-MEDROL IV SCH ×3 (20:00)
[2018-04-29] MEDS: APRESOLINE PO SCH (20:59)
[2018-04-29] MEDS: NEURONTIN PO SCH (20:59)
[2018-04-29] MEDS: TYLENOL PO PRN (21:03)
--- NOTE | 2018-04-30 00:40 | HISTORY AND PHYSICAL ---
ADDENDUM: Patient seen and examined by myself. Full note dictated and discussed with the nurse practitioner. Patient notes she has been coughing, congestion for a month. She has had lower extremity swelling and symptoms continued to worsen, therefore, she came to the hospital. On day of admission, she is noted to have a COPD exacerbation. She does have congestive heart failure with mildly worsening in the feet and legs with swelling. We admitted her to the hospital, placed her on breathing treatments. We will use steroids sparingly given her propensity for having elevated blood sugar, and will follow. cc: Gus Fishman MD
[2018-04-30] MEDS: DUONEB (A & A) INH SCH ×6 (03:37→22:37)
[2018-04-30] MEDS: PRILOSEC PO SCH (06:22)
[2018-04-30] MEDS: SYNTHROID PO SCH (06:22)
[2018-04-30] MEDS: HUMALOG (PARKWAY) SUBQ SCH ×6 (06:22→20:17)
[2018-04-30 07:03] LABS: BASO# 0.03 X1000 (0.0-0.2); BASO% 0.2 % (0.0-0.8); EOS# 0.01 X1000 (0.0-0.7); EOS% 0.1 % (0.0-10.0); HEMATOCRIT 32.8 % (37.0-47.0); HEMOGLOBIN 10.5 g/dL (12.0-16.0); IMM GRAN# 0.08 X1000 (0.0-0.04); IMM GRAN% 0.4 % (0.0-0.5); LYMPH# 0.94 X1000 (1.2-3.4); MCH 26.8 PG (27-31); MCV 83.7 FL (81-99); MONO# 0.13 X1000 (0.11-0.59); MONO% 0.7 % (1.7-9.3); MPV 10.3 FL (7.4-10.4); NEUT# 17.51 X1000 (1.4-6.5); NEUT% 93.6 % (42.2-75.2); PLT 381 X1000 (130-400); RBC 3.92 XMIL (4.2-5.4); RDW 14.4 % (11.5-14.5)
[2018-04-30 07:35] LABS: CALCIUM 8.5 mg/dL (8.8-10.2); CREATININE 3.8 mg/dL (0.5-0.9); PHOSPHORUS 5.2 mg/dL (2.7-4.5); POTASSIUM 4.8 mmol/L (3.5-5.1)
[2018-04-30 08:17] LABS: ANISOCYTOSIS 1+; LYMPHS 4 % (21-51); SEGS 96 % (42-75)
[2018-04-30] MEDS: HUMULIN 70/30 (PARKWAY) SUBQ SCH ×3 (09:49→20:17)
[2018-04-30] MEDS: NORVASC PO SCH (09:49)
[2018-04-30] MEDS: NEURONTIN PO SCH ×3 (09:49→20:17)
[2018-04-30] MEDS: MAG-OX PO SCH (09:49)
[2018-04-30] MEDS: ZITHROMAX PO SCH (09:49)
[2018-04-30] MEDS: FLONASE NAS SCH (09:50)
[2018-04-30] MEDS: THERA M PLUS PO SCH (09:50)
[2018-04-30] MEDS: APRESOLINE PO SCH ×3 (09:50→20:17)
[2018-04-30] MEDS: COZAAR PO SCH (09:50)
[2018-04-30] MEDS: LASIX PO SCH (09:56)
[2018-04-30] MEDS: TYLENOL PO PRN (13:41)
[2018-04-30] MEDS ORDERED: NS 250 ML IV ONE (14:36)
[2018-04-30] MEDS ORDERED: BASAGLAR SUBQ ONE (14:38)
[2018-04-30] MEDS ORDERED: NS 1,000 ML IV SCH (15:00)
--- NOTE | 2018-05-01 00:33 | PROGRESS NOTE ---
DATE: 04/30/2018 SUBJECTIVE: Patient notes she is still having some shortness of breath, cough, congestion, dyspnea on exertion. Denies any true chest pains or palpitations. Denies any fevers or chills. PHYSICAL EXAMINATION: Vital Signs: Temperature 97.5 degrees, pulse 106, respiratory 18, BP 178/76 to 131/58. General: Patient is awake, alert. Currently, she is in mild respiratory distress. Very pleasant to talk with. HEENT: Normocephalic. Neck: Supple. Cardiovascular: Tachycardia. Chest: Positive wheezing. Minimal decreased air movement. No crackles. Abdomen: Soft, nondistended. Extremities: Moves all extremities. ASSESSMENT: 1. Chronic obstructive pulmonary disease with exacerbation. 2. Congestive heart failure, systolic, chronic. 3. Leukocytosis. 4. Diabetes type 2 with elevated blood sugar. 5. Hypertension. 6. Hypothyroidism. 7. Chronic kidney disease. PLAN: We will continue patient in the hospital. We will stop her Solu-Medrol today as her blood sugars have been in the 400s. We will continue her home medications. Continue sliding scale insulin. Give her 10 units of Lantus currently and we will follow. Hopefully, her symptoms will improve and she will not need further steroids. We will continue breathing treatments, oxygen and follow. cc: Gus Fishman MD
[2018-05-01] MEDS: DUONEB (A & A) INH SCH ×6 (03:14→23:17)
[2018-05-01] MEDS: PRILOSEC PO SCH (06:11)
[2018-05-01] MEDS: SYNTHROID PO SCH (06:12)
[2018-05-01] MEDS: HUMALOG (PARKWAY) SUBQ SCH ×4 (06:12→20:11)
[2018-05-01 06:17] LABS: HEMATOCRIT 29.9 % (37.0-47.0); HEMOGLOBIN 9.4 g/dL (12.0-16.0); MCH 26.4 PG (27-31); MCHC 31.4 g/dL (33-37); RBC 3.56 XMIL (4.2-5.4); RDW 14.5 % (11.5-14.5); WBC 18.69 X1000 (4.8-10.8)
[2018-05-01 06:40] LABS: HEMOGLOBIN A1C 7.6 % (4.8-6.0)
[2018-05-01 06:54] LABS: AGAP 16; ALBUMIN 2.7 g/dL (3.5-5.0); ALKALINE PHOSPHATASE 78 U/L (32-104); BUN 50 mg/dL (8-22); CHLORIDE 101 mmol/L (98-107); COSMO 295; CREATININE 3.9 mg/dL (0.5-0.9); ESTIMATED GFR 12; GLUCOSE 301 mg/dL (70-104); GOT 10 U/L (10-30); GPT 10 U/L (10-36); MAGNESIUM 1.9 mg/dL (1.5-2.7); POTASSIUM 4.8 mmol/L (3.5-5.1); SODIUM 135 mmol/L (136-145); TCO2 18 mmol/L (25-35); TOTAL BILIRUBIN < 0.15 mg/dL (0.20-1.00); TOTAL PROTEIN 5.9 g/dL (6.3-8.3)
[2018-05-01] MEDS: THERA M PLUS PO SCH (08:30)
[2018-05-01] MEDS: APRESOLINE PO SCH ×3 (08:30→20:10)
[2018-05-01] MEDS: COZAAR PO SCH (08:30)
[2018-05-01] MEDS: NORVASC PO SCH (08:30)
[2018-05-01] MEDS: MAG-OX PO SCH (08:30)
[2018-05-01] MEDS: NEURONTIN PO SCH ×3 (08:30→20:11)
[2018-05-01] MEDS: ZITHROMAX PO SCH (08:31)
[2018-05-01] MEDS: HUMULIN 70/30 (PARKWAY) SUBQ SCH ×2 (08:31→17:09)
[2018-05-01] MEDS: NS 1,000 ML IV SCH (08:31)
[2018-05-01] MEDS: FLONASE NAS SCH (08:32)
--- NOTE | 2018-05-02 00:53 | PROGRESS NOTE ---
DATE: 05/01/2018 SUBJECTIVE: Patient notes that she is feeling somewhat better although still having lots of coughing, congestion, lots of shortness of breath and still having dyspnea on exertion. PHYSICAL EXAMINATION: Vital Signs: Temperature 97.5 degrees, pulse 106, blood pressure 178/76 to 131/58. General: Patient is awake, alert. She is in mild respiratory distress, sitting in the bed watching television. HEENT: Normocephalic. Neck: Supple. Cardiovascular: Regular rate. No murmurs. Chest: Decreased but equal breath sounds. Minimal wheezing. No crackles. Abdomen: Soft, nondistended. Extremities: Moves all extremities. ASSESSMENT: 1. Chronic obstructive pulmonary disease with exacerbation. 2. Hypoxic respiratory failure, acute. 3. Diabetes with marked hyperglycemia in the 400s after Solu-Medrol. 4. Acute renal failure on chronic. 5. Leukocytosis. 6. Hypertension. 7. Hypothyroidism. PLAN: We will continue patient in the hospital. We will not use steroids again unless necessary. We will continue IV fluids, antibiotics, breathing treatments, oxygen and follow. cc: Gus Fishman MD
[2018-05-02] MEDS: DUONEB (A & A) INH SCH ×6 (04:03→23:14)
[2018-05-02 06:01] LABS: HEMOGLOBIN 9.3 g/dL (12.0-16.0); MCH 26.5 PG (27-31); MCV 85.5 FL (81-99); MPV 9.8 FL (7.4-10.4); RBC 3.51 XMIL (4.2-5.4); RDW 14.9 % (11.5-14.5); WBC 15.78 X1000 (4.8-10.8)
[2018-05-02] MEDS: HUMALOG (PARKWAY) SUBQ SCH ×4 (06:13→21:15)
[2018-05-02] MEDS: PRILOSEC PO SCH (06:14)
[2018-05-02] MEDS: SYNTHROID PO SCH (06:14)
[2018-05-02 06:35] LABS: AGAP 15; ALBUMIN 2.7 g/dL (3.5-5.0); ALKALINE PHOSPHATASE 79 U/L (32-104); BUN 51 mg/dL (8-22); CALCIUM 7.3 mg/dL (8.8-10.2); CHLORIDE 106 mmol/L (98-107); COSMO 294; ESTIMATED GFR 12; GLUCOSE 114 mg/dL (70-104); GOT 12 U/L (10-30); GPT 11 U/L (10-36); POTASSIUM 4.4 mmol/L (3.5-5.1); SODIUM 140 mmol/L (136-145); TCO2 18 mmol/L (25-35); TOTAL BILIRUBIN < 0.15 mg/dL (0.20-1.00); TOTAL PROTEIN 5.8 g/dL (6.3-8.3)
[2018-05-02] MEDS: FLONASE NAS SCH (08:30)
[2018-05-02] MEDS: HUMULIN 70/30 (PARKWAY) SUBQ SCH ×2 (08:30→16:32)
[2018-05-02] MEDS: ZITHROMAX PO SCH (08:31)
[2018-05-02] MEDS: MAG-OX PO SCH (08:32)
[2018-05-02] MEDS: APRESOLINE PO SCH ×3 (08:32→21:14)
[2018-05-02] MEDS: COZAAR PO SCH (08:32)
[2018-05-02] MEDS: NORVASC PO SCH (08:32)
[2018-05-02] MEDS: NEURONTIN PO SCH ×2 (08:32→21:14)
[2018-05-02] MEDS: THERA M PLUS PO SCH (08:32)
--- NOTE | 2018-05-02 13:08 | Diag Imaging Result Doc PS360 ---
EXAM: US RENAL 2 (RETROPER) COMPLETE 05/02/2018 HISTORY: decreased renal function TECHNIQUE: Renal ultrasound COMMENT: There is no evidence of hydronephrosis mass or stones. The urinary bladder is essentially empty. The right kidney is 9 x 4.3 x 5.1 cm the left is 11 x 5.8 x 6.1 cm. IMPRESSION: No evidence of obstructive uropathy. Electronically signed by Emiliano Lea 05/02/2018 1:06 PM
--- NOTE | 2018-05-02 14:05 | PROGRESS NOTE ---
DATE: 05/02/2018 SUBJECTIVE: The patient notes that overall, she is feeling better. She is breathing a little bit easier. She denies any current chest pains or palpitations. States that her symptoms have improved. OBJECTIVE: Vital Signs: Temp 97.5, pulse 106, respiratory rate 18, BP 130s systolic. General: The patient is awake, alert. She is in no current respiratory distress, sitting up in the bed, very pleasant to talk with. HEENT: Normocephalic. Neck: Supple. Cardiovascular: Regular rate. No murmurs. Chest: Clear. Nonlabored. Abdomen: Soft. Extremities: Moves all extremities. ASSESSMENT: 1. Chronic obstructive pulmonary disease with exacerbation, improved. 2. Acute hypoxic respiratory failure, improved. 3. Leukocytosis, improved. 4. Acute on chronic renal failure. Creatinine continues to worsen, currently is at BUN 51, creatinine 4.0. 5. Hypertension. 6. Hypothyroidism. PLAN: The patient's blood sugars have been improved since we have stopped Solu-Medrol. Her breathing continues to improve and is likely close to her baseline. However, her renal function continues to decline. We have spoken with Nephrology, and will continue to adjust. We will stop her losartan, increase her Norvasc, and will follow. The patient has already had her losartan this morning. cc: Gus Fishman MD
--- NOTE | 2018-05-02 14:29 | NEPHROLOGY CONSULTATION ---
DATE: 05/02/2018 REASON FOR ADMISSION: Increased work of breathing with swelling. REASON FOR CONSULTATION: Acute kidney injury on CKD stage IIIB. CONSULTING PHYSICIANS: Dr. Fishman and Liza Greene NP. HISTORY OF PRESENT ILLNESS: Ms. Glaser is a 53-year-old white female who was seen as a new patient in our office in 10/2017. At that time, her creatinine was 2.7. The patient stated that she was due to lose her insurance within the next month, and was due to get a 24-hour urine and a renal ultrasound and follow up with our office. The patient was scheduled for 03/09/2018, at which time she did not show. She currently states that she had gone to an outpatient clinic for increased work of breathing. They thought it was asthma, and had prescribed prednisone with an inhaler during that period of time because she is diabetic. She stated her sugars became greater than 400. She was also admitted [facility] on 04/10/2018 for acute exacerbation. She was diuresed and discharged home at that time. Due to a productive cough, increased work of breathing, and lower extremity edema, the patient was admitted to the hospital for further evaluation and workup. She was given Lasix during this hospital stay. She denies any chest pain. Positive for increased work of breathing, though she states that this is somewhat improved. Denies nausea, vomiting, or diarrhea. No palpitations. No fever or chills. Positive for elevated sugars. Occasionally with tremors. Denies any recent falls. No hematochezia, hemoptysis, or hematuria. PAST MEDICAL HISTORY: Chronic kidney disease stage 3. The patient's last creatinine in our office was 2.7. Her last creatinine during her last hospitalization was 3 to 3.1, indicating her creatinine clearance over the last year has been approximately 19% to 20%. The patient is positive for proteinuria on UA. The patient has a history of congestive heart failure, hypertension, diabetes mellitus type 2 with insulin dependence, hyperlipidemia, peripheral neuropathy, diabetic nephropathy, noncompliance, hypothyroidism. PAST SURGICAL HISTORY: Partial thyroidectomy, section, bilateral tubal ligation, as well amputation of her first and second toes on the right. SOCIAL HISTORY: She lives with her daughter. Denies any tobacco, alcohol, or illicit drug use. FAMILY HISTORY: Negative for kidney disease. Positive for hypertension and heart disease. ALLERGIES: Listed as amoxicillin and tramadol. HOME MEDICATIONS: Omeprazole, Lasix, Apresoline, ProAir, Symbicort, Humulin 70/30, Norvasc, Neurontin, losartan, Mag-Ox, multivitamin, Flonase, and Synthroid. REVIEW OF SYSTEMS: Times 10 with pertinent positives listed above in the HPI. IMAGING AND LABORATORY DATA: Sodium 140, potassium 4.4, chloride 106, CO2 of 18, BUN 51, creatinine 4, glucose 114, her anion gap is 15, calcium 7.3, albumin is 2.7. White count 15.78, hemoglobin 9.3, hematocrit 30, platelet count 363,000. She has had 1950 out, 800 out to void. The patient's initial chest x-ray on her admission showed no acute cardiopulmonary abnormalities. PHYSICAL EXAMINATION: Her most recent vital signs: Temperature 97.5 degrees, blood pressure 132/64, heart rate 92, respirations are 20, she is on 2 L nasal cannula, last recorded saturation 98%. General: This is a 53-year-old white female. She is currently resting on the side of the bed. She is in no acute distress, though she appears chronically ill. Skin: Warm and dry. HEENT: Normocephalic, atraumatic. Conjunctiva is pale. She has RAN. Mucous membranes are dry. Neck: Supple. Trachea midline. She has no evidence of JVD. Cardiovascular: She is regular rate and rhythm. No appreciable murmur or gallop. Lungs: Clear to auscultation bilaterally. Equal excursion. She states that she has an occasional cramp to her left calf with trace to 1+ lower extremity edema. Abdomen: Large, obese, soft, nontender. Positive bowel sounds. Genitourinary: Not inspected. The patient has been voiding. Adequate amount recorded. We have requested a strict I and O. Integumentary: Skin is warm and dry. No rashes or lesions are noted to the anterior torso or skin. Neurological: Alert and oriented x3. ASSESSMENT AND PLAN: Acute kidney injury on chronic kidney disease stage 3B-4. The patient's baseline creatinine is 2.7. It is up to 4 today. She has had adequate urine output. Renal ultrasound has been ordered. She has just returned from having this completed. We have urine electrolytes currently waiting due to heavy proteinuria on her urinalysis. We will do a 24-hour urine mostly to quantify her total proteinuria. Due to these findings, we will check urine electrophoresis and complements with ABRAHAM and ANCA to verify that this is mostly related to her diabetes and no other causes contributing to her worsening kidney levels. I would like to thank you for allowing us to follow with this patient. Dictated by STEPHANIE Salguero for Sal Brooks MD cc: STEPHANIE Salguero MD
[2018-05-02 15:07] LABS: UR CREAT RANDOM 97.3 mg/dL (11-20)
[2018-05-02 15:10] LABS: UR PROT RANDOM 818.9 mg/dL
[2018-05-02] MEDS ORDERED: NS 1,000 ML ONE (21:20)
[2018-05-02] MEDS: NS 1,000 ML IV SCH (21:35)
[2018-05-03] MEDS: DUONEB (A & A) INH SCH ×6 (03:12→23:37)
[2018-05-03 05:24] LABS: HEMATOCRIT 30.4 % (37.0-47.0); HEMOGLOBIN 9.4 g/dL (12.0-16.0); MCH 26.5 PG (27-31); MCHC 30.9 g/dL (33-37); MCV 85.6 FL (81-99); MPV 9.9 FL (7.4-10.4); RBC 3.55 XMIL (4.2-5.4); RDW 14.9 % (11.5-14.5); WBC 14.74 X1000 (4.8-10.8)
[2018-05-03] MEDS: SYNTHROID PO SCH ×2 (05:42→08:27)
[2018-05-03 05:44] LABS: ALBUMIN 2.6 g/dL (3.5-5.0); CALCIUM 7.9 mg/dL (8.8-10.2); CREATININE 3.9 mg/dL (0.5-0.9); PHOSPHORUS 5.1 mg/dL (2.7-4.5); POTASSIUM 4.8 mmol/L (3.5-5.1)
[2018-05-03] MEDS: PRILOSEC PO SCH (06:24)
[2018-05-03] MEDS: HUMALOG (PARKWAY) SUBQ SCH ×4 (06:25→21:14)
[2018-05-03] MEDS: FLONASE NAS SCH (09:16)
[2018-05-03] MEDS: HUMULIN 70/30 (PARKWAY) SUBQ SCH ×2 (09:18→17:27)
[2018-05-03] MEDS: ZITHROMAX PO SCH (09:20)
[2018-05-03] MEDS: LASIX PO SCH (09:20)
[2018-05-03] MEDS: APRESOLINE PO SCH ×3 (09:20→21:13)
[2018-05-03] MEDS: THERA M PLUS PO SCH (09:20)
[2018-05-03] MEDS: NEURONTIN PO SCH ×2 (09:20→21:13)
[2018-05-03] MEDS: MAG-OX PO SCH (09:21)
[2018-05-03] MEDS: NORVASC PO SCH (09:21)
[2018-05-03] MEDS: TYLENOL PO PRN (09:40)
[2018-05-03] MEDS ORDERED: NS 1,000 ML IV ONE (13:16)
--- NOTE | 2018-05-03 13:33 | PROGRESS NOTE ---
DATE: 05/03/2018 SUBJECTIVE: Patient has no focal complaints. OBJECTIVE: Blood pressure 167/65, heart rate 101, respiratory rate of 20, temperature 98.3 degrees and 97% on room air.Cardiovascular: Regular rate and rhythm. Pulmonary: Bilateral breath sounds. Clear to auscultation. GI: Soft, nontender, and nondistended. Bowel sounds are positive. LABORATORY DATA: White count 14, hemoglobin and hematocrit 9 and 30, and platelets 366,000. BUN and creatinine are 52 and 3.9, which is pretty much unchanged for the last 4 days. PROBLEM LIST: 1. Acute on chronic renal failure. She is at stage 5 currently. I think she is usually around stage 4. We will continue some gentle hydration and follow. 2. Acute chronic obstructive pulmonary disease exacerbation. She seems to be stable from that standpoint. 3. Acute hypoxic respiratory failure is also doing okay. She looks like she was on room air. 4. Hypertension which is not completely controlled but, is overall improved. DISPOSITION: I anticipate discharge soon once the blood pressure is stabilized. She requests increasing her gabapentin. I guess there was concern of over-sedation, but she seems fine currently. Her breathing seems stable. cc: Ino Sheffield MD
[2018-05-03 15:46] LABS: CREATININE 3.9 mg/dL (0.7-1.2)
[2018-05-03 16:12] LABS: UR CREATININE 41.9 mg/dL (11-20); UR CREATININE TOTAL 1361.8 mg/24 (600-1600); UR PROTEIN 320.4 mg/dL
--- NOTE | 2018-05-03 19:58 | NEPHROLOGY PROGRESS NOTE ---
DATE: 05/03/2018 TIME SEEN: 1844. SUBJECTIVE: Ms. Glaser is sitting up in bed. She states that her breathing has improved. She does have chronic lower back pain. OBJECTIVE: Most recent vital signs: Her last temperature 98.1 degrees, blood pressure 160/76, heart rate 86, respirations 20. She is currently on room air. Last recorded saturation is 100%. She had 1800 in. She had 1890 out. Laboratory Data: Sodium 140, potassium 4.8, chloride 109, CO2 18, BUN 52, creatinine 3.9, glucose 85. Her anion gap is 14, calcium 7.9, phosphorus 5.1, albumin 2.6. White count 14.74, hemoglobin 9.4, hematocrit 30.4, platelet count 366,000. The patient had a fractionated urea score of 1.03%. She remains on normal saline at 100 mL an hour. The patient's sedimentation rate is 59. Twenty-four hour urine indicates a creatinine clearance of 24% with 10.4 g of total protein. Physical Examination: General: This is a 53-year-old white female resting quietly in bed. She is in no acute distress. Skin: Warm and dry. HEENT: Normocephalic, atraumatic. Conjunctivae are pale. She has RAN. Mucous membranes are dry. Neck: Supple. Trachea midline. No evidence of JVD. Cardiovascular: She is regular rate and rhythm. No appreciable murmur or gallop. Lungs: Clear to auscultation bilaterally. Equal excursion on room air. Abdomen: Soft, nontender. Positive bowel sounds. Genitourinary: Not inspected. Patient has been voiding with recording of adequate urine out. Extremities: Have trace to 1+ lower extremity edema. Integumentary: Warm and dry without rashes or lesions. Neurological: She is alert and oriented x3. ASSESSMENT: 1. Acute kidney injury on chronic kidney disease stage 3B4. Patient's baseline creatinine last in our office was noted at 2.7. Creatinine is now down to 3.9 from 4. She is making adequate urine output. Her 24-hour urine indicates her creatinine clearance of 24%. Adequate urine out with no indications for intervention. 2. Proteinuria. Patient has 10.4 g of proteinuria. We are still waiting for urine electrolytes with further complements, ABRAHAM, ANCA results that have been sent out to [facility]. These will be back in the next 24 to 48 hours. She has minimal lower extremity edema. Albumin is actually stable at 2.6. 3. Electrolytes. These are stable. 4. Acid-base balance. This remains stable. 5. Anemia. This is low but stable more than likely secondary to #1. PLAN: We will await for further findings of serum electrophoresis with complements and ABRAHAM and ANCA. These are currently pending. It is noted she has heavy proteinuria. If these results come back negative, the patient is known to have diabetes, we may need to evaluate whether she is in need of a renal biopsy for clarification or not. I would like to thank you for allowing us to follow with this patient. Dictated by STEPHANIE Salguero for Sal Brooks MD cc: STEPHANIE Salguero MD [facility]
[2018-05-04] MEDS: DUONEB (A & A) INH SCH ×6 (03:40→23:11)
[2018-05-04 06:20] LABS: BASO# 0.09 X1000 (0.0-0.2); BASO% 0.6 % (0.0-0.8); EOS# 1.45 X1000 (0.0-0.7); EOS% 10.2 % (0.0-10.0); HEMATOCRIT 29.9 % (37.0-47.0); HEMOGLOBIN 9.4 g/dL (12.0-16.0); IMM GRAN# 0.23 X1000 (0.0-0.04); IMM GRAN% 1.6 % (0.0-0.5); LYMPH# 2.53 X1000 (1.2-3.4); LYMPH% 17.9 % (20.5-51.1); MCH 26.9 PG (27-31); MCHC 31.4 g/dL (33-37); MCV 85.4 FL (81-99); MONO# 0.94 X1000 (0.11-0.59); MONO% 6.6 % (1.7-9.3); MPV 9.8 FL (7.4-10.4); NEUT# 8.91 X1000 (1.4-6.5); NEUT% 63.1 % (42.2-75.2); PLT 359 X1000 (130-400); RDW 14.9 % (11.5-14.5); WBC 14.15 X1000 (4.8-10.8)
[2018-05-04] MEDS: SYNTHROID PO SCH (06:27)
[2018-05-04] MEDS: PRILOSEC PO SCH (06:28)
[2018-05-04] MEDS: HUMALOG (PARKWAY) SUBQ SCH ×4 (06:29→22:30)
[2018-05-04 06:52] LABS: ALBUMIN 2.8 g/dL (3.5-5.0); CREATININE 3.4 mg/dL (0.5-0.9); PHOSPHORUS 5.2 mg/dL (2.7-4.5)
[2018-05-04] MEDS: FLONASE NAS SCH (08:18)
[2018-05-04] MEDS: HUMULIN 70/30 (PARKWAY) SUBQ SCH ×2 (08:18→16:34)
[2018-05-04] MEDS: ZITHROMAX PO SCH (08:19)
[2018-05-04] MEDS: NORVASC PO SCH (08:19)
[2018-05-04] MEDS: APRESOLINE PO SCH ×3 (08:19→22:30)
[2018-05-04] MEDS: NEURONTIN PO SCH ×3 (08:19→16:40)
[2018-05-04] MEDS: THERA M PLUS PO SCH (08:19)
[2018-05-04 14:57] LABS: ANTINEUTROPHIL CYTOPLASMIC AB SEE COMMENTS
[2018-05-04] MEDS ORDERED: ALBUMIN 25% IV ONE ×2 (19:33→23:45)
--- NOTE | 2018-05-04 19:40 | NEPHROLOGY PROGRESS NOTE ---
DATE: 05/04/2018 TIME SEEN: 1445 hours. SUBJECTIVE: Ms. Glaser is sitting up in a chair. She denies any pain. States her swelling is doing better. VITAL SIGNS: Her temperature is 98 degrees, blood pressure 155/67, heart rate 92, respirations 20. She is currently on room air. Last recorded saturation 96%. She has had 1600 in, she has had 3200 out to Huang catheter. LABORATORY DATA: Sodium 140, potassium 5, chloride 110, CO2 is 18, BUN 47, creatinine is 3.4, glucose 115, anion gap 13, calcium 8, phosphorus 5.2, albumin 2.8. White count 14.15, hemoglobin 9.4, hematocrit 29.9 with a platelet count of 359,000. The patient's complement C3 was negative at 162. Her complement 4 was negative at 31. She has an ANCA that has returned negative, less than 0.2. ABRAHAM and SPEP are still pending. OBJECTIVE: This is a 53-year-old white female. She is resting quietly in a chair. She is in no acute distress, though she appears chronically ill. Skin is warm and dry. HEENT: Normocephalic, atraumatic. Conjunctivae are pale. She has RAN. Mucous membranes are dry. Neck is supple. Trachea midline. No JVD. Cardiovascular is regular rate and rhythm. No appreciable murmur or gallop. Lungs are clear to auscultation bilaterally. Equal excursion on room air. Abdomen is large, round, soft, nontender. Positive bowel sounds. Genitourinary not inspected. The patient is voiding adequate amount after Huang catheter is removed. Extremities have trace to 1+ lower extremity edema. Integumentary warm and dry without rashes or lesions, though she has chronic venous stasis. Neurological: Alert and oriented x3. ASSESSMENT AND PLAN: 1. Acute kidney injury on chronic kidney disease stage 3B. The patient's 24- hour urine indicates a creatinine clearance of 24%. She is now in a stage 4 per her creatinine clearance. 2. Proteinuria; 10.4 g of protein noted. She currently remains off her angiotensin-converting enzyme inhibitor and angiotensin receptor jovi. Currently waiting for her antinuclear antibody and her serum protein electrophoresis to be returned. Due to these findings, we will go ahead and have the patient return to our office within 2-3 weeks after discharge. We will request a laboratory and a urine sample. We will evaluate continuation of any medications at that time. 3. Electrolytes, acid-base balance and anemia. These are all fairly stable. I would like to thank you for allowing us to follow with this patient. Dictated by STEPHANIE Salguero for Sal Brooks MD cc: STEPHANIE Salguero MD [facility]
--- NOTE | 2018-05-04 19:52 | PROGRESS NOTE ---
DATE: 05/04/2018 SUBJECTIVE: Patient really has no major complaints. OBJECTIVE: Blood pressure is 148/58, heart rate of 100, respiratory rate of 18, temperature was 98 degrees.Cardiovascular: Was stable. 95% on room air. Pulmonary: Bilateral breath sounds clear to auscultation. GI: Soft, nontender, nondistended. Bowel sounds are positive. LABORATORY DATA: White count 14, hemoglobin and hematocrit 9 and 29, platelets 359,000. BUN and creatinine of 47 and 3.4. PROBLEM LIST: 1. Acute on chronic renal failure. Her renal failure now is stage 4 to 5. She will be admitted for treatment and she is doing okay. I think this is just poorly controlled hypertension, diabetes. That is what has caused her progression but we will follow. I will give her albumin today because worried about volume load with any more fluids. 2. Chronic obstructive pulmonary disease appears to be stable. 3. Hypertension appears to be stable. She says she has some degree of cough which we do not really have her on any medications for that. DISPOSITION: Pending her clinical status. If her kidney function is stable she can go home. I think the problem is possible compliance with her medications when she is outside the hospital, possibly due to cost of medications. Additionally, she has significant nephrotic range proteinuria and we are still waiting on final treatment for that. cc: Ino Sheffield MD [facility]
[2018-05-04] MEDS: ROBITUSSIN-AC PO PRN (22:29)
[2018-05-05] MEDS: DUONEB (A & A) INH SCH ×3 (03:23→11:44)
[2018-05-05] MEDS: HUMALOG (PARKWAY) SUBQ SCH ×2 (06:33→11:12)
[2018-05-05] MEDS: PRILOSEC PO SCH (06:34)
[2018-05-05] MEDS: SYNTHROID PO SCH (06:34)
[2018-05-05] MEDS: HUMULIN 70/30 (PARKWAY) SUBQ SCH (06:43)
[2018-05-05 06:48] LABS: ALBUMIN 3.3 g/dL (3.5-5.0); CALCIUM 8.3 mg/dL (8.8-10.2); CREATININE 3.1 mg/dL (0.5-0.9); POTASSIUM 4.6 mmol/L (3.5-5.1)
--- NOTE | 2018-05-05 07:05 | NEPHROLOGY PROGRESS NOTE ---
DATE: 05/05/2018 TIME SEEN: 0615. SUBJECTIVE: Ms. Glaser is sitting up in bed. She states that she is cold and she has got a little bit of a backache this a.m. OBJECTIVE: Vital Signs: Her most recent vital signs, her last temperature was 98 degrees, blood pressure 159/79, heart rate 99, respirations 22. She is on room air. Last recorded saturation 93%. She has had 2105 in, 2550 out to void. Labs: Currently pending. The patient's previous BUN was 47 with a creatinine of 3.4. Physical Examination: General: This is a 53-year-old, white female resting quietly in bed. She is in the upright position. She states that she is cold. She is in no acute distress. Her skin is warm and dry. HEENT: Normocephalic, atraumatic. Conjunctivae are pale. She has RAN. Mucous membranes are dry. Neck: Supple. Trachea midline. No evidence of JVD. Cardiovascular: She is regular rate and rhythm. There is no murmur or gallop appreciated. Lungs: Diminished, posterior bases. She remains on room air. Clear to anterior inspection. Abdomen: Large, round, soft, nontender. Positive bowel sounds. Genitourinary: Not inspected. Patient is voiding adequate amount. Extremities: Have trace to 1+ lower extremity edema. This is slightly improved from yesterday. Integumentary: Warm and dry without rashes or lesions. She does have chronic venous stasis. Neurological: She is alert and oriented x3. ASSESSMENT AND PLAN: 1. Acute kidney injury on chronic kidney disease stage IIIB 4. The patient's 24 hour urine indicates that she is a stage 4 per her creatinine clearance. 2. Proteinuria. Patient demonstrated 10.4 g of proteinuria on her 24 hour urine. We currently do not have her on an NOEMI or an ARB. We will make sure that she follows up in our office within 2 to 3 weeks. At that time, we may possibly place her on that. 3. Electrolytes, acid-base balance, and anemia. These have all been stable. No labs this morning. PLAN: Patient is to follow up in our office after discharge in 2-3 weeks with labs. I would like to thank you for allowing us to follow with this patient. Dictated by STEPHANIE Salguero for Sal Brooks MD cc: STEPHANIE Salguero MD [facility]
[2018-05-05] MEDS: FLONASE NAS SCH (08:00)
[2018-05-05] MEDS: THERA M PLUS PO SCH (08:01)
[2018-05-05] MEDS: APRESOLINE PO SCH ×2 (08:02→15:02)
[2018-05-05] MEDS: ZITHROMAX PO SCH (08:02)
[2018-05-05] MEDS: NORVASC PO SCH (08:02)
[2018-05-05] MEDS: NEURONTIN PO SCH ×2 (08:03→12:18)
[2018-05-05] MEDS: ROBITUSSIN-AC PO PRN (08:48)
[2018-05-05 11:14] VITALS: BP 161/74
--- NOTE | 2018-05-05 14:34 | DISCHARGE SUMMARY ---
ADMISSION DATE: 04/29/2018 DISCHARGE DATE: DISCHARGE DIAGNOSIS: Renal failure and nephrotic syndrome. HISTORY: On the day of discharge she seems to be doing okay. She has a little bit of heavy breathing but is overall stable. Blood pressure stable. No rales on exam. Her BUN and creatinine are 42 and 3.1, which is an improvement. Albumin is up to 3.3. Her total protein is 10,413. I feel stable for her discharge today. We will set her up with nebulizer, and continue her current medication. She will start losartan at discharge. TIME SPENT: This is a 32 minute discharge [id number] encounter note with Trudi Lewis. cc: Ino Sheffield MD
--- NOTE | 2018-05-05 15:42 | DISCHARGE SUMMARY ---
ADMISSION DATE: 04/29/2018 DISCHARGE DATE: 05/05/2018 PRIMARY CARE PHYSICIAN: Listed as none. ADMISSION DIAGNOSES: 1. An acute chronic obstructive pulmonary disease exacerbation. 2. Mild congestive heart failure exacerbation. 3. Leukocytosis, believed to be reactive. 4. Diabetes type 2 with noncompliance. 5. Hypertension. 6. Hypothyroidism. 7. Chronic kidney disease, stage II. DISCHARGE DIAGNOSES: 1. An acute on chronic renal failure that has gone from stage IV to stage V. 2. An acute chronic obstructive pulmonary disease exacerbation. 3. Hypertension. SUMMARY OF FINDINGS: This is a 53-year-old female who presented with a 1-month history of shortness of breath, had been admitted to the hospital on April 09 and for an acute exacerbation of COPD, was diuresed and discharged home. States at that time she could lay flat and felt much better, but now reports a productive cough, shortness of breath, some lower extremity edema. She does state that she was told to double her Lasix which she did with no improvement. She was admitted, placed on daily weights incentive spirometry, Solu-Medrol that was weaned as she improved. Nephrology was consulted. We did a renal ultrasound on 05/02/2018 that showed no evidence of obstructive uropathy. We did a 24-hour urine that indicated that she is a stage IV per her creatinine clearance. She had proteinuria demonstrated by 10.4 g of proteinuria on her 24-hour urine, and it was felt that she needed to follow up with a human resource intern 2 to 3 weeks after discharge, which we feel she is stable for at this time. DISCHARGE MEDICATIONS: Will include: 1. Gabapentin 600 mg p.o. t.i.d., #270 with no refill 2. Multivitamin daily. 3. Omeprazole 20 mg p.o. daily. 4. DuoNebs t.i.d. 5. ProAir inhaler 2 puff inhalation q. 4 hours p.r.n. 6. Norvasc 5 mg p.o. daily #90 with no refill. 7. Symbicort 80/4.5 two puffs inhalation b.i.d. 8. Flonase 1 spray nasally daily, 1 bottle with 1 refill. 9. Lasix 20 mg p.o. daily #30 with 1 refill. 10. Hydralazine 50 mg p.o. t.i.d. #270 with no refill. 11. Humulin 70/30 60 units subcutaneous b.i.d. #1 insulin pen with 3 refills. 12. Synthroid 100 mcg p.o. daily #90 with no refills. FOLLOW-UP: She is to follow up with [facility] in 2 to 3 weeks. Call the office for an appointment, and with STEPHANIE Anna in 1 to 2 weeks and call their office for an appointment. All discharge instructions have been reviewed with the patient and she verbalizes understanding. TIME SPENT: 35 minute discharge. Dictated by STEPHANIE Alfonso for Ino Sheffield MD cc: STEPHANIE Alfonso MD [facility]
== END 2018-05-05 16:13 | disposition home or self-care (01) | DRG 191 ==
LOC: P.MEDSURG 08:43 → P.ED 08:43 → SUATTDRO 15:17 → OBSVTOIN 15:17 → P.MEDSURG 15:37
PROVIDERS: ATTEND Internal Medicine
CPT/HCPCS: 36415; 71010; 71045; 76770; 80053; 80069; 81001; 81050; 82570; 82575; 82948; 83036; 83516; 83605; 83735; 83880; 84156; 84166; 84300; 84443; 84484; 85025; 85027; 85610; 85651; 86038; 86039; 86160; 86335; 87205; 87275; 87276; 87804; 93005; 94640; 94761; 94799; 96365; 96366; 96375; 99285; A9270; J1815; J1940; J2930; J3475; J7030; J7040; P9047; XXXXX

== ENCOUNTER 2018-06-21 08:54 | Inpatient (IN) ==
[2018-06-21] MEDS ORDERED: DUONEB (A & A) INH ONE (09:14)
[2018-06-21] MEDS ORDERED: ROCEPHIN 1 GM in NS 50 ML IV ONE (09:15)
[2018-06-21] MEDS ORDERED: PULMICORT INH ONE (09:15)
[2018-06-21 09:57] LABS: BASO# 0.11 X1000 (0.0-0.2); BASO% 0.9 % (0.0-0.8); EOS# 1.92 X1000 (0.0-0.7); EOS% 15.9 % (0.0-10.0); HEMATOCRIT 33.2 % (37.0-47.0); HEMOGLOBIN 10.2 g/dL (12.0-16.0); IMM GRAN# 0.05 X1000 (0.0-0.04); IMM GRAN% 0.4 % (0.0-0.5); LYMPH# 1.78 X1000 (1.2-3.4); LYMPH% 14.8 % (20.5-51.1); MCH 26.6 PG (27-31); MCHC 30.7 g/dL (33-37); MCV 86.5 FL (81-99); MONO# 0.62 X1000 (0.11-0.59); MONO% 5.1 % (1.7-9.3); MPV 9.6 FL (7.4-10.4); NEUT# 7.58 X1000 (1.4-6.5); NEUT% 62.9 % (42.2-75.2); PLT 314 X1000 (130-400); RBC 3.84 XMIL (4.2-5.4); RDW 14.8 % (11.5-14.5); WBC 12.06 X1000 (4.8-10.8)
[2018-06-21] MEDS ORDERED: CATAPRES PO ONE (10:03)
--- NOTE | 2018-06-21 10:05 | EKG Report ---
Test Performed on : 06/21/2018 09:25:22 AM Test Reason : shortness of breath Blood Pressure : / mmHG Vent. Rate : 103 BPM Atrial Rate : 103 BPM P-R Int : 148 ms QRS Dur : 076 ms QT Int : 346 ms P-R-T Axes : 050 058 047 degrees QTc Int : 453 ms Sinus tachycardia. Otherwise normal ECG When compared with ECG of 20-MAY-2018 11:20, No significant change was found Unconfirmed Result
[2018-06-21 10:27] LABS: AGAP 12; ALBUMIN 3.2 g/dL (3.5-5.0); ALKALINE PHOSPHATASE 90 U/L (32-104); BUN 25 mg/dL (8-22); CALCIUM 7.9 mg/dL (8.8-10.2); CHLORIDE 102 mmol/L (98-107); COSMO 299; CREATININE 2.7 mg/dL (0.5-0.9); ESTIMATED GFR 19; GLUCOSE 244 mg/dL (70-104); GOT 18 U/L (10-30); GPT 14 U/L (10-36); POTASSIUM 4.3 mmol/L (3.5-5.1); SODIUM 144 mmol/L (136-145); TCO2 31 mmol/L (25-35); TOTAL BILIRUBIN < 0.15 mg/dL (0.20-1.00); TOTAL PROTEIN 6.2 g/dL (6.3-8.3)
[2018-06-21 10:45] LABS: CK INDEX 2.2 (0.0-2.5); CK-MB 7.09 ng/mL (0.0-5.0)
[2018-06-21 10:51] LABS: BILIRUBIN URINE NEGATIVE (NEGATIVE); BLOOD URINE 1+ (NEGATIVE); CLARITY CLEAR (CLEAR); COLOR YELLOW; KETONE URINE NEGATIVE (NEGATIVE); LEUKOCYTES URINE NEGATIVE (NEGATIVE); NITRITE URINE NEGATIVE (NEGATIVE); PROTEIN URINE 2+(100 mg/dL) mg/dL (NEGATIVE); UROBILINOGEN URINE NORMAL
[2018-06-21 10:52] LABS: URINE RBC 20-40 /HPF (<10); URINE SOURCE CLEAN CATCH
[2018-06-21] MEDS ORDERED: NITROGLYCERIN SL ONE (11:24)
[2018-06-21] MEDS ORDERED: SOLU-MEDROL IV ONE (11:24)
--- NOTE | 2018-06-21 11:24 | Diag Imaging Result Doc PS360 ---
EXAM: CHEST-PORTABLE HISTORY: cough TECHNIQUE: Chest single view COMPARISON: 05/20/2018 FINDINGS: The lungs are well expanded. The heart is not enlarged. The vessels are not distended. There are no infiltrates. No effusion identified. IMPRESSION: No pneumonia. Electronically signed by Magdaleno Lovell 06/21/2018 11:22 AM
[2018-06-21] MEDS ORDERED: LASIX IV ONE (11:25)
[2018-06-21 12:05] LABS: BE 6.4 mmoll (-3.0-3.0); BLOOD TYPE ARTERIAL; HCO3-(ACT) 29.8 mmoll (20.0-26.0); METHB 0.3 % (0.0-1.5); O2(CT) 13.3 mL/dL (15.0-23.0); PCO2(98.6) 49 mmHg (35-45); PO2(98.6) 58 mmHg (60-100); SAMPLE BLOOD; SAO2 92.3 % (95.0-100.0); THB 10.4 g/dL (11.5-17.4); pH(98.6) 7.42 (7.35-7.45)
[2018-06-21 12:08] LABS: ALLEN TEST YES; MODALITY ROOM AIR
[2018-06-21] MEDS: CARDENE 20 MG/NS 20 MG/200 ML PIGGYBACK IV SCH ×6 (14:42→22:19)
[2018-06-21] MEDS ORDERED: ATIVAN ONE (16:07)
[2018-06-21] MEDS ORDERED: ATIVAN IV ONE (16:07)
[2018-06-21 16:20] LABS: INR 0.91; PROTIME 12.7 Seconds (11.0-16.0)
--- NOTE | 2018-06-21 16:34 | PROVIDER DOCUMENTATION ---
This chart was entered by Brittni Lawrence Scribe, acting as scribe for Briana Gray MD. HPI-Respiratory General - General Chief Complaint: Shortness of Breath Stated Complaint: SOB Time Seen by Provider: 06/21/18 09:06 Source: patient Allergies/Adverse Reactions: Patient Allergies Allergy/AdvReac Type Severity Reaction Status Date / Time amoxicillin Allergy ITCHING Verified 06/21/18 09:12 tramadol Allergy HEADACHE Verified 06/21/18 09:12 Home Medications: Home Medication List Medication Instructions Recorded Confirmed Last Taken Type Omeprazole 20 mg PO DAILY@0700 05/31/17 04/29/18 Unknown History Albuterol Sulfate [Proair Hfa] 2 puff IH Q4H PRN PRN 12/31/17 04/29/18 Unknown History Budesonide/Formoterol Fumarate 2 puff IH BID 12/31/17 04/29/18 Unknown History [Symbicort 80-4.5 Mcg Inhaler] Multivitamin [Multi-Day Vitamins] 1 each PO DAILY 04/09/18 04/29/18 Unknown History Albuterol 2.5MG/Ipratrop 0.5MG 3 ml INH RTTID #270 neb 05/05/18 Unknown Rx [Duoneb] Amlodipine [Norvasc] 5 mg PO DAILY #90 tab 05/05/18 Unknown Rx Fluticasone 50 Mcg Nasal [place] 1 spray INTRANASAL DAILY #1 bottle 05/05/18 Unknown Rx [Flonase] Furosemide [Lasix] 20 mg PO DAILY #30 tab 05/05/18 Unknown Rx Gabapentin [Neurontin] 600 mg PO TID #270 cap 05/05/18 Unknown Rx Hydralazine [Apresoline] 50 mg PO TID@0900,1500,2100 #270 05/05/18 Unknown Rx tab Insulin Humulin 70/30 [Humulin 60 unit SUBQ BID #1 insuln.pen 05/05/18 Unknown Rx 70/30] Levothyroxine [Synthroid] 100 microgm PO DAILY@0700 #90 tab 05/05/18 Unknown Rx - History of Present Illness-Resp Nature of Presenting Problem: 53 yof presents to ED cc SOB, wheezing, cough, mild swelling in lower legs and fatigue for last 2 days, that has gotten worse today. Pt reports she is on nebulizer treatments at home with the last one at 5:30am today but they aren't helping. Pt denies chest pain. Pt has hx of DM, asthma, COPD, CHF, HTN and stage 4 kidney failure. Quality of Pain: reports: tightness Severity in ED: reports: moderate Onset/Duration: reports: 2 days ago Timing: reports: still present Exposure: reports: unknown cause Cough Quality/Degree: reports: moderate Current Respiratory Medication Therapy: Initiated A/A nebulizer Modifying Factors: improves with: albuterol nebulizer. worse with: lying down Associated Symptoms: reports: cough, shortness of breath, wheezing Similar Symptoms Previously?: Yes Recently seen or treated by another doctor?: Yes Review of Systems - Adult - REVIEW OF SYSTEMS - ADULT Constitutional: reports: see HPI, fatique. denies: chills, fever Eyes: reports: no symptoms reported Ears, Nose, Mouth & Throat: reports: no symptoms reported Cardiovascular: reports: see HPI, edema. denies: chest pain, syncope Respiratory: reports: see HPI, cough, shortness of breath, wheezing. denies: ex cessive sputum production Gastrointestinal: reports: no symptoms reported Genitourinary: reports: no symptoms reported Musculoskeletal: reports: no symptoms reported Integumentary: reports: no symptoms reported Neurological: reports: no symptoms reported Psychiatric: reports: no symptoms reported Endocrine: reports: no symptoms reported Hematologic/Lymphatic: reports: no symptoms reported Allergic/Immunologic: reports: no symptoms reported All Other Systems: Reviewed and Negative Past History - Adult - PAST MEDICAL HISTORY-ADULT Review of Records: reports: Nursing Assessment Review, Medications Reviewed, Social history reviewed & non-contributory. Major Childhood Illnesses: reports: denies history Cardiovascular: reports: CHF, HTN, hyperlipidemia Respiratory: reports: asthma, COPD Gastrointestinal: reports: GERD Obstetrical/Gynecological: reports: denies history Genitourinary: reports: denies history Musculoskeletal: reports: denies history Neurological: reports: denies history Psychiatric: reports: anxiety, depression Endocrine/Immune: reports: Diabetes, thyroid disorder, other (Stage 4 kidney failure) Diabetes Type: Type 2 Other Conditions: reports: other (diabetic retinopathy) - PRIOR SURGERIES/PROCEDURES Surgical/Procedure History: reports: BTL, , orthopedic (extremity) (R 2nd toe amputation), other (partial thyroidectomy, heart cath) - IMMUNIZATION STATUS Childhood Immunizations: See Nurse Assessment Flu Vaccine: See Nurse Assessment - FAMILY HISTORY Family History: reviewed, not pertinent - SOCIAL HISTORY Smoking: denies Substance Use: none/never Alcohol Use Frequency: never Living Situation: family Physical Exam-General - PHYSICAL EXAM-ADULT Initial Vital Signs Reviewed: Yes - CONSTITUTIONAL General Appearance: appears well, alert. negative: thin, anxious, combative - EYES Eyes: PERRL/EOMI, pink conjunctivae. negative: photophobia - HEAD, EARS, NOSE, MOUTH & THROAT HENMT: moist mucous membranes, normal ENT inspection. negative: angioedema - NECK Neck: non-tender, full range of motion, supple, normal inspection. negative: Brudzinski's sign, carotid bruit - RESPIRATORY Respiratory: chest non-tender, no pleuratic chest pain, no respiratory distress, no accessory muscle use, wheezing. negative: normal breath sounds (distant breath sounds), crackles, rales, rhonchi - CARDIOVASCULAR Cardiovascular: normal peripheral pulses, no gallop, no JVD, no murmur, tach ycardia. negative: regular rate, rhythm, no edema (bilateral, lower legs), bradycardia - GASTROINTESTINAL (ABDOMEN) Abdominal Exam: normal bowel sounds, non tender, soft, no organomegaly. negative: rigid, rebound, tenderness - LYMPHATIC Lymphatic: no adenopathy. negative: striations - MUSCULOSKELETAL Back Exam: normal inspection. negative: swelling Extremity: normal range of motion, normal inspection. negative: deformity - SKIN Integumentary: normal color, normal turgor, warm/dry. 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 negative: facial droop, focal weakness - PSYCHIATRIC Psych/Mental Status: normal mood/affect, normal thought content, normal thought process, oriented x 3. negative: anxious Progress - PLAN OF CARE/RESULTS Progress/Plan/Lab Results: Vital Signs - 8 hr 06/21/18 09:02 06/21/18 09:25 06/21/18 09:56 Temperature 98.1 F Pulse Rate 108 H 102 H 99 H Respiratory Rate 22 20 24 Blood Pressure 230/101 210/103 O2 Sat by Pulse Oximetry 95 99 06/21/18 10:38 06/21/18 10:56 06/21/18 11:20 Temperature Pulse Rate 92 H Respiratory Rate 22 Blood Pressure 202/103 218/98 207/114 O2 Sat by Pulse Oximetry 06/21/18 11:57 06/21/18 12:03 06/21/18 12:29 Temperature Pulse Rate 87 88 91 H Respiratory Rate 20 18 29 H Blood Pressure 199/92 199/92 185/97 O2 Sat by Pulse Oximetry 92 L 90 L 91 L 06/21/18 09:14 - Final Sputum Laboratory Results - last 24 hr 06/21/18 06/21/18 06/21/18 09:14 09:30 09:30 WBC 12.06 H RBC 3.84 L Hgb 10.2 L Hct 33.2 L MCV 86.5 MCH 26.6 L MCHC 30.7 L RDW Std Deviation 14.8 H Plt Count 314 MPV 9.6 Immature Gran % (Auto) 0.4 Neut % (Auto) 62.9 Lymph % (Auto) 14.8 L [place] % (Auto) 5.1 Eos % (Auto) 15.9 H Baso % (Auto) 0.9 H Immature Gran # (Auto) 0.05 H Neut # (Auto) 7.58 H Lymph # (Auto) 1.78 [place] # (Auto) 0.62 H Eos # (Auto) 1.92 H Baso # (Auto) 0.11 Specimen Type Sample Site pH pCO2 pO2 HCO3 Base Excess Oxyhemoglobin ABG O2 Sat (Calculated) ABG O2 Saturation ABG Carboxyhemoglobin ABG Methemoglobin Kris Test A-a O2 Difference Total Hemoglobin Lactate Blood Gas Modality FiO2 % Sodium Potassium Chloride Carbon Dioxide Anion Gap BUN Creatinine Estimated GFR/1.73 m2 BUN/Creatinine Ratio Glucose Calculated Osmolality Calcium Total Bilirubin AST ALT Alkaline Phosphatase Creatine Kinase 326 H Creatine Kinase Index 2.2 CK-MB (CK-2) 7.09 H Troponin T Iac-A-Fvshztcndcn Pept Total Protein Albumin Globulin Albumin/Globulin Ratio Plasma Lactate Urine Source CLEAN CATCH Urine Color YELLOW Urine Clarity CLEAR Urine pH 9.0 Ur Specific [place] 1.010 Urine Protein 2+(100 mg/dL) A Urine Ketones NEGATIVE Urine Blood 1+ A Urine Nitrite NEGATIVE Urine Bilirubin NEGATIVE Urine Urobilinogen NORMAL Urine Microscopic RBC 20-40 A Urine WBC NEGATIVE Urine Glucose 3+(500 mg/dL) A 06/21/18 06/21/18 06/21/18 09:30 09:30 09:30 WBC RBC Hgb Hct MCV MCH MCHC RDW Std Deviation Plt Count MPV Immature Gran % (Auto) Neut % (Auto) Lymph % (Auto) [place] % (Auto) Eos % (Auto) Baso % (Auto) Immature Gran # (Auto) Neut # (Auto) Lymph # (Auto) [place] # (Auto) Eos # (Auto) Baso # (Auto) Specimen Type Sample Site pH pCO2 pO2 HCO3 Base Excess Oxyhemoglobin ABG O2 Sat (Calculated) ABG O2 Saturation ABG Carboxyhemoglobin ABG Methemoglobin Kris Test A-a O2 Difference Total Hemoglobin Lactate Blood Gas Modality FiO2 % Sodium 144 Potassium 4.3 Chloride 102 Carbon Dioxide 31 Anion Gap 12 BUN 25 H Creatinine 2.7 H Estimated GFR/1.73 m2 19 BUN/Creatinine Ratio 9 Glucose 244 H Calculated Osmolality 299 Calcium 7.9 L Total Bilirubin < 0.15 L AST 18 ALT 14 Alkaline Phosphatase 90 Creatine Kinase Creatine Kinase Index CK-MB (CK-2) Troponin T 0.031 Bwx-T-Yzrspaggadw Pept 1322 H Total Protein 6.2 L Albumin 3.2 L Globulin 3.0 Albumin/Globulin Ratio 1.0 Plasma Lactate Urine Source Urine Color Urine Clarity Urine pH Ur Specific [place] Urine Protein Urine Ketones Urine Blood Urine Nitrite Urine Bilirubin Urine Urobilinogen Urine Microscopic RBC Urine WBC Urine Glucose 06/21/18 06/21/18 06/21/18 09:30 11:50 12:57 WBC RBC Hgb Hct MCV MCH MCHC RDW Std Deviation Plt Count MPV Immature Gran % (Auto) Neut % (Auto) Lymph % (Auto) [place] % (Auto) Eos % (Auto) Baso % (Auto) Immature Gran # (Auto) Neut # (Auto) Lymph # (Auto) [place] # (Auto) Eos # (Auto) Baso # (Auto) Specimen Type ARTERIAL Sample Site R RADIAL pH 7.42 pCO2 49 H pO2 58 L HCO3 29.8 H Base Excess 6.4 H Oxyhemoglobin 91.0 L ABG O2 Sat (Calculated) 13.3 L ABG O2 Saturation 92.3 L ABG Carboxyhemoglobin 1.20 ABG Methemoglobin 0.3 Kris Test YES A-a O2 Difference 30.0 Total Hemoglobin 10.4 L Lactate 0.70 Blood Gas Modality ROOM AIR FiO2 % 21.0 Sodium Potassium Chloride Carbon Dioxide Anion Gap BUN Creatinine Estimated GFR/1.73 m2 BUN/Creatinine Ratio Glucose Calculated Osmolality Calcium Total Bilirubin AST ALT Alkaline Phosphatase Creatine Kinase Creatine Kinase Index CK-MB (CK-2) Troponin T 0.026 Sqf-I-Ogsnfzmyehy Pept Total Protein Albumin Globulin Albumin/Globulin Ratio Plasma Lactate 1.6 Urine Source Urine Color Urine Clarity Urine pH Ur Specific [place] Urine Protein Urine Ketones Urine Blood Urine Nitrite Urine Bilirubin Urine Urobilinogen Urine Microscopic RBC Urine WBC Urine Glucose Orders Category Date Time Status Cardiac Monitoring DIRECTED Care 06/21/18 10:27 Active Oxygen Therapy- ED Nursing DIRECTED Care 06/21/18 09:25 Active Saline Loc NOW Care 06/21/18 09:16 Active CHEST-PORTABLE [RAD] Stat Exams 06/21/18 09:16 Completed ABG [RESP] Routine Lab 06/21/18 11:50 Completed BLOOD CULTURE [BLDCUL] Stat Lab 06/21/18 09:30 Ordered CBC WITH DIFF [HEME] Stat Lab 06/21/18 09:30 Completed CK PROFILE [SP CHEM] Stat Lab 06/21/18 09:30 Completed COMPREHENSIVE METABOLIC PANEL [CHEM] Stat Lab 06/21/18 09:30 Completed LACTATE, PLASMA [CHEM] Lab 06/21/18 12:30 Uncollected LACTATE, PLASMA [CHEM] Lab 06/21/18 15:30 Uncollected LACTATE, PLASMA [CHEM] Lab 06/21/18 18:30 Uncollected LACTATE, PLASMA [CHEM] Stat Lab 06/21/18 09:30 Completed PRO B-NATRIURETIC PEPTIDE Stat Lab 06/21/18 09:30 Completed SPUTUM CULTURE WITH GRAM STAIN [RM] Routine Lab 06/21/18 09:14 Results TROPONIN T Stat Lab 06/21/18 09:30 Completed TROPONIN T Stat Lab 06/21/18 12:[address] W/POSS RFLX CULT [URINALYSIS] Stat Lab 06/21/18 09:14 Completed Albuterol 2.5MG/Ipratrop 0.5MG [Duoneb (A & A)] Med 06/21/18 09:14 Discontinued 3 ml INH NOW ONE Budesonide [Pulmicort] Med 06/21/18 09:15 Discontinued 0.5 mg INH NOW ONE CefTRIAXONE [Rocephin] 1 gm Med 06/21/18 09:15 Discontinued 0.9% Sodium Chloride Inj [Ns] 50 ml IV NOW Clonidine [Catapres] Med 06/21/18 10:03 Discontinued 0.1 mg PO NOW ONE Furosemide [Lasix] Med 06/21/18 11:25 Discontinued 40 mg IV NOW ONE Methylprednisolone Sod Succ [Solu-Medrol] Med 06/21/18 11:24 Discontinued 125 mg IV NOW ONE Nitroglycerin Sl [Nitroglycerin] Med 06/21/18 11:24 Discontinued 0.4 mg SL NOW ONE Aerosol Treatments Routine Oth 06/21/18 09:15 Completed Aerosol Treatments Routine Oth 06/21/18 09:15 Completed Aerosol Treatments Stat Oth 06/21/18 09:15 Completed Aerosol Treatments Stat Oth 06/21/18 09:15 Completed Pulse Oximetry Stat Oth 06/21/18 09:16 Active EKG [EKG] Stat Ther 06/21/18 09:17 Draft Result Diagrams: 06/21/18 09:30 06/21/18 09:30 - REASSESSMENT Reassessment #1 Time Reassessed: 11:30 Status: improving (pt states she feels better) Reassessment #2 Time Reassessed: 13:46 Status: other (Pt states she doesn't have money for meds and is afraid her blood sugar will elevate again so she is requesting to be admitted) Reassessment #3 Time Reassessed: 13:59 Status: other Reassessment Comment: blood pressure went up to 205/102 - EKG 1 Time of EKG reading by physician:: 09:29 EKG Read and Signed by:: Briana Gray EKG Interpretation (*Must complete 3 of following elements*): Normal Rate: 103 Rhythm: sinus tachycardia QRS: normal ST Wave: normal - XRAY 1 XRAY: Bilateral XRAY Study: Chest Impression: See EMR Report (IMPRESSION: No pneumonia. Electronically signed by Magdaleno Lovell 06/21/2018 11:22 AM) - CONSULTS/PCP/HOSPITALIST Notification #1 *Consult/PCP/Hospitalist*: Dr. Vega Time Discussed: 13:57 Consult Disposition: other (Dr. Vega states pt doesn't meet criteria to admit, he states that if she doesn't have money for prescriptions today then admiting overnight won't change that.) Departure - Departure Date of Disposition Decision: 06/21/18 Time of Disposition Decision: 14:00 DIAGNOSIS: CHF (congestive heart failure), NYHA class II, Accelerated hypertension, Chronic renal failure, stage 3 (moderate), COPD (chronic obstructive pulmonary disease) Disposition: ADMITTED INPATIENT 09 Certified Medical Emergency: Emergent Condition: Stable Referrals and Follow-Ups: None,PCP [Primary Care Provider] - - Critical Care Note This patient required my direct & personal management of CC.: Yes Attestation - Physician/ SRUTHI Attestation Patient care was provided by Advanced Practice Provider:: No The physician spent face to face time with patient:: Yes Advanced Practice Provider documentation review:: Supervising physician onsite and consulted in the evaluation and care of this patient. The physician did have a face to face encounter with the patient. This chart was documented by the indicated scribe, (Brittni Lawrence Scribe) and accurately reflects the services I performed and decisions made by , Briana Gray MD, as attested by the provider's signature.
--- NOTE | 2018-06-21 16:56 | Diag Imaging Result Doc PS360 ---
EXAM: CT HEAD W/O CONTRAST 06/21/2018 HISTORY: left sided monocular vision loss TECHNIQUE: This exam was performed using automated exposure control, adjustment of mA or kV according to patient size, and/or use of iterative reconstruction technique. COMMENT: There is no evidence of mass effect, bleed, or abnormal extra-axial fluid collection. There has been no significant change since 06/05/2011. The visualized paranasal sinuses are largely clear with some mucosal thickening in the ethmoid air cells. The calvarium is intact. IMPRESSION: No evidence of acute intracranial disease. Electronically signed by Emiliano Lea 06/21/2018 4:54 PM
[2018-06-21] MEDS ORDERED: DUONEB (A & A) INH PRN (17:06)
--- NOTE | 2018-06-21 17:10 | HISTORY AND PHYSICAL ---
PRIMARY CARE PROVIDER: STEPHANIE Martinez. CHIEF COMPLAINT: Dyspnea and left-sided visual field loss. HISTORY OF PRESENT ILLNESS: Mrs. Glaser is a 53-year-old female with a history of diabetes, diabetic nephropathy, hypertension, peripheral vascular disease, morbid obesity, and others, who presents with three to four days of progressive dyspnea and wheezing. Symptoms began mildly enough and then progressed to shortness of breath and wheezing at rest. She tried nebulizers at home yesterday but this did not improve symptoms. She came today for evaluation. She is also complaining of unilateral/monocular blindness that began two days ago. She states she essentially cannot see out of the left eye, perhaps she can make out dark figures. She has no other neurologic deficits. In the ER she was noted to have a blood pressure of 230/101 initially, which prompted an initiation of Cardene drip. ABG reveals mild hypoxemia and her creatinine is at 2.7, which appears to be around baseline. We have ordered an MRI of the brain and will admit her to the ICU for hypertensive emergency. PAST MEDICAL HISTORY: 1. CKD, stage 4 2. Hypertension. 3. Diabetes mellitus type 2 requiring insulin. 4. Diastolic dysfunction. 5. Severe diabetic neuropathy bilaterally, peripheral vascular disease. 6. Hyperlipidemia. 7. Medical noncompliance. 8. COPD/asthma. PAST SURGICAL HISTORY: She has had a partial thyroidectomy, C section, bilateral tubal ligation, amputation of first and second toes on the right. ALLERGIES: Amoxicillin and tramadol. SOCIAL HISTORY: She lives with her daughter. No tobacco, alcohol or illicit drug use. HOME MEDICATIONS: Yet to be compiled by the nursing staff. REVIEW OF SYSTEMS: A 14-point review of systems is obtained and found to be negative with the exception of the HPI. PHYSICAL EXAMINATION: VITAL SIGNS: Blood pressure is 182/89, heart rate 100, respiratory rate is 18, O2 saturation is 92% on nasal cannula, temperature is 98.1. GENERAL: This is a morbidly obese female lying in hospital bed, in no acute distress. NEUROLOGICAL: Awake and alert. Follows commands without focal deficits. HEENT: Head is atraumatic and normocephalic. Pupils are equal, round and reactive to light. Extraocular movements intact bilaterally. Oral mucosa is slightly dry. NECK: Trachea is midline. No JVD. CHEST: Clear to auscultation bilaterally. Diminished at the bases. CARDIOVASCULAR: Regular rate and rhythm. S1 and S2 is noted. 2/6 systolic murmur noted. GASTROINTESTINAL: Soft, nondistended. Nontender. Bowel sounds are positive. EXTREMITIES: 1+ edema bilaterally. Pulses diminished at 1+ bilaterally. DIAGNOSTIC DATA: Chest x-ray is negative. EKG: Sinus rhythm. No acute ST or T abnormalities. WBC 12.06, hemoglobin 10.2, hematocrit 33.2, platelet count 314. ABG on room air: pH 7.42, CO2 49, O2 58, bicarbonate 29.8. Chemistries: Sodium 144, potassium 4.3, chloride 102, CO2 31, anion gap 12, BUN 25, creatinine 2.7, glucose 244, bilirubin less than 0.15, AST 18, ALT 14, alkaline phosphatase 90. CK 326. Troponin 0.026. proBNP 1322. Albumin 3.2. ASSESSMENT AND PLAN: 1. Asthma exacerbation: The patient has been given steroids and antibiotics in the emergency room. Will continue this, as well as oxygen and aggressive pulmonary toilet. 2. 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 If the MRI is negative, she may need urgent consult with ophthalmology. She has no other focal deficits at this time. Will monitor her neuro status closely in the Intensive Care Unit. 3. Hypertensive urgency versus emergency: Given the vision loss it is possible that the blood pressure could be exacerbating symptoms. Once we have ruled out posterior circulation stroke we can bring her blood pressure down slowly, however if a stroke is suggested permissive hypertension would be warranted. 4. Acute kidney injury on chronic kidney disease, stable: Continue medications once reconciled. She does have what appears to be nephrotic range proteinuria based on historical evidence. Will monitor her renal status daily. 5. Diabetes mellitus: Add patterned sugars, sliding scale insulin. Make sure hemoglobin A1c is up to date. 6. Mild hypoxemic respiratory failure: Likely related to asthma but would not rule out Pickwickian syndrome. Chest x-ray does not show anything acute. She is not having any chest pain to be suggestive of pulmonary embolism. Electrocardiogram is unremarkable. Will continue to trend her enzymes and continue breathing treatments as outlined in #1. 7. Deep venous thrombosis prophylaxis with heparin once MRI of the brain is done. Further recommendations to follow. Dictated by STEPHANIE Hanna for Gus Fishman MD cc: STEPHANIE Hanna MD
[2018-06-21] MEDS ORDERED: HUMULIN R (PARKWAY) ONE (17:45)
[2018-06-21] MEDS: HUMULIN R (PARKWAY) SUBQ SCH ×2 (17:49→20:33)
[2018-06-21] MEDS ORDERED: ZITHROMAX 500 MG/NS 500 MG/250 ML IVPB IV SCH (18:00)
[2018-06-21] MEDS ORDERED: CARDENE 20 MG/NS 20 MG/200 ML PIGGYBACK ONE (18:37)
[2018-06-21] MEDS: DUONEB (A & A) INH SCH ×2 (19:37→22:59)
[2018-06-21] MEDS ORDERED: NEURONTIN PO SCH (21:00)
[2018-06-21] MEDS: HUMULIN 70/30 (PARKWAY) SUBQ SCH (22:06)
[2018-06-22] MEDS: DUONEB (A & A) INH SCH ×6 (03:22→23:09)
[2018-06-22] MEDS: HUMULIN R (PARKWAY) SUBQ SCH ×3 (05:52→10:47)
[2018-06-22] MEDS ORDERED: SOLU-MEDROL IV SCH (06:00)
[2018-06-22] MEDS ORDERED: ZITHROMAX 500 MG/NS 500 MG/250 ML IVPB IV SCH (06:55)
[2018-06-22 07:04] LABS: BASO# 0.03 X1000 (0.0-0.2); BASO% 0.2 % (0.0-0.8); EOS# 0.01 X1000 (0.0-0.7); EOS% 0.1 % (0.0-10.0); HEMATOCRIT 32.4 % (37.0-47.0); IMM GRAN% 0.7 % (0.0-0.5); LYMPH# 0.83 X1000 (1.2-3.4); LYMPH% 5.8 % (20.5-51.1); MCH 26.5 PG (27-31); MCHC 30.9 g/dL (33-37); MCV 85.7 FL (81-99); MONO# 0.15 X1000 (0.11-0.59); MONO% 1.1 % (1.7-9.3); MPV 10.2 FL (7.4-10.4); NEUT# 13.13 X1000 (1.4-6.5); NEUT% 92.1 % (42.2-75.2); PLT 335 X1000 (130-400); RBC 3.78 XMIL (4.2-5.4); RDW 14.3 % (11.5-14.5); WBC 14.25 X1000 (4.8-10.8)
[2018-06-22 07:49] LABS: LYMPHS 5 % (21-51); MONO 1 % (1-9); SEGS 94 % (42-75)
[2018-06-22 08:06] LABS: CALCIUM 8.1 mg/dL (8.8-10.2); MAGNESIUM 1.5 mg/dL (1.5-2.7); POTASSIUM 4.6 mmol/L (3.5-5.1)
[2018-06-22 08:15] LABS: HEMOGLOBIN A1C 8.1 % (4.8-6.0)
[2018-06-22] MEDS ORDERED: HUMULIN 70/30 SUBQ SCH (09:00)
[2018-06-22] MEDS: THERA M PLUS PO SCH (09:44)
[2018-06-22] MEDS: PRINIVIL PO SCH ×2 (09:44→21:19)
[2018-06-22] MEDS: PRILOSEC PO SCH (09:44)
[2018-06-22] MEDS: SYNTHROID PO SCH (09:44)
[2018-06-22] MEDS: LASIX PO SCH (09:45)
[2018-06-22] MEDS: NEURONTIN PO SCH ×3 (09:45→16:18)
[2018-06-22] MEDS: APRESOLINE PO SCH ×3 (09:45→21:19)
[2018-06-22] MEDS: HUMULIN 70/30 (PARKWAY) SUBQ SCH ×2 (09:46→21:18)
[2018-06-22] MEDS: SOLU-MEDROL IV SCH ×2 (13:02→21:19)
[2018-06-22] MEDS: HUMALOG (PARKWAY) SUBQ SCH ×2 (17:23→21:17)
[2018-06-22] MEDS ORDERED: ZITHROMAX PO SCH (21:00)
--- NOTE | 2018-06-22 23:26 | PROGRESS NOTE ---
DATE: 06/22/2018 SUBJECTIVE: The patient has no new complaints. States her chest pain is resolved. Still having some poor vision in her left eye. Denies any focal weakness otherwise. OBJECTIVE: Temperature 97 degrees, pulse 100, blood pressure is better at 148/75. General: The patient is awake, alert. She is in no distress. HEENT: Normocephalic. Neck supple. CV: Regular rate. Chest clear and unlabored. Abdomen is soft, obese, nondistended, nontender. Extremities: Moves all extremities. She has no focal deficits. Skin: Warm and dry. No rashes. ASSESSMENT: 1. Asthma exacerbation, continues to improve. 2. Poor vision, left eye. We did consult Ophthalmology by phone and had an appointment set up for Ms. Glaser to go this afternoon. She has had retinal detachment in the right eye, which is certainly what we expect may be occurring in the left eye; however, Ms. Glaser declined to go to that appointment, stating she did not have the money. She asked if she could simply stay in the hospital until her blood pressures were better. I discussed with her the probability that if this is retinal detachment, that time is of the essence and the longer we wait the less likely this will be improved. She notes that she understands. 3. Hypertensive urgency, malignant hypertension, resolved. 4. Acute kidney injury, improved. 5. Diabetes. 6. Others. PLAN: Overall the patient's blood pressures are improving. We will continue to follow. We will continue her in the hospital tonight to control her blood pressures. Further orders as needed. We again discussed the importance of following up with Ophthalmology and the possibility of permanent blindness. She states she understands. cc: Gus Fishman MD
[2018-06-23] MEDS ORDERED: HUMALOG (PARKWAY) SUBQ ONE (00:17)
[2018-06-23] MEDS: DUONEB (A & A) INH SCH ×3 (03:16→11:48)
[2018-06-23] MEDS: SOLU-MEDROL IV SCH (05:47)
[2018-06-23] MEDS: PRILOSEC PO SCH (06:04)
[2018-06-23] MEDS: SYNTHROID PO SCH (06:04)
[2018-06-23] MEDS: HUMALOG (PARKWAY) SUBQ SCH ×2 (06:04→11:15)
[2018-06-23 07:38] LABS: BASO# 0.01 X1000 (0.0-0.2); BASO% 0.1 % (0.0-0.8); EOS# 0.01 X1000 (0.0-0.7); EOS% 0.1 % (0.0-10.0); HEMOGLOBIN 9.3 g/dL (12.0-16.0); IMM GRAN# 0.16 X1000 (0.0-0.04); IMM GRAN% 0.9 % (0.0-0.5); LYMPH# 0.88 X1000 (1.2-3.4); LYMPH% 4.8 % (20.5-51.1); MCH 26.1 PG (27-31); MCV 84.3 FL (81-99); MONO# 0.42 X1000 (0.11-0.59); MONO% 2.3 % (1.7-9.3); MPV 10.1 FL (7.4-10.4); NEUT# 16.95 X1000 (1.4-6.5); NEUT% 91.8 % (42.2-75.2); PLT 324 X1000 (130-400); RBC 3.56 XMIL (4.2-5.4); WBC 18.43 X1000 (4.8-10.8)
[2018-06-23 07:39] LABS: CALCIUM 7.8 mg/dL (8.8-10.2); CREATININE 3.2 mg/dL (0.5-0.9); MAGNESIUM 1.5 mg/dL (1.5-2.7); POTASSIUM 4.3 mmol/L (3.5-5.1)
[2018-06-23 08:19] LABS: BANDS 1 % (0-1); LYMPHS 5 % (21-51); MONO 1 % (1-9); SEGS 93 % (42-75)
[2018-06-23] MEDS: APRESOLINE PO SCH (08:38)
[2018-06-23] MEDS: NEURONTIN PO SCH ×2 (08:38→12:24)
[2018-06-23] MEDS: HUMULIN 70/30 (PARKWAY) SUBQ SCH (08:39)
[2018-06-23] MEDS: PRINIVIL PO SCH (08:39)
[2018-06-23] MEDS: LASIX PO SCH (08:39)
[2018-06-23] MEDS: THERA M PLUS PO SCH (08:39)
[2018-06-23 12:28] VITALS: BP 185/68
--- NOTE | 2018-06-24 09:20 | DISCHARGE SUMMARY ---
ADMISSION DATE: 06/21/2018 DISCHARGE DATE: 06/23/2018 ADMISSION DIAGNOSIS: 1. Asthma exacerbation. 2. Hypertensive urgency. 3. 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 4. Acute kidney injury on chronic kidney disease. 5. Diabetes mellitus. 6. Mild hypoxemic respiratory failure. 7. Medical noncompliance. 8. Morbid obesity. 9. Zidgo-yq-yxrhjbq diastolic heart failure. DISCHARGE DIAGNOSIS: 1. Asthma exacerbation. 2. Hypertensive urgency. 3. 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 4. Acute kidney injury on chronic kidney disease. 5. Diabetes mellitus. 6. Mild hypoxemic respiratory failure. 7. Medical noncompliance. 8. Morbid obesity. 9. Pqmcn-af-hqhawjp diastolic heart failure. CONSULTATIONS: None. DIAGNOSTIC PROCEDURES AND FINDINGS: Chest x-ray 06/21/2018: No pneumonia. EKG 06/21/2018: Sinus tachycardia, no acute ST or T wave abnormality. Head CT 06/21/2018: No evidence of acute intracranial disease. HOSPITAL COURSE: Mrs. Glaser is a 53-year-old female with multiple medical problems, who presented with 3 days of progressive dyspnea and wheezing, which progressed to symptoms at rest. She also complained of somewhat progressive left eye blindness over 3 days prior to admission. She denied any headache or any other neurologic deficits. When she got to the ER for the shortness of breath, she was also noted to be quite hypertensive with a systolic over 200 requiring IV Cardene and admission to the ICU. She was also treated for asthma exacerbation with nebulizers, IV steroids, and antibiotics. We did check a head CT to ensure no intracranial bleed, for her monocular blindness, we did order an MRI but she could not tolerate this so it had to be canceled. Her blood pressure came down nicely with the Cardene and her shortness of breath improved. On 06/22/2018, we called the [facility] and tried to make an appointment yesterday in [place], but the patient stated that could not get to [place] and had no means of paying for the trip. She did make an appointment for today at 1:40 p.m. With respects to her left eye blindness, this did not worsen while she was here and suspect that this is likely retinal detachment in origin as she has had one on the right with the same type of symptoms in the past. Her breathing improved as did her blood pressure. She did have a spike in her blood sugar with the steroids, which was treated appropriately with insulin. This morning, her breathing has improved to the point of baseline, her creatinine did go up to 3.2 which is still within her range of baseline creatinines historically. Overall, she is stabilized and will need to go to the take away attendant/retinal specialist as soon as possible to continue treatment of the blindness on the left. Again, no focal deficits or other concern for stroke was found. Her vitals are stable, and she is now stable for discharge home. DISCHARGE MEDICATIONS: Omeprazole 20 mg daily, ProAir HFA 2 puffs inhaled q.4 hours as needed, Symbicort 80/4.5 2 puffs inhaled b.i.d., multivitamin 1 daily, DuoNeb 3 mL inhaled t.i.d., Lasix 20 mg p.o. daily, Neurontin 600 mg p.o. t.i.d., fluticasone 50 mcg spray daily, Synthroid 100 mcg daily, insulin 70/30 60 units subcutaneously b.i.d., prescription for Medrol Dosepak x1, hydralazine 50 mg p.o. t.i.d., Norvasc 10 mg daily, and we stopped the lisinopril due to decreasing of the renal function. DISCHARGE LABORATORY DATA: WBC 18.43, hemoglobin 9.3, hematocrit 30.0, platelet count 324. Sodium 131, potassium 4.3, chloride 97, CO2 21, anion gap 13, BUN 43, creatinine 3.2, glucose 294, calcium 7.8. DISCHARGE DIET: Diabetic. DISCHARGE ACTIVITY: Resume activity as tolerated. DISPOSITION AND OTHER DISCHARGE INSTRUCTIONS: The patient is discharged home to self-care. She has an appointment today at 1:40 with the [facility]. It is absolutely imperative that keep this appointment. She also has an upcoming appointment with Dr. Brooks, which we have urged her to keep. She is to continue all medications as directed and to return to the ER or call 911 for worsening complaints or concerns. All questions answered. DISCHARGE TIME: Greater than 35 minutes. Dictated by STEPHANIE Hanna for Gus Fishman MD cc: STEPHANIE Hanna MD Sal Imtiaz. Gladish, MD
--- NOTE | 2018-06-24 15:48 | DISCHARGE SUMMARY ---
ADMISSION DATE: 06/21/2018 DISCHARGE DATE: 06/23/2018 SUBJECTIVE: Patient notes she still has some left eye blurring and decreased vision. Denies any headaches, palpitations, fevers or chills. PHYSICAL EXAM: Vital signs: Temperature 97.8, pulse 87, respiratory 18, BP 179/79. General: Patient is awake, alert. She is in no respiratory distress. HEENT: Normocephalic. Neck: Supple. CV: Regular rate. Chest: Clear. Abdomen: Soft. ASSESSMENT: 1. Monocular vision change, concerning for retinal detachment. Patient has an appointment with retina specialist this afternoon. 2. Asthma exacerbation. 3. Hypertension. 4. Other. PLAN: We will continue the patient's current medications without changing. We will discharge her home as she needs to follow up outpatient with Ophthalmology. TIME SPENT: Greater than 30 minutes was spent in total care. cc: Gus Fishman MD
== END 2018-06-23 13:07 | disposition home or self-care (01) | DRG 304 ==
LOC: P.ED 08:54 → P.ICU 18:57 → P.MEDSURG 06-22 11:04
PROVIDERS: ATTEND Family Medicine
CPT/HCPCS: 70450; 71010; 71045; 80048; 80053; 81001; 82550; 82553; 82805; 82948; 83036; 83605; 83735; 83880; 84484; 85025; 85610; 85651; 86140; 87040; 87070; 87205; 93005; 94640; 94761; 96365; 96366; 96367; 96375; 99285; A9270; J0456; J0696; J1815; J1940; J2060; J2920; J2930; XXXXX

== ENCOUNTER 2018-07-20 20:32 | Inpatient (IN) ==
[2018-07-20] MEDS ORDERED: SOLU-MEDROL IV ONE (21:21)
[2018-07-20] MEDS ORDERED: DUONEB (A & A) INH ONE ×2 (21:21→21:36)
[2018-07-20 21:37] LABS: BASO# 0.11 X1000 (0.0-0.2); BASO% 0.9 % (0.0-0.8); EOS% 6.2 % (0.0-10.0); HEMATOCRIT 31.4 % (37.0-47.0); HEMOGLOBIN 9.9 g/dL (12.0-16.0); IMM GRAN# 0.25 X1000 (0.0-0.04); IMM GRAN% 1.9 % (0.0-0.5); LYMPH# 1.33 X1000 (1.2-3.4); LYMPH% 10.3 % (20.5-51.1); MCH 25.9 PG (27-31); MCHC 31.5 g/dL (33-37); MCV 82.2 FL (81-99); MONO# 0.88 X1000 (0.11-0.59); MONO% 6.8 % (1.7-9.3); MPV 9.4 FL (7.4-10.4); NEUT# 9.55 X1000 (1.4-6.5); NEUT% 73.9 % (42.2-75.2); PLT 427 X1000 (130-400); RBC 3.82 XMIL (4.2-5.4); RDW 14.8 % (11.5-14.5); WBC 12.92 X1000 (4.8-10.8)
[2018-07-20 21:56] LABS: CLARITY CLEAR (CLEAR); COLOR YELLOW; INR 0.94; PROTIME 13.1 Seconds (11.0-16.0); URINE SOURCE CLEAN CATCH
[2018-07-20 21:57] LABS: BILIRUBIN URINE NEGATIVE (NEGATIVE); BLOOD URINE 2+ (NEGATIVE); KETONE URINE NEGATIVE (NEGATIVE); LEUKOCYTES URINE NEGATIVE (NEGATIVE); NITRITE URINE NEGATIVE (NEGATIVE); PH URINE 6.5; UROBILINOGEN URINE NORMAL
[2018-07-20 22:00] LABS: ALBUMIN 3.1 g/dL (3.5-5.0); CALCIUM 8.4 mg/dL (8.8-10.2); CREATININE 2.9 mg/dL (0.5-0.9); POTASSIUM 4.6 mmol/L (3.5-5.1); TOTAL BILIRUBIN 0.2 mg/dL (0.20-1.00); TOTAL PROTEIN 6.2 g/dL (6.3-8.3)
[2018-07-20 22:03] LABS: URINE RBC <10 /HPF (<10); URINE WBC <10 /HPF (<10)
--- NOTE | 2018-07-20 22:03 | Diag Imaging Result Doc PS360 ---
CHEST-1 VIEW - 07/20/2018 INDICATION: cough/ sepsis? COMPARISON: 07/16/2018 FINDINGS: There are significant ill-defined central infiltrates bilaterally, right worse than left. Heart size is top normal. No pneumothorax or pleural effusion. IMPRESSION: Significant bilateral central infiltrates compatible with pneumonia or aspiration. Electronically signed by Anton Dixon 07/20/2018 10:00 PM
[2018-07-20] MEDS ORDERED: MOTRIN PO ONE (22:13)
[2018-07-20] MEDS ORDERED: NS 1,000 ML IV ONE ×2 (22:14→22:17)
[2018-07-20] MEDS ORDERED: LEVAQUIN 750 MG/D5W 750 MG/150 ML IVPB IV ONE (22:14)
[2018-07-20] MEDS ORDERED: TORADOL IV PRN (22:17)
[2018-07-20] MEDS ORDERED: ZOFRAN IV PRN (22:17)
[2018-07-20 22:23] LABS: CK INDEX 3.2 (0.0-2.5); CK-MB 6.28 ng/mL (0.0-5.0)
[2018-07-21] MEDS: TYLENOL PO PRN (00:14)
[2018-07-21] MEDS: HUMALOG (PARKWAY) SUBQ SCH ×3 (06:54→16:57)
[2018-07-21 07:16] LABS: HEMATOCRIT 30.1 % (37.0-47.0); HEMOGLOBIN 9.5 g/dL (12.0-16.0); MCH 26.2 PG (27-31); MCHC 31.6 g/dL (33-37); MCV 82.9 FL (81-99); RBC 3.63 XMIL (4.2-5.4); RDW 14.6 % (11.5-14.5); WBC 10.39 X1000 (4.8-10.8)
[2018-07-21 07:47] LABS: AGAP 13; ALBUMIN 2.7 g/dL (3.5-5.0); ALKALINE PHOSPHATASE 81 U/L (32-104); BUN 39 mg/dL (8-22); CALCIUM 7.8 mg/dL (8.8-10.2); CHLORIDE 105 mmol/L (98-107); COSMO 299; CREATININE 2.8 mg/dL (0.5-0.9); ESTIMATED GFR 18; GOT 10 U/L (10-30); GPT 11 U/L (10-36); MAGNESIUM 1.5 mg/dL (1.5-2.7); POTASSIUM 5.1 mmol/L (3.5-5.1); SODIUM 134 mmol/L (136-145); TCO2 16 mmol/L (25-35); TOTAL BILIRUBIN < 0.15 mg/dL (0.20-1.00); TOTAL PROTEIN 5.9 g/dL (6.3-8.3)
[2018-07-21 07:53] LABS: GLUCOSE 484 mg/dL (70-104)
[2018-07-21 09:39] LABS: HEMOGLOBIN A1C 8.4 % (4.8-6.0)
[2018-07-21] MEDS ORDERED: HUMALOG (PARKWAY) SUBQ ONE (11:28)
--- NOTE | 2018-07-21 12:28 | HISTORY AND PHYSICAL ---
CHIEF COMPLAINT: Shortness of breath. HISTORY OF PRESENT ILLNESS: This is a 53-year-old female who presented to the emergency room complaining of a persistent cough, headache, fever, shortness of breath, and right lower extremity pain. She states that respiratory symptoms began about 24 hours prior to coming to the emergency room. She states that she had a low-grade fever over the 24 hours prior. She denied any chest pain or palpitations. She also complained of right lower extremity pain and burning. Of note, she was evaluated in the emergency room on July 16 for right lower extremity swelling and pain. A venous Doppler was performed which revealed no evidence of DVT. She was diagnosed with venous insufficiency of the right lower extremity, given doxycycline and prednisone, and discharged to follow up with her primary care physician. She states that she has had no improvement during this time. PAST MEDICAL HISTORY: COPD, diabetes mellitus type 2, chronic kidney disease stage 2, hypertension, diastolic heart failure, hypertension, hyperlipidemia, diabetic neuropathy, peripheral neuropathy, and noncompliance with medications and followup, hypothyroidism. PAST SURGICAL HISTORY: Partial thyroidectomy, section, bilateral tubal ligation, as well as amputation of her first and second toes. SOCIAL HISTORY: She lives with her daughter. Denies alcohol, tobacco, or illicit drug use. ALLERGIES: Amoxicillin and tramadol listed. HOME MEDICATIONS: A list will be obtained by the nursing staff and once confirmed, we will review and restart as is appropriate. REVIEW OF SYSTEMS: Discussed with patient with pertinent positives stated in the HPI. She denied any syncope, dizziness, chest pain, palpitations, a productive cough, any night sweats, recent weight loss or weight gain, any nausea, vomiting, diarrhea, constipation, black or bloody vomitus or stools, any hematuria, dysuria, frequency, urgency. PHYSICAL EXAMINATION: GENERAL: This is a 53-year-old female who is sitting up in the bed watching TV, in no distress. VITAL SIGNS: Blood pressure is 138/60, with a heart rate of 73, respirations are 18, temperature is 97.6 degrees oral, with O2 saturation that are running 98 to 99 percent on nasal cannula. HEENT: Head is normocephalic, atraumatic. Mucous membranes are moist. NECK: Supple, with trachea midline. CARDIOVASCULAR: Regular rate and rhythm. S1 and S2 are appreciated. She has no murmur. Calves are nontender to palpation. She does have lower extremity edema. PULMONARY: Breath sounds are clear with no increased work of breathing noted. Chest rises and falls symmetrically with respirations. Chest wall is nontender to palpation. GASTROINTESTINAL: Abdomen is soft, nontender, nondistended, with bowel sounds in all 4 quadrants. GENITOURINARY: She has no CVA or suprapubic tenderness. SKIN: Warm and dry. She does have some erythema as well as edema to her right lower extremity. NEUROLOGIC: She is alert and oriented x3. LABS: WBC is 12.9, with hemoglobin 9.9, hematocrit 31.4, and platelets of 427,000. Sodium is 138, potassium 4.6, BUN 36, creatinine 2.9, with a glucose of 251. Troponin is negative. Urinalysis reveals 2+ blood and 3+ glucose. Blood cultures are pending. Chest x-ray reveals significant bilateral central infiltrates, compatible with pneumonia or aspiration. ASSESSMENT AND PLAN: 1. Pneumonia, possibly aspiration, bilateral. Blood cultures were obtained in the emergency room. She initially received antibiotic coverage of Levaquin. We will continue Levaquin. We will add clindamycin for the possibility of aspiration. We will start incentive spirometer every 4 hours per respiratory therapy. 2. Leukocytosis. Treatment as stated above. We will repeat a CBC in the morning. 3. Chronic kidney disease. She appears at her baseline. We will check her labs daily. Renal dose medications as appropriate. 4. Diabetes mellitus type 2. We will check a hemoglobin A1c. We will identify her home medications and continue. In the meantime, she will be placed on pattern of blood glucoses with sliding scale insulin. 5. History of congestive heart failure. Aware. 6. Chronic obstructive pulmonary disease. We will continue her medications, will have DuoNebs as needed. 7. Diabetic neuropathy. Aware. 8. For deep venous thrombosis prophylaxis, we will use Lovenox renal dosed. 9. For gastrointestinal prophylaxis, we will use Prilosec. 10. Further treatment pending hospital course. Dictated by STEPHANIE eBst for Gus Fishman MD cc: STEPHANIE Best MD [facility]
[2018-07-21] MEDS: CLINDAMYCIN 600 MG/D5W 600 MG/50 ML IVPB IV SCH ×2 (12:53→20:49)
[2018-07-21] MEDS: DUONEB (A & A) INH PRN (14:21)
[2018-07-21 15:33] LABS: ESTIMATED GFR 16
[2018-07-21 15:36] LABS: ACETONE SERUM NEGATIVE (NEGATIVE)
[2018-07-21 15:42] LABS: AGAP 16; BUN 43 mg/dL (8-22); CALCIUM 7.9 mg/dL (8.8-10.2); CHLORIDE 103 mmol/L (98-107); COSMO 301; PHOSPHORUS 4.8 mg/dL (2.7-4.5); SODIUM 133 mmol/L (136-145); TCO2 14 mmol/L (25-35)
[2018-07-21 15:48] LABS: GLUCOSE 524 mg/dL (70-104)
[2018-07-21] MEDS ORDERED: D50W SYRINGE IV PRN (17:30)
[2018-07-21] MEDS ORDERED: MAGNESIUM SULFATE 2 GM/S.W.I. 2 GM/50 ML IVPB IV PRN (17:30)
[2018-07-21] MEDS ORDERED: SODIUM BICARBONATE 8.4% 100 MEQ in STERILE WATER INJ. 500 ML IV PRN (17:30)
[2018-07-21] MEDS ORDERED: POTASSIUM CHLORIDE 10% LIQUID PO PRN (17:30)
[2018-07-21] MEDS ORDERED: HUMULIN R IV ONE (17:30)
[2018-07-21] MEDS ORDERED: SODIUM PHOSPHATE 30 MMOL in D5W 250 ML IV PRN (17:30)
[2018-07-21] MEDS ORDERED: POTASSIUM CHLORIDE 40 MEQ/SWI 40 MEQ/100 ML IVPB IV PRN (17:30)
[2018-07-21] MEDS ORDERED: NS 1,000 ML IV SCH (17:30)
[2018-07-21] MEDS ORDERED: POTASSIUM CHLORIDE 20% LIQUID PO PRN (17:30)
[2018-07-21] MEDS ORDERED: POTASSIUM CHLORIDE 20 MEQ/SWI 20 MEQ/100 ML IVPB IV PRN (17:30)
[2018-07-21] MEDS ORDERED: DUONEB (A & A) INH PRN (17:32)
[2018-07-21] MEDS: HUMULIN R 100 UNIT in NS 99 ML IV SCH (17:52)
[2018-07-21] MEDS: SYMBICORT 80/4.5 MICROGM INHALER INH SCH (19:45)
[2018-07-21] MEDS ORDERED: HUMULIN 70/30 (PARKWAY) SUBQ SCH (20:00)
--- NOTE | 2018-07-21 20:02 | HISTORY AND PHYSICAL ---
ADDENDUM: Patient seen and examined by myself. Full note dictated and discussed with nurse practitioner. Patient unfortunately, has been in the hospital several times. She presented at this time with shortness of breath. Her blood sugars currently are elevated. I expect this is more related to the Solu-Medrol she got in the ER last night. We will admit her to the hospital following her breathing. Place on sliding scale insulin. She does have a known history of congestive heart failure so we have to be cautious with fluids and will follow. cc: Gus Fishman MD
[2018-07-21 20:12] LABS: CALCIUM 7.9 mg/dL (8.8-10.2); MAGNESIUM 1.5 mg/dL (1.5-2.7); PHOSPHORUS 4.4 mg/dL (2.7-4.5); POTASSIUM 4.4 mmol/L (3.5-5.1)
[2018-07-21] MEDS: APRESOLINE PO SCH (20:49)
[2018-07-21] MEDS ORDERED: LEVAQUIN 750 MG/D5W 750 MG/150 ML IVPB IV SCH (21:00)
[2018-07-21] MEDS: NEURONTIN PO SCH (21:04)
[2018-07-22] MEDS: D5 NS 1,000 ML IV SCH ×4 (01:42→21:08)
[2018-07-22] MEDS ORDERED: HUMULIN R (PARKWAY) ONE (01:45)
[2018-07-22] MEDS ORDERED: NS 100 ML ONE (01:45)
[2018-07-22 01:54] LABS: CALCIUM 7.9 mg/dL (8.8-10.2); MAGNESIUM 2.1 mg/dL (1.5-2.7); PHOSPHORUS 4.6 mg/dL (2.7-4.5); POTASSIUM 4.7 mmol/L (3.5-5.1)
[2018-07-22] MEDS: HUMULIN R 100 UNIT in NS 99 ML IV SCH (02:00)
[2018-07-22] MEDS: CLINDAMYCIN 600 MG/D5W 600 MG/50 ML IVPB IV SCH ×3 (03:20→22:14)
[2018-07-22 05:32] LABS: CALCIUM 7.9 mg/dL (8.8-10.2); CREATININE 3.1 mg/dL (0.5-0.9); PHOSPHORUS 4.7 mg/dL (2.7-4.5); POTASSIUM 4.6 mmol/L (3.5-5.1)
[2018-07-22] MEDS: NEURONTIN PO SCH ×3 (06:10→22:15)
[2018-07-22] MEDS: PRILOSEC PO SCH (06:10)
[2018-07-22] MEDS: SYNTHROID PO SCH (06:10)
[2018-07-22] MEDS: SYMBICORT 80/4.5 MICROGM INHALER INH SCH ×2 (08:00→19:53)
[2018-07-22 09:00] LABS: POTASSIUM 4.6 mmol/L (3.5-5.1)
[2018-07-22] MEDS ORDERED: NEURONTIN PO SCH (09:00)
[2018-07-22] MEDS: APRESOLINE PO SCH ×3 (09:56→22:15)
[2018-07-22] MEDS: LOVENOX SUBQ SCH (09:57)
[2018-07-22] MEDS: FLONASE NAS SCH (09:57)
[2018-07-22] MEDS: NORVASC PO SCH (09:57)
[2018-07-22] MEDS: DUONEB (A & A) INH PRN ×3 (11:55→19:40)
[2018-07-22 13:12] LABS: CREATININE 2.9 mg/dL (0.5-0.9); POTASSIUM 4.4 mmol/L (3.5-5.1)
[2018-07-22 17:54] LABS: CALCIUM 7.8 mg/dL (8.8-10.2); CREATININE 3.1 mg/dL (0.5-0.9); POTASSIUM 4.4 mmol/L (3.5-5.1)
--- NOTE | 2018-07-22 18:49 | PROGRESS NOTE ---
DATE: 07/22/2018 SUBJECTIVE: The patient notes that overall she is feeling a little bit better. Muscle aches are improving. Denies any nausea, still has shortness of breath. OBJECTIVE: Vital Signs: Reviewed. General: She is awake and alert. She is oriented. HEENT: Normocephalic. Neck: Supple. Cardiovascular: Regular rate. No murmurs. Chest: Clear and nonlabored. Abdomen: Soft, nondistended, obese. Extremities: Moves all extremities. Neurologic: No changes. ASSESSMENT: 1. Nausea and vomiting. 2. Abdominal pain. 3. Myalgias. 4. Shortness of breath. 5. Diabetes with hyperglycemia. 6. Pneumonia. 7. Leukocytosis. 8. Chronic kidney disease. PLAN: We will continue the patient in the hospital. Continue treating her pneumonia. Continue sliding scale insulin and we will follow. Hopefully the patient can continue to improve and will be able to discharge out of the unit. cc: Gus Fishman MD
[2018-07-22] MEDS: ROBITUSSIN-DM PO PRN ×2 (19:30→23:01)
[2018-07-22] MEDS ORDERED: HUMULIN 70/30 (PARKWAY) ONE (21:27)
[2018-07-22] MEDS: HUMULIN 70/30 (PARKWAY) SUBQ SCH (22:55)
[2018-07-22] MEDS: TYLENOL PO PRN (23:01)
[2018-07-22] MEDS: MORPHINE IV PRN (23:47)
--- NOTE | 2018-07-23 02:53 | PROVIDER DOCUMENTATION ---
This chart was entered by Brittni Lawrence Scribe, acting as scribe for Donny Rice MD. HPI-Respiratory General - General Chief Complaint: Shortness of Breath Stated Complaint: COUGH (COPD) Time Seen by Provider: 07/20/18 21:00 Source: patient Allergies/Adverse Reactions: Patient Allergies Allergy/AdvReac Type Severity Reaction Status Date / Time amoxicillin Allergy ITCHING Verified 07/16/18 09:19 tramadol Allergy HEADACHE Verified 07/16/18 09:19 Home Medications: Home Medication List Medication Instructions Recorded Confirmed Last Taken Type Omeprazole 20 mg PO DAILY@0700 05/31/17 07/21/18 07/16/18 History Albuterol Sulfate [Proair Hfa] 2 puff IH Q4-6H PRN PRN 12/31/17 07/21/18 07/16/18 History Budesonide/Formoterol Fumarate 2 puff IH BID 12/31/17 07/21/18 07/16/18 History [Symbicort 80-4.5 Mcg Inhaler] Multivitamin [Multi-Day Vitamins] 1 each PO DAILY 04/09/18 07/21/18 07/16/18 History Albuterol 2.5MG/Ipratrop 0.5MG 3 ml INH RTTID #270 neb 05/05/18 07/21/18 07/16/18 Rx [Duoneb (A & A)] Fluticasone 50 Mcg Nasal [place] 1 spray INTRANASAL DAILY #1 bottle 05/05/18 07/21/18 07/16/18 Rx [Flonase] Furosemide [Lasix] 20 mg PO DAILY #30 tab 05/05/18 07/21/18 07/16/18 Rx Levothyroxine [Synthroid] 100 microgm PO DAILY@0700 #90 tab 05/05/18 07/21/18 07/16/18 Rx Hydralazine [Apresoline] 50 mg PO TID@0900,1500,2100 #90 tab 06/23/18 07/21/18 07/16/18 Rx Prednisone 50 mg PO DAILY #5 tab 07/16/18 07/21/18 Unknown Rx Amlodipine [Norvasc] 10 mg PO DAILY 07/21/18 07/21/18 Unknown History Gabapentin 600 mg PO Q8HR 07/21/18 07/21/18 Unknown History Hum Insulin NPH/Reg Insulin Hm 60 unit SQ BID 07/21/18 07/21/18 Unknown History [Novolin 70-30 100 Unit/ml Vial] - History of Present Illness-Resp Nature of Presenting Problem: 53yof presents to ED cc cough, SOB, fatigue and low grade fever since yesterday. Pt also reports sick contacts at home. Pt has hx of DM, COPD, asthma and CHF. Quality of Pain: reports: tightness Severity in ED: reports: moderate Onset/Duration: reports: 24 hours ago Timing: reports: still present, getting worse Cough Quality/Degree: reports: moderate Episode Frequency: frequent episodes Current Respiratory Medication Therapy: Initiated see nurses note Modifying Factors: worse with: exertion, coughing Associated Symptoms: reports: cough, fever/chills, shortness of breath Similar Symptoms Previously?: Yes Recently seen or treated by another doctor?: Yes Review of Systems - Adult - REVIEW OF SYSTEMS - ADULT Constitutional: reports: see HPI, fever, fatique. denies: chills Eyes: reports: no symptoms reported Ears, Nose, Mouth & Throat: reports: no symptoms reported Cardiovascular: reports: no symptoms reported Respiratory: reports: see HPI, chronic cough, shortness of breath, wheezing Gastrointestinal: reports: no symptoms reported Genitourinary: reports: no symptoms reported Musculoskeletal: reports: no symptoms reported Integumentary: reports: no symptoms reported Neurological: reports: no symptoms reported Psychiatric: reports: no symptoms reported Endocrine: reports: no symptoms reported Hematologic/Lymphatic: reports: no symptoms reported Allergic/Immunologic: reports: no symptoms reported All Other Systems: Reviewed and Negative Past History - Adult - PAST MEDICAL HISTORY-ADULT Review of Records: reports: Nursing Assessment Review, Medications Reviewed, Social history reviewed & non-contributory. Major Childhood Illnesses: reports: denies history Cardiovascular: reports: CHF, HTN, hyperlipidemia Respiratory: reports: asthma, COPD Gastrointestinal: reports: GERD Obstetrical/Gynecological: reports: denies history Genitourinary: reports: denies history Musculoskeletal: reports: denies history Neurological: reports: denies history Psychiatric: reports: anxiety, depression Endocrine/Immune: reports: Diabetes, thyroid disorder, other (Stage 4 kidney failure) Other Conditions: reports: other (diabetic retinopathy) - PRIOR SURGERIES/PROCEDURES Surgical/Procedure History: reports: BTL, , orthopedic (extremity) (R 2nd toe amputation), other (partial thyroidectomy, heart cath) - IMMUNIZATION STATUS Childhood Immunizations: See Nurse Assessment Flu Vaccine: See Nurse Assessment - FAMILY HISTORY Family History: reviewed, not pertinent - SOCIAL HISTORY Smoking: denies Physical Exam-General - PHYSICAL EXAM-ADULT Initial Vital Signs Reviewed: Yes - CONSTITUTIONAL General Appearance: alert. negative: anxious, combative - EYES Eyes: PERRL/EOMI, pink conjunctivae. negative: photophobia - HEAD, EARS, NOSE, MOUTH & THROAT HENMT: moist mucous membranes, normal ENT inspection. negative: angioedema - NECK Neck: non-tender, full range of motion, supple, normal inspection. negative: Brudzinski's sign, carotid bruit - CARDIOVASCULAR Cardiovascular: normal peripheral pulses, no edema, no gallop, no JVD, no murmur , tachycardia. negative: regular rate, rhythm, bradycardia - GASTROINTESTINAL (ABDOMEN) Abdominal Exam: normal bowel sounds, non tender, soft, no organomegaly. negative: rigid, rebound, tenderness - LYMPHATIC Lymphatic: no adenopathy. negative: striations - MUSCULOSKELETAL Back Exam: normal inspection. negative: swelling Extremity: normal range of motion, normal inspection. negative: deformity - SKIN Integumentary: erythema (righ lower leg), swelling (right lower leg). 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 negative: facial droop, focal weakness - PSYCHIATRIC Psych/Mental Status: normal mood/affect, normal thought content, normal thought process, oriented x 3. negative: anxious Progress - PLAN OF CARE/RESULTS Progress/Plan/Lab Results: Orders Category Date Time Status Admit - [facility] Routine AdmDCTranf 07/20/18 22:17 Active Activity - Up Ad Katherine ORDERED Care 07/20/18 22:17 Active Call Admitting on Arrival AT ADMISSION Care 07/20/18 22:18 Completed Cardiac Monitoring DIRECTED Care 07/20/18 20:58 Completed IV Insertion ORDERED Care 07/20/18 20:58 Completed Notify MD of + Sepsis Screen NOW Care 07/20/18 20:58 Completed Oxygen Therapy- ED Nursing DIRECTED Care 07/20/18 22:36 Completed Resuscitation Status Routine Care 07/20/18 22:17 Ordered Saline Loc DIRECTED Care 07/20/18 22:17 Active Vital Signs Order Q 4-HR ASSESS Care 07/20/18 22:17 Active Z-Document. for Tele Applied ORDERED Care 07/20/18 22:18 Completed Diabetic Diet Diet 07/20/18 22:19 Active CHEST-1 VIEW [RAD] Stat Exams 07/20/18 20:58 Completed BLOOD CULTURE [BLDCUL] Stat Lab 07/20/18 21:10 Results CBC WITH DIFF [HEME] Stat Lab 07/20/18 21:10 Completed CK PROFILE [SP CHEM] Stat Lab 07/20/18 21:10 Completed COMPREHENSIVE METABOLIC PANEL [CHEM] Stat Lab 07/20/18 21:10 Completed LACTATE, PLASMA [CHEM] Q3H Lab 07/20/18 21:10 Completed PROTIME WITH INR [COAG] Stat Lab 07/20/18 21:10 Completed PTT [COAG] Stat Lab 07/20/18 21:10 Completed TROPONIN T Stat Lab 07/20/18 21:[address] W/POSS RFLX CULT [URINALYSIS] Stat Lab 07/20/18 21:10 Completed 0.9% Sodium Chloride Inj [Ns] 1,000 ml Med 07/20/18 22:17 Discontinued IV 100 mls/hr 0.9% Sodium Chloride Inj [Ns] 1,000 ml Med 07/20/18 22:14 Discontinued IV 999 mls/hr Acetaminophen [Tylenol] Med 07/20/18 22:17 Active 650 mg PO Q6H PRN PRN Albuterol 2.5MG/Ipratrop 0.5MG [Duoneb (A & A)] Med 07/20/18 21:21 Discontinued 3 ml INH NOW ONE Albuterol 2.5MG/Ipratrop 0.5MG [Duoneb (A & A)] Med 07/20/18 21:36 Discontinued 3 ml INH NOW ONE Ibuprofen [Motrin] Med 07/20/18 22:13 Discontinued 600 mg PO NOW ONE Ketorolac [Toradol] Med 07/20/18 22:17 Discontinued 15 mg IV Q4H PRN PRN Levofloxacin 750 mg/D5w [Levaquin 750 mg/D5w] Med 07/20/18 22:14 Discontinued 750 mg in 150 ml IV NOW Methylprednisolone Sod Succ [Solu-Medrol] Med 07/20/18 21:21 Discontinued 125 mg IV NOW ONE Morphine Med 07/20/18 22:17 Active 2 mg IV Q2H PRN PRN Ondansetron [Zofran] Med 07/20/18 22:17 Active 4 mg IV Q4H PRN PRN Aerosol Treatments Routine Oth 07/20/18 21:23 Completed Aerosol Treatments Stat Ot 07/20/18 21:23 Completed Aerosol Treatments Stat Ot 07/20/18 21:37 Completed Oxygen Device Routine Ot 07/20/18 22:18 Completed Oxygen Device Stat Ot 07/20/18 20:58 Completed Telemetry [OM.EQ] Routine Oth 07/20/18 22:17 Active Transfer/Admit Order [TRANSFER] Routine Transfer 07/20/18 22:19 Completed Result Diagrams: 07/21/18 04:45 07/22/18 17:15 Departure - Departure Date of Disposition Decision: 07/20/18 Time of Disposition Decision: 22:00 DIAGNOSIS: COPD exacerbation Disposition: HOME 01 Certified Medical Emergency: Emergent Condition: Stable - Critical Care Note This patient required my direct & personal management of CC.: No Attestation - Physician/ SRUTHI Attestation Patient care was provided by Advanced Practice Provider:: No The physician spent face to face time with patient:: Yes Advanced Practice Provider documentation review:: Supervising physician onsite and consulted in the evaluation and care of this patient. The physician did have a face to face encounter with the patient. This chart was documented by the indicated scribe, (Brittni Lawrence Scribe) and accurately reflects the services I performed and decisions made by me, Donny Rice MD, as attested by the provider's signature.
[2018-07-23] MEDS: D5 NS 1,000 ML IV SCH ×3 (05:14→21:41)
[2018-07-23] MEDS: NEURONTIN PO SCH ×6 (05:18→21:42)
[2018-07-23] MEDS: TYLENOL PO PRN ×3 (05:18→20:10)
[2018-07-23] MEDS: CLINDAMYCIN 600 MG/D5W 600 MG/50 ML IVPB IV SCH ×3 (05:19→22:02)
[2018-07-23] MEDS: ROBITUSSIN-DM PO PRN ×3 (05:23→18:04)
[2018-07-23 05:46] LABS: BASO# 0.06 X1000 (0.0-0.2); BASO% 0.5 % (0.0-0.8); EOS# 0.17 X1000 (0.0-0.7); EOS% 1.3 % (0.0-10.0); HEMATOCRIT 28.7 % (37.0-47.0); HEMOGLOBIN 9.1 g/dL (12.0-16.0); IMM GRAN# 0.25 X1000 (0.0-0.04); IMM GRAN% 1.9 % (0.0-0.5); LYMPH# 1.55 X1000 (1.2-3.4); LYMPH% 11.9 % (20.5-51.1); MCH 25.9 PG (27-31); MCHC 31.7 g/dL (33-37); MCV 81.8 FL (81-99); MONO# 0.72 X1000 (0.11-0.59); MONO% 5.5 % (1.7-9.3); MPV 9.7 FL (7.4-10.4); NEUT# 10.29 X1000 (1.4-6.5); NEUT% 78.9 % (42.2-75.2); PLT 397 X1000 (130-400); RBC 3.51 XMIL (4.2-5.4); RDW 14.8 % (11.5-14.5); WBC 13.04 X1000 (4.8-10.8)
[2018-07-23 06:04] LABS: CALCIUM 7.8 mg/dL (8.8-10.2); CREATININE 3.1 mg/dL (0.5-0.9); POTASSIUM 4.4 mmol/L (3.5-5.1)
[2018-07-23] MEDS: PRILOSEC PO SCH (07:11)
[2018-07-23] MEDS: SYNTHROID PO SCH (07:12)
[2018-07-23] MEDS: NORVASC PO SCH (08:52)
[2018-07-23] MEDS: APRESOLINE PO SCH ×3 (08:52→20:10)
[2018-07-23] MEDS: LOVENOX SUBQ SCH (08:53)
[2018-07-23] MEDS: HUMULIN 70/30 (PARKWAY) SUBQ SCH ×2 (08:53→21:41)
[2018-07-23] MEDS: FLONASE NAS SCH (08:53)
[2018-07-23] MEDS: DUONEB (A & A) INH PRN ×3 (08:58→15:24)
[2018-07-23] MEDS: SYMBICORT 80/4.5 MICROGM INHALER INH SCH ×2 (08:58→19:25)
[2018-07-23] MEDS: MORPHINE IV PRN (09:38)
[2018-07-23] MEDS: LASIX PO SCH (10:05)
[2018-07-23] MEDS: LEVAQUIN 750 MG/D5W 750 MG/150 ML IVPB IV SCH (20:11)
--- NOTE | 2018-07-23 21:21 | PROGRESS NOTE ---
DATE: 07/23/2018 SUBJECTIVE: Patient notes that she is still having some shortness of breath. Cough seems to be a little bit worse, nonproductive. Denies any fevers or chills. Denies any GI or issues currently. OBJECTIVE: Vital Signs: Temperature 98, pulse 91, respiratory rate 18, BP 159/78. General: Patient is awake, currently in no distress. She is sitting on the side of the bed. HEENT: Normocephalic. Neck: Supple. Cardiovascular: Regular rate. Chest: Decreased, but equal breath sounds. No current wheezing. No crackles. Abdomen: Soft, nondistended. Extremities: Moves all extremities. No edema. ASSESSMENT: 1. Pneumonia, questionable with aspiration versus community-acquired. 2. Leukocytosis. 3. Chronic kidney disease. Did discuss with patient that her kidney function has worsened somewhat over the last 18 months. She will need to continue to follow up with Nephrology as an outpatient. 4. Diabetes type 2. Blood sugar is elevated. We will continue sliding scale. 5. Chronic obstructive pulmonary disease with mild exacerbation, stable. PLAN: Hopefully, patient will continue to improve. Currently, she is stable. We will transition her to the floor, continue breathing treatments, oxygen, and follow. cc: Gus Fishman MD
[2018-07-24] MEDS: ROBITUSSIN-DM PO PRN (04:11)
[2018-07-24] MEDS: DUONEB (A & A) INH PRN ×5 (04:43→23:27)
[2018-07-24] MEDS: PRILOSEC PO SCH (06:30)
[2018-07-24] MEDS: CLINDAMYCIN 600 MG/D5W 600 MG/50 ML IVPB IV SCH ×3 (06:30→21:00)
[2018-07-24] MEDS: NEURONTIN PO SCH ×3 (06:30→21:00)
[2018-07-24] MEDS: SYNTHROID PO SCH (06:30)
[2018-07-24] MEDS: D5 NS 1,000 ML IV SCH ×3 (06:34→20:51)
[2018-07-24] MEDS: SYMBICORT 80/4.5 MICROGM INHALER INH SCH ×2 (08:08→19:25)
[2018-07-24] MEDS: FLONASE NAS SCH (08:23)
[2018-07-24] MEDS: LASIX PO SCH (08:23)
[2018-07-24] MEDS: APRESOLINE PO SCH ×3 (08:23→20:51)
[2018-07-24] MEDS: LOVENOX SUBQ SCH (08:23)
[2018-07-24] MEDS: NORVASC PO SCH (08:24)
[2018-07-24] MEDS: HUMULIN 70/30 (PARKWAY) SUBQ SCH ×2 (15:02→20:52)
--- NOTE | 2018-07-24 15:26 | PROGRESS NOTE ---
DATE: 07/24/2018 SUBJECTIVE: Patient notes that she is starting to feel a little bit better, less wheezing, still having cough and shortness of breath with dyspnea on exertion. Denies any fevers or chills. Denies any GI or issues. PHYSICAL EXAMINATION: Vital Signs: Temperature 99 degrees, pulse 100, respiratory rate 18, BP 136/65, and sat 90% on 3 L. General: Patient is a morbidly obese female who is sitting upright in the bed. She is in mild current respiratory distress which is likely her baseline. HEENT: Normocephalic. Neck: Supple. Cardiovascular: Regular rate. Chest: Decreased but equal, better air movement. Still wheezing. Abdomen: Soft. Extremities: Moves all extremities. ASSESSMENT: 1. Pneumonia. 2. COPD with exacerbation. 3. Leukocytosis. 4. Chronic kidney disease. 5. Diabetes type 2. PLAN: We will continue patient in the hospital. Continue antibiotics, breathing treatments, oxygen and will follow. Expect that she will be in the hospital 2 to 3 more days. cc: Gus Fishman MD
[2018-07-24] MEDS: TYLENOL PO PRN (20:49)
[2018-07-25] MEDS: DUONEB (A & A) INH PRN ×5 (03:13→19:26)
[2018-07-25] MEDS: NEURONTIN PO SCH ×3 (05:31→22:02)
[2018-07-25] MEDS: CLINDAMYCIN 600 MG/D5W 600 MG/50 ML IVPB IV SCH ×3 (05:31→22:01)
[2018-07-25] MEDS: SYNTHROID PO SCH ×2 (05:32→06:51)
[2018-07-25] MEDS: PRILOSEC PO SCH ×2 (05:32→06:51)
[2018-07-25] MEDS: D5 NS 1,000 ML IV SCH ×3 (05:33→22:02)
[2018-07-25] MEDS: SYMBICORT 80/4.5 MICROGM INHALER INH SCH ×2 (07:40→19:25)
[2018-07-25] MEDS: LOVENOX SUBQ SCH (09:05)
[2018-07-25] MEDS: APRESOLINE PO SCH ×3 (09:05→20:09)
[2018-07-25] MEDS: NORVASC PO SCH (09:05)
[2018-07-25] MEDS: LASIX PO SCH (09:05)
[2018-07-25] MEDS: FLONASE NAS SCH (09:06)
[2018-07-25 09:49] LABS: HEMATOCRIT 26.5 % (37.0-47.0); HEMOGLOBIN 8.6 g/dL (12.0-16.0); MCH 26.6 PG (27-31); MCHC 32.5 g/dL (33-37); MPV 8.8 FL (7.4-10.4); RBC 3.23 XMIL (4.2-5.4); RDW 14.9 % (11.5-14.5); WBC 7.43 X1000 (4.8-10.8)
[2018-07-25 10:13] LABS: AGAP 13; ALBUMIN 2.6 g/dL (3.5-5.0); ALKALINE PHOSPHATASE 54 U/L (32-104); BUN 40 mg/dL (8-22); CALCIUM 7.9 mg/dL (8.8-10.2); CHLORIDE 104 mmol/L (98-107); COSMO 284; CREATININE 3.4 mg/dL (0.5-0.9); ESTIMATED GFR 14; GLUCOSE 200 mg/dL (70-104); GOT 10 U/L (10-30); GPT 8 U/L (10-36); POTASSIUM 4.2 mmol/L (3.5-5.1); SODIUM 134 mmol/L (136-145); TCO2 17 mmol/L (25-35); TOTAL BILIRUBIN < 0.15 mg/dL (0.20-1.00); TOTAL PROTEIN 5.7 g/dL (6.3-8.3)
[2018-07-25] MEDS: HUMULIN 70/30 (PARKWAY) SUBQ SCH ×2 (12:06→20:10)
[2018-07-25] MEDS: TYLENOL PO PRN ×2 (12:52→20:09)
--- NOTE | 2018-07-25 14:08 | PROGRESS NOTE ---
DATE: 07/25/2018 SUBJECTIVE: Patient notes that she is feeling better. Still having lots of cough, congestion, denies any production to her cough currently. States she is still short of breath with any activity but overall is improving. Denies any fevers or chills. PHYSICAL EXAMINATION: Vital Signs: Reviewed. Temp 99 degrees, pulse 89, respiratory rate 18, BP 155/59. General: Patient is very pleasant. She is in mild respiratory distress. HEENT: Normocephalic. Neck: Supple. Cardiovascular: Regular rate. Chest: Clear currently although decreased breath sounds. Abdomen: Soft. Extremities: Moves all extremities. She does have 1+ edema. ASSESSMENT: 1. Pneumonia. 2. Leukocytosis. 3. Cellulitis, right lower extremity. She is currently on clindamycin and Levaquin for pneumonia. We will continue this for now. Her leg appears to be looking better. 4. Chronic kidney disease. 5. Obesity. PLAN: We will continue patient in the hospital, continue clindamycin, Levaquin, breathing treatments, oxygen. Continue physical therapy. cc: Gus Fishman MD
[2018-07-25] MEDS: NORCO-5 PO PRN (15:30)
[2018-07-25] MEDS: LEVAQUIN 750 MG/D5W 750 MG/150 ML IVPB IV SCH (20:10)
[2018-07-26] MEDS: NORCO-5 PO PRN (04:02)
[2018-07-26] MEDS: NEURONTIN PO SCH ×2 (05:05→14:08)
[2018-07-26] MEDS: CLINDAMYCIN 600 MG/D5W 600 MG/50 ML IVPB IV SCH ×2 (05:05→14:08)
[2018-07-26] MEDS: PRILOSEC PO SCH ×2 (05:06→06:06)
[2018-07-26] MEDS: SYNTHROID PO SCH ×2 (05:06→06:07)
[2018-07-26] MEDS: TYLENOL PO PRN ×2 (05:06→12:58)
[2018-07-26] MEDS: D5 NS 1,000 ML IV SCH ×2 (06:06→12:59)
[2018-07-26 06:19] LABS: HEMATOCRIT 25.7 % (37.0-47.0); MCH 25.6 PG (27-31); MCHC 31.1 g/dL (33-37); MCV 82.4 FL (81-99); MPV 9.4 FL (7.4-10.4); RBC 3.12 XMIL (4.2-5.4); WBC 8.76 X1000 (4.8-10.8)
[2018-07-26 06:39] LABS: ALBUMIN 2.6 g/dL (3.5-5.0); CALCIUM 7.8 mg/dL (8.8-10.2); CREATININE 3.6 mg/dL (0.5-0.9); MAGNESIUM 1.7 mg/dL (1.5-2.7); POTASSIUM 4.1 mmol/L (3.5-5.1); TOTAL BILIRUBIN 0.2 mg/dL (0.20-1.00)
--- NOTE | 2018-07-26 06:41 | Diag Imaging Result Doc PS360 ---
EXAM: CHEST-2 VIEWS HISTORY: hypoxia TECHNIQUE: Chest two views COMPARISON: 07/20/2018 FINDINGS: The lungs are well expanded. The heart is not enlarged. The vessels are not distended. There are infiltrates in the mid and lower lungs. These are fairly similar to the prior study in the lower left lung but are slightly less prominent in the lower right. No pleural effusions. IMPRESSION: Slight interval improvement. Electronically signed by Magdaleno Lovell 07/26/2018 6:38 AM
[2018-07-26] MEDS: SYMBICORT 80/4.5 MICROGM INHALER INH SCH (07:56)
[2018-07-26] MEDS: DUONEB (A & A) INH PRN ×2 (07:56→11:40)
[2018-07-26] MEDS: FLONASE NAS SCH (09:31)
[2018-07-26] MEDS: LASIX PO SCH (09:32)
[2018-07-26] MEDS: LOVENOX SUBQ SCH (09:32)
[2018-07-26] MEDS: APRESOLINE PO SCH ×2 (09:32→14:08)
[2018-07-26] MEDS: HUMULIN 70/30 (PARKWAY) SUBQ SCH (09:32)
[2018-07-26] MEDS: NORVASC PO SCH (09:32)
[2018-07-26 11:37] VITALS: BP 155/67
--- NOTE | 2018-07-26 22:57 | DISCHARGE SUMMARY ---
ADMISSION DATE: 07/20/2018 DISCHARGE DATE: 07/26/2018 PRIMARY CARE PHYSICIAN: Listed as none. ADMISSION DIAGNOSIS: 1. Pneumonia, possible aspiration, bilateral. 2. Leukocytosis. 3. Chronic kidney disease. 4. Diabetes type 2. 5. History of congestive heart failure. 6. Chronic obstructive pulmonary disease. 7. Diabetic neuropathy. DISCHARGE DIAGNOSIS: 1. Bilateral pneumonia. 2. Leukocytosis. 3. Right lower extremity cellulitis. 4. Chronic kidney disease. 5. Obesity. 6. Hypoxic respiratory failure SUMMARY OF FINDINGS: This is a 53-year-old female who presented with a persistent cough, headache, fever, shortness of breath and right lower extremity pain. Respiratory symptoms began 24 hours prior to coming to the emergency room. States she had a low-grade fever over the 24 hours prior to arriving. Complained of her right lower extremity hurting and burning. Had been evaluated in the emergency room on July 16 for a right lower extremity swelling and pain. Venous Doppler did not reveal evidence of a DVT. She was diagnosed with venous insufficiency of the right lower extremity, given doxycycline and prednisone and discharged to her primary care. States she has had no improvement during that time so she was admitted, placed on IV antibiotics and we did add clindamycin for the possibility of her aspirating with her pneumonia. Her white blood cell count has returned to normal at 8.76. Her right lower extremity cellulitis is improved. She qualified for home O2 as she had a room air saturation this afternoon of 86% with hypoxic respiratory failure but it is now felt that she can safely be discharged home. DISCHARGE MEDICATION: Of Norvasc 10 mg p.o. daily, Symbicort 80/4.5 two puffs inhalation b.i.d., Flonase 1 spray nasally daily, gabapentin 600 mg p.o. q.8 hours #90 with no refills, Conception 5 one p.o. q.4 hours p.r.n., Levaquin 750 mg p.o. q.8 hours #7 with no refills, omeprazole 20 mg p.o. daily, duo nebs t.i.d., ProAir 2 puff inhalation q.4-6 hours p.r.n., clindamycin 300 mg p.o. t.i.d. #21 with no refills, Lasix 20 mg p.o. daily #30 with 1 refill, Novolin 70/30 60 units subcutaneous b.i.d., hydralazine 50 mg p.o. t.i.d. FOLLOWUP: She needs to follow up with her primary care physician in 1 to 2 weeks and call the office for an appointment. Again she will have home O2 set up through [facility]. TIME SPENT: 35 minutes. Dictated by STEPHANIE Alfonso for Donnie Stanton MD Addendum: Patient seen and examined by myself. Agree with STEPHANIE note. It reflects my assessment and plan. Patient is being discharged in stable condition. Will be seen by primary care doctor in a week. cc: STEPHANIE Alfonso MD [facility]
[2018-07-27] MEDS ORDERED: LEVAQUIN PO SCH (21:00)
== END 2018-07-26 17:40 | disposition home or self-care (01) | DRG 177 ==
LOC: P.ED 20:32 → SUATTDRO 22:39 → P.MEDSURG 22:39 → P.ICU 07-21 16:44 → P.MEDSURG 07-23 11:01
PROVIDERS: ATTEND Internal Medicine
CPT/HCPCS: 71010; 71020; 71045; 71046; 80048; 80053; 80069; 81001; 82009; 82550; 82553; 82947; 82948; 83036; 83605; 83735; 84100; 84484; 85025; 85027; 85610; 85730; 87040; 94640; 94761; 94799; 96365; 96375; 99285; A9270; J1650; J1815; J1956; J2270; J2930; J3475; J7030; XXXXX

== ENCOUNTER 2018-09-15 17:44 | Inpatient (IN) ==
--- NOTE | 2018-09-15 19:12 | PROVIDER DOCUMENTATION ---
This chart was entered by Gaviota Meyer Scribe, acting as scribe for Amira Larkin MD. HPI-General Adult - General Chief Complaint: Sores/Lesions Stated Complaint: LEG BLISTERS, PAIN Time Seen by Provider: 09/15/18 17:59 Source: patient Allergies/Adverse Reactions: Patient Allergies Allergy/AdvReac Type Severity Reaction Status Date / Time amoxicillin Allergy ITCHING Verified 09/15/18 18:20 tramadol Allergy HEADACHE Verified 09/15/18 18:20 Home Medications: Home Medication List Medication Instructions Recorded Confirmed Last Taken Type Omeprazole 20 mg PO DAILY@0700 05/31/17 07/21/18 07/16/18 History Albuterol Sulfate [Proair Hfa] 2 puff IH Q4-6H PRN PRN 12/31/17 07/21/18 07/16/18 History Budesonide/Formoterol Fumarate 2 puff IH BID 12/31/17 07/21/18 07/16/18 History [Symbicort 80-4.5 Mcg Inhaler] Albuterol 2.5MG/Ipratrop 0.5MG 3 ml INH RTTID #270 neb 05/05/18 07/21/18 07/16/18 Rx [Duoneb (A & A)] Fluticasone 50 Mcg Nasal [place] 1 spray INTRANASAL DAILY #1 bottle 05/05/18 07/21/18 07/16/18 Rx [Flonase] Levothyroxine [Synthroid] 100 microgm PO DAILY@0700 #90 tab 05/05/18 07/21/18 07/16/18 Rx Gabapentin 600 mg PO Q8HR 07/21/18 07/21/18 Unknown History Amlodipine [Norvasc] 10 mg PO DAILY #30 tab 07/26/18 Unknown Rx Clindamycin [Cleocin] 300 mg PO TID #21 cap 07/26/18 Unknown Rx Furosemide [Lasix] 20 mg PO DAILY #30 tab 07/26/18 Unknown Rx Gabapentin [Neurontin] 600 mg PO Q8H #90 cap 07/26/18 Unknown Rx Hum Insulin NPH/Reg Insulin Hm 60 unit SQ BID #5 vial 07/26/18 Unknown Rx [Novolin 70-30 100 Unit/ml Vial] Hydralazine [Apresoline] 50 mg PO TID@0900,1500,2100 #90 tab 07/26/18 Unknown Rx Hydrocodone/APAP 5 mg/325 mg 1 tab PO Q4H PRN PRN #15 tab 07/26/18 Unknown Rx [[place]-5] Levofloxacin [Levaquin] 750 mg PO Q48H #7 tab 07/26/18 Unknown Rx - History of Present Illness -Gen Adult Nature of Presenting Problems: 53 y/o female presents to ED with R lower leg pain and blisters onset 5 days ago. Pt reports Dr. Alaniz placed an unna boot from 09/02/18 to 09/09/18 and the blisters came up the day after it was taken off. Pt is alert and oriented. Location of Pain/Injury: reports: lower extremity Pain Radiation: reports: no radiation Quality of Pain: reports: sharp Severity: reports: moderate Onset/Duration: reports: 5 days ago Timing: reports: still present Context/Activities at Onset: reports: none Modifying Factors: improves with: nothing Associated Symptoms: reports: other (R lower leg pain and blisters) Similar Symptoms Previously?: No Recently seen or treated by another doctor?: No Review of Systems - Adult - REVIEW OF SYSTEMS - ADULT Constitutional: denies: chills, fever Eyes: reports: no symptoms reported Ears, Nose, Mouth & Throat: reports: no symptoms reported Cardiovascular: denies: chest pain, palpitations Respiratory: denies: cough, shortness of breath Gastrointestinal: denies: abdominal pain, diarrhea, nausea, vomiting Genitourinary: reports: no symptoms reported Musculoskeletal: reports: other (R lower leg pain and blisters). denies: back pain, joint pain Integumentary: reports: no symptoms reported Neurological: denies: dizziness/vertigo, seizure Psychiatric: reports: no symptoms reported Endocrine: reports: no symptoms reported Hematologic/Lymphatic: reports: no symptoms reported Allergic/Immunologic: reports: no symptoms reported All Other Systems: Reviewed and Negative Past History - Adult - PAST MEDICAL HISTORY-ADULT Review of Records: reports: Old Records Reviewed, Nursing Assessment Review, Medications Reviewed Major Childhood Illnesses: reports: denies history Cardiovascular: reports: CAD, CHF, HTN, hyperlipidemia Respiratory: reports: asthma, COPD Gastrointestinal: reports: GERD Obstetrical/Gynecological: reports: denies history Genitourinary: reports: kidney disease Musculoskeletal: reports: denies history Neurological: reports: denies history Psychiatric: reports: anxiety, depression Endocrine/Immune: reports: Diabetes, thyroid disorder (nodules), other (Stage 4 kidney failure) Other Conditions: reports: other (diabetic retinopathy) - PRIOR SURGERIES/PROCEDURES Surgical/Procedure History: reports: BTL, , orthopedic (extremity) (R 1st and 2nd toe amputation), other (partial thyroidectomy, heart cath) - IMMUNIZATION STATUS Childhood Immunizations: See Nurse Assessment Flu Vaccine: See Nurse Assessment - FAMILY HISTORY Family History: reviewed, not pertinent - SOCIAL HISTORY Smoking: non-smoker Substance Use: none/never Alcohol Use Frequency: never Living Situation: family Physical Exam-General - PHYSICAL EXAM-ADULT Initial Vital Signs Reviewed: Yes - CONSTITUTIONAL General Appearance: appears well, alert, no apparent distress - EYES Eyes: PERRL/EOMI, pink conjunctivae - HEAD, EARS, NOSE, MOUTH & THROAT HENMT: normocephalic/atraumatic, moist mucous membranes, normal ENT inspection - NECK Neck: non-tender, full range of motion - RESPIRATORY Respiratory: chest non-tender, lungs clear, normal breath sounds - CARDIOVASCULAR Cardiovascular: normal peripheral pulses, regular rate, rhythm - GASTROINTESTINAL (ABDOMEN) Abdominal Exam: normal bowel sounds, non tender, soft - MUSCULOSKELETAL Back Exam: normal inspection, no CVA tenderness, no vertebral tenderness Extremity: normal range of motion, non-tender, normal gait, other (amputation of first two digits of R foot; 3 + pitting edema of bilateral lower extremities with weeping on the right) - SKIN Integumentary: normal color, warm/dry, other (3 + pitting edema of bilateral lower extremities with weeping on the right) - NEUROLOGIC Neurologic: grossly normal - PSYCHIATRIC Psych/Mental Status: normal mood/affect, normal thought content, normal thought process, oriented x 3 Progress - PLAN OF CARE/RESULTS Progress/Plan/Lab Results: Vital Signs - 8 hr 09/15/18 17:48 Temperature 97.9 F Pulse Rate 95 H Respiratory Rate 24 Blood Pressure 152/82 O2 Sat by Pulse Oximetry 95 Orders Category Date Time Status Admit - [facility] Routine AdmDCTranf 09/15/18 20:16 Active Cardiac Monitoring DIRECTED Care 09/15/18 19:52 Active Notify MD of + Sepsis Screen NOW Care 09/15/18 19:52 Active CHEST-1 VIEW [RAD] Stat Exams 09/15/18 18:31 Taken BLOOD CULTURE [BLDCUL] Stat Lab 09/15/18 18:56 Ordered CBC WITH DIFF [HEME] Stat Lab 09/15/18 18:52 Completed CK PROFILE [SP CHEM] Stat Lab 09/15/18 18:52 Completed COMPREHENSIVE METABOLIC PANEL [CHEM] Stat Lab 09/15/18 18:52 Completed Ketone [ACETONE SERUM] [CHEM] Stat Lab 09/15/18 19:52 Completed LACTATE, PLASMA [CHEM] Q3H Lab 09/15/18 18:52 Completed PROTIME WITH INR [COAG] Stat Lab 09/15/18 18:52 Completed PTT [COAG] Stat Lab 09/15/18 18:52 Completed TROPONIN T Stat Lab 09/15/18 18:52 Completed UA NIMS W/REFLEX CULT PL [URINALYSIS] Stat Lab 09/15/18 18:30 Completed Acetaminophen [Tylenol] Med 09/15/18 19:53 Discontinued 1,000 mg PO NOW ONE Transfer/Admit Order [TRANSFER] Routine Transfer 09/15/18 20:25 Ordered Laboratory Tests 09/15/18 09/15/18 09/15/18 18:30 18:52 18:52 WBC 14.11 H RBC 3.00 L Hgb 7.7 L Hct 25.4 L MCV 84.7 MCH 25.7 L MCHC 30.3 L RDW Std Deviation 16.6 H Plt Count 361 MPV 9.6 Immature Gran % (Auto) 0.8 H Neut % (Auto) 74.7 Lymph % (Auto) 12.5 L Pacific % (Auto) 4.1 Eos % (Auto) 7.3 Baso % (Auto) 0.6 Immature Gran # (Auto) 0.11 H Neut # (Auto) 10.53 H Lymph # (Auto) 1.77 Pacific # (Auto) 0.58 Eos # (Auto) 1.03 H Baso # (Auto) 0.09 PT INR PTT (Actin FS) Sodium Potassium Chloride Carbon Dioxide Anion Gap BUN Creatinine Estimated GFR/1.73 m2 BUN/Creatinine Ratio Glucose Calculated Osmolality Calcium Total Bilirubin AST ALT Alkaline Phosphatase Creatine Kinase Troponin T Total Protein Albumin Globulin Albumin/Globulin Ratio Plasma Lactate 1.7 Urine Source CLEAN CATCH Urine Color YELLOW Urine Clarity CLEAR Urine pH 7.0 Ur Specific Finley 1.010 Urine Protein 3+(500 mg/dL) A Urine Ketones TRACE Urine Blood TRACE Urine Nitrite NEGATIVE Urine Bilirubin NEGATIVE Urine Urobilinogen NORMAL Urine Microscopic RBC 10-20 A Urine WBC NEGATIVE Urine Microscopic WBC <10 Ur Epithelial Cells >10 A Urine Crystals NONE SEEN Urine Bacteria 1+ Urine Casts NONE SEEN Urine Yeast NONE SEEN Urine Glucose 3+(500 mg/dL) A Acetone Level 09/15/18 09/15/18 09/15/18 18:52 18:52 18:52 WBC RBC Hgb Hct MCV MCH MCHC RDW Std Deviation Plt Count MPV Immature Gran % (Auto) Neut % (Auto) Lymph % (Auto) Pacific % (Auto) Eos % (Auto) Baso % (Auto) Immature Gran # (Auto) Neut # (Auto) Lymph # (Auto) Pacific # (Auto) Eos # (Auto) Baso # (Auto) PT 13.5 INR 0.98 PTT (Actin FS) 32.2 Sodium 140 Potassium 4.2 Chloride 107 Carbon Dioxide 19 L Anion Gap 14 BUN 26 H Creatinine 2.7 H Estimated GFR/1.73 m2 19 BUN/Creatinine Ratio 10 Glucose 265 H Calculated Osmolality 293 Calcium 8.1 L Total Bilirubin 0.20 AST 12 ALT 6 L Alkaline Phosphatase 75 Creatine Kinase 94 Troponin T 0.014 Total Protein 6.3 Albumin 3.6 Globulin 3.0 Albumin/Globulin Ratio 1.0 Plasma Lactate Urine Source Urine Color Urine Clarity Urine pH Ur Specific Finley Urine Protein Urine Ketones Urine Blood Urine Nitrite Urine Bilirubin Urine Urobilinogen Urine Microscopic RBC Urine WBC Urine Microscopic WBC Ur Epithelial Cells Urine Crystals Urine Bacteria Urine Casts Urine Yeast Urine Glucose Acetone Level 09/15/18 19:52 WBC RBC Hgb Hct MCV MCH MCHC RDW Std Deviation Plt Count MPV Immature Gran % (Auto) Neut % (Auto) Lymph % (Auto) Pacific % (Auto) Eos % (Auto) Baso % (Auto) Immature Gran # (Auto) Neut # (Auto) Lymph # (Auto) [place] # (Auto) Eos # (Auto) Baso # (Auto) PT INR PTT (Actin FS) Sodium Potassium Chloride Carbon Dioxide Anion Gap BUN Creatinine Estimated GFR/1.73 m2 BUN/Creatinine Ratio Glucose Calculated Osmolality Calcium Total Bilirubin AST ALT Alkaline Phosphatase Creatine Kinase Troponin T Total Protein Albumin Globulin Albumin/Globulin Ratio Plasma Lactate Urine Source Urine Color Urine Clarity Urine pH Ur Specific Finley Urine Protein Urine Ketones Urine Blood Urine Nitrite Urine Bilirubin Urine Urobilinogen Urine Microscopic RBC Urine WBC Urine Microscopic WBC Ur Epithelial Cells Urine Crystals Urine Bacteria Urine Casts Urine Yeast Urine Glucose Acetone Level NEGATIVE Result Diagrams: 09/15/18 18:52 09/15/18 18:52 - XRAY 1 XRAY Study: Chest Impression: See EMR Report - CONSULTS/PCP/HOSPITALIST Notification #1 *Consult/PCP/Hospitalist*: Dr. Fishman Time Discussed: 18:34 Consult Disposition: Admit Departure - Departure Date of Disposition Decision: 09/15/18 Time of Disposition Decision: 19:11 DIAGNOSIS: Cellulitis Disposition: ADMITTED INPATIENT 09 Certified Medical Emergency: Emergent Condition: Stable - Critical Care Note This patient required my direct & personal management of CC.: No Attestation - Physician/ SRUTHI Attestation Patient care was provided by Advanced Practice Provider:: No The physician spent face to face time with patient:: Yes Advanced Practice Provider documentation review:: Supervising physician onsite and consulted in the evaluation and care of this patient. The physician did have a face to face encounter with the patient. This chart was documented by the indicated scribe, (Gaviota Meyer Scribe) and accurately reflects the services I performed and decisions made by me, Amiar Larkin MD, as attested by the provider's signature.
[2018-09-15 19:13] LABS: BASO# 0.09 X1000 (0.0-0.2); BASO% 0.6 % (0.0-0.8); EOS# 1.03 X1000 (0.0-0.7); EOS% 7.3 % (0.0-10.0); HEMATOCRIT 25.4 % (37.0-47.0); HEMOGLOBIN 7.7 g/dL (12.0-16.0); IMM GRAN# 0.11 X1000 (0.0-0.04); IMM GRAN% 0.8 % (0.0-0.5); LYMPH# 1.77 X1000 (1.2-3.4); LYMPH% 12.5 % (20.5-51.1); MCH 25.7 PG (27-31); MCHC 30.3 g/dL (33-37); MCV 84.7 FL (81-99); MONO# 0.58 X1000 (0.11-0.59); MONO% 4.1 % (1.7-9.3); MPV 9.6 FL (7.4-10.4); NEUT# 10.53 X1000 (1.4-6.5); NEUT% 74.7 % (42.2-75.2); PLT 361 X1000 (130-400); RDW 16.6 % (11.5-14.5); WBC 14.11 X1000 (4.8-10.8)
[2018-09-15 19:20] LABS: BILIRUBIN URINE NEGATIVE (NEGATIVE); BLOOD URINE TRACE (NEGATIVE); KETONE URINE TRACE mg/dL (NEGATIVE); LEUKOCYTES URINE NEGATIVE (NEGATIVE); NITRITE URINE NEGATIVE (NEGATIVE); UROBILINOGEN URINE NORMAL
[2018-09-15 19:21] LABS: CLARITY CLEAR (CLEAR); COLOR YELLOW
[2018-09-15 19:28] LABS: ALBUMIN 3.6 g/dL (3.5-5.0); CALCIUM 8.1 mg/dL (8.8-10.2); CREATININE 2.7 mg/dL (0.5-0.9); POTASSIUM 4.2 mmol/L (3.5-5.1); TOTAL BILIRUBIN 0.2 mg/dL (0.20-1.00); TOTAL PROTEIN 6.3 g/dL (6.3-8.3)
[2018-09-15] MEDS ORDERED: TYLENOL PO ONE (19:53)
[2018-09-15 19:56] LABS: INR 0.98; PROTIME 13.5 Seconds (11.0-16.0)
[2018-09-15 19:57] LABS: PTT 32.2 Seconds (22.3-41.8)
[2018-09-15 20:08] LABS: URINE BACTERIA 1+ /HFP; URINE CAST NONE SEEN /LPF; URINE CRYSTAL NONE SEEN /HPF; URINE EPITHELIAL CELLS >10 /HPF (<10); URINE SOURCE CLEAN CATCH; URINE WBC <10 /HPF (<10); URINE YEAST NONE SEEN /HPF
--- NOTE | 2018-09-15 21:04 | Diag Imaging Result Doc PS360 ---
CHEST-1 VIEW - 09/15/2018 INDICATION: pedal edema COMPARISON: 07/26/2018 FINDINGS: There is pulmonary vascular congestion. There is mild interstitial pulmonary edema with curly B lines. No large pleural effusion. Heart size is top normal. IMPRESSION: Pulmonary vascular congestion and mild interstitial pulmonary edema. Electronically signed by Anton Dixon 09/15/2018 9:02 PM
[2018-09-15] MEDS ORDERED: NEURONTIN PO ONE (22:51)
[2018-09-15] MEDS ORDERED: VANCOMYCIN IV PER PHARMACY MISC SCH (23:00)
[2018-09-15] MEDS ORDERED: VANCOMYCIN 1 GM/NS 1 GM/250 ML IVPB IV ONE (23:00)
[2018-09-15] MEDS: NORCO-7.5 PO PRN (23:16)
[2018-09-16] MEDS ORDERED: VANCOMYCIN 1 GM/NS 1 GM/250 ML IVPB IV ONE (01:00)
[2018-09-16] MEDS ORDERED: VANCOMYCIN 500 MG/NS 500 MG/100 ML IVPB IV ONE (02:00)
[2018-09-16] MEDS: MORPHINE IV PRN ×3 (02:43→15:41)
[2018-09-16] MEDS ORDERED: ZOFRAN IV PRN (06:48)
[2018-09-16] MEDS ORDERED: TYLENOL PO PRN (06:48)
[2018-09-16] MEDS ORDERED: VENTOLIN HFA INH PRN (06:49)
[2018-09-16] MEDS ORDERED: ZOSYN 3.375 GM in NS 50 ML IV SCH (07:00)
[2018-09-16] MEDS ORDERED: VANCOMYCIN IV PER PHARMACY MISC SCH (07:00)
[2018-09-16] MEDS: SYNTHROID PO SCH (07:33)
[2018-09-16] MEDS: PRILOSEC PO SCH (07:33)
[2018-09-16] MEDS: ROCEPHIN 1 GM in NS 50 ML IV SCH (07:59)
[2018-09-16] MEDS: HUMULIN 70/30 (PARKWAY) SUBQ SCH ×2 (08:00→16:06)
[2018-09-16] MEDS: APRESOLINE PO SCH ×3 (08:01→21:48)
[2018-09-16] MEDS: LASIX PO SCH (08:01)
[2018-09-16] MEDS: NORVASC PO SCH (08:02)
[2018-09-16] MEDS: SYMBICORT 80/4.5 MICROGM INHALER INH SCH ×2 (09:00→19:50)
[2018-09-16] MEDS: DUONEB (A & A) INH SCH ×3 (09:00→20:00)
[2018-09-16] MEDS ORDERED: BLISTEX MEDICATED BERRY LIP BALM TOP PRN (11:26)
[2018-09-16] MEDS: ATARAX PO PRN (11:32)
[2018-09-16] MEDS: NORCO-7.5 PO PRN ×3 (11:32→22:28)
[2018-09-16] MEDS: NEURONTIN PO SCH ×2 (12:05→21:48)
--- NOTE | 2018-09-16 19:58 | PROGRESS NOTE ---
DATE: 09/16/2018 SUBJECTIVE: The patient notes that she is having itching on her left lower extremity. This is a new finding. Denies any rash over there currently. Denies any pain. Still having lots of pain in her right lower extremity as well as redness and swelling. OBJECTIVE: Vital signs were reviewed. She is awake, alert. She is in no current respiratory distress. Very pleasant to talk with.HEENT: Normocephalic. Neck supple. Cardiovascular: Regular rate. No murmurs. Chest clear, nonlabored. Abdomen soft, obese, nondistended. Extremities: Moves all extremities. Does have 2+ edema in bilateral lower extremities. Her right lower extremity appears to be slightly less erythematous, but I believe this is more secondary to dependent edema, as she has been lying in the bed and her leg has not been dangling over the side of the bed as she had been doing at home. ASSESSMENT: 1. Cellulitis. 2. Diabetes. 3. Hypertension. 4. Obesity. 5. Chronic obstructive pulmonary disease. 6. Known coronary artery disease. PLAN: We will continue the patient in the hospital, antibiotics. Continue to follow. Give her Benadryl for itching. Further orders as needed. cc: Gus Fishman MD
--- NOTE | 2018-09-16 20:20 | HISTORY AND PHYSICAL ---
Patient seen and examined by myself while she was in the ER on the date of admission. CHIEF COMPLAINT: Pain in legs. HISTORY OF PRESENT ILLNESS: Patient is a 53-year-old female who came to the hospital noting that she has a red, swollen area on her right lower extremity. States this happened approximately 5 days ago. She had an Unna Boot placed on the to the . The boot was taken off on the , and somewhere on the or is when she started noticing the blisters and the redness. Continued to worsen. Currently, she has peeling of her skin around those blistered areas, and the pain has continued to increase. ALLERGIES: 1. Amoxicillin, causing itching. 2. Tramadol, causing headaches. MEDICATIONS: 1. ProAir. 2. Symbicort nebulized treatments as needed. 3. Fluticasone nasal spray. 4. Synthroid 100. 5. Gabapentin 600 every. 8 hours. 6. Amlodipine 10. 7. Lasix. 8. Novolin 70/30. 9. Hydralazine 50 t.i.d. 10. Kennedy p.r.n. REVIEW OF SYSTEMS: The patient denies any current chest pain, palpitations. Denies any fevers, chills. Denies any dysuria, frequency, urgency, hesitancy. Denies any polyuria or polydipsia or skin rashes, other than on her right lower extremity. Denies any other complaints currently. PAST MEDICAL HISTORY: Significant for: 1. COPD. 2. Obesity. 3. Hypothyroidism. 4. Hypertension. 5. Chronic pain. 6. Congestive heart failure. 7. Known coronary artery disease. 8. Hyperlipidemia. 9. Diabetes. 10. Stage IV kidney failure. 11. Diabetic retinopathy. SURGICAL HISTORY: 1. BTL. 2. . 3. Orthopedic surgery with 1st and 2nd toe amputations. 4. She has had a partial thyroidectomy. FAMILY HISTORY: Noncontributory, although does have a family history of diabetes. SOCIAL HISTORY: Patient does not smoke or drink. PHYSICAL EXAMINATION: VITAL SIGNS: Reviewed and stable. She is awake, alert. She is in no current respiratory distress. Blood pressure is stable. Heart rate is stable. Respiratory 20. GENERAL: Patient is an obese female who is very pleasant to talk with. HEENT: Normocephalic. NECK: Supple. CARDIOVASCULAR: Regular rate. No murmurs. CHEST: Clear, nonlabored. No wheezing. ABDOMEN: Soft, obese, nondistended, nontender. EXTREMITIES: Moves all extremities. No edema. SKIN: She is noted to have a 6 to 7 cm area on her mid craig that encompasses the entire lower extremity. It is red, warm, and has peeling skin, very tender to touch. On her right lower extremity as well, she has had previous amputations. This area is edematous as well and appears to be weeping. NEUROLOGIC: She is awake, alert, oriented x3. ASSESSMENT: 1. Diabetes with hyperglycemia. Blood sugar 265. 2. Stage IV renal disease, stable. 3. Metabolic acidosis secondary to renal disease. 4. Leukocytosis. 5. Anemia of chronic disease. 6. Cellulitis, right lower extremity. 7. Hypertension. PLAN: Will continue patient in the hospital on intravenous antibiotics, pain control, restart her home medications, sliding scale insulin, and will follow. cc: Gus Fishman MD
[2018-09-17] MEDS: MORPHINE IV PRN ×3 (01:55→21:44)
[2018-09-17] MEDS: ATARAX PO PRN (01:56)
[2018-09-17] MEDS: NORCO-7.5 PO PRN ×2 (05:11→15:51)
[2018-09-17] MEDS: PRILOSEC PO SCH ×2 (05:12→06:18)
[2018-09-17] MEDS: NEURONTIN PO SCH ×3 (05:12→21:45)
[2018-09-17] MEDS: SYNTHROID PO SCH ×2 (05:12→06:18)
[2018-09-17] MEDS: DUONEB (A & A) INH SCH ×3 (08:15→20:00)
[2018-09-17] MEDS: SYMBICORT 80/4.5 MICROGM INHALER INH SCH ×2 (08:29→19:42)
[2018-09-17 08:33] LABS: HEMATOCRIT 26.6 % (37.0-47.0); MCH 25.6 PG (27-31); MCHC 30.1 g/dL (33-37); MPV 9.5 FL (7.4-10.4); RBC 3.13 XMIL (4.2-5.4); WBC 13.46 X1000 (4.8-10.8)
[2018-09-17 08:58] LABS: ALBUMIN 3.8 g/dL (3.5-5.0); CALCIUM 8.4 mg/dL (8.8-10.2); TOTAL BILIRUBIN 0.2 mg/dL (0.20-1.00); TOTAL PROTEIN 7.2 g/dL (6.3-8.3)
[2018-09-17] MEDS: APRESOLINE PO SCH ×3 (10:35→21:44)
[2018-09-17] MEDS: ROCEPHIN 1 GM in NS 50 ML IV SCH (10:36)
[2018-09-17] MEDS: NORVASC PO SCH (10:36)
[2018-09-17] MEDS: LASIX PO SCH (10:37)
[2018-09-17] MEDS: HUMULIN 70/30 (PARKWAY) SUBQ SCH ×2 (10:38→15:54)
--- NOTE | 2018-09-17 21:10 | PROGRESS NOTE ---
DATE: 09/17/2018 SUBJECTIVE: The patient notes that she is still having pain in her lower extremity. Denies any fevers or chills. Denies any worsening of the pain or swelling, but does not think that it is any better. PHYSICAL EXAMINATION: Temperature 97.6, pulse 78, respiratory 18, BP 144/68.General: Patient is in no current respiratory distress. HEENT: Normocephalic. Neck: Supple. Cardiovascular: Regular rate. Chest: Clear. Abdomen: Soft, nondistended. Extremities: Moves all extremities. Skin: Still has erythema in her right lower extremity as well as edema. Does appear to be slightly less edematous and erythematous. ASSESSMENT: 1. Diabetes with hyperglycemia. 2. Leukocytosis. 3. Stage IV renal disease. 4. Cellulitis of right lower extremity. 5. Metabolic acidosis. PLAN: We will continue patient in the hospital, continue antibiotics, fluids, oxygen, continue her home medications. Further orders as needed. cc: Gus Fishman MD
[2018-09-17] MEDS ORDERED: VANCOMYCIN 2,000 MG in NS 500 ML IV SCH (22:00)
[2018-09-18] MEDS: NEURONTIN PO SCH ×3 (06:28→21:36)
[2018-09-18] MEDS: SYNTHROID PO SCH (06:29)
[2018-09-18] MEDS: PRILOSEC PO SCH (06:29)
[2018-09-18] MEDS: HUMULIN 70/30 (PARKWAY) SUBQ SCH ×2 (06:30→16:55)
[2018-09-18] MEDS: NORCO-7.5 PO PRN ×2 (06:34→15:48)
[2018-09-18] MEDS: SYMBICORT 80/4.5 MICROGM INHALER INH SCH ×2 (07:26→20:20)
[2018-09-18] MEDS: DUONEB (A & A) INH SCH ×3 (07:27→20:20)
[2018-09-18] MEDS: NORVASC PO SCH (09:00)
[2018-09-18] MEDS: LASIX PO SCH (09:00)
[2018-09-18] MEDS: ROCEPHIN 1 GM in NS 50 ML IV SCH (09:00)
[2018-09-18] MEDS: APRESOLINE PO SCH ×3 (09:00→21:36)
[2018-09-18] MEDS: MORPHINE IV PRN ×2 (10:15→21:37)
[2018-09-18] MEDS: LASIX IV SCH ×2 (12:58→23:25)
--- NOTE | 2018-09-18 19:22 | PROGRESS NOTE ---
DATE: 09/18/2018 SUBJECTIVE: Patient notes that the pain is still pretty severe at times in her right lower extremity, although does believe that the swelling has improved slightly. OBJECTIVE: Temperature 98, pulse 89, respiratory rate 18, BP 121/52.General: Patient is very pleasant. She is in no distress. She is lying in the bed. HEENT: Normocephalic. Neck: Supple. Cardiovascular: Regular rate. No murmurs. Chest: Clear, nonlabored. Abdomen: Soft, nondistended. Extremities: Moves all extremities. She appears to have more edema in her calf on her right lower extremity than she did previously. Although, the erythematous area appears to be improving slightly. Neurologic: No focal changes. ASSESSMENT/PLAN: 1. Type 2 diabetes. Blood sugars better controlled. 2. Stage IV renal disease. 3. Cellulitis of right lower extremity. Continue vancomycin and Rocephin as it appears to be improving. 4. Anemia of chronic disease. 5. Pain control. cc: Gus Fishman MD
[2018-09-19] MEDS: NEURONTIN PO SCH ×3 (04:06→21:08)
[2018-09-19] MEDS: PRILOSEC PO SCH ×2 (04:06→06:11)
[2018-09-19] MEDS: SYNTHROID PO SCH ×2 (04:07→06:11)
[2018-09-19 06:52] LABS: HEMATOCRIT 23.6 % (37.0-47.0); HEMOGLOBIN 7.1 g/dL (12.0-16.0); MCH 25.5 PG (27-31); MCHC 30.1 g/dL (33-37); MCV 84.9 FL (81-99); MPV 9.9 FL (7.4-10.4); RBC 2.78 XMIL (4.2-5.4); RDW 16.8 % (11.5-14.5); WBC 13.82 X1000 (4.8-10.8)
[2018-09-19 07:12] LABS: ALBUMIN 3.6 g/dL (3.5-5.0); CALCIUM 7.9 mg/dL (8.8-10.2); CREATININE 3.7 mg/dL (0.5-0.9); MAGNESIUM 1.6 mg/dL (1.5-2.7); POTASSIUM 4.7 mmol/L (3.5-5.1); TOTAL BILIRUBIN 0.2 mg/dL (0.20-1.00)
[2018-09-19] MEDS: DUONEB (A & A) INH SCH ×3 (07:47→20:42)
[2018-09-19] MEDS: SYMBICORT 80/4.5 MICROGM INHALER INH SCH ×2 (07:48→20:42)
[2018-09-19] MEDS: HUMULIN 70/30 (PARKWAY) SUBQ SCH ×2 (07:51→16:12)
[2018-09-19] MEDS: APRESOLINE PO SCH ×4 (07:52→21:08)
[2018-09-19] MEDS: NORVASC PO SCH ×2 (07:52→11:18)
[2018-09-19] MEDS: ROCEPHIN 1 GM in NS 50 ML IV SCH (07:52)
[2018-09-19] MEDS: NORCO-7.5 PO PRN ×2 (08:27→21:08)
[2018-09-19] MEDS: LASIX IV SCH (12:25)
[2018-09-19] MEDS: MORPHINE IV PRN (13:36)
--- NOTE | 2018-09-19 15:14 | PROGRESS NOTE ---
DATE: 09/19/2018 SUBJECTIVE: The patient, this morning, notes that she is feeling fine. However, she states she was confused and disoriented last night. Does not really remember what happened but notes that she is back to normal. Still having lots of pain in her right lower extremity. PHYSICAL EXAMINATION: Temperature 98, pulse 89, respiratory rate 18, BP 141/52. General: The patient is awake, alert, currently in no distress. HEENT: Normocephalic. Neck: Supple. Cardiovascular: Regular rate. Chest: Clear. No wheezing. Abdomen: Soft, nondistended. Extremities: Moves all extremities. Her right lower extremity is still twice the size of the left. She has 2+ edema on the right, trace to 1+ on the left. Erythema is again slightly improved, although still present. Bandage is clean, dry, and intact. ASSESSMENT: 1. Cellulitis of the right lower extremity. 2. Edema bilateral but right greater than left lower extremity. 3. Diabetes. Blood sugars are okay. 4. Acute renal failure on chronic. Creatinine has actually increased to 3.7. We are going to stop her vancomycin. Certainly, her intravenous Lasix could be the culprit as well. We are going to continue that today. 5. Leukocytosis. 6. Anemia of chronic disease. 7. Diabetes with hyperglycemia. Blood sugar is actually stable at 155. PLAN: We will Continue antibiotics and Lasix. Stop her vancomycin. Continue wound care. Further orders as needed. cc: Gus Fishman MD MTDD
--- NOTE | 2018-09-19 16:04 | Extremity Venous Study ---
EXAM: Venous U/S Bilateral Legs 09/19/2018 HISTORY: d dimer TECHNIQUE: Compression venous ultrasound of the lower extremities with color Doppler flow COMMENT: There is subcutaneous edema present bilaterally. The deep veins are compressible and there is no evidence of obstruction to color Doppler flow. There is no evidence of superficial venous thrombosis. IMPRESSION: Soft tissue edema in the subcutaneous tissues bilaterally. No evidence of venous thrombosis. Electronically signed by Emiliano Lea 09/19/2018 4:02 PM
[2018-09-20] MEDS: NEURONTIN PO SCH ×3 (06:11→21:02)
[2018-09-20] MEDS: SYNTHROID PO SCH (06:12)
[2018-09-20] MEDS: PRILOSEC PO SCH (06:12)
[2018-09-20 06:46] LABS: HEMATOCRIT 23.3 % (37.0-47.0); MCH 25.4 PG (27-31); MCV 84.4 FL (81-99); RBC 2.76 XMIL (4.2-5.4); RDW 16.7 % (11.5-14.5); WBC 12.13 X1000 (4.8-10.8)
[2018-09-20 06:58] LABS: ALBUMIN 3.7 g/dL (3.5-5.0); CALCIUM 8.7 mg/dL (8.8-10.2); CREATININE 3.9 mg/dL (0.5-0.9); MAGNESIUM 1.7 mg/dL (1.5-2.7); POTASSIUM 4.9 mmol/L (3.5-5.1); TOTAL BILIRUBIN 0.2 mg/dL (0.20-1.00); TOTAL PROTEIN 7.2 g/dL (6.3-8.3)
[2018-09-20] MEDS ORDERED: NS 1,000 ML IV SCH (07:00)
[2018-09-20] MEDS: DUONEB (A & A) INH SCH ×3 (08:22→23:27)
[2018-09-20] MEDS: SYMBICORT 80/4.5 MICROGM INHALER INH SCH ×2 (08:22→23:27)
[2018-09-20] MEDS: NORVASC PO SCH (10:07)
[2018-09-20] MEDS: APRESOLINE PO SCH ×3 (10:07→21:02)
[2018-09-20] MEDS: ROCEPHIN 1 GM in NS 50 ML IV SCH (10:07)
[2018-09-20] MEDS: HUMULIN 70/30 (PARKWAY) SUBQ SCH ×3 (10:08→17:14)
[2018-09-20] MEDS ORDERED: NS 500 ML ONE (10:23)
[2018-09-20] MEDS: NORCO-7.5 PO PRN (14:37)
[2018-09-20] MEDS: ZYVOX 600 MG/D5W 600 MG/300 ML IVPB IV SCH (17:14)
--- NOTE | 2018-09-20 21:17 | PROGRESS NOTE ---
DATE: 09/20/2018 SUBJECTIVE: Patient notes that her right lower extremity pain has not really improved. She is still having marked swelling. Denies any fevers or chills. PHYSICAL EXAMINATION: Vital Signs: Reviewed. Temperature 98 degrees, pulse 89, respiratory rate 18, BP 141/52. General: Patient is awake, currently in no respiratory distress. She is sitting up on the bed with her feet hanging over the side. HEENT: Normocephalic. Neck: Supple. Cardiovascular: Regular rate. No murmurs. Chest: Clear and nonlabored. Abdomen: Soft, obese, nondistended. Extremities: Moves all extremities. No focal changes. Skin: Her right lower extremity has a rash from just above the mid craig to her ankle. It is circular. Still erythematous. She has broken areas of skin, but no pus drainage. ASSESSMENT: 1. Cellulitis, although this certainly may be more of a contact rash given that it is circumferential around her calf, where she had an Unna boot, although she has nothing on the left leg or her bilateral feet. She is currently on antibiotics. We have not started steroids given the fact that she has diabetes, already on insulin. 2. Diabetes. Blood sugars have been controlled. 3. Acute on chronic renal failure. Creatinine continues to elevate, is currently up to 3.9. 4. Metabolic acidosis. 5. Anemia of chronic disease. 6. Leukocytosis. PLAN: Will continue patient in the hospital. At this point, we are going to transition her to [facility] for Infectious Disease as well as his Nephrology's input. cc: Gus Fishman MD
[2018-09-21] MEDS: MORPHINE IV PRN ×3 (01:46→21:54)
[2018-09-21] MEDS: ZYVOX 600 MG/D5W 600 MG/300 ML IVPB IV SCH (04:23)
[2018-09-21] MEDS: NEURONTIN PO SCH ×3 (04:23→21:27)
[2018-09-21] MEDS: SYNTHROID PO SCH (06:11)
[2018-09-21] MEDS: PRILOSEC PO SCH (06:11)
[2018-09-21] MEDS: SYMBICORT 80/4.5 MICROGM INHALER INH SCH ×4 (06:21→19:12)
[2018-09-21] MEDS ORDERED: HUMULIN 70/30 SUBQ SCH (07:00)
[2018-09-21 07:02] LABS: MCH 25.9 PG (27-31); MCHC 30.4 g/dL (33-37); MCV 85.2 FL (81-99); MPV 9.7 FL (7.4-10.4); RBC 2.7 XMIL (4.2-5.4); RDW 16.5 % (11.5-14.5); WBC 11.97 X1000 (4.8-10.8)
[2018-09-21 07:15] LABS: ALB/GLOB RATIO 1.1; ALBUMIN 3.5 g/dL (3.5-5.0); CALCIUM 8.5 mg/dL (8.8-10.2); CREATININE 4.3 mg/dL (0.5-0.9); MAGNESIUM 1.8 mg/dL (1.5-2.7); POTASSIUM 4.5 mmol/L (3.5-5.1); TOTAL BILIRUBIN 0.15 mg/dL (0.20-1.00); TOTAL PROTEIN 6.8 g/dL (6.3-8.3)
[2018-09-21] MEDS: DUONEB (A & A) INH SCH ×4 (07:38→19:12)
[2018-09-21] MEDS ORDERED: ROCEPHIN 1 GM in NS 50 ML IV SCH (08:00)
[2018-09-21] MEDS ORDERED: ATARAX PO PRN (08:20)
[2018-09-21] MEDS ORDERED: BLISTEX MEDICATED BERRY LIP BALM TOP PRN (08:21)
[2018-09-21] MEDS ORDERED: TYLENOL PO PRN (08:28)
[2018-09-21] MEDS: FLONASE NAS SCH (08:29)
[2018-09-21] MEDS ORDERED: VENTOLIN HFA INH PRN (08:29)
[2018-09-21] MEDS: NORVASC PO SCH (08:31)
[2018-09-21] MEDS: APRESOLINE PO SCH ×3 (08:31→21:23)
[2018-09-21] MEDS ORDERED: KEFZOL 1 GM/D5W 1 GM/50 ML IVPB IV SCH (09:15)
[2018-09-21] MEDS: KEFZOL 1 GM/D5W 1 GM/50 ML IVPB IV SCH ×2 (12:12→21:23)
[2018-09-21] MEDS: ZAROXOLYN PO SCH (12:13)
[2018-09-21] MEDS: LASIX IV SCH ×2 (12:13→21:23)
--- NOTE | 2018-09-21 13:46 | INFECTIOUS DISEASE CONSULT REP ---
DATE: 09/21/2018 CONCLUSION: Patient has cellulitis of the right leg and to a lesser extent involving the left leg also. RECOMMENDATIONS: I have discontinued Rocephin and Zyvox and I put the patient on Ancef. I have modified the dose because of the patient's renal failure. The patient is allergic to penicillin. However, she has been receiving Rocephin in the hospital and tolerating it well. Therefore, I think she should tolerate Ancef well because both of the antibiotics are cephalosporins. I am also going to request that the nurse watch the patient during the first dose of cefazolin also. I recommended to the patient very strongly that she needs to elevate her legs to help clear up her cellulitis but she told me it causes her to get short of breath when she elevates her legs. DISCUSSION: The patient tells me that she has had erythema and swelling of her right leg and to a lesser extent the left leg. This has been going on for approximately 1 to 2 weeks. Her laboratory studies thus far show a CBC with a white count of 11,970, hemoglobin 7, platelet count 303,000. Creatinine is 4.3. GFR is 11. Liver function studies are normal. A culture from the right leg and blood are sterile. Venous ultrasound showed subcutaneous edema with both legs. PAST MEDICAL HISTORY/REVIEW OF SYSTEMS: Eyes and ears: Patient has decreased hearing and decreased vision. Neck: No stiffness. Respiratory: No cough or shortness of breath. Cardiac: No chest pain or palpitations. GI: No nausea, vomiting, or diarrhea. : No dysuria or flank pain. Neurologic: No seizures. No loss of motor or sensory function. Integument: No rashes. 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 She delivered her children by . PREVIOUS HOSPITALIZATIONS AND OPERATIONS: She has had 3 C-sections, a thyroidectomy and amputation of toes 1 and 2 of the right foot. She has also been admitted with pneumonia and diabetic ketoacidosis. MEDICAL DISEASES: Positive for morbid obesity, hypertension, diabetes mellitus, peripheral vascular disease and end-stage renal disease. Patient has hypothyroidism secondary to thyroidectomy. INFECTIOUS DISEASE HISTORY: Positive for pneumonia and UTI. FAMILY HISTORY: Positive for diabetes mellitus, hypertension, myocardial infarction and stroke. SOCIAL HISTORY: [place] She is . She lives alone. Does not have any pets. She is allergic to amoxicillin manifested by hives but she has been receiving Rocephin in the hospital and tolerating it well. She is also allergic to tramadol. The patient is disabled. She does not smoke cigarettes, drink alcoholic beverages or abuse drugs. MEDICATIONS: The medications taken at home include she is on albuterol inhaler, amlodipine, Symbicort inhaler, fluticasone nasal spray, Lasix, gabapentin, insulin hydralazine, Synthroid and omeprazole. PHYSICAL EXAMINATION: Vital Signs: Temperature is 98.5 degrees, pulse 84, respirations 14, blood pressure 141/55. Patient weighs 297 pounds. General: This is a morbidly obese, middle-aged female. She is in no acute distress. Head, eyes, ears, nose, and throat: She can hear my spoken words and see near objects. There is no drainage from the nose or ears. Neck: No meningismus. Lungs: Clear to auscultation. Cardiovascular: Heart rate was regular. It was difficult for me to feel for peripheral pulses in the patient's legs, but this may have been due to the fact that the patient had bilateral leg edema. Abdomen: Soft and not tender. Extremities: The patient has bilateral leg edema. The right leg is erythematous and it had some superficial wounds also. The underlying tissue was beefy red in color. There was no purulence or odor to the wounds. The left leg was a pinkish color but there was no drainage coming from it. Neurologic: The patient is alert. She can move her extremities. There is no tremor. Her sensation is intact to touch. Her memory as regarding her medical history seemed to be intact also. Thank you for the consult. cc: Sachin Petty MD
--- NOTE | 2018-09-21 15:15 | NEPHROLOGY CONSULTATION ---
DATE: 09/21/2018 REASON FOR ADMISSION: Cellulitis, fluid volume overload. REASON FOR CONSULTATION: Acute on chronic kidney disease, fluid volume overload. Assist with management. CONSULTING PHYSICIAN: Dr. Nielsen. HISTORY OF PRESENT ILLNESS: This is a 53-year-old female, known to our service for CKD stage 4 with a baseline creatinine of about 3. She has been seen in our office in the last few months. At that time, she was having worsening fluid volume. She was placed on Lasix. Since then, she is had Unna boots placed to assist with her lower extremity edema. When she took the Unna boot after about a week of it on, she has blisters and redness. She had peeling and worsening pain and came into the emergency room where originally her creatinine was at baseline at 3. She is progressed through the hospitalization. Her urine output has been marginal. The patient states that she cannot walk from the bed to the restroom without becoming extremely short of breath and really is unable to care for herself at home without assistance at this point. The patient does have a long history of coronary artery disease, congestive heart failure. The patient denies any nausea, vomiting. Positive shortness of breath. Positive chest pain. Positive weakness. PAST MEDICAL HISTORY: COPD, obesity, hypothyroidism, hypertension, chronic pain, congestive heart failure, coronary artery disease, hyperlipidemia diabetes stage 4, kidney disease, diabetic retinopathy. SURGICAL HISTORY: section, bilateral tubal ligation, orthopedic surgery with 1st and 2nd toe amputations, partial thyroidectomy. ALLERGIES: Amoxicillin, tramadol. HOME MEDICATIONS: 1. ProAir. 2. Symbicort. 3. Synthroid. 4. Gabapentin. 5. Amlodipine. 6. Lasix. 7. Novolin. 8. Hydralazine. 9. Polo. FAMILY HISTORY: Diabetes. SOCIAL HISTORY: Lives at home. Her daughter apparently lives either close by or with her but provides little assistance. REVIEW OF SYSTEMS: Shortness of breath, weakness, worsening edema. PHYSICAL EXAMINATION: Vital Signs: Temperature 98.5 degrees, pulse 89, respiratory rate 12, blood pressure 141/55. Intake 800 mL, output 700 mL. General: This is a chronically ill- appearing, morbidly obese female, resting in bed. She is obviously short of breath when you speak to her. HEENT: Normocephalic, atraumatic. Oral mucosa moist. Dentition poor. Neck: Supple. Positive JVD. Cardiovascular: Regular rate and rhythm with a murmur and a gallop. Pulmonary: She has equal excursion. She has some rhonchi bilaterally. No wheezes. Abdomen: Obese. She has an extremely large pannus. Genitourinary: She is voiding. Extremities: She has 4+ edema that extends up to the axilla area. Lower extremities: She has a large gauze dressing to the right lower extremity. She has some old amputations that are healed. She has significant weeping, especially to the right lower extremities. Neuro: Grossly nonfocal. LABORATORY DATA: WBC of 11,9, hemoglobin 7. Sodium 132, potassium 4.5, CO2 19, BUN 54, creatinine 4.3, calcium 8.5. Albumin 3.5. Urine had 3+ protein, 500 mg/dL. ASSESSMENT AND PLAN: 1. Acute on chronic kidney disease with exogenous fluid volume overload. We discussed with the patient the utilization of high-dose diuretics in an attempt to medically manage her fluid volumes. However, if we could not, we may have to resort to dialysis for this. Her renal function when she came in the hospital was fairly stable. She has risen now to greater than 4. Her baseline is 3 and baseline GFR is just shy of 20.. 2. Cellulitis, right leg. The Rocephin and Zyvox has been discontinued. She has been placed on Ancef per Infectious Disease. 3. Electrolytes, acid-base balance. She is slightly acidotic. I will not add sodium bicarbonate at this time secondary to the fact that we are trying to remove fluid. We may see some improvement in her CO2 secondary to the diuresis. We will monitor this closely. 4. Hypertension, currently controlled. Dictated by STEPHANIE Teixeira for Sal Brooks MD Face to face encounter, data reviewed, discussed with Fidel Wallace on 09/21/18. I agree with the above assessment and plan of care. cc: Sal Brooks MD [facility]
[2018-09-21] MEDS ORDERED: INSULIN PEN NEEDLES ONE (16:37)
[2018-09-21] MEDS: HUMULIN 70/30 SUBQ SCH (16:47)
[2018-09-21] MEDS ORDERED: ZYVOX 600 MG/D5W 600 MG/300 ML IVPB IV SCH (17:00)
--- NOTE | 2018-09-21 17:01 | PROGRESS NOTE ---
DATE: 09/21/2018 SUBJECTIVE: Ms. Glaser is a 53-year-old who presented with pain in her legs. Came to the hospital on 09/15/2018 noting that she had a red, swollen area in the right lower extremity. It happened about 5 days before. She has been treated with an Unna boot on the through the , taken off, and I think followed by Dr. Alaniz, but taken off on the or . She noticed some blisters and redness and was concerned and came back to the hospital. PAST MEDICAL HISTORY: 1. COPD. 2. Obesity. 3. Hypothyroidism. 4. Hypertension. 5. Chronic pain. 6. Congestive heart failure. 7. Known coronary artery disease. 8. Hyperlipidemia. 9. Diabetes mellitus type 2. 10. Stage 4 kidney failure. 11. Diabetic retinopathy. PAST SURGICAL HISTORY: 1. Bilateral tubal ligation. 2. . 3. Orthopedic surgery, first and second toe amputations. 4. She has had partial thyroidectomy. So admitted with: 1. Diabetes and hyperglycemia, sugars 265. 2. Stage 4 renal disease. 3. Metabolic acidosis secondary to renal disease. 4. Leukocytosis. 5. Anemia of chronic disease. 6. Cellulitis of the right lower extremity. 7. Hypertension. OBJECTIVE: General: On exam today she is able to ambulate to the bathroom. She is feeling, I think, better. Vital signs: She remains afebrile, temperature 97.6 degrees, pulse 92, respirations 22, blood pressure 154/70. HEENT: Pupils are equal and round. Lungs: Clear in all lung roche. Cardiovascular: Regular rhythm and rate without murmur or S3. Abdomen: Soft. Skin: Warm and dry. Right leg was wrapped up but decreased erythema. LABORATORY DATA: Reviewed lab from yesterday. White count 11,970, hematocrit was 23, hemoglobin was 7, platelet count 303,000. Sodium 132, potassium 4.3, chloride 98, BUN 54, creatinine has gone up to 4.3. Blood sugars 184, 173, 149, and 81. ASSESSMENT AND PLAN: Dr. Petty is following. She has cellulitis of the right leg, lesser extent involving the left also. He discontinue Rocephin and Zyvox and put her on Ancef and modified the dose for her renal insufficiency. She is allergic to penicillin. However, she has been receiving Rocephin in the hospital and has done well, so feel she will tolerate the Ancef. Continue present regimen. Review of orders, I do not see any change at this point. Note that creatinine has gone up some and we may need to get Dr. Brooks involved, which I think he has already been consulted. She has acute on chronic kidney disease, exogenous fluid volume overload, so going to try high- dose diuretics in an attempt to medically manage her. However, may have to resort to dialysis. Electrolytes and acid base look okay. Blood pressure controlled. cc: Kris Plaza MD
[2018-09-21] MEDS: NORCO-7.5 PO PRN (17:57)
[2018-09-22] MEDS: DUONEB (A & A) INH SCH ×5 (03:04→21:22)
[2018-09-22] MEDS: PRILOSEC PO SCH (06:39)
[2018-09-22] MEDS: NEURONTIN PO SCH ×3 (06:39→21:30)
[2018-09-22] MEDS: SYNTHROID PO SCH (06:39)
[2018-09-22] MEDS: HUMULIN 70/30 SUBQ SCH ×2 (06:39→17:06)
[2018-09-22] MEDS: NORCO-7.5 PO PRN ×2 (06:49→17:05)
[2018-09-22] MEDS: SYMBICORT 80/4.5 MICROGM INHALER INH SCH ×2 (07:48→21:22)
[2018-09-22 07:58] LABS: ALBUMIN 3.4 g/dL (3.5-5.0); CREATININE 3.9 mg/dL (0.5-0.9); PHOSPHORUS 6.3 mg/dL (2.7-4.5); POTASSIUM 3.8 mmol/L (3.5-5.1)
[2018-09-22] MEDS: NORVASC PO SCH (08:43)
[2018-09-22] MEDS: APRESOLINE PO SCH ×3 (08:43→21:30)
[2018-09-22] MEDS: FLONASE NAS SCH (08:43)
[2018-09-22] MEDS: LASIX IV SCH ×2 (08:44→21:30)
[2018-09-22] MEDS: KEFZOL 1 GM/D5W 1 GM/50 ML IVPB IV SCH ×2 (08:44→21:30)
[2018-09-22] MEDS: ZAROXOLYN PO SCH (08:47)
[2018-09-22 09:17] LABS: HEMATOCRIT 23.6 % (37.0-47.0); HEMOGLOBIN 7.3 g/dL (12.0-16.0); MCH 25.5 PG (27-31); MCHC 30.9 g/dL (33-37); MCV 82.5 FL (81-99); MPV 9.9 FL (7.4-10.4); RBC 2.86 XMIL (4.2-5.4); RDW 16.6 % (11.5-14.5); WBC 10.8 X1000 (4.8-10.8)
--- NOTE | 2018-09-22 11:10 | NEPHROLOGY PROGRESS NOTE ---
DATE: 09/22/2018 SUBJECTIVE: Patient is sitting up in bed. She states that she has been up to the bathroom. She has had some urine output, but no significant amount. OBJECTIVE: Vital Signs: Temperature 97.6 degrees, pulse 81, respiratory rate 18, blood pressure 132/61. Intake 100 mL; output 1.1 liter. General: This is a middle-aged female, who is chronically ill-appearing sitting up in bed. She is in no acute distress, although she does have some shaking related to being cold. HEENT: Normocephalic, atraumatic. RAN. Oral mucosa moist. Neck: Supple. There is positive JVD. Cardiovascular: Regular rate and rhythm with a gallop. Pulmonary: Equal excursion. She continues with some rhonchi bilaterally, but no wheeze or rales. Abdomen: Obese with large pannus. Positive bowel sounds. : Continues to void. Extremities: She has 4+ edema up to the axilla area. Right lower extremity has a large gauze Coban dressing noted. Integumentary: Skin is warm and dry otherwise. Neurologic: Grossly nonfocal. LAB DATA: WBC of 10.8, hemoglobin 7.3. Sodium 136, potassium 3.8, CO2 19. BUN 53, creatinine 3.9, calcium 6.3 albumin 3.4. She has a GFR of 12. ASSESSMENT/PLAN: 1. Acute on chronic kidney disease with exogenous fluid volume overload. We have used high-dose Lasix and metolazone over the last 24 hours. We have really had no significant response. We will give this another day to see if we can mobilize some fluid. Her albumin level is 3.4, which is only marginally low. Again, we discussed with the patient the possibility that we would need to use dialysis to manage her fluid volume at this particular point. Check labs. Evaluate tomorrow with final plan. 2. Cellulitis, right leg. The patient remains on cefazolin. Followed by Infectious Disease. 3. Electrolytes, acid-base balance, anemia. Her CO2 is stable, again monitor. Dictated by STEPHANIE Teixeira for Sal Brooks MD Face to face encounter, data reviewed, discussed with Fidel Wallace on 09/22/18. I agree with the above assessment and plan of care. cc: Sal Brooks MD [facility]
[2018-09-22] MEDS: MORPHINE IV PRN ×2 (13:06→21:35)
--- NOTE | 2018-09-22 14:08 | INFECTIOUS DISEASE PROGRESS NO ---
DATE: 09/22/2018 PRESENT ILLNESS: The patient has cellulitis of the right leg and to a lesser extent the left leg is involved also. MEDICATIONS: The patient is receiving Ancef, the dose of which is reduced because of the patient's renal failure. PHYSICAL EXAMINATION: Vital Signs: Temperature is 97.6 degrees, pulse 82, respirations 18, blood pressure 138/60. General: This is an obese, middle-aged female. She is in no acute distress. Head/eyes/ears/nose/throat: She can hear my spoken words and see near objects. She does not have any white patches on her tongue. Neck: No pain with movement of her neck. Lungs: Clear to auscultation. Cardiovascular: Heart rate is regular. Abdomen: Soft and nontender. Extremities: The right leg is less erythematous and the bullae have all disappeared. The left leg is less swollen and less erythematous. Neurologic: The patient is alert. She can move her extremities. She does not have a tremor. LAB AND X-RAY: There is no new radiographic study. [place] [address], hemoglobin 7.3, and platelet count 324,000. A culture of the blood and the patient's leg is negative. Creatinine is 3.9. GFR is 12. ASSESSMENT AND PLAN: Patient has leg cellulitis. The plan is to continue with leg elevation and Ancef. COMORBIDITIES: Patient has morbid obesity which causes bilateral leg edema and sets the stage ready for the patient to get cellulitis. The patient also is a diabetic. She has peripheral vascular disease and end-stage renal disease. cc: Sachin Petty MD
--- NOTE | 2018-09-22 15:44 | PROGRESS NOTE ---
DATE: 09/22/2018 SUBJECTIVE: Ms. Glaser is feeling better overall. She has remained afebrile. OBJECTIVE: Vital Signs: Temperature 97.6 degrees, pulse 82, respirations 18, blood pressure 138/60. Eyes: Pupils are equal and round. Lungs: Lungs are clear in all lung roche. Cardiovascular exam: Regular rhythm and rate without murmur or S3. : Urine output was almost 2 L. ASSESSMENT AND PLAN: 1. Patient with cellulitis of the right leg, to a lesser extent the left leg. Recently on Ancef, and the dose was reduced because of her renal dysfunction. 2. Acute renal failure, acute on chronic kidney disease with exogenous fluid volume overload. So, using high-dose Lasix and metolazone, seeing if we can diurese her. I think decided to try some prednisone as well. 3. Electrolytes, acid base look stable. Hemoglobin 7.3, hematocrit 23, white count 10,800, which has come down from 14,000, platelet count 324,000. Electrolytes: Creatinine is at 3.9, was 4.3, so hopefully we will start seeing some return. Review of orders: I do not see anything to change at this point. She is on Neurontin 600 mg t.i.d., Apresoline 50 mg t.i.d., insulin 70/30 at 40 units twice a day, Synthroid 100 mcg daily. Blood sugars have been running 169, 155, 168 and 173. cc: Kris Plaza MD
[2018-09-23] MEDS: MORPHINE IV PRN ×2 (04:30→21:14)
[2018-09-23] MEDS: NEURONTIN PO SCH ×3 (04:33→21:15)
[2018-09-23] MEDS: PRILOSEC PO SCH (06:08)
[2018-09-23] MEDS: SYNTHROID PO SCH (06:08)
[2018-09-23] MEDS: HUMULIN 70/30 SUBQ SCH ×2 (06:09→16:50)
[2018-09-23 07:24] LABS: HEMOGLOBIN 7.1 g/dL (12.0-16.0); MCH 25.2 PG (27-31); MCHC 30.9 g/dL (33-37); MCV 81.6 FL (81-99); MPV 9.8 FL (7.4-10.4); RBC 2.82 XMIL (4.2-5.4); RDW 16.4 % (11.5-14.5); WBC 10.52 X1000 (4.8-10.8)
[2018-09-23 07:30] LABS: ALBUMIN 3.3 g/dL (3.5-5.0); CALCIUM 8.3 mg/dL (8.8-10.2); CREATININE 4.4 mg/dL (0.5-0.9); PHOSPHORUS 6.3 mg/dL (2.7-4.5)
[2018-09-23] MEDS: SYMBICORT 80/4.5 MICROGM INHALER INH SCH ×2 (07:59→21:56)
[2018-09-23] MEDS: DUONEB (A & A) INH SCH ×3 (08:00→21:56)
[2018-09-23] MEDS ORDERED: INSULIN PEN NEEDLES ONE (08:58)
[2018-09-23] MEDS: FLONASE NAS SCH (09:04)
[2018-09-23] MEDS: KEFZOL 1 GM/D5W 1 GM/50 ML IVPB IV SCH ×2 (09:05→21:14)
[2018-09-23] MEDS: LASIX IV SCH ×2 (09:05→21:15)
[2018-09-23] MEDS: NORVASC PO SCH (09:06)
[2018-09-23] MEDS: ZAROXOLYN PO SCH (09:06)
[2018-09-23] MEDS: APRESOLINE PO SCH ×3 (09:06→21:15)
--- NOTE | 2018-09-23 10:52 | GENERAL SURGERY CONSULTATION ---
DATE: 09/23/2018 REASON FOR CONSULTATION: Dialysis access, place tunneled dialysis catheter. REQUESTING PHYSICIAN: Dr. Brooks. HISTORY OF PRESENT ILLNESS: This is a 53-year-old female with chronic kidney disease stage 4, who has had worsening fluid overload, not responding to diuretics. She is having lower extremity edema, fatigue, and significant shortness of breath and weakness. The Nephrology Service is planning to initiate dialysis this admission. PAST MEDICAL HISTORY: COPD, obesity, hypothyroidism, hypertension, chronic pain, congestive heart failure, coronary artery disease, hyperlipidemia, stage 4 chronic kidney disease, diabetic retinopathy. PAST SURGICAL HISTORY: section x3, tubal ligation, first and second toe amputations on the right, and partial thyroidectomy. ALLERGIES: Amoxicillin and tramadol. FAMILY HISTORY: Diabetes. SOCIAL HISTORY: Negative for tobacco, alcohol, or illicit drug use. CURRENT MEDICATIONS: AA nebs, Norvasc, Ventolin, Symbicort, Ancef, Flonase, Lasix, Neurontin, Apresoline, Atarax, insulin 70/30, Synthroid, Zaroxolyn, Prilosec. REVIEW OF SYSTEMS: Ten systems were reviewed and negative, except as noted above. PHYSICAL EXAMINATION: Vital Signs: Temperature 97.4 degrees, pulse 80, respirations 16, blood pressure 138/62, O2 saturation 100%. General: A chronically ill-appearing female who looks to be short of breath at rest. HEENT: Normocephalic, atraumatic. Extraocular muscles intact. Pupils equal, round, reactive to light. Sclerae anicteric. Neck: Supple. No thyromegaly. CV: Regular rate and rhythm. Positive systolic murmur. Respiratory: Equal bilateral breath sounds. She is mildly tachypneic. GI: Obese, soft, nontender. No organomegaly or mass appreciated. Extremities: Bilateral lower extremity edema is present with some erythema and superficial wounds on the right, without necrotic tissue or purulence. Musculoskeletal: Moves all extremities equally and weakly. LABORATORY DATA: White blood cell count 10, hemoglobin 7.1, hematocrit 23, platelet count 352,000. Electrolytes reviewed and notable for potassium 3.0, BUN 53, creatinine 4.4. IMAGING: Chest x-ray showed pulmonary vascular congestion and pulmonary edema on admission. ASSESSMENT AND PLAN: A 53-year-old female with acute on chronic kidney disease, now requiring dialysis. We will place a tunneled dialysis catheter. I discussed the risks and benefits with her, including bleeding, infection, pneumothorax, catheter malfunction, and other imponderables. She understands and agrees to proceed. cc: Arun Sauceda MD
[2018-09-23] MEDS ORDERED: XYLOCAINE-MPF 1%/EPI 1:200,000 ONE (10:59)
[2018-09-23] MEDS ORDERED: DIPRIVAN 1% ONE (10:59)
[2018-09-23] MEDS ORDERED: NS 250 ML ONE (10:59)
[2018-09-23] MEDS ORDERED: XYLOCAINE-MPF 2% ONE (11:00)
[2018-09-23] MEDS ORDERED: ROBINUL ONE (11:00)
--- NOTE | 2018-09-23 12:35 | Diag Imaging Result Doc PS360 ---
CHEST-PORTABLE - 09/23/2018 INDICATION: port placement COMPARISON: 09/15/2018 FINDINGS: There has been placement of a right dialysis catheter in good position with the distal tip at the cavoatrial junction. No pneumothorax or pleural effusion. Stable cardiomegaly. Stable finding interstitial infiltrates compatible with pulmonary edema/volume overload. IMPRESSION: No complication. Electronically signed by Anton Dixon 09/23/2018 12:32 PM
[2018-09-23] MEDS ORDERED: D50W SYRINGE IV ONE (12:45)
--- NOTE | 2018-09-23 13:34 | PROGRESS NOTE ---
DATE: 09/23/2018 SUBJECTIVE: Ms. Glaser had a little better night and got some rest. Remains afebrile. OBJECTIVE: Temperature 98.1 degrees, pulse 80, respirations 15, blood pressure 138/62. Pupils are equal and round. Lungs are clear in all lung roche. Cardiovascular Examination: Regular rhythm and rate without murmur or S3. Abdomen is soft. Skin is warm and dry. Urine output 3300 mL. ASSESSMENT AND PLAN: 1. Chest x-ray, no complication. Had recent placement of right dialysis catheter in good position in the caval-arterial junction. No pneumothorax or pleural effusion. She had a dialysis access placed, a tunneled dialysis catheter. 2. Cellulitis of the right leg and to a lesser degree, the left leg, is improving. 3. Acute renal failure on top of chronic kidney disease. Required dialysis. Followed by Dr. Brooks. Electrolytes and acid base appear stable. REVIEW OF ORDERS: The patient is on amlodipine 10 mg daily, Lasix IV q.12, Neurontin 600 mg t.i.d., Apresoline 50 mg p.o. t.i.d., Atarax 25 mg q.6 hours p.r.n., Humulin 70/30 with 40 units subcutaneously twice a day, cefazolin 1 g IV q.12, Synthroid 100 mcg p.o. daily, Zaroxolyn 10 mg a day. cc: Kris Plaza MD [facility]
--- NOTE | 2018-09-23 18:31 | OPERATIVE NOTE ---
PROCEDURE DATE: 09/23/2018 PREOPERATIVE DIAGNOSES: 1. Acute on chronic kidney disease. 2. Volume overload. POSTOPERATIVE DIAGNOSES: 1. Acute on chronic kidney disease. 2. Volume overload. PROCEDURE: Insertion of tunneled dialysis catheter with fluoroscopic and ultrasound guidance. SURGEON: Dr. Arun Sauceda. SMALL BUSINESS DIRECTOR: None. ANESTHESIA: General. ESTIMATED BLOOD LOSS: 5 mL. COMPLICATIONS: None apparent. SPECIMENS: None. FINDINGS: The right internal jugular vein was visualized with ultrasound. It was compressible and patent without thrombus. Fluoroscopy was used to confirm placement of the wire into the right atrium followed by the tip of the catheter to the superior vena cava right atrial junction. TECHNIQUE: The patient was brought to the operating room and placed supine on the table. General anesthesia was induced. She was prepped and draped in usual sterile fashion. She was placed in Trendelenburg. The right internal jugular vein was found with ultrasound. It was compressible, patent and without thrombus. The skin over the vein was anesthetized with Marcaine. A small incision was made with a 15 blade and then the vein was accessed under ultrasound guidance with the syringe and needle. The wire passed through the needle after the 3rd attempt. The wire was then confirmed to be in the right atrium with fluoroscopy. The catheter was tunneled subcutaneously from the lower incision out through the neck incision. The track was dilated with passing of dilators over the wire and then the sheath and dilator were passed over the wire. The wire and internal dilator were removed. The catheter was passed into the sheath. The sheath was removed. The tip of the catheter was in the correct position under fluoroscopy. The ports andrews back blood easily and were flushed with saline. Sterile caps were applied. The port was anchored to the skin with nylon suture. Then, 3-0 Polysorb subcuticular sutures were placed at the exit site in the right chest and in the right neck to close the skin. Dressings were applied. There were no apparent complications. She was awakened in fair condition. cc: Arun Sauceda MD
--- NOTE | 2018-09-23 19:03 | NEPHROLOGY PROGRESS NOTE ---
DATE: 09/23/2018 SUBJECTIVE: The patient is sitting up on the side of bed. She continues with edema. She continues with severe shortness of breath. OBJECTIVE: Vital Signs: Temperature 98.5 degrees, pulse 79, respiratory rate 18, blood pressure 129/53. Intake 670 mL. Output 1.9 L. Her current weight is 133 kg, unchanged from yesterday. General: Chronically ill-appearing female with significant shortness of breath in mild distress today. HEENT: Normocephalic, atraumatic. Conjunctivae are pale. Oral mucosa dry. Neck: Supple. Positive JVD in the upright position. Cardiovascular: Regular with murmur. Pulmonary: Decreased breath sounds. Abdomen: Soft. Positive bowel sounds. Morbidly obese with pitting edema. : Voiding. Extremities: Bilaterally lower extremity edema. Right lower extremity with a gauze dressing. Integumentary: Skin is pale, warm and dry. LAB DATA: WBC 10, hemoglobin 11.1. Potassium 3.0, creatinine 4.4 (3.9). IMAGING: Pulmonary vascular congestion and pulmonary edema. ASSESSMENT AND PLAN: Acute on chronic kidney disease with exogenous fluid volume overload. It has not responded to maximum dose of Lasix. We have discussed dialysis in the setting of fluid management and the patient is in agreement. We will request Surgery place a dialysis access today. We will initiate dialysis thereafter. The patient has not eaten anything this morning. We will continue her as NPO until surgery sees her and makes a decision if they are going to take her to the operating room today or tomorrow. Dictated by STEPHANIE Teixeira for Sal Brooks MD Face to face encounter, data reviewed, discussed with Fidel Wallace on 09/23/18. I agree with the above assessment and plan of care. cc: Sal Brooks MD [facility]
--- NOTE | 2018-09-23 20:41 | INFECTIOUS DISEASE PROGRESS NO ---
DATE: 09/23/2018 PRESENT ILLNESS: The patient has right leg cellulitis. MEDICATIONS: The patient is on Ancef, the dose of which is reduced because of the patient's renal failure. PHYSICAL EXAMINATION: Vital Signs: Temperature is 98 degrees, pulse 54, respirations 14, blood pressure 127/57. General: This is an obese, middle-aged female. She is in no acute distress. Head/eyes/ears/nose/throat: She can hear my spoken words and see near objects. She does not have any white coating of her tongue. Neck: No meningismus. Lungs: Clear to auscultation. Cardiovascular: Regular heart rate. Thorax: The patient has had a right- sided tunneled dialysis catheter placed this afternoon. Abdomen: Soft and nontender. Extremities: The right leg is a pinkish color rather than erythema. In the area where the patient used to have bullae, now there are not bullae, and there is no drainage coming from the wounds. Neurologic: Patient is alert. She can move her extremities. She does not have a tremor. LAB AND X-RAY: Chest x-ray shows pulmonary edema. The CBC shows a white count of 10,520, hemoglobin 7.1, and platelet count 352,000. Creatinine is 4.4, GFR is 11. Left leg and blood cultures are negative. ASSESSMENT AND PLAN: Patient has leg cellulitis. My plan is to continue with Ancef and elevation of the leg for as long as possible. COMORBIDITIES: Morbid obesity with resulting bilateral leg edema, diabetes mellitus, peripheral vascular disease, and end-stage renal disease. cc: Sachin Petty MD [facility]
[2018-09-24] MEDS: NEURONTIN PO SCH ×3 (05:55→22:11)
[2018-09-24] MEDS: PRILOSEC PO SCH (05:59)
[2018-09-24] MEDS: SYNTHROID PO SCH (06:00)
[2018-09-24] MEDS: HUMULIN 70/30 SUBQ SCH ×2 (06:33→16:33)
[2018-09-24] MEDS ORDERED: NS 2,000 ML MISC PRN (07:12)
[2018-09-24] MEDS ORDERED: HEPARIN IV PRN (07:12)
[2018-09-24] MEDS ORDERED: TIGHT: 0.2 ML/HR FOR DIALYSIS MISC PRN (07:12)
[2018-09-24 07:53] LABS: ALBUMIN 2.9 g/dL (3.5-5.0); CALCIUM 8.2 mg/dL (8.8-10.2); CREATININE 4.4 mg/dL (0.5-0.9); PHOSPHORUS 6.8 mg/dL (2.7-4.5); POTASSIUM 2.9 mmol/L (3.5-5.1)
[2018-09-24 07:55] LABS: HEMATOCRIT 22.1 % (37.0-47.0); HEMOGLOBIN 6.9 g/dL (12.0-16.0); MCH 25.4 PG (27-31); MCHC 31.2 g/dL (33-37); MCV 81.3 FL (81-99); MPV 9.5 FL (7.4-10.4); RBC 2.72 XMIL (4.2-5.4); RDW 16.4 % (11.5-14.5); WBC 9.74 X1000 (4.8-10.8)
[2018-09-24] MEDS: DUONEB (A & A) INH SCH ×3 (08:10→20:40)
[2018-09-24] MEDS: SYMBICORT 80/4.5 MICROGM INHALER INH SCH ×2 (08:12→20:40)
[2018-09-24] MEDS: APRESOLINE PO SCH ×4 (10:00→22:11)
[2018-09-24] MEDS: FLONASE NAS SCH (10:01)
[2018-09-24] MEDS: MORPHINE IV PRN (13:19)
[2018-09-24] MEDS: ZAROXOLYN PO SCH (13:23)
[2018-09-24] MEDS: NORVASC PO SCH (13:23)
[2018-09-24] MEDS: LASIX IV SCH ×2 (13:24→22:11)
[2018-09-24] MEDS: KEFZOL 1 GM/D5W 1 GM/50 ML IVPB IV SCH ×2 (13:24→22:11)
[2018-09-24] MEDS: NORCO-7.5 PO PRN ×3 (13:27→22:11)
[2018-09-24 14:28] LABS: HEPATITIS PROFILE ACUTE SEE COMMENTS
--- NOTE | 2018-09-24 15:50 | PROGRESS NOTE ---
DATE: 09/24/2018 Ms. Glaser is feeling better and she is starting to tolerate dialysis a little better. Temp 97.7 degrees, pulse 88, respirations 20, blood pressure 116/55. Her pupils are equal. No distended neck veins. Lungs are clear in all lung roche. Cardiovascular regular rhythm and rate without murmurs. Urine output was 1200 mL with dialysis. ASSESSMENT AND PLAN: 1. Acute on chronic kidney disease with exogenous fluid volume overload, not responded to maximum dose of Lasix so undergoing diuresis or dialysis right now. She has had a dialysis catheter placed. Access placed. 2. Cellulitis, which is improving. We will continue her Keflex p.o. Appreciate Dr. Petty' evaluation. 3. Nutrition appears to be good. Good p.o. intake. Chest x-ray from 09/23/2018 showed no complication from dialysis catheter placement. She seems to be feeling better. REVIEW OF HER ORDERS: I do not see any changes. Blood pressure is well controlled. LAB: Creatinine is 4.4, sodium 139, potassium 2.9, chloride 100, BUN 55. Creatinine is about the same. cc: Kris Plaza [facility]
--- NOTE | 2018-09-24 19:20 | INFECTIOUS DISEASE PROGRESS NO ---
DATE: 09/24/2018 PRESENT ILLNESS: The patient has a right leg cellulitis. The cellulitis in the patient's left leg has cleared. MEDICATIONS: The patient is on Ancef, with the dose reduced because of the patient's renal failure and she is on dialysis now. OBJECTIVE: Vital signs: Temperature is 98.2 degrees, pulse respirations 18, blood pressure 133/68. Generally this is an obese, middle-aged female. She is in no acute distress. Head, eyes, ears, nose, throat: She can hear my spoken words and see near objects. She does not have any white coating on her tongue. Neck: No pain with movement of the neck. Lungs clear to auscultation.Cardiovascular: Heart rate is regular. Thorax: The patient has a tunneled right- sided dialysis catheter in place. The site is not erythematous or purulent. Abdomen is soft and nontender. Neurologic: The patient is on dialysis now so she is a little sleepy, but she still did answer questions and she did move her extremities to request. LAB AND RADIOLOGY: CBC-WBC 9.74, hgb 6.9, platelets 341K. Creatinine-4.4. GFR- 11. No radiographic study today. ASSESSMENT AND PLAN: 1. The patient has leg cellulitis. I am going to continue with Ancef as long as the patient is in the hospital. If the patient should be discharged in the next day or 2, I would suggest sending her home on Keflex 500 mg p.o. every 12 hours for 5 more days, and also I have told the patient that she will need to elevate both legs as much as possible to hopefully prevent cellulitis from returning. 2. Comorbidities: The patient has morbid obesity with resulting bilateral leg edema, diabetes mellitus, peripheral vascular disease and end-stage renal disease, for which the patient now is on dialysis. cc: Sachin Petty MD [facility]
--- NOTE | 2018-09-24 20:38 | NEPHROLOGY PROGRESS NOTE ---
DATE: 09/24/2018 SUBJECTIVE: The patient is sitting up in bed. She continues to be short of breath with any exertion. OBJECTIVE: Vital signs: Temperature 97.7 degrees, pulse 82, respiratory rate 20, blood pressure 116/55. Intake 640 mL, output 1.6 L.General: This is a middle-aged female who is chronically ill- appearing. She is sitting up in bed. She does not appear in acute distress, although she has some mild distress from her shortness of breath which is somewhat chronic. HEENT: Normocephalic, atraumatic. Pale conjunctivae. Dry oral mucosa. Neck is supple. Positive JVD. Cardiovascular: Regular rate and rhythm with a harsh systolic murmur. Pulmonary: Continues with decreased breath sounds. She has no wheezes. Abdomen obese. Pitting edema. Positive bowel sounds, hypoactive. : Voiding. Extremities: Lower extremity edema 3+ that extends all the way up into the hips. She has a dressing to the right lower extremity. Integumentary: Her skin is pale. LABORATORY DATA: WBC of 9.7, hemoglobin 6.9. Sodium 139, potassium 2.9, CO2 is 23, creatinine 4.4, calcium 6.8, albumin 2.9. ASSESSMENT AND PLAN: Q[place]u-[place]wil kidney disease with exogenous fluid volume overload. She has a tunneled dialysis catheter placed yesterday. We will dialyze her today, with ultrafiltration during the last portion of her treatment to remove the maximum amount of uf possible. We will plan to dialyze her again on Thursday. We will likely rest her on Thursday, and then if she remains in the hospital at the beginning of next week we will continue dialysis. We will continue outpatient dialysis in the interim if she is discharged. Dictated by STEPHANIE Teixeira for Sal Brooks MD Face to face encounter, data reviewed, discussed with Fidel Wallace on 09/24/18. I agree with the above assessment and plan of care. cc: Sal Brooks MD [facility]
[2018-09-25] MEDS: MORPHINE IV PRN (02:52)
[2018-09-25] MEDS: ZOFRAN IV PRN ×3 (05:09→13:49)
[2018-09-25] MEDS: HUMULIN 70/30 SUBQ SCH ×2 (06:23→17:37)
[2018-09-25] MEDS: SYNTHROID PO SCH (06:23)
[2018-09-25] MEDS: PRILOSEC PO SCH (06:23)
[2018-09-25] MEDS: NEURONTIN PO SCH ×3 (06:23→21:55)
[2018-09-25 06:58] LABS: HEMATOCRIT 22.8 % (37.0-47.0); HEMOGLOBIN 7.1 g/dL (12.0-16.0); MCH 25.9 PG (27-31); MCHC 31.1 g/dL (33-37); MCV 83.2 FL (81-99); MPV 9.4 FL (7.4-10.4); RBC 2.74 XMIL (4.2-5.4); RDW 16.4 % (11.5-14.5); WBC 9.68 X1000 (4.8-10.8)
[2018-09-25] MEDS ORDERED: NS 2,000 ML MISC PRN (07:02)
[2018-09-25] MEDS ORDERED: HEPARIN IV PRN (07:02)
[2018-09-25] MEDS ORDERED: TIGHT: 0.2 ML/HR FOR DIALYSIS MISC PRN (07:02)
[2018-09-25 07:16] LABS: ALBUMIN 3.3 g/dL (3.5-5.0); CALCIUM 8.1 mg/dL (8.8-10.2); CREATININE 3.8 mg/dL (0.5-0.9); MAGNESIUM 1.7 mg/dL (1.5-2.7); PHOSPHORUS 5.9 mg/dL (2.7-4.5); POTASSIUM 2.8 mmol/L (3.5-5.1)
[2018-09-25] MEDS: NORCO-7.5 PO PRN ×4 (07:59→21:55)
[2018-09-25] MEDS: DUONEB (A & A) INH SCH ×3 (09:34→19:49)
[2018-09-25] MEDS: SYMBICORT 80/4.5 MICROGM INHALER INH SCH ×2 (09:34→19:35)
[2018-09-25] MEDS: APRESOLINE PO SCH ×3 (10:36→21:58)
[2018-09-25] MEDS: NORVASC PO SCH (12:48)
[2018-09-25] MEDS: ZAROXOLYN PO SCH (12:48)
[2018-09-25] MEDS: KEFZOL 1 GM/D5W 1 GM/50 ML IVPB IV SCH ×2 (12:49→21:55)
[2018-09-25] MEDS: LASIX IV SCH ×2 (12:49→21:55)
[2018-09-25] MEDS: FLONASE NAS SCH (12:51)
--- NOTE | 2018-09-25 13:04 | PROGRESS NOTE ---
DATE: 09/25/2018 Ms. Glaser is feeling better. She was in dialysis. She was sleeping. OBJECTIVE: Vital Signs: Her temp is 97.4 degrees, pulse 74, respirations 15, blood pressure 135/55. HEENT: Pupils are equal and round. Lungs: Are clear in all lung roche. Cardiovascular: Regular rhythm and rate without murmur or S3. Urine output about 10 L with dialysis today. ASSESSMENT AND PLAN: 1. Acute on chronic kidney disease with exogenous fluid volume overload, has not responded to high dose of Lasix so she is getting dialyzed. Fluid seems to be coming off. 2. Cellulitis, which is improved. Continue p.o. antibiotics. P.O. intake seems to be good, nutrition seems to be good. Appetite is improving. She has a tunneled dialysis catheter which was placed 2 days ago, getting ultrafiltration. During the last portion of treatment removed maximum amount of fluid and likely rest her tomorrow and see how she does the beginning of the week. cc: Kris Plaza MD
--- NOTE | 2018-09-25 14:45 | NEPHROLOGY PROGRESS NOTE ---
DATE: 09/25/2018 TIME SEEN: 09:45. SUBJECTIVE: Patient currently undergoing hemodialysis. She states her breathing is better. OBJECTIVE: Vital Signs: Temperature 97.4 degrees, pulse 74, respiratory rate 15, blood pressure 153/55. Intake 280 mL. Output 7.5 L. 1.8 L of this was urine output, 5.7 L of this was ultrafiltrate on dialysis. PHYSICAL EXAMINATION: General: This is a middle-aged female, chronically ill-appearing, sitting up in bed. She is in no acute distress. HEENT: Normocephalic, atraumatic. RAN. Conjunctivae are pale. Oral mucosa moist. Neck: Supple. She continues with trace JVD. Cardiovascular: Regular rate and rhythm. Pulmonary: Clear today. She continues with some shortness of breath and remains on oxygen. Abdomen: With extremely large pannus. : Voiding. Extremities: Her edema on the lower extremities is slightly softer today. Still extends up to the abdominal area. Integumentary: She no longer has weeping noted on the lower extremities. Skin: Otherwise pale and warm. LAB DATA: WBC of 9.6, hemoglobin 7.1, sodium 135, potassium 2.6, CO2 25, creatinine 3.8. ASSESSMENT AND PLAN: Acute on chronic kidney disease with exogenous fluid volume overload. We initiated dialysis yesterday as she had not responded to high-dose Lasix. We were able to remove almost 6 L of ultrafiltrate. We will plan to dialyze again today with that same goal in mind. I will reduce her Lasix to 80 mg twice daily. We will go ahead and adjust the dose further as warranted. Dictated by STEPHANIE Teixeira for Sal Brooks MD cc: Sal Brooks MD
[2018-09-26] MEDS: PRILOSEC PO SCH (06:15)
[2018-09-26] MEDS: SYNTHROID PO SCH (06:15)
[2018-09-26] MEDS: NORCO-7.5 PO PRN (06:15)
[2018-09-26] MEDS: NEURONTIN PO SCH ×3 (06:15→21:04)
[2018-09-26 06:25] LABS: HEMATOCRIT 24.1 % (37.0-47.0); HEMOGLOBIN 7.4 g/dL (12.0-16.0); MCH 25.9 PG (27-31); MCHC 30.7 g/dL (33-37); MCV 84.3 FL (81-99); MPV 9.5 FL (7.4-10.4); RBC 2.86 XMIL (4.2-5.4); RDW 16.3 % (11.5-14.5); WBC 12.23 X1000 (4.8-10.8)
[2018-09-26 07:01] LABS: ALBUMIN 3.5 g/dL (3.5-5.0); CALCIUM 8.1 mg/dL (8.8-10.2); CREATININE 3.5 mg/dL (0.5-0.9); PHOSPHORUS 5.5 mg/dL (2.7-4.5); POTASSIUM 3.2 mmol/L (3.5-5.1)
[2018-09-26] MEDS: HUMULIN 70/30 SUBQ SCH ×2 (09:08→17:23)
[2018-09-26] MEDS: ZAROXOLYN PO SCH (09:09)
[2018-09-26] MEDS: APRESOLINE PO SCH ×3 (09:09→21:04)
[2018-09-26] MEDS: NORVASC PO SCH (09:10)
[2018-09-26] MEDS: LASIX IV SCH ×2 (09:10→21:05)
[2018-09-26] MEDS: KEFZOL 1 GM/D5W 1 GM/50 ML IVPB IV SCH ×2 (09:11→21:05)
[2018-09-26] MEDS: SYMBICORT 80/4.5 MICROGM INHALER INH SCH ×2 (09:53→21:27)
[2018-09-26] MEDS: DUONEB (A & A) INH SCH ×3 (09:54→21:27)
--- NOTE | 2018-09-26 10:37 | NEPHROLOGY PROGRESS NOTE ---
DATE: 09/26/2018 SUBJECTIVE: Patient is sitting up in the bed. She states that her breathing is significantly better. She still has edema but is not becoming quite as short of breath when ambulating to the bathroom. OBJECTIVE: Vital Signs: Temperature 98.3 degrees, pulse 76, respiratory rate 18, blood pressure 121/54. Intake and Output: Intake 580 mL. Output 5.8 L. Weight: Her weight in the computer shows that she is down 15 kg from her maximum weight, and 13.3 kg removed on dialysis. General: This is a middle-aged female who is chronically ill-appearing, currently sitting up in bed. She is awake and alert. She does not appear in acute distress. HEENT: Normocephalic, atraumatic. RAN. Conjunctivae are pale. Her oral mucosa is moist. Neck: Supple with trace JVD. Cardiovascular: Reveals regular rate and rhythm. Pulmonary: Clear bilaterally. Abdomen: With an extremely large pannus, although her pitting is now more located on the lower portion of the pannus. The upper area of her abdomen is soft, without pitting today. Genitourinary: Voiding. Extremities: She has 2 to 3+ pitting edema of the lower extremities. Again, this is significantly improved over the last 48 hours. The wound to the right lower extremity is no longer draining. Integumentary: Skin is warm and dry otherwise. Neurologic: Grossly nonfocal. LABORATORY DATA: WBC of 12.2, hemoglobin 7.4. Sodium 135, potassium 3.2, CO2 of 27, creatinine 3.5. ASSESSMENT AND PLAN: 1. Acute on chronic kidney disease with exogenous fluid volume overload with dialysis to assist with her fluid volume issues. The patient is down approximately 15 kg since we initiated dialysis. She has exam findings that mirror that measurement. She still has significant amount of fluid on board. We will plan to dialyze her on Thursday and then we will begin evaluating her on a daily basis to determine if she will be able to discontinue dialysis or if she will be unable to manage her fluid volumes and would have to continue. 2. Anemia. There was a concern that perhaps she had some dilution secondary to the exogenous fluid volume overload, but she has really had no major improvement. I ordered her iron stores for in the morning with labs. 3. Electrolytes, acid-base balance. These are acceptable at this time. Dictated by STEPHANIE Teixeira for Sal Brooks MD cc: Sal Brooks MD [facility]
--- NOTE | 2018-09-26 13:35 | PROGRESS NOTE ---
DATE: 09/26/2018 SUBJECTIVE: Mrs. Glaser is sleeping, resting comfortably, breathing comfortably. OBJECTIVE: Vital Signs: Temperature 98 degrees, pulse 75, respirations 18, blood pressure 131/52. Lungs: Clear in all lung roche. Cardiovascular: Regular rhythm and rate without murmur or S3. Urine output is 6600 mL. ASSESSMENT AND PLAN: 1. Acute on chronic kidney disease, exogenous fluid volume overload. Dialysis to assist with removing the volume. She is down approximately 15 kg since she came to [place]. Still a significant amount of fluid on board. Will dialyze again on Thursday. Dr. Brooks following. To dialyze on a daily basis to see if we are able to discontinue dialysis. 2. Anemia, stable. 3. Electrolytes and acid base look good. 4. Cellulitis, which is healing well. LABORATORY DATA: On review of her lab this morning, white count 12,230, hematocrit is 24, hemoglobin 7.4, platelet count 394,000. Sodium 135, potassium 3.2, chloride 95, BUN 38, creatinine 3.5. GENERAL ORDERS: She is taking Norvasc 10 mg a day. She is on albuterol inhalers, budesonide formoterol inhaler 2 puffs b.i.d. She is on fluticasone 50 mcg 1 spray daily, furosemide 80 mg IV every 12 hours, Neurontin 600 mg p.o. t.i.d., Apresoline 50 mg t.i.d., hydrocodone 7.5 mg p.o. every 4 hours, Atarax 25 mg p.o. every 6 hours p.r.n., Humulin 70/30 at 40 units twice a day, cefazolin 1 gram IV every 12 hours, Synthroid 100 mcg daily, Zaroxolyn 10 mg a day. cc: Kris Plaza MD
[2018-09-26] MEDS: MORPHINE IV PRN (19:53)
[2018-09-27] MEDS: MORPHINE IV PRN ×2 (02:17→16:40)
[2018-09-27] MEDS: NEURONTIN PO SCH ×3 (04:47→21:29)
[2018-09-27] MEDS: PRILOSEC PO SCH (06:19)
[2018-09-27] MEDS: SYNTHROID PO SCH (06:19)
[2018-09-27] MEDS ORDERED: NS 2,000 ML MISC PRN (06:20)
[2018-09-27] MEDS ORDERED: TIGHT: 0.2 ML/HR FOR DIALYSIS MISC PRN (06:20)
[2018-09-27] MEDS ORDERED: HEPARIN IV PRN (06:20)
[2018-09-27] MEDS: HUMULIN 70/30 SUBQ SCH ×2 (06:20→16:38)
[2018-09-27] MEDS: NORCO-7.5 PO PRN ×2 (07:57→13:35)
[2018-09-27] MEDS: ZAROXOLYN PO SCH (07:59)
[2018-09-27] MEDS: APRESOLINE PO SCH ×3 (07:59→21:54)
[2018-09-27] MEDS: LASIX IV SCH ×2 (07:59→21:29)
[2018-09-27] MEDS: NORVASC PO SCH (07:59)
[2018-09-27 08:05] LABS: HEMATOCRIT 24.6 % (37.0-47.0); HEMOGLOBIN 7.6 g/dL (12.0-16.0); MCH 25.4 PG (27-31); MCHC 30.9 g/dL (33-37); MCV 82.3 FL (81-99); MPV 9.4 FL (7.4-10.4); RBC 2.99 XMIL (4.2-5.4); RDW 16.1 % (11.5-14.5); WBC 11.5 X1000 (4.8-10.8)
[2018-09-27] MEDS: FLONASE NAS SCH ×2 (08:14→08:20)
[2018-09-27 08:24] LABS: IRON SATURATION 11 %; TIBC 223 ug/dL; TOTAL IRON 25 ug/dL (49-151); UNBOUND IRON 198 ug/dL (112-346)
[2018-09-27 08:27] LABS: ALBUMIN 3.5 g/dL (3.5-5.0); CALCIUM 8.7 mg/dL (8.8-10.2); CREATININE 4.4 mg/dL (0.5-0.9); PHOSPHORUS 5.5 mg/dL (2.7-4.5); POTASSIUM 3.1 mmol/L (3.5-5.1)
[2018-09-27 09:33] LABS: FERRITIN 74 ng/mL (13-150)
[2018-09-27] MEDS: DUONEB (A & A) INH SCH ×3 (10:00→21:24)
[2018-09-27] MEDS: SYMBICORT 80/4.5 MICROGM INHALER INH SCH ×2 (10:00→21:24)
[2018-09-27] MEDS: KEFZOL 1 GM/D5W 1 GM/50 ML IVPB IV SCH ×2 (11:11→21:28)
[2018-09-27] MEDS ORDERED: EPOGEN SUBQ ONE (12:20)
--- NOTE | 2018-09-27 13:30 | PROGRESS NOTE ---
DATE: 09/27/2018 Ms. Glaser is feeling a little better, breathing comfortably. OBJECTIVE: Remains afebrile, temperature 98.3 degrees, pulse 69, respirations 16, blood pressure 119/53. Pupils are equal round.Lungs: Clear in all lung roche. Cardiovascular: Regular rhythm and rate without murmur or S3. Abdomen: Soft. Skin: Warm and dry. ASSESSMENT AND PLAN: 1. Acute on chronic kidney disease. Volume overload. Seems to be making progress. Continue dialyze Dr. Brooks direction. This will assist her volume issues. She will get dialysis again today. Electrolytes and anemia appear to be stable. 2. Anemia. Going to order some iron studies. May need to get some iron. 3. Cellulitis is resolved. LABORATORY DATA: Reviewed from yesterday, white count was 11,500, hematocrit 24, hemoglobin 7.6, platelet count 154,000. Chemistries reviewed from today sodium 135, potassium 3.1, chloride 92, BUN 42, creatinine 4.4. Blood sugars under good control. Review of her orders I do not see any change. She is on budesonide and formoterol inhaler 1 puff twice a day, Lasix 80 mg IV q.12, Neurontin 600 mg p.o. t.i.d. hydralazine 50 mg p.o. t.i.d., hydrocodone 7.5 mg q.4 hours p.r.n., still on cefazolin 1 g IV q.12, I think the plan is to give her some iron tomorrow 300 mg of iron sucrose. cc: Kris Plaza MD [facility]
[2018-09-27] MEDS: VENOFER 300 MG in NS 250 ML IV SCH (14:00)
--- NOTE | 2018-09-27 15:15 | NEPHROLOGY PROGRESS NOTE ---
DATE: 09/27/2018 TIME SEEN: 06. SUBJECTIVE: Ms. Glaser is resting quietly sitting up on the side of the bed. She denies any chest pain. Denies any increased work of breathing, though she does state that her fluid volume weight is up by 3 kg from yesterday to today. OBJECTIVE: Vital signs: Last temperature 98.5 degrees, blood pressure 130/63, heart rate 14, she is on 2 L nasal cannula, last recorded saturation is 94%. Intake and Output: She has had 880 in, 1800 out to void. LABORATORY DATA: Sodium is 135, potassium is 3.1, chloride 92, CO2 of 27, BUN 42, creatinine 4.4, glucose 129, her anion gap is 16, her calcium is 8.7, phosphorus 5.5, albumin of 3.5. Patient's iron is 25, her iron percent is 11, ferritin of 74. White count 11.5, hemoglobin 7.6, hematocrit 24.6, with a platelet count of 354,000. PHYSICAL EXAMINATION: General: This is a 53-year-old white female resting quietly in bed. She appears chronically ill. No acute distress. Skin: Warm and dry. HEENT: Normocephalic, atraumatic. Conjunctiva is pale pink. She has RAN. Mucous membranes are dry. Neck: Supple. Trachea midline. No evidence of JVD in the upright position. Cardiovascular: She is regular rate and rhythm. Systolic murmur present. Lungs: Clear to auscultation bilaterally. Equal excursion on O2. Abdomen: Large, obese, soft, nontender. Positive bowel sounds. Genitourinary: Not inspected. Patient has been voiding. Extremities: Have 2 to 3+ edema up into the mid hip/abdominal region, more so than her lower extremities of 1 to 2+ pretibial calf. Integumentary: No rashes or lesions evident. The patient also has a tunnel dialysis catheter to her upper right chest wall. Neurological: She is alert and oriented x3. ASSESSMENT AND PLAN: 1. Chronic kidney disease, stage 5D. Patient will receive dialysis treatment today. We will place her on a 2 K bath. We will challenge her dry weight with plan for daily dialysis to assist with her fluid volume overload. We will attempt 2-3 L of ultrafiltration today. 2. Electrolytes and acid-base balance. Patient is hyperkalemic with correction on dialysis. 3. Anemia. Iron studies indicate that she is in need of IV iron. We will order these if these have not been started. The patient has a total iron percent saturation of 11, unsaturated iron binding of 198, iron of 25 with a ferritin of 74. 4. Fluid volume overload. Again, we will plan for dialysis on a daily basis until we can re- establish patient's dry weight without pitting edema and increased work of breathing. I would like to thank you for allowing us to follow with this patient. Dictated by STEPHANIE Salguero for Sal Brooks MD Face to face encounter, data reviewed, discussed with Remberto Monterroso on 09/27/18. I agree with the above assessment and plan of care. cc: STEPHANIE Salguero MD [facility]
--- NOTE | 2018-09-27 18:10 | INFECTIOUS DISEASE PROGRESS NO ---
DATE: 09/27/2018 PRESENT ILLNESS: The patient had cellulitis in the left leg, but this has cleared. The patient does have still some cellulitis in the right leg, but it is getting better. MEDICATIONS: The patient receives Ancef 1 g IV after each dialysis. PHYSICAL EXAMINATION: Vital Signs: Temperature is 98.3 degrees, pulse 69, respirations 16, blood pressure is 119/53. General: This is an obese, middle-aged female. She is on dialysis today and is sleepy. Head/eyes/ears/nose/throat: She does not have any drainage through her nose or ears. I could not get a good look into her mouth. Neck: There seemed to be no pain with passive movement of the neck. Lungs: Clear to auscultation. Cardiovascular: Heart rate is regular. Thorax: Patient has a tunneled dialysis catheter in place on the right side. The site is not erythematous or purulent. Abdomen: Soft and nontender. Extremities: As mentioned above. The left leg cellulitis has cleared. The right leg cellulitis is getting better. LAB AND X-RAY: [place] [address], hemoglobin 7.6, and platelet count 354,000. Hepatitis panel is nonreactive. Creatinine is 4.4. GFR is 11. There is no new radiographic study today. ASSESSMENT AND PLAN: The patient has a right leg cellulitis. I would suggest continuing Ancef 1 g IV after each dialysis for the next week if she is stays in the hospital. If the patient is discharged, I would suggest sending her home on Keflex 500 mg p.o. every 12 hours for another week. COMORBIDITIES: The patient has morbid obesity. She has morbid obesity, which results in bilateral leg edema, diabetes mellitus, peripheral vascular disease, end-stage renal disease, the patient now is on dialysis. I am signing off on the patient's case but I am available to see her on a p.r.n. basis. cc: Sachin Petty MD
[2018-09-28] MEDS: NEURONTIN PO SCH ×3 (05:39→20:22)
[2018-09-28] MEDS ORDERED: TIGHT: 0.2 ML/HR FOR DIALYSIS MISC PRN (06:14)
[2018-09-28] MEDS ORDERED: HEPARIN IV PRN ×2 (06:14→08:09)
[2018-09-28] MEDS ORDERED: NS 2,000 ML MISC PRN (06:14)
[2018-09-28] MEDS ORDERED: INSULIN PEN NEEDLES ONE (06:18)
[2018-09-28] MEDS: HUMULIN 70/30 SUBQ SCH ×2 (06:19→16:11)
[2018-09-28 08:00] LABS: HEMATOCRIT 24.4 % (37.0-47.0); HEMOGLOBIN 7.3 g/dL (12.0-16.0); MCH 24.7 PG (27-31); MCHC 29.9 g/dL (33-37); MCV 82.7 FL (81-99); MPV 9.3 FL (7.4-10.4); RBC 2.95 XMIL (4.2-5.4); RDW 16.1 % (11.5-14.5); WBC 11.13 X1000 (4.8-10.8)
[2018-09-28] MEDS: DUONEB (A & A) INH SCH ×3 (08:16→21:20)
[2018-09-28] MEDS: SYMBICORT 80/4.5 MICROGM INHALER INH SCH ×2 (08:16→21:20)
[2018-09-28 08:19] LABS: ALBUMIN 3.3 g/dL (3.5-5.0); CALCIUM 8.8 mg/dL (8.8-10.2); CREATININE 3.4 mg/dL (0.5-0.9); PHOSPHORUS 4.9 mg/dL (2.7-4.5); POTASSIUM 3.2 mmol/L (3.5-5.1)
[2018-09-28] MEDS: ZAROXOLYN PO SCH (12:04)
[2018-09-28] MEDS: NORVASC PO SCH (12:04)
[2018-09-28] MEDS: LASIX IV SCH ×2 (12:05→20:22)
[2018-09-28] MEDS: VENOFER 300 MG in NS 250 ML IV SCH (12:05)
[2018-09-28] MEDS: MORPHINE IV PRN (12:06)
--- NOTE | 2018-09-28 12:34 | PROGRESS NOTE ---
DATE: 09/28/2018 SUBJECTIVE: The patient just returned from dialysis. She states that she started to have cramping, and so her dialysis session was terminated early today. OBJECTIVE: Vital Signs: Temperature 98.3 degrees, blood pressure 145/59, heart rate 84, respirations 18, and O2 saturation 98% on 3 L nasal cannula. General: This is a chronically ill- appearing female sitting up in bed in no acute distress. Heart: S1, S2 normal. Regular rate and rhythm. Lungs: Equal air entry bilaterally. No wheezing. No rales. Abdomen: Positive bowel sounds. Soft, nontender, and nondistended. Extremities: 2+ edema. Neurologic: The patient is alert and oriented x4. LABORATORY: White blood cell count 11, hemoglobin 7.3, hematocrit 24, and platelets 352,000. Sodium 138, potassium 3.2, chloride 96, CO2 27, BUN 39, creatinine 3.4, glucose 106, and phosphorus 4.9. ASSESSMENT AND PLAN: 1. Volume overload. This will be addressed during the patient's dialysis session. She had to stop her dialysis session early today due to cramping. Further management as per the administrative nursing supervisor. 2. End-stage renal disease on hemodialysis. Management as per the administrative nursing supervisor. 3. Right lower extremity cellulitis. Continue on the current antibiotic regimen as directed by Dr. Petty. 4. Diabetes mellitus type 2. Stable. Continue on Humulin 70/30 and sliding scale insulin coverage. 5. Hypothyroidism. Continue on Synthroid. 6. Gastroesophageal reflux disease. Continue on Prilosec. 7. Iron deficiency anemia. We will monitor the hemoglobin and hematocrit closely. The patient received Epogen yesterday. 8. Hypertension. Continue on the current antihypertensive regimen. 9. Deep vein thrombosis prophylaxis. We will start the patient on heparin. 10. We will consult with physical therapy to assist with ambulation. cc: Kinsey Mccabe MD
--- NOTE | 2018-09-28 12:51 | NEPHROLOGY PROGRESS NOTE ---
DATE: 09/28/2018 TIME SEEN: 0635. SUBJECTIVE: Ms Glaser is resting quietly in bed. Head of the bed is slightly elevated. She has just sat up after we came into the room. She states that she is feeling much better. Denies chest pain, increased work of breathing. States that she is able to get up and walk better. OBJECTIVE: Patient's most recent vital signs: Her last temperature 98.3 degrees, blood pressure 145/59, heart rate 84, respirations are 18, she is on 3 L nasal cannula, and last recorded saturation is 98%. Intake and Output: She has had 786 in. She had 4.6 L removed yesterday with only 2.7 L of dialysis; the rest was to void. LABORATORY DATA: Sodium 138, potassium 3.2, chloride 96, CO2 of 27, BUN 39, creatinine 3.4, glucose 106, anion gap 15, calcium 8.8, phosphorus 4.9, albumin 3.3. White count 11.13, hemoglobin 7.3, hematocrit 24.4, platelet count 352,000. PHYSICAL EXAMINATION: General: This is a 53-year-old white female resting quietly, sitting up on the side of the bed. She appears chronically ill, no acute distress. Skin: Warm and dry. HEENT: Normocephalic, atraumatic. Conjunctivae pale pink. She has RAN. Mucous membranes are dry. Neck: Supple. Trachea midline. No evidence of JVD in the upright position. Cardiovascular: She has regular rate and rhythm. Systolic murmur is present. Lungs: Clear to auscultation bilaterally with equal excursion, on O2. Abdomen: Large, obese, soft, improved swelling. Tender. Positive bowel sounds. Genitourinary: Not inspected. Patient has been voiding large amounts. Extremities: Continues with 2+ lower extremity edema up into the thighs. Her right is greater than her left. Integumentary: No rashes or lesions evident. She does have redness noted to her right lower extremity. Tunneled dialysis catheter to the right upper chest wall. Neurological: She is alert and oriented x3. ASSESSMENT AND PLAN: 1. Chronic kidney disease, stage 5D. Patient has been receiving dialysis treatment on a daily basis to assist with her fluid volume overload. She has tolerated this well. The patient's initial weight had gotten up to 134.4 kg. She is now down to 118 kg with daily dialysis. 2. Electrolytes and acid-base balance with correction on dialysis. 3. Anemia. This remains low. Patient was started on Epogen yesterday. 4. Cellulitis to the right lower extremity. Dr. Petty had been following, had written that he thought that she has recovered. She remains on a renal-dosed antibiotic during her hospital stay. 5. Fluid volume overload. The patient has lost approximately 40 pounds during her hospital stay. We have attempted to do daily dialysis to assist with her fluid volume overload. Patient is able to get up and walk. She has increased urinary output. We will plan for dialysis today and hold dialysis in the a.m. Re-evaluate patient's status on . I would to thank you for allowing us to follow with this patient. Dictated by STEPHANIE Salguero for Sal Brooks MD Face to face encounter, data reviewed, discussed with Remberto Monterroso on 09/28/18. I agree with the above assessment and plan of care. cc: STEPHANIE Salguero MD [facility]
[2018-09-28] MEDS: PRILOSEC PO SCH (13:41)
[2018-09-28] MEDS: SYNTHROID PO SCH (13:45)
[2018-09-28] MEDS: FLONASE NAS SCH (13:47)
[2018-09-28] MEDS: APRESOLINE PO SCH ×3 (13:47→20:22)
[2018-09-28] MEDS: HEPARIN SUBQ SCH ×2 (13:51→20:18)
[2018-09-28] MEDS: KEFZOL 1 GM/D5W 1 GM/50 ML IVPB IV SCH (16:04)
[2018-09-29] MEDS: NEURONTIN PO SCH ×3 (05:15→20:13)
[2018-09-29] MEDS: HEPARIN SUBQ SCH ×3 (05:15→20:13)
[2018-09-29] MEDS: KEFZOL 1 GM/D5W 1 GM/50 ML IVPB IV SCH ×2 (05:15→18:03)
[2018-09-29] MEDS: HUMULIN 70/30 SUBQ SCH ×2 (06:22→18:00)
[2018-09-29] MEDS: PRILOSEC PO SCH (06:22)
[2018-09-29] MEDS: SYNTHROID PO SCH (06:54)
[2018-09-29] MEDS: DUONEB (A & A) INH SCH ×3 (08:05→21:32)
[2018-09-29] MEDS: SYMBICORT 80/4.5 MICROGM INHALER INH SCH ×2 (08:05→21:33)
[2018-09-29] MEDS: LASIX IV SCH ×2 (08:06→20:14)
[2018-09-29] MEDS: APRESOLINE PO SCH ×3 (08:06→20:12)
[2018-09-29] MEDS: ZAROXOLYN PO SCH (08:07)
--- NOTE | 2018-09-29 08:42 | NEPHROLOGY PROGRESS NOTE ---
DATE: 09/29/2018 TIME SEEN: 0635. SUBJECTIVE: Ms. Glaser is sitting up on the side of the bed. She states that she is feeling better, though she was only able to stay on dialysis yesterday for approximately 2 to 2.5 hours secondary to cramping. LABORATORY DATA: Labs are pending this a.m. Previous potassium 3.2, BUN 39, creatinine 3.4, with a previous hemoglobin of 7.3. OBJECTIVE: Most Recent Vital Signs: Temperature 98.2 degrees, blood pressure 133/60, heart rate 74, respirations 19. She is on 3 L nasal cannula. Last recorded saturation 99%. She has had 622 in. She has had 3700 out, with 2.3 L off on dialysis. The rest is to void. General: This is a 53-year-old white female, sitting up on the side of the bed. She appears chronically ill. No acute distress. Skin: Warm and dry. HEENT: Normocephalic, atraumatic. Conjunctivae pale, pink. She has RAN. Mucous membranes are dry. Neck: Supple. Trachea midline. No evidence of JVD in the upright position. Cardiovascular: She is regular rate and rhythm. Systolic murmur present. Lungs: Clear to auscultation bilaterally. Equal excursion on O2. Abdomen: Large, obese, soft, nontender. Swelling has slightly improved. No tenderness present today. Genitourinary: Not inspected. The patient has been voiding large amounts with dialysis assist. Extremities: Continue with 2+ edema, right greater than left up into the midthigh. The patient does have some erythematous area to her right lower extremity. She remains on oral antibiotics. Tunneled dialysis catheter remains intact to the right upper chest wall. Neurological: She is alert and oriented x3. ASSESSMENT AND PLAN: 1. Chronic kidney disease stage 5. The patient has been receiving dialysis treatments on a daily basis. We will plan to hold dialysis today. We will re-evaluate her urine output and her fluid volume status in the morning. The patient remains on Lasix 80 mg every 12 hours with metolazone 10 mg by mouth daily. We havd discussed limiting her po intake. 2. Electrolytes and acid-base balance. These remain stable. We will re- evaluate her labs in the morning. 3. Cellulitis to the right lower extremity, followed by Dr. Petty. She is currently on renal dosed antibiotics during her hospital stay. 4. Fluid volume overload. The patient has had approximately 40 pounds removed on dialysis with diuretic affect. We will hold dialysis today, and re-evaluate in the morning. I would like to thank you for allowing us to follow with this patient. Dictated by STEPHANIE Salguero for Sal Brooks MD Face to face encounter, data reviewed, discussed with Remberto Monterroso on 09/29/18. I agree with the above assessment and plan of care. cc: STEPHANIE Salguero MD [facility]
[2018-09-29 09:05] LABS: HEMATOCRIT 26.3 % (37.0-47.0); HEMOGLOBIN 7.9 g/dL (12.0-16.0); MCH 25.2 PG (27-31); MCV 83.8 FL (81-99); MPV 9.6 FL (7.4-10.4); RBC 3.14 XMIL (4.2-5.4); RDW 16.3 % (11.5-14.5); WBC 11.82 X1000 (4.8-10.8)
[2018-09-29 09:23] LABS: ALBUMIN 3.6 g/dL (3.5-5.0); CALCIUM 8.9 mg/dL (8.8-10.2); CREATININE 3.6 mg/dL (0.5-0.9); PHOSPHORUS 4.5 mg/dL (2.7-4.5); POTASSIUM 3.5 mmol/L (3.5-5.1)
--- NOTE | 2018-09-29 19:42 | PROGRESS NOTE ---
DATE: 09/29/2018 SUBJECTIVE: The patient is sitting up in a chair. She has no complaints at this time. OBJECTIVE: Vital Signs: Temperature 97.4 degrees, blood pressure 136/58, heart rate 84, respirations 17, O2 saturation 99% on 3 L nasal cannula. General: This is a morbidly obese female sitting up in a chair in no acute distress. Heart: S1, S2 normal. Regular rate and rhythm. Lungs: Clear to auscultation bilaterally. No wheezing. No rales. Abdomen: Positive bowel sounds. Soft, obese, nontender. Extremities: 2+ edema. No cyanosis. Neurologic: The patient is alert and oriented x4. LABS: White blood cell count 11, hemoglobin 7.9, hematocrit 26, platelets 355,000. Sodium 139, potassium 3.5, chloride 98, CO2 28, BUN 39, creatinine 3.6, glucose 151, phosphorus 4.5. ASSESSMENT AND PLAN: 1. Volume overload. This will be addressed during the patient's dialysis session. 2. End stage renal disease on hemodialysis. Management as per the advertisement distributor. 3. Right lower extremity cellulitis. Continue with antibiotic therapy as directed by Dr. Petty. 4. Diabetes mellitus type 2. Continue on Humulin 70/30 twice a day. 5. Hypothyroidism. Continue on Synthroid. 6. Gastroesophageal reflux disease. Continue on Prilosec. 7. Iron deficiency anemia. Continue to monitor closely. 8. Deep vein thrombosis prophylaxis. Continue on heparin. 9. Continue with physical therapy. cc: Kinsey Mccabe MD [facility]
[2018-09-30] MEDS: MORPHINE IV PRN (02:46)
[2018-09-30] MEDS: KEFZOL 1 GM/D5W 1 GM/50 ML IVPB IV SCH ×2 (04:01→18:09)
[2018-09-30] MEDS: NEURONTIN PO SCH ×3 (04:37→20:36)
[2018-09-30] MEDS: HEPARIN SUBQ SCH ×3 (04:38→20:37)
[2018-09-30] MEDS: HUMULIN 70/30 SUBQ SCH ×2 (06:07→18:10)
[2018-09-30] MEDS: SYNTHROID PO SCH (06:07)
[2018-09-30] MEDS: PRILOSEC PO SCH (06:07)
[2018-09-30] MEDS ORDERED: HEPARIN IV PRN (07:28)
[2018-09-30] MEDS ORDERED: TIGHT: 0.2 ML/HR FOR DIALYSIS MISC PRN (07:28)
[2018-09-30] MEDS ORDERED: NS 2,000 ML MISC PRN (07:28)
[2018-09-30] MEDS: DUONEB (A & A) INH SCH ×3 (08:13→21:30)
[2018-09-30] MEDS: SYMBICORT 80/4.5 MICROGM INHALER INH SCH ×2 (08:14→21:30)
[2018-09-30] MEDS: NORCO-7.5 PO PRN (08:40)
[2018-09-30] MEDS: LASIX IV SCH ×2 (08:42→20:37)
[2018-09-30] MEDS: APRESOLINE PO SCH ×3 (08:42→20:37)
[2018-09-30] MEDS: ZAROXOLYN PO SCH (08:43)
[2018-09-30 08:50] LABS: ALBUMIN 3.3 g/dL (3.5-5.0); CALCIUM 9.2 mg/dL (8.8-10.2); CREATININE 3.7 mg/dL (0.5-0.9); PHOSPHORUS 4.9 mg/dL (2.7-4.5); POTASSIUM 2.9 mmol/L (3.5-5.1)
--- NOTE | 2018-09-30 13:09 | NEPHROLOGY PROGRESS NOTE ---
DATE: 09/30/2018 DATE AND TIME SEEN: 09/30/2018 at 0640. SUBJECTIVE: Ms. Glaser is sitting up on the side of the bed. States that she has not been able to sleep well last night. Denies chest pain or increased work of breathing. OBJECTIVE: VITAL SIGNS: Temperature 98.4 degrees, blood pressure 146/72, heart rate 76, respirations 18. She is on 2 L nasal cannula, last recorded saturation 100%. She has had 525 in, she has had 800 out void. LABORATORY DATA: Sodium is 138, potassium 2.9, chloride 96, CO2 27, BUN 45, creatinine 3.7, glucose 139, anion gap 15, calcium 9.2. Phosphorus 4.9, albumin is 3.3. The patient had a previous hemoglobin of 7.9, which is improved from the last check. PHYSICAL EXAMINATION: General: This is a 53-year-old white female, sitting up on the side of the bed. She appears chronically ill, in no acute distress. Skin: Warm and dry. HEENT: Normocephalic, atraumatic. Conjunctiva is pale pink. She has RAN. Mucous membranes are dry. Neck: Supple. Trachea midline. No JVD. Cardiovascular: She is regular rate and rhythm. Systolic murmur present. Lungs: Clear to auscultation bilaterally. Equal excursion. She is currently on O2. Abdomen: Large, obese, soft, nontender. Positive bowel sounds. Continues with edema around the hip, lower abdomen area up into the thighs, 2+. Genitourinary: Not inspected. Patient has been voiding. Extremities: Remain with 2+ lower extremity edema up into the mid thigh. Right lower extremity is slightly red, warm to touch. Dialysis tunneled catheter to the right upper chest wall. This is dry and intact. Neurological: Alert and oriented x3. ASSESSMENT AND PLAN: 1. Chronic kidney disease stage 5. Patient has been on dialysis during her hospital stay secondary to fluid volume overload, decreased urinary output. BUN and creatinine remain elevated. We will place her on a 3 K bath. She is to dialyze for 3.5 hours. We will attempt to pull 2 to 3 L of ultrafiltration as tolerated. 2. Fluid volume overload. The patient did not have dialysis yesterday, modest urinary output of 800 mL in 24 hours. She has gained weight in the last 24 hours, even though she states that she has monitored her p.o. intake. She remains on Lasix 80 mg q.12 hours with metolazone 10 mg in the a.m. We will plan for dialysis with a 3 to 4 L fluid pull. 3. Cellulitis to the right lower extremity. She continues on renal dosed antibiotics. I would like to thank you for allowing us to follow with this patient. Dictated by STEPHANIE Salguero for Sal Brooks MD Face to face encounter, data reviewed, discussed with Remberto Monterroso on 09/30/18. I agree with the above assessment and plan of care. cc: STEPHANIE Salguero MD [facility]
--- NOTE | 2018-09-30 17:30 | PROGRESS NOTE ---
DATE: 09/30/2018 SUBJECTIVE: The patient is resting comfortably. No acute events noted overnight. OBJECTIVE: Vital signs: Temperature 98.1 degrees, blood pressure 128/59, heart rate 78, respirations 15, O2 saturation is 100% on 2 L nasal cannula. General: This is a chronically ill-appearing female, sitting up in no acute distress. Heart: S1, S2 normal. Regular rate and rhythm. Lungs: Equal air entry bilaterally. No wheezing. No rales. Abdomen: Positive bowel sounds. Soft, obese, nontender, nondistended. Extremities: 2+ edema. Neurological: The patient is alert and oriented x4. LABORATORY DATA: Sodium 138, potassium 2.9, chloride 96, CO2 of 27, BUN 45, creatinine 3.7, glucose 139. ASSESSMENT AND PLAN: 1. Volume overload. This will be addressed during the patient's dialysis session today. 2. End stage renal disease on hemodialysis. Management as per the land manager. 3. Right lower extremity cellulitis. Continue on cefazolin. 4. Hypertension. Controlled. Continue on the current antihypertensive regimen. 5. Morbid obesity. Aware. 6. Hypothyroidism. Continue on Synthroid. 7. Diabetes mellitus, type 2. Continue on Humulin 70/30 twice a day plus sliding scale insulin. 8. Gastroesophageal reflux disease. Continue on Prilosec. 9. Iron deficiency anemia. We will continue to watch the hemoglobin and hematocrit closely. 10. Chronic obstructive pulmonary disease. Continue on Symbicort. 11. Diabetic neuropathy. Continue on gabapentin. 12. Deep vein thrombosis prophylaxis. Continue on heparin. 13. Continue with physical therapy. cc: Kinsey Mccabe MD [facility]
[2018-10-01 02:29] LABS: URINE SOURCE VOIDED
[2018-10-01 02:40] LABS: BILIRUBIN URINE NEGATIVE (NEGATIVE); BLOOD URINE TRACE (NEGATIVE); COLOR YELLOW; GLUCOSE URINE 300 mg/dL (NEGATIVE); KETONE URINE NEGATIVE (NEGATIVE); LEUKOCYTES URINE NEGATIVE (NEGATIVE); NITRITE URINE NEGATIVE (NEGATIVE); PH URINE 6.5; PROTEIN URINE >600 mg/dL (NEGATIVE); SP GRAVITY URINE 1.016; TURBIDITY URINE CLEAR (CLEAR); UROBILINOGEN URINE NORMAL (NORMAL)
[2018-10-01 03:06] LABS: UR EPITHELIAL CELLS >10 /HPF (<10); URINE BACTERIA NEGATIVE /HPF
[2018-10-01 03:07] LABS: UR CREAT RANDOM 96.7 mg/dL (11-20); UR PROT RANDOM > 600.0 mg/dL
[2018-10-01 03:20] LABS: URINE CASTS NONE SEEN; URINE CRYSTALS NONE SEEN; URINE YEAST PRESENT
[2018-10-01 03:21] LABS: URINE SMALL ROUND CELLS NONE SEEN
[2018-10-01] MEDS: KEFZOL 1 GM/D5W 1 GM/50 ML IVPB IV SCH ×2 (04:39→16:22)
[2018-10-01] MEDS: HEPARIN SUBQ SCH ×3 (04:39→21:23)
[2018-10-01] MEDS: NEURONTIN PO SCH ×3 (04:39→21:24)
[2018-10-01] MEDS: SYNTHROID PO SCH (06:05)
[2018-10-01] MEDS: PRILOSEC PO SCH (06:05)
[2018-10-01] MEDS: HUMULIN 70/30 SUBQ SCH ×2 (06:15→18:48)
[2018-10-01] MEDS ORDERED: TIGHT: 0.2 ML/HR FOR DIALYSIS MISC PRN (06:18)
[2018-10-01] MEDS ORDERED: HEPARIN IV PRN ×2 (06:18→15:24)
[2018-10-01] MEDS ORDERED: NS 2,000 ML MISC PRN (06:18)
[2018-10-01 08:30] LABS: HEMOGLOBIN 7.8 g/dL (12.0-16.0); MCH 25.7 PG (27-31); MCV 85.5 FL (81-99); MPV 9.3 FL (7.4-10.4); RBC 3.04 XMIL (4.2-5.4); RDW 16.8 % (11.5-14.5); WBC 10.89 X1000 (4.8-10.8)
[2018-10-01] MEDS: NORCO-7.5 PO PRN (08:37)
[2018-10-01] MEDS: DUONEB (A & A) INH SCH ×3 (08:44→21:20)
[2018-10-01] MEDS: SYMBICORT 80/4.5 MICROGM INHALER INH SCH ×2 (08:45→21:20)
[2018-10-01 08:57] LABS: ALBUMIN 3.6 g/dL (3.5-5.0); CALCIUM 9.4 mg/dL (8.8-10.2); CREATININE 3.7 mg/dL (0.5-0.9); PHOSPHORUS 4.1 mg/dL (2.7-4.5); POTASSIUM 3.8 mmol/L (3.5-5.1)
[2018-10-01] MEDS: ZOFRAN IV PRN (14:13)
[2018-10-01] MEDS: MORPHINE IV PRN (14:14)
[2018-10-01] MEDS: ZAROXOLYN PO SCH (14:15)
[2018-10-01] MEDS: APRESOLINE PO SCH ×3 (16:22→21:24)
[2018-10-01] MEDS: FLONASE NAS SCH (16:22)
[2018-10-01] MEDS: LASIX IV SCH ×2 (16:23→21:23)
--- NOTE | 2018-10-01 17:28 | PROGRESS NOTE ---
DATE: 10/01/2018 SUBJECTIVE: Patient is lying in bed, in no acute distress. No acute issues noted as per nursing staff overnight. The patient is feeling completely okay. OBJECTIVE: Vital Signs: Temperature 98.1, heart rate 75, respiratory rate 16, blood pressure 136/69, O2 saturation 100% on 2 L nasal cannula. General: This is a chronically- ill-appearing 53-year-old female lying in bed, in no acute distress. Cardiovascular: S1, S2 heard. No murmurs, gallops, or rubs. Regular rate and rhythm. Respiratory: Clear bilaterally to auscultation. No work of breathing or using accessory muscles. Abdomen: Soft, a little bit distended. Nontender to palpation. Bowel sounds present. No organomegaly. Extremities: With 2+ pitting edema in both lower extremities. Peripheral pulses present in both legs. Neurological: Patient alert and oriented x3. Moves 4 extremities. LABORATORY DATA: Reviewed. White cell count is 10.89, hemoglobin 7.8, with renal function 3.7. ASSESSMENT AND PLAN: 1. End-stage renal disease, on dialysis. The patient has been on dialysis today. According to the patient, she is going to receive dialysis tomorrow. We will see if Nephrology is going to set up regular dialysis for this patient or not. We will follow recommendations from Dr. Brooks. 2. Right lower extremity cellulitis. We will continue with cefazolin. Once this patient is discharged, in case we decide to continue with dialysis, we can administer IV antibiotics while the patient is receiving dialysis. 3. Hypertension. Blood pressure is under control. We will continue with the same management. 4. Morbid obesity. Aware. 5. Hypothyroidism. Will continue with Synthroid. 6. Diabetes mellitus type 2. We will continue with Humulin 70-30 twice daily plus sliding scale insulin. 7. Iron-deficiency anemia. Hemoglobin is in the range of 7.5. This is not completely good. Will transfuse if we reach 7 and below. 8. Chronic obstructive pulmonary disease. The patient is on not in any exacerbation. We will continue with Symbicort. 9. Diabetic neuropathy. We will continue with gabapentin. 10. Disposition. I think if we have set up hemodialysis for this patient on a regular basis, patient can be discharged tomorrow. cc: Donnie Stanton MD
[2018-10-01] MEDS ORDERED: INSULIN PEN NEEDLES ONE (18:42)
--- NOTE | 2018-10-01 19:19 | NEPHROLOGY PROGRESS NOTE ---
DATE: 10/01/2018 SUBJECTIVE: She had very little urine output by her report. She thinks her swelling has improved, but still present. Minimal shortness of breath. OBJECTIVE: Blood pressure 136/69, heart rate 75, respirations 16, afebrile. Generally, no acute distress. Skin is warm and dry. Neck veins are not visible in the erect position. Heart is regular. No gallops. Lungs are equal. No crackles. Abdomen is soft, nontender. Positive bowel sounds. Extremities with 3+ edema extending up onto the abdomen. IMPRESSION AND PLAN: Acute kidney injury overlying chronic kidney disease. I expect a component of cardiorenal syndrome; however, her baseline renal function is severely impaired. Dialysis again today with a goal of 4 L ultrafiltration using a 4 K bath. cc: Sal Brooks MD
[2018-10-02] MEDS: HEPARIN SUBQ SCH ×3 (05:24→21:16)
[2018-10-02] MEDS: NEURONTIN PO SCH ×3 (05:24→21:16)
[2018-10-02] MEDS: KEFZOL 1 GM/D5W 1 GM/50 ML IVPB IV SCH ×2 (05:25→17:42)
[2018-10-02] MEDS: PRILOSEC PO SCH (06:10)
[2018-10-02] MEDS: SYNTHROID PO SCH (06:10)
[2018-10-02] MEDS: HUMULIN 70/30 SUBQ SCH ×2 (06:10→17:41)
[2018-10-02 07:47] LABS: ALBUMIN 3.5 g/dL (3.5-5.0); CALCIUM 9.1 mg/dL (8.8-10.2); CREATININE 2.9 mg/dL (0.5-0.9); PHOSPHORUS 4.4 mg/dL (2.7-4.5); POTASSIUM 4.1 mmol/L (3.5-5.1)
[2018-10-02] MEDS ORDERED: HEPARIN IV PRN (07:52)
[2018-10-02] MEDS ORDERED: TIGHT: 0.2 ML/HR FOR DIALYSIS MISC PRN (07:52)
[2018-10-02] MEDS ORDERED: NS 2,000 ML MISC PRN (07:52)
[2018-10-02] MEDS: SYMBICORT 80/4.5 MICROGM INHALER INH SCH ×2 (08:01→19:10)
[2018-10-02] MEDS: DUONEB (A & A) INH SCH ×3 (08:01→19:10)
--- NOTE | 2018-10-02 13:16 | PROGRESS NOTE ---
DATE: 10/02/2018 SUBJECTIVE: The patient reports feeling fine. No acute issues noted as per nursing staff overnight. OBJECTIVE: Vital Signs: Temperature 97.8 degrees, heart rate 70, respiratory rate 18, blood pressure 119/74, O2 saturation 98% on 3 L nasal cannula. General Examination: This is a chronically ill-appearing 54-year-old female, lying in bed, in no acute distress. Cardiovascular: S1, S2 heard. No murmurs, gallops, or rubs. Regular rate and rhythm. Respiratory: Clear bilaterally to auscultation. No work of breathing or using accessory muscles. Abdomen: Soft, nontender to palpation. Bowel sounds present. No organomegaly. Extremities: No clubbing, cyanosis. Peripheral pulses present in both legs. There is 2+ pitting edema in both lower extremities Neurological: Patient alert and oriented x3. Moves 4 extremities. LABORATORY DATA: Reviewed. ASSESSMENT AND PLAN: 1. End-stage renal disease. The patient continues to receive dialysis today as per Dr. Brooks's recommendation. She had dialysis yesterday as well. We will follow recommendations from Nephrology. 2. Right lower extremity cellulitis. We will continue with cefazolin. 3. Hypertension. Blood pressure is under control. We will continue with the same management. 4. Morbid obesity. Aware. 5. Hypothyroidism. We will continue with Synthroid. 6. Diabetes mellitus, type 2. We will continue with Humulin 70/30 and sliding scale insulin as well. 7. Iron deficiency anemia. We do not have any labs for today. We will check CBC tomorrow. 8. Diabetic neuropathy. We will continue with Neurontin. DISPOSITION: At this point, we are following the lead from Nephrology. Once we know that this patient will require routine dialysis, then we can discharge this patient home. cc: Donnie Stanton MD
[2018-10-02] MEDS: MORPHINE IV PRN (14:30)
[2018-10-02] MEDS: APRESOLINE PO SCH ×2 (14:30→21:16)
[2018-10-02] MEDS: LASIX IV SCH ×2 (15:01→21:25)
--- NOTE | 2018-10-02 15:33 | NEPHROLOGY PROGRESS NOTE ---
DATE: 10/02/2018 SUBJECTIVE: She is currently on dialysis. She states she is feeling considerably better. She feels the swelling is limited to her right lower leg. She is still on oxygen but no shortness of breath. No cramping thus far. OBJECTIVE: Vital Signs: Blood pressure 119/54, heart rate 70, respirations 16, afebrile. General: No acute distress. Skin: Warm and dry. Neck: Neck veins are not distended. Heart: Regular. Lungs: Equal. Abdomen: Soft, nontender. Bowel sounds present. Trace edema in her panniculus. Extremities: Have no edema in the thighs. 2+ below the knees, right greater than left. IMPRESSION: CKD with overlying acute kidney injury. Severe volume overload. Improving progressively with therapy. Urine volume is low. Dialysis today and we will hold dialysis tomorrow. If urine output remains low, then we will begin a 3 time a week regimen starting on Thursday. cc: Sal Brooks MD
[2018-10-02] MEDS: FLONASE NAS SCH (16:41)
[2018-10-02] MEDS: ZAROXOLYN PO SCH (16:41)
[2018-10-02] MEDS: NORCO-7.5 PO PRN (23:56)
[2018-10-03] MEDS: DUONEB (A & A) INH SCH ×4 (01:46→20:31)
[2018-10-03] MEDS: HEPARIN SUBQ SCH ×3 (04:56→21:56)
[2018-10-03] MEDS: KEFZOL 1 GM/D5W 1 GM/50 ML IVPB IV SCH ×2 (04:56→17:50)
[2018-10-03] MEDS: NEURONTIN PO SCH ×3 (06:23→21:56)
[2018-10-03] MEDS: SYNTHROID PO SCH (06:24)
[2018-10-03] MEDS: PRILOSEC PO SCH (06:24)
[2018-10-03] MEDS: HUMULIN 70/30 SUBQ SCH ×2 (06:25→17:50)
[2018-10-03 07:56] LABS: HEMATOCRIT 27.6 % (37.0-47.0); MCV 86.3 FL (81-99); MPV 9.6 FL (7.4-10.4); RBC 3.2 XMIL (4.2-5.4); RDW 16.9 % (11.5-14.5); WBC 11.2 X1000 (4.8-10.8)
[2018-10-03] MEDS: SYMBICORT 80/4.5 MICROGM INHALER INH SCH ×2 (08:20→20:30)
[2018-10-03 08:21] LABS: ALBUMIN 3.6 g/dL (3.5-5.0); CALCIUM 9.4 mg/dL (8.8-10.2); CREATININE 3.2 mg/dL (0.5-0.9); PHOSPHORUS 4.2 mg/dL (2.7-4.5); POTASSIUM 4.2 mmol/L (3.5-5.1)
--- NOTE | 2018-10-03 09:22 | PROGRESS NOTE ---
DATE: 10/03/2018 SUBJECTIVE: Patient reports feeling fine. No acute issues noted as per nursing staff overnight. OBJECTIVE: Vital Signs: Temperature 97.3 degrees, heart rate 71, respiratory rate 18, blood pressure 128/61, O2 saturation 100% on 3 L nasal cannula. General: This is a chronically ill- appearing, 54-year-old female lying in bed, in no acute distress. Cardiovascular: S1, S2 heard. No murmurs, gallops, or rubs. Regular rate and rhythm. Respiratory: Clear bilaterally to auscultation. No work of breathing or using accessory muscles. Abdomen: Soft. Nontender to palpation. Bowel sounds present. No organomegaly. Extremities: There is 2+ pitting edema noted in both lower extremities. Neurological: Patient alert and oriented x3. Moves her extremities. LABORATORY DATA: Reviewed. ASSESSMENT AND PLAN: 1. End-stage renal disease. Patient continues to receive dialysis as per Dr. Petty' recommendation. Apparently, she has not had good urine output. I have checked that during the last 24 hours. She has made 300 cc of urine. If tomorrow she continues to be in volume overload, Dr. Brooks is planning to set up hemodialysis 3 times per day, started on Thursday. 2. Right lower extremity cellulitis. We will continue with cefazolin. At discharge, we can continue even this medication for a few more days. 3. Hypertension. Blood pressure is under control. We will continue with the same medication. 4. Morbid obesity. Aware. 5. Hypothyroidism. We will continue with Synthroid. 6. Diabetes mellitus type 2. We will continue with Humulin 70/30 insulin, sliding scale insulin as well. 7. Iron deficiency anemia. Hemoglobin is stable. We will continue to monitor. 8. Disposition. I think if tomorrow we decided to set up regular dialysis for this patient, she can be discharged. If not, she will need IV antibiotics at the time of dialysis just a few days. cc: Donnie Stanton MD
[2018-10-03] MEDS: LASIX IV SCH ×2 (10:32→21:55)
[2018-10-03] MEDS: APRESOLINE PO SCH ×3 (10:32→21:56)
[2018-10-03] MEDS: ZAROXOLYN PO SCH (10:32)
[2018-10-03] MEDS ORDERED: INSULIN PEN NEEDLES ONE (17:10)
[2018-10-03] MEDS: FLONASE NAS SCH (20:04)
[2018-10-04] MEDS: NEURONTIN PO SCH ×2 (05:16→18:20)
[2018-10-04] MEDS: KEFZOL 1 GM/D5W 1 GM/50 ML IVPB IV SCH (05:17)
[2018-10-04] MEDS: HEPARIN SUBQ SCH (05:17)
[2018-10-04] MEDS: SYNTHROID PO SCH (06:05)
[2018-10-04] MEDS: HUMULIN 70/30 SUBQ SCH ×2 (06:05→17:47)
[2018-10-04] MEDS: PRILOSEC PO SCH (06:05)
[2018-10-04] MEDS ORDERED: HEPARIN IV PRN (07:52)
[2018-10-04] MEDS ORDERED: TIGHT: 0.2 ML/HR FOR DIALYSIS MISC PRN (07:52)
[2018-10-04] MEDS ORDERED: NS 2,000 ML MISC PRN (07:52)
[2018-10-04] MEDS: DUONEB (A & A) INH SCH ×2 (08:01→16:17)
[2018-10-04] MEDS: SYMBICORT 80/4.5 MICROGM INHALER INH SCH (08:02)
[2018-10-04] MEDS: APRESOLINE PO SCH ×2 (09:39→18:20)
[2018-10-04] MEDS: LASIX IV SCH (09:39)
[2018-10-04] MEDS: ZAROXOLYN PO SCH (09:39)
--- NOTE | 2018-10-04 10:46 | NEPHROLOGY PROGRESS NOTE ---
DATE: 10/04/2018 SUBJECTIVE: Patient is sitting up in bed. Her urine was not completely measured overnight, but she states that she feels like her urine output has been declining. OBJECTIVE: Vital Signs: Temperature 98.9 degrees, pulse 80, respiratory rate 17, blood pressure 138/57. Intake 700 mL. Output 400 mL plus at least 2 voids not measured. Her weight has increased a kg from yesterday. General: This is a middle-aged female, sitting up on the side of the bed. She is awake and alert. She does not appear in acute distress. HEENT: Normocephalic, atraumatic. Her oral mucosa is moist. Neck: Supple. She has a tunneled dialysis catheter right upper chest wall. Insertion site clean, dry, and intact. Cardiovascular: Regular rate and rhythm. Pulmonary: She has no increased work of breathing. Abdomen: Obese, soft with positive bowel sounds. : Not inspected. Voiding. Extremities: She has 2+ pretibial edema. It no longer extends up into the thighs or hips. Right continues with greater edema than left. She continues with a wound to the left lower extremity but no weeping today. LABORATORY DATA: Pending. ASSESSMENT AND PLAN: 1. Chronic kidney disease with overlying acute kidney injury and severe volume overload. The patient neither by report nor by documentation appears to have made even a L of urine. Therefore we will go ahead and dialyze her today on a 2 K bath/3.5 L UF removal. I discussed with the charge nurse in dialysis to go ahead and arrange for outpatient dialysis and also discussed this with the patient that we would need to continue treatment presently and that if she has recovery in the future, we will be able to discontinue that at that time. 2. Disposition. From a renal perspective, as long she has an outpatient plan arranged, she can be discharged at the discretion of the primary. Dictated by STEPHANIE Teixeira for Sal Boroks MD Face to face encounter, data reviewed, discussed with Fidel Wallace on 10/04/18. I agree with the above assessment and plan of care. cc: Sal Brooks MD [facility]
[2018-10-04 11:09] VITALS: BP 145/54
[2018-10-04] MEDS ORDERED: HUMALOG SUBQ SCH (16:00)
[2018-10-04 16:11] LABS: HEMATOCRIT 28.6 % (37.0-47.0); HEMOGLOBIN 8.5 g/dL (12.0-16.0); MCH 25.3 PG (27-31); MCHC 29.7 g/dL (33-37); MCV 85.1 FL (81-99); MPV 9.6 FL (7.4-10.4); RBC 3.36 XMIL (4.2-5.4); RDW 16.6 % (11.5-14.5); WBC 10.61 X1000 (4.8-10.8)
[2018-10-04 16:34] LABS: ALBUMIN 3.9 g/dL (3.5-5.0); CALCIUM 8.7 mg/dL (8.8-10.2); CREATININE 2.4 mg/dL (0.5-0.9); PHOSPHORUS 2.8 mg/dL (2.7-4.5); POTASSIUM 3.6 mmol/L (3.5-5.1)
[2018-10-04] MEDS: ZOFRAN IV PRN (17:45)
--- NOTE | 2018-10-05 14:15 | DISCHARGE SUMMARY ---
ADMISSION DATE: 09/15/2018 DISCHARGE DATE: 10/04/2018 ADMISSION DIAGNOSES: 1. Diabetes with hyperglycemia. 2. Stage 4 chronic kidney disease that is stable. 3. Metabolic acidosis secondary to kidney disease. 4. Leukocytosis. 5. Anemia of chronic disease. 6. Cellulitis, right lower extremity. 7. Hypertension. DISCHARGE DIAGNOSES: 1. End-stage renal disease, on dialysis per Dr. Petty' recommendation. Still continues to have good urine output. 2. Right lower extremity cellulitis. 3. Hypertension. 4. Morbid obesity. 5. Hypothyroidism. 6. Diabetes mellitus type 2. 7. Iron-deficiency anemia. CONSULTATIONS: 1. Dr. Brooks. 2. Dr. Petty. 3. General Surgery, Dr. Sauceda, for dialysis catheter placement. SURGERIES/PROCEDURES: On 09/23/2018, performed by Dr. Arun Sauceda, had insertion of tunnel dialysis catheter placed. HOSPITAL COURSE: On the evening of 09/15/2018, Ms. Yasemin Glaser, a 53-year-old, morbidly obese, female, presented to the emergency department with complaints of pain in her legs. She was seen in the ER by Dr. Fishman, and the patient was found to have cellulitis of the right lower extremity, along with leukocytosis on top having CKD stage 4. Apparently, she started having symptoms of redness and swelling in her right lower extremity 5 days prior to presentation. She had an Unna boot placed apparently from 09/02/2018 to 09/09/2018. The boot had been taken off on 09/09/2018, and on 09/11/2018 or 09/12/2018 is then the blisters and the redness started. The blisters or bulla areas had the skin peeled back, and pain had worsened. She was admitted and started on antibiotics and pain control. The antibiotics that she was started on were vancomycin and Rocephin, and it did seem, a few days after initiation, that the cellulitis was improving. She had developed some acute kidney injury on top of CKD stage 4, so the vancomycin was stopped on 09/19/2108, but apparently she was also on Lasix as well, and that was continued, and the Lasix was due to the swelling in the lower extremities, the edema. Due to the worsening kidney function and the cellulitis, she was transferred from [facility] to [facility] on 09/20/2018, was seen by Dr. Petty on 09/21/2018. He discontinued the Rocephin and Zyvox, and put the patient on Ancef, renally dosed. Dr. Brooks also saw her on 09/21/2018 for fluid volume overload and acute kidney injury on CKD stage 4, and she was initiated on high-dose diuretics at that time, which included Lasix and metolazone with no response. On 09/23/2018, Dr. Sauceda saw the patient for dialysis catheter placement, and so on that day, she had an insertion of a tunneled dialysis catheter. The patient stayed on renally-dosed Ancef despite dialysis being initiated. Her first dialysis treatment was on 09/24/2018. She had 5685 mL removed on 09/24/2018, and then on 09/25/2018, she had 4844 mL removed. She skipped 09/26/2018. She had 2.7 L removed on 09/27/2018, then 2.3 L removed on 09/28/2018, then 3.5 L removed on 09/30/2018, then 3.5 L removed on 10/02/2018, then 3.8 L removed on 10/04/2018, and she is to be set up for Thursday, Thursday, Thursday dialysis. She still continued on Lasix while receiving dialysis. She had an iron level that was low. She was initiated on IV iron supplementation, and her Ancef was changed to 1 gram IV after each dialysis, and by 09/27/2018, it appeared that the cellulitis had essentially cleared in the left leg, but in the right leg it was still there, but improving, and if she went home, he said Keflex 500 p.o. every 12 hours for another week, but that was on 09/27/2018, so she essentially got Ancef IV after each dialysis for the week instead of going home. During dialysis, Epogen was initiated due to the anemia. Physical Therapy saw her for ambulation. She also continued on oxygen while she was here. She was last dialyzed on the day of discharge, that was yesterday, 10/04/2018, and she had outpatient dialysis scheduled for Mondays, Wednesdays, and Fridays. Discharged on dialysis catheter, and she did not require anymore antibiotics. It is unclear if she went home with oxygen or not. DISCHARGE VITAL SIGNS: Temperature 97.7 degrees, heart rate 77, respiratory rate 19, blood pressure 145/54, O2 saturation 100% on 3 L nasal cannula. DISCHARGE LABORATORY DATA: White blood cells 10,000, hemoglobin 8, hematocrit 28, platelet count 320,000. Sodium 139, potassium 3.6, BUN 20, creatinine 2.4, glucose 173, calcium 8.7, albumin 3.9. MICROBIOLOGY: Blood culture is negative. Swab of the open wounds on the right leg showed no bacteria, no yeast, no growth. PERTINENT IMAGING: On 09/15/2018, chest x-ray: Pulmonary vascular congestion and mild interstitial pulmonary edema. On 09/19/2018, lower extremity ultrasound: Negative for DVT. It did shows soft tissue edema. On 09/23/2018, chest x-ray: No acute findings. No EKGs to report. DISCHARGE MEDICATIONS: 1. Omeprazole 20 mg p.o. daily. 2. ProAir 2 puffs every 4 to 6 hours p.r.n. 3. Symbicort 80/4.5 two puffs inhaled twice daily. 4. Apresoline 50 mg p.o. t.i.d. 5. Albuterol/Atrovent nebulizers 3 times a day. 6. Flonase to each nostril daily. 7. Neurontin 600 mg p.o. t.i.d. 8. Lasix 80 mg p.o. twice daily. 9. Braman 7.5 one tablet p.o. every 6 hours p.r.n. 10. Norvasc 10 mg p.o. daily. 11. Insulin, NPH regular or Novolin 70/30, 40 units subcutaneously twice daily. 12. Synthroid 100 mcg p.o. daily. 13. Metolazone 10 mg p.o. daily. DISCHARGE DIET: Renal and diabetic with Nepro shakes. DISCHARGE ACTIVITY: As tolerated. DISCHARGE FOLLOWUP: 1. Dr. Sauceda. 2. STEPHANIE Martinez. 3. Dr. Sachin Petty. 4. Dr. Sal Brooks. DISCHARGE INSTRUCTIONS: Wound care. Keep cellulitis areas clean and dry and elevated. If your condition changes, contact your physician and/or return to the emergency department. Changes may include, but are not limited to, shortness of breath, increased fatigue, excessive bleeding, unexplained weight loss or gain, unimaginable pain, signs or symptoms of infection. DISCHARGE DISPOSITION: Home. Dictated by STEPHANIE Merrill for Donnie Stanton MD Addendum: Patient seen and examined by myself. Agree with STEPHANIE note. It reflects my assessment and plan. Patient is being discharged in stable condition. Will continue with hemodialysis three times per week as scheduled by Nephrology. cc: STEPHANIE Merrill MD [facility]
== END 2018-10-04 18:53 | disposition home or self-care (01) | DRG 579 ==
LOC: P.ED 17:44 → SUATTDRO 20:32 → P.MEDSURG 20:32 → 1N 09-20 18:28
PROVIDERS: ATTEND Internal Medicine